=== PATIENT | female | born 1985 | race African-American/Black ===

== ENCOUNTER 2018-12-08 22:16 | Emergency (ER) | payer OTHER ==
[~2018-12-08] VITALS: Ht 165.1 cm; Wt 136.1 kg
[~2018-12-08 22:16] MED LIST: MONTELUKAST SOD10 MG PO; RANITIDINE HCL150 MG PO; SYMBICORT 16010.2 GM INH; XOPENEX HFA15 GM INH; ZOFRAN ODT4 MG SL
--- OUTSIDE RECORDS SUMMARY | 2018-12-08 22:18 | XMS REPORT | Clinical Summary ---
Author Author [facility] Organization [facility] Address Unknown Phone Unavailable Care Team Providers Care Master In Chancery Name Role Phone PCP Unavailable Allergies Not on File Medications Not on file Active Problems Not on file Encounters Care Team Description Date Type Specialty 05/27/2018 Clinical Corporate Wellness Support after 12/07/2017 Immunizations Name Dates Previously Given Next Due FLUCELVAX QUAD PF (0.5mL 05/27/2018 syringe) Social History Date Tobacco Use Types Packs/Day Years Used Never Assessed Sex Assigned at Date Recorded Not on file Industry Job Start Date Occupation Not on file Not on file Not on file Travel End Travel History Travel Start No recent travel history available. Last Filed Vital Signs Not on file Plan of Treatment Health Maintenance Due Date Last Done Comments CERVICAL CANCER SCREENING 2006 INFLUENZA VACCINE 04/06/2019 05/27/2018 Results Not on fileafter 12/07/2017 Insurance Payer Benefit Subscriber ID Type Phone Address Plan / Group CIGNA CIGNA OPEN xxxxxxxxxxx HMO ACCESS/NET WORK Advance Directives Patient has advance care planning documents on file. For more information, [place] nielson contact: Mauro Hollis [address] [place] [address]
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
--- OUTSIDE RECORDS SUMMARY | 2018-12-08 22:24 | XMS REPORT | Continuity of Care Document ---
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 40 mg, 2 tab, Route: PO, Drug form: TAB, ONCE, Dosing Weight 127.273, kg, Start date: 06/12/13 19:08:00, Stop date: 06/12/13 19:08:00Take with food. Inactive Juanjo 06/13/2013 [facility] meclizine 12.5 mg oral tablet 12.5 mg, 1 tab, PO, TID, PRN, 60 tab, for dizziness, Substitution Allowed, TAB Active Juanjo 06/12/2013 [facility] METRONIDazole 500 mg oral tablet 500 mg, 1 tab, PO, Q8H, 21 tab, Substitution Allowed Active Juanjo 06/12/2013 [facility] Cipro 500 mg oral tablet 500 mg, 1 tab, PO, Q12H, 14 tab, Substitution Allowed, TAB Active Juanjo 06/12/2013 [facility] meclizine 12.5 mg, 1 tab, Route: PO, Drug form: TAB, TID, Dosing Weight 127.273, kg, PRN Dizziness, Start date: 06/12/13 12:15:00, Duration: 30 day, Stop date: 07/12/13 12:14:00(Same as: Antivert) No Longer Active Juanjo 06/12/2013 [facility] meclizine 12.5 mg, Route: PO, Drug form: TAB, TID, Dosing Weight 127.273, kg, PRN Nausea & Vomiting, Start date: 06/12/13 12:14:00, Duration: 30 day, Stop date: 07/12/13 12:13:00 Inactive [facility] 06/12/2013 [facility] HYDROcodone-ibuprofen 7.5 mg-200 mg oral tablet 1 tab, Route: PO, Drug Form: TAB, Dosing Weight 127.273, kg, Q6H, PRN Pain, Start date: 06/11/13 15:38:00, Duration: 30 day, Stop date: 07/11/13 15:37:00(Same as: Vicoprofen) No Longer Active Munoz 06/11/2013 [facility] Nexium 40 mg, Route: PO, Daily, Dosing Weight 127.273, kg, Start date: 06/11/13 9:00:00, Duration: 30 day, Stop date: 07/10/13 9:00:00 No Longer Active Tegan 06/11/2013 [facility] Pepcid 40 mg oral tablet 40 mg, 2 tab, Route: PO, Drug form: TAB, Q12H, Dosing Weight 127.273, kg, Start date: 06/10/13 21:00:00, Duration: 30 day, Stop date: 07/10/13 9:00:00(Same as: Pepcid) No Longer Active Tegan 06/11/2013 [facility] Questran 4 gm, 1 pkt, Route: PO, Drug form: PDR/REC, TID- Before Meals, Dosing Weight 127.273, kg, Start date: 06/10/13 11:30:00, Duration: 30 day, Stop date: 07/10/13 7:30:00(Same As: Questran) No Longer Active Tegan 06/10/2013 [facility] Benadryl 50 mg, 1 mL, Route: IV, Drug form: INJ, Q6H, Dosing Weight 127.273, kg, PRN as needed for itching, Start date: 06/09/13 20:18:00, Duration: 30 day, Stop date: 07/09/13 20:17:00(Same as: Benadryl) No Longer Active Juanjo 06/10/2013 [facility] Benadryl 25 mg, 0.5 mL, Route: IVP, Drug form: INJ, ONCE, Dosing Weight 127.273, kg, PRN Itching, Priority: NOW, Start date: 06/09/13 20:17:00(Same as: Benadryl) Inactive Juanjo 06/10/2013 [facility] Microzide 12.5 mg, 1 cap, Route: PO, Drug form: CAP, Daily, Start date: 06/09/13 12:00:00, Duration: 30 day, Stop date: 07/09/13 9:00:00(Same as: Microzide) With food. No Longer Active Juanjo 06/09/2013 [facility] Flagyl 500 mg, 100 mL, Route: IVPB, Drug form: INJ, [id number], Dosing Weight 127.273, kg, Start date: 06/09/13 12:00:00, Duration: 30 day, Stop date: 07/09/13 0:00:00(Same as: Flagyl) Avoid alcohol. No Longer Active Juanjo 06/09/2013 [facility] Cipro 400 mg, 200 mL, Route: IVPB, Drug form: INJ, [id number], Dosing Weight 127.273, kg, Start date: 06/09/13 10:00:00, Duration: 30 day, Stop date: 07/08/13 22:00:00Do not refrigerate No Longer Active Juanjo 06/09/2013 [facility] albuterol 1.25 mg, 3 mL, Route: NEB, Drug form: SOLN, RTID, PRN Shortness of breath, Start date: 06/09/13 9:46:00, Duration: 30 day, Stop date: 07/09/13 9:45:00SEE RT DOCUMENTATION (Same as: Proventil) No Longer Active Juanjo 06/09/2013 [facility] Protonix 40 mg, Route: IVP, Daily, Dosing Weight 127.273, kg, Start date: 06/09/13 9:00:00, Duration: 30 day, Stop date: 07/08/13 9:00:00 No Longer Active Juanjo 06/09/2013 [facility] Nexium 40 mg, Route: IVP, Daily, Dosing Weight 127.273, kg, Start date: 06/09/13 9:00:00, Duration: 30 day, Stop date: 07/08/13 9:00:00, For IV push reconstitute with 10 ml 0.9% sodium chloride and push over at least 3 minutes.For IV push reconstitute with 10 ml 0.9% sodium chloride and push over at least 3 minutes. No Longer Active Juanjo 06/09/2013 [facility] hydrochlorothiazide 25 mg oral tablet 12.5 mg, 1 cap, Route: PO, Drug form: CAP, Daily, Dosing Weight 127.273, kg, Start date: 06/09/13 9:00:00, Duration: 30 day, Stop date: 07/08/13 9:00:00(Same as: Microzide) With food. Inactive Juanjo 06/09/2013 [facility] Symbicort 160/4.5 inhalation aerosol with adapter 2 inhalation, Route: INHALATION, Drug Form: AERO/A, Dosing Weight 127.273, kg, BID, Start date: 06/09/13 9:00:00, Duration: 30 day, Stop date: 07/08/13 17:00:00(Same as: Symbicort) No Longer Active Juanjo 06/09/2013 [facility] Xopenex HFA 2 puff, Route: INHALATION, Drug Form: AERO/A, Dosing Weight 127.273, kg, TID, PRN Allergies, Start date: 06/09/13 8:40:00, Duration: 30 day, Stop date: 07/09/13 8:39:00 Inactive [facility] 06/09/2013 [facility] Benadryl 25 mg, 0.5 mL, Route: IV, Drug form: INJ, Q6H, Dosing Weight 127.273, kg, PRN as needed for itching, Priority: NOW, Start date: 06/08/13 21:22:00, Duration: 30 day, Stop date: 07/08/13 21:21:00(Same as: Benadryl) No Longer Active Juanjo 06/09/2013 [facility] Benadryl 25 mg, 1 tab, Route: PO, Drug form: TAB, Q6H, Dosing Weight 127.273, kg, PRN as needed for itching, Priority: NOW, Start date: 06/08/13 20:05:00, Duration: 30 day, Stop date: 07/08/13 20:04:00 Inactive Juanjo 06/09/2013 [facility] Saline Flush 0.9% 5 ml, Route: IVP, Drug Form: INJ, Dosing Weight 127.273, kg, PRN, PRN Line Flush, Start date: 06/08/13 18:51:00, Duration: 30 day, Stop date: 07/08/13 18:50:00(Same as: BD Posiflush) No Longer Active Juanjo 06/08/2013 [facility] Dextrose 5% with 0.45% NaCl IV 1,000 mL 1,000 mL, Rate: 125 ml/hr, Infuse over: 8 hr, Route: IV, Dosing Weight 127.273 kg, Total Volume: 1,000, Start date: 06/08/13 18:51:00, Duration: 30 day, Stop date: 07/08/13 18:50:00 Inactive Juanjo 06/08/2013 [facility] morphine Sulfate 4 mg, 2 mL, Route: IVP, Drug form: INJ, Q4H, Dosing Weight 127.273, kg, PRN Pain Score 7-10, Start date: 06/08/13 18:51:00, Duration: 30 day, Stop date: 07/08/13 18:50:00(Same as:MORPhine Sulfate) No Longer Active Cynthia 06/08/2013 [facility] ondansetron 4 mg, 2 mL, Route: IVP, Drug form: INJ, Q8H, Dosing Weight 127.273, kg, PRN Nausea & Vomiting, Start date: 06/08/13 18:51:00, Duration: 30 day, Stop date: 07/08/13 18:50:00(Same as: Zofran) No Longer Active Juanjo 06/08/2013 [facility] Benadryl 12.5 mg, Route: IV, ONCE, Dosing Weight 127.273, kg, Start date: 06/08/13 18:06:00, Stop date: 06/08/13 18:06:00 [facility] morphine Sulfate 4 mg, Route: IVP, ONCE, Dosing Weight 127.273, kg, Start date: 06/08/13 18:05:00, Stop date: 06/08/13 18:05:00 Inactive Raúljennifer 06/08/2013 [facility] Protonix 40 mg, Route: IVP, Drug form: INJ, Before Dinner, Start date: 06/08/13 18:00:00, Duration: 30 day, Stop date: 07/08/13 16:30:00For IV push reconstitute with 10 ml 0.9% sodium chloride and push over 2 minutes. (Same as: Protonix) No Longer Active Tegan 06/08/2013 [facility] Imodium A-D 2 mg, 1 tab, Route: PO, Drug form: TAB, Q4H, Dosing Weight 127.273, kg, PRN as needed for loose stool, Start date: 06/08/13 16:00:00, Duration: 30 day, Stop date: 07/08/13 15:59:00(Same as: Imodium A-D) MAX Adult dose is 8 tabs/day No Longer Active Juanjo 06/08/2013 [facility] D5NS + KCL 20mEq/L 1000ml (Premix) 1,000 mL 1,000 mL, Rate: 100 ml/hr, Infuse over: 10 hr, Route: IV, Dosing Weight 127.273 kg, Total Volume: 1,000, Start date: 06/08/13 16:00:00, Duration: 30 day, Stop date: 07/08/13 15:59:00PREMIX IV - Do Not Alter No Longer Active Juanjo 06/08/2013 [facility] Zofran 4 mg, 2 mL, Route: IV, Drug form: INJ, Q8H, Dosing Weight 127.273, kg, PRN Nausea, Start date: 06/08/13 16:00:00, Duration: 30 day, Stop date: 07/08/13 15:59:00(Same as: Zofran) No Longer Active Juanjo 06/08/2013 [facility] Pepcid 20 mg, 2 mL, Route: IVP, Drug form: INJ, ONCE, Dosing Weight 127.273, kg, Start date: 06/08/13 15:29:00, Stop date: 06/08/13 15:29:00(Same as: Pepcid) Can be dilute in 5-10cc NS IVP: Slow IV push over at least 2 minutes. Inactive Cynthia 06/08/2013 [facility] SoluMedrol 125 mg, 2 mL, Route: IVP, Drug form: INJ, ONCE, Dosing Weight 127.273, kg, Priority: STAT, Start date: 06/08/13 15:28:00, Stop date: 06/08/13 15:28:00(Same as:Solu-Medrol, A-Methapred) Inactive [facility] 06/08/2013 [facility] Benadryl 12.5 mg, Route: IVP, ONCE, Dosing Weight 127.273, kg, Priority: STAT, Start date: 06/08/13 14:56:00, Stop date: 06/08/13 14:56:00 Inactive Mormon 06/08/2013 [facility] Zofran 4 mg, Route: IVP, ONCE, Dosing Weight 127.273, kg, Priority: STAT, Start date: 06/08/13 13:32:00, Stop date: 06/08/13 13:32:00 Inactive [facility] 06/08/2013 [facility] Dilaudid 1 mg, Route: IV, ONCE, Dosing Weight 127.273, kg, Priority: STAT, Start date: 06/08/13 13:32:00, Stop date: 06/08/13 13:32:00 Inactive [facility] 06/08/2013 [facility] morphine Sulfate 4 mg, Route: IVP, ONCE, Dosing Weight 127.273, kg, Priority: STAT, Start date: 06/08/13 11:47:00, Stop date: 06/08/13 11:47:00 Inactive [facility] 06/08/2013 [facility] morphine Sulfate 4 mg, Route: IVP, ONCE, Dosing Weight 127.273, kg, Priority: STAT, Start date: 06/08/13 9:42:00, Stop date: 06/08/13 9:42:00 Inactive [facility] 06/08/2013 [facility] Zofran 4 mg, Route: IVP, ONCE, Dosing Weight 127.273, kg, Priority: STAT, Start date: 06/08/13 9:17:00, Stop date: 06/08/13 9:17:00 Inactive [facility] 06/08/2013 [facility] Sodium Chloride 0.9% (Bolus) IV 1000 mL 1,000 mL, Rate: 100 ml/hr, Infuse over: 10 hr, Route: IV, Dosing Weight 127.273 kg, Total Volume: 1,000, Priority: STAT, Start date: 06/08/13 9:17:00, Stop date: 06/08/13 9:17:00, Bolus DoseBolus Dose Inactive [facility] 06/08/2013 [facility] Valium 5 mg, Route: IVP, Drug form: INJ, ONCE, Dosing Weight 122.727, kg, Priority: STAT, Start date: 04/21/13 14:56:00, Stop date: 04/21/13 14:56:00 IVP No Longer Active [facility] 04/21/2013 [facility] Gaylord 7.5/325 oral tablet 1-2 tab, PO, Q4-6H, PRN, 12 tab, Pain, Substitution Allowed, Maintenance PO Active [facility] 04/21/2013 [facility] Toradol 15 mg/mL injectable solution 30 mg, 1 mL, Route: IV, Drug form: INJ, ONCE, Dosing Weight 122.727, kg, Start date: 04/21/13 13:58:00, Stop date: 04/21/13 13:58:00 IV No Longer Active [facility] 04/21/2013 [facility] aspirin 324 mg, 4 tab, Route: CHEW, Drug form: CHEWTAB, ONCE, Dosing Weight 122.727, kg, Priority: STAT, Start date: 04/21/13 13:58:00, Stop date: 04/21/13 13:58:00 CHEW No Longer Active [facility] 04/21/2013 [facility] Zofran 4 mg, Route: IVP, Drug form: INJ, ONCE, Dosing Weight 122.727, kg, Priority: STAT, Start date: 04/21/13 13:47:00, Stop date: 04/21/13 13:47:00 IVP No Longer Active [facility] 04/21/2013 [facility] morphine Sulfate 4 mg, Route: IVP, Drug form: INJ, ONCE, Dosing Weight 122.727, kg, Priority: STAT, Start date: 04/21/13 13:47:00, Stop date: 04/21/13 13:47:00 IVP No Longer Active [facility] 04/21/2013 [facility] Zofran 4 mg, Route: IVP, Drug form: INJ, ONCE, Dosing Weight 122.727, kg, Priority: STAT, Start date: 04/21/13 12:03:00, Stop date: 04/21/13 12:03:00 IVP No Longer Active [facility] 04/21/2013 [facility] morphine Sulfate 4 mg, Route: IVP, Drug form: INJ, ONCE, Dosing Weight 122.727, kg, Priority: STAT, Start date: 04/21/13 12:03:00, Stop date: 04/21/13 12:03:00 IVP No Longer Active [facility] 04/21/2013 [facility] DuoNeb inhalation solution 3 ml, Route: INHALATION, Drug Form: SOLN, Dosing Weight 122.727, kg, PRN, PRN Respiratory Protocol, Start date: 04/21/13 12:02:00, Duration: 30 day, Stop date: 05/21/13 12:01:00 INHALATION No Longer Active [facility] 04/21/2013 [facility] NS (Bolus) IV 500 mL 500 mL, Rate: 500 ml/hr, Infuse over: 1 hr, Route: IV, Dosing Weight 122.727 kg, Total Volume: 500, Priority: STAT, Start date: 04/21/13 11:43:00, Duration: 1 doses or times, Stop date: 04/21/13 12:42:00, Bolus DoseBolus Dose IV No Longer Active [facility] 04/21/2013 [facility] Saline Flush 0.9% 5 mL, Route: IVP, Drug Form: INJ, Dosing Weight 122.727, kg, Q8H, PRN Line Flush, Start date: 04/21/13 11:38:00, Duration: 30 day, Stop date: 05/21/13 11:37:00, Administer at least once every 8 hoursAdminister at least once every 8 hours IVP No Longer Active [facility] 04/21/2013 [facility] Zofran ODT 4 mg oral tablet, disintegrating 4 mg, 1 tab, PO, BID, PRN, Dissolve tab under tongue, 10 tab, Nausea and Vomiting, Substitution AllowedDissolve tab under tongue PO Active Short 03/22/2013 [facility] Bentyl 10 mg oral capsule 10 mg, 1 cap, PO, QID, 28 cap, Substitution Allowed, CAP PO Active Short 03/22/2013 [facility] Phenergan 12.5 mg, Route: IVPB, ONCE, Dosing Weight 126.364, kg, Priority: STAT, Start date: 03/22/13 11:26:00, Stop date: 03/22/13 11:26:00 IVPB No Longer Active Short 03/22/2013 [facility] morphine Sulfate 4 mg, Route: IVP, Drug form: INJ, ONCE, Dosing Weight 126.364, kg, Priority: STAT, Start date: 03/22/13 11:22:00, Stop date: 03/22/13 11:22:00 IVP No Longer Active Short 03/22/2013 [facility] Zofran 4 mg, Route: IVP, Drug form: INJ, ONCE, Dosing Weight 126.364, kg, Priority: STAT, Start date: 03/22/13 9:46:00, Stop date: 03/22/13 9:46:00 IVP No Longer Active Short 03/22/2013 [facility] morphine Sulfate 4 mg, Route: IVP, ONCE, Dosing Weight 126.364, kg, Start date: 03/22/13 9:40:00, Stop date: 03/22/13 9:40:00 IVP No Longer Active Short 03/22/2013 [facility] Phenergan 12.5 mg, Route: IVPB, ONCE, Dosing Weight 126.364, kg, Priority: STAT, Start date: 03/22/13 9:40:00, Stop date: 03/22/13 9:40:00 IVPB No Longer Active Short 03/22/2013 [facility] NS (Bolus) IV 1000 mL 1,000 mL, Rate: 1,000 ml/hr, Infuse over: 1 hr, Route: IV, Dosing Weight 126.364 kg, Total Volume: 1,000, Priority: STAT, Start date: 03/22/13 9:39:00, Duration: 1 doses or times, Stop date: 03/22/13 10:38:00, Bolus DoseBolus Dose IV No Longer Active Short 03/22/2013 [facility] Zofran 4 mg, Route: IVP, Drug form: INJ, ONCE, Dosing Weight 126.364, kg, Priority: STAT, Start date: 03/22/13 8:20:00, Stop date: 03/22/13 8:20:00 IVP No Longer Active Short 03/22/2013 [facility] DuoNeb inhalation solution 3 ml, Route: INHALATION, Drug Form: SOLN, Dosing Weight 126.364, kg, PRN, PRN Respiratory Protocol, Start date: 03/22/13 7:40:00, Duration: 30 day, Stop date: 04/21/13 7:39:00 INHALATION No Longer Active Short 03/22/2013 [facility] Naprosyn 500 mg oral tablet 500 mg, 1 tab, PO, BID, 14 tab, Substitution Allowed, TAB PO Active [facility] 07/18/2012 [facility] Flexeril 10 mg oral tablet 10 mg, 1 tab, PO, TID, PRN, 15 tab, for spasm, Substitution Allowed, TAB PO Active [facility] 07/18/2012 [facility] acetaminophen-hydrocodone 500 mg-5 mg oral tablet 1-2 tab, PO, Q4-6H, PRN, 15 tab, Pain, Substitution Allowed, Maintenance PO Active [facility] 07/18/2012 [facility] Flexeril 10 mg, Route: PO, Drug form: TAB, ONCE, Dosing Weight 127.273, kg, PRN Spasm, Start date: 07/18/12 10:39:00 PO No Longer Active [facility] 07/18/2012 [facility] DuoNeb inhalation solution 3 ml, Route: INHALATION, Drug Form: SOLN, Dosing Weight 127.273, kg, ONCE, Start date: 07/18/12 8:34:00, Stop date: 07/18/12 8:34:00 INHALATION No Longer Active [facility] 07/18/2012 [facility] Toradol 30 mg/mL injectable solution 60 mg, Route: IM, ONCE, Dosing Weight 127.273, kg, Start date: 07/18/12 8:33:00, Stop date: 07/18/12 8:33:00 IM No Longer Active [facility] 07/18/2012 [facility] acetaminophen-hydrocodone 325 mg-5 mg oral tablet 1 tab, Route: PO, Drug Form: TAB, Dosing Weight 127.273, kg, ONCE, STAT, Start date: 07/18/12 8:32:00, Stop date: 07/18/12 8:32:00 PO No Longer Active Avivak 07/18/2012 [facility] Tylenol 650 mg, Route: PO, ONCE, Dosing Weight 127.273, kg, Priority: STAT, Start date: 07/18/12 8:07:00, Stop date: 07/18/12 8:07:00 PO No Longer Active Castano 07/18/2012 [facility] Flexeril 10 mg oral tablet 10 mg, 1 tab, PO, TID, PRN, 30 tab, Spasm, Substitution Allowed, TAB PO Active Mougjoseph 03/15/2012 [facility] Flexeril 10 mg, 1 tab, Route: PO, Drug form: TAB, TID, PRN Spasm, Start date: 03/15/12 14:47:00, Duration: 30 day, Stop date: 04/14/12 14:46:00 PO No Longer Active Momalik 03/15/2012 [facility] Symbicort 160/4.5 inhalation aerosol with adapter 2 inhalation, Route: INHALATION, Drug Form: AERO/A, Daily, Start date: 03/15/12 9:00:00, Duration: 30 day, Stop date: 04/13/12 9:00:00 INHALATION No Longer Active Celena 03/15/2012 [facility] SoluMedrol 20 mg, 0.5 mL, Route: IV, Drug form: INJ, Q8H, Start date: 03/15/12 0:00:00, Duration: 30 day, Stop date: 04/13/12 16:00:00 IV No Longer Active Celena 03/15/2012 [facility] Tylenol 650 mg, 2 tab, Route: PO, Drug form: TAB, Q4H, PRN See Nurse's Notes, Start date: 03/14/12 23:40:00, Duration: 30 day, Stop date: 04/13/12 23:39:00 PO No Longer Active Mignon 03/15/2012 [facility] ketorolac 15 mg, 1 mL, Route: IV, Drug form: INJ, Q6H, PRN Pain, Start date: 03/14/12 23:39:00, Duration: 4 doses or times, Stop date: Limited # of times IV No Longer Active Mignon 03/15/2012 [facility] Xopenex 0.63 mg, 3 mL, Route: NEB, Drug form: SOLN, RTID, Start date: 03/14/12 20:00:00, Duration: 30 day, Stop date: 04/13/12 14:00:00 NEB No Longer Active Mougouris 03/15/2012 [facility] Ativan 1 mg, 0.5 mL, Route: IV, Drug form: INJ, Q8H, PRN as needed for anxiety, Start date: 03/14/12 17:19:00, Duration: 30 day, Stop date: 04/13/12 17:18:00 IV No Longer Active Mougouris 03/14/2012 [facility] SoluMedrol 20 mg, 0.5 mL, Route: IV, Drug form: INJ, ONCE, Priority: STAT, Start date: 03/14/12 17:17:00, Stop date: 03/14/12 17:17:00 IV No Longer Active Mougouris 03/14/2012 [facility] Xopenex HFA 2 puff, Route: INHALATION, Drug Form: AERO/A, TID, Start date: 03/14/12 17:00:00, Duration: 30 day, Stop date: 04/13/12 13:00:00 INHALATION No Longer Active Mougouris 03/14/2012 [facility] enoxaparin 40 mg, 0.4 mL, Route: SUB-Q, Drug form: INJ, [id number], Start date: 03/14/12 15:00:00, Duration: 30 day, Stop date: 04/13/12 3:00:00 SUB-Q No Longer Active Mougouris 03/14/2012 [facility] Levaquin 500 mg, 100 mL, Route: IVPB, Drug form: INJ, [id number], Start date: 03/14/12 15:00:00, Duration: 30 day, Stop date: 04/12/12 15:00:00 IVPB No Longer Active Mougouris 03/14/2012 [facility] hydrochlorothiazide 25 mg oral tablet 25 mg, 1 tab, Route: PO, Drug form: TAB, Daily, Start date: 03/14/12 14:30:00, Duration: 30 day, Stop date: 04/13/12 9:00:00 PO No Longer Active Mougouris 03/14/2012 [facility] Benadryl 25 mg, 0.5 mL, Route: IV, Drug form: INJ, Q8H, PRN as needed for itching, Start date: 03/14/12 14:24:00, Duration: 30 day, Stop date: 04/13/12 14:23:00 IV No Longer Active Mougouris 03/14/2012 [facility] Phenergan + Sodium Chloride 0.9% IV 20 mL 12.5 mg, 0.5 mL, Route: IVP Central, Q6H, PRN Nausea & Vomiting, Start date: 03/14/12 14:22:00, Duration: 30 day, Stop date: 04/13/12 14:21:00 IVP Central No Longer Active Mougouris 03/14/2012 [facility] Dilaudid 2 mg, 1 mL, Route: IV, Drug form: INJ, Q3H, PRN Pain, Start date: 03/14/12 14:22:00, Duration: 30 day, Stop date: 04/13/12 14:21:00 IV No Longer Active Mougouris 03/14/2012 [facility] albuterol 0.083% inhalation solution 2.5 mg, 3.01 mL, Route: NEB, Drug form: SOLN, RQ6H, PRN Wheezing, Start date: 03/14/12 14:19:00, Duration: 30 day, Stop date: 04/13/12 14:18:00 NEB No Longer Active Mougouris 03/14/2012 [facility] Benadryl 25 mg, 0.5 mL, Route: IVP, Drug form: INJ, ONCE, PRN Itching, Start date: 03/14/12 11:42:00 IVP No Longer Active Mougouris 03/14/2012 [facility] Saline Flush 0.9% 5 ml, Route: IVP, Drug Form: INJ, PRN, PRN Line Flush, Start date: 03/13/12 23:27:00, Duration: 30 day, Stop date: 04/12/12 23:26:00 IVP No Longer Active Odilia 03/14/2012 [facility] Sodium Chloride 0.9% IV 1,000 mL 1,000 mL, Rate: 125 ml/hr, Infuse over: 8 hr, Route: IV, Dosing Weight 128.636 kg, Total Volume: 1,000, Start date: 03/13/12 23:27:00, Duration: 30 day, Stop date: 04/12/12 23:26:00 IV No Longer Active Odilia 03/14/2012 [facility] morphine Sulfate 4 mg, 2 mL, Route: IVP, Drug form: INJ, Q4H, PRN Pain Score 7-10, Start date: 03/13/12 23:27:00, Duration: 30 day, Stop date: 04/12/12 23:26:00 IVP No Longer Active Mougouris 03/14/2012 [facility] ondansetron 4 mg, 2 mL, Route: IVP, Drug form: INJ, Q6H, PRN Nausea & Vomiting, Start date: 03/13/12 23:27:00, Duration: 30 day, Stop date: 04/12/12 23:26:00 IVP No Longer Active Mougouris 03/14/2012 [facility] Vicodin 5/500 oral tablet 1 tab, PO, Q6H, PRN, for dental pain, Substitution Allowed, Soft Stop, TAB PO Active 03/14/2012 [facility] hydrochlorothiazide 25 mg oral tablet 25 mg, 1 tab, PO, Daily, 30 tab, Substitution Allowed PO Active Mougouris 03/14/2012 [facility] METRONIDazole 500 mg oral tablet 500 mg, 1 tab, PO, Q12H, 21 tab, Substitution Allowed PO Active 03/14/2012 [facility] Zofran ODT 4 mg, 1 tab, Route: PO, Drug form: TABDIS, ONCE, Start date: 03/13/12 22:06:00, Stop date: 03/13/12 22:06:00 PO No Longer Active Odilia 03/14/2012 [facility] Dilaudid 1 mg, 1 mL, Route: IV, Drug form: SOLN, ONCE, Start date: 03/13/12 22:06:00, Stop date: 03/13/12 22:06:00 IV No Longer Active Odilia 03/14/2012 [facility] Phenergan + Sodium Chloride 0.9% IV 50 mL 12.5 mg, 0.5 mL, Route: IVPB, ONCE, PRN as needed for nausea/vomiting, Priority: STAT, Start date: 03/13/12 18:02:00 IVPB No Longer Active Odilia 03/13/2012 [facility] Dilaudid 1 mg, Route: IV, ONCE, Start date: 03/13/12 18:01:00, Stop date: 03/13/12 18:01:00 IV No Longer Active Odilia 03/13/2012 [facility] Zofran ODT 4 mg oral tablet, disintegrating 4 mg, 1 tab, PO, TID, PRN, 10 tab, Nausea and Vomiting, Substitution Allowed PO Active Mormon 01/09/2012 [facility] Gaylord 5/325 oral tablet 1-2 tab, PO, Q4-6H, PRN, 15 tab, Pain, Substitution Allowed, Maintenance PO Active Mormon 01/09/2012 [facility] Nexium 40 mg oral delayed release capsule 40 mg, 1 cap, PO, Daily, 90 cap, Substitution Allowed PO Active Mormon 01/09/2012 [facility] morphine Sulfate 4 mg, 2 mL, Route: IVP, Drug form: INJ, ONCE, Priority: STAT, Start date: 01/09/12 4:12:00, Stop date: 01/09/12 4:12:00 IVP No Longer Active Mormon 01/09/2012 [facility] pantoprazole 40 mg, Route: IVP, ONCE, For IV push reconstitute with 10 ml 0.9% sodium chloride and push over at least 3 minutes, Priority: STAT, Start date: 01/09/12 1:59:00, Stop date: 01/09/12 1:59:00 IVP No Longer Active Mormon 01/09/2012 [facility] morphine Sulfate 2 mg, Route: IVP, ONCE, Priority: STAT, Start date: 01/09/12 1:59:00, Stop date: 01/09/12 1:59:00 IVP No Longer Active [facility] 01/09/2012 [facility] ondansetron 4 mg, Route: IVP, ONCE, Priority: STAT, Start date: 01/09/12 1:59:00, Stop date: 01/09/12 1:59:00 IVP No Longer Active [facility] 01/09/2012 [facility] Sodium Chloride 0.9% (Bolus) IV 1,000 mL 1,000 mL, Rate: 1,000 ml/hr, Infuse over: 1 hr, Route: IV, kg, Total Volume: 1,000, Bolus dose, Priority: STAT, Start date: 01/09/12 1:59:00, Duration: 1 doses or times, Stop date: 01/09/12 2:58:00 IV No Longer Active Mormon 01/09/2012 [facility] Saline Flush 0.9% 5 ml, Route: IVP, Drug Form: INJ, PRN, PRN Line Flush, Start date: 01/09/12 1:59:00, Duration: 24 hr, Stop date: 01/10/12 1:58:00 IVP No Longer Active Mormon 01/09/2012 [facility] Tylenol with Codeine #3 oral tablet 1 - 2 tab, PO, Q4H, PRN, 2 day, 20 tab, Pain, Substitution Allowed, 12/12/11 18:47:01, Acute PO Active Pena 12/10/2011 [facility] Cipro 500 mg oral tablet 500 mg, 1 tab, PO, Q12H, 14 tab, Substitution Allowed, TAB PO Active Pena 12/10/2011 [facility] Phenergan 25 mg oral tablet 25 mg, 1 tab, PO, Q4H, PRN, 15 tab, Nausea, Substitution Allowed PO Active Pena 12/10/2011 [facility] Rocephin 1 g/ NS (NaCl 0.9%) 50 mL IV solution 1 gm, Route: IVPB, Drug form: PDR/INJ, ONCE, Priority: STAT, Start date: 12/10/11 18:45:00, Stop date: 12/10/11 18:45:00 IVPB No Longer Active Pena 12/10/2011 [facility] Sodium Chloride 0.9% (Bolus) IV 1,000 mL 1,000 mL, Rate: 1,000 ml/hr, Infuse over: 1 hr, Route: IV, Dosing Weight 130.9 kg, Total Volume: 1,000, Priority: STAT, Start date: 12/10/11 16:28:00, Duration: 1 doses or times, Stop date: 12/10/11 17:27:00, Bolus DoseBolus Dose IV No Longer Active Pena 12/10/2011 [facility] Dilaudid 0.5 mg, Route: IV, ONCE, Priority: STAT, Start date: 12/10/11 13:54:00, Stop date: 12/10/11 13:54:00 IV No Longer Active Pena 12/10/2011 [facility] Phenergan 25 mg, Route: IVPB, ONCE, PRN Nausea, Priority: STAT, Start date: 12/10/11 13:53:00 IVPB No Longer Active Pena 12/10/2011 [facility] NS (Bolus) IV 1,000 mL 1,000 mL, Rate: 100 ml/hr, Infuse over: 10 hr, Route: IV, Dosing Weight 130.9 kg, Total Volume: 1,000, Start date: 12/10/11 11:13:00, Duration: 30 day, Stop date: 01/09/12 11:12:00 IV No Longer Active Selvin 12/10/2011 [facility] acetaminophen 650 mg, Route: PO, Drug form: TAB, ONCE, Priority: STAT, Start date: 12/10/11 11:13:00, Stop date: 12/10/11 11:13:00 PO No Longer Active Selvin 12/10/2011 [facility] morphine Sulfate 4 mg, Route: IVP, ONCE, Start date: 12/10/11 7:57:00, Stop date: 12/10/11 7:57:00 IVP No Longer Active Pena 12/10/2011 [facility] Sodium Chloride 0.9% (Bolus) IV 1000 mL 1,000 mL, Rate: 1,000 ml/hr, Infuse over: 1 hr, Route: IV, kg, Total Volume: 1,000, Priority: STAT, Start date: 12/10/11 7:57:00, Duration: 1 doses or times, Stop date: 12/10/11 8:56:00, Bolus DoseBolus Dose IV No Longer Active Pena 12/10/2011 [facility] Zofran ODT 4 mg, Route: PO, Drug form: TABDIS, ONCE, Start date: 12/10/11 7:57:00, Stop date: 12/10/11 7:57:00 PO No Longer Active Pena 12/10/2011 [facility] Saline Flush 0.9% 5 ml, Route: IVP, Drug Form: INJ, PRN, PRN Line Flush, Start date: 12/10/11 7:57:00, Duration: 24 hr, Stop date: 12/11/11 7:56:00 IVP No Longer Active Pena 12/10/2011 [facility] acetaminophen-hydrocodone 325 mg-5 mg oral tablet 1 tab, PO, Q4H, PRN, 9 tab, for pain, Substitution Allowed, Maintenance, TAB PO Active Puhi 11/19/2011 [facility] Gaylord 7.5/325 oral tablet 1 tab, Route: PO, Drug Form: TAB, Q4H, PRN Pain, STAT, Start date: 11/19/11 2:05:00, Duration: 30 day, Stop date: 12/19/11 2:04:00 PO No Longer Active Puhi 11/19/2011 [facility] morphine Sulfate 4 mg, Route: IVP, ONCE, Priority: STAT, Start date: 11/18/11 23:19:00, Stop date: 11/18/11 23:19:00 IVP No Longer Active Rachel 11/19/2011 [facility] Sodium Chloride 0.9% (Bolus) IV 1000 mL 1,000 mL, Rate: 1,000 ml/hr, Infuse over: 1 hr, Route: IV, kg, Total Volume: 1,000, Bolus Dose, Priority: STAT, Start date: 11/18/11 21:38:00, Duration: 1 doses or times, Stop date: 11/18/11 22:37:00 IV No Longer Active Puhi 11/19/2011 [facility] ondansetron 4 mg, Route: IVP, ONCE, Priority: STAT, Start date: 11/18/11 21:38:00, Stop date: 11/18/11 21:38:00 IVP No Longer Active Puhi 11/19/2011 [facility] Saline Flush 0.9% 5 ml, Route: IVP, Drug Form: INJ, PRN, PRN Line Flush, Start date: 11/18/11 21:38:00, Duration: 24 hr, Stop date: 11/19/11 21:37:00 IVP No Longer Active Puhi 11/19/2011 [facility] acetaminophen-codeine #3 1 tab, Route: PO, ONCE, STAT, Start date: 11/03/11 11:33:00, Stop date: 11/03/11 11:33:00 PO No Longer Active [facility] 11/03/2011 [facility] ondansetron 4 mg, Route: PO, Drug form: TABDIS, ONCE, Priority: STAT, Start date: 11/03/11 11:32:00, Stop date: 11/03/11 11:32:00 PO No Longer Active [facility] 11/03/2011 [facility] Azithromycin 5 Day Dose Pack 250 mg oral tablet 250 mg, 1 tab, PO, Daily, 1 pkg, Substitution Allowed, TAKE 2 TABLETS ON DAY 1; TAKE 1 TABLET ON DAYS 2 - 5TAKE 2 TABLETS ON DAY 1; TAKE 1 TABLET ON DAYS 2 - 5 PO Active [facility] 11/03/2011 [facility] azithromycin 500 mg oral tablet 1 tab, Route: PO, ONCE, Start date: 11/03/11 10:01:00, Stop date: 11/03/11 10:01:00 PO No Longer Active [facility] 11/03/2011 [facility] ceftriaxone 1 gm, Route: IM, ONCE, Priority: STAT, Start date: 11/03/11 10:00:00, Stop date: 11/03/11 10:00:00 IM No Longer Active [facility] 11/03/2011 [facility] ProAir HFA 90 mcg/inh inhalation aerosol with adapter 2 puff, INHALATION, Q4H, PRN, 9 gm, for wheezing, Substitution Allowed, Maintenance, AERO INHALATION Active [facility] 08/13/2011 [facility] doxycycline hyclate 100 mg oral tablet 100 mg, 1 tab, PO, BID, 28 tab, Substitution Allowed, TAB PO Active [facility] 08/13/2011 [facility] Naprosyn 500 mg oral tablet 500 mg, 1 tab, PO, BID, 14 tab, Substitution Allowed, TAB PO Active [facility] 08/13/2011 [facility] acetaminophen-hydrocodone 500 mg-5 mg oral tablet 1-2 tab, PO, Q4-6H, PRN, 15 tab, Pain, Substitution Allowed, Maintenance PO Active [facility] 08/13/2011 [facility] promethazine 25 mg oral tablet 25 mg, 1 tab, PO, Q4H, PRN, 15 tab, Nausea, Substitution Allowed PO Active [facility] 08/13/2011 [facility] morphine Sulfate 4 mg, Route: IVP, ONCE, Priority: STAT, Start date: 08/13/11 14:37:00, Stop date: 08/13/11 14:37:00 IVP No Longer Active [facility] 08/13/2011 [facility] Rocephin 250 mg, Route: IM, Drug form: PDR/INJ, ONCE, Start date: 08/13/11 12:46:00, Stop date: 08/13/11 12:46:00 IM No Longer Active [facility] 08/13/2011 [facility] Zithromax 500 mg oral tablet 1,000 mg, 4 tab, Route: PO, Drug form: TAB, ONCE, Start date: 08/13/11 12:45:00, Stop date: 08/13/11 12:45:00 PO No Longer Active [facility] 08/13/2011 [facility] Sodium Chloride 0.9% (Bolus) IV 1000 mL 1,000 mL, Rate: 1,000 ml/hr, Infuse over: 1 hr, Route: IV, Total Volume: 1,000, Bolus Dose, Priority: STAT, Start date: 08/13/11 11:27:00, Duration: 1 doses or times, Stop date: 08/13/11 12:26:00 IV No Longer Active [facility] 08/13/2011 [facility] Zofran 4 mg, Route: IVP, ONCE, Priority: STAT, Start date: 08/13/11 11:27:00, Stop date: 08/13/11 11:27:00 IVP No Longer Active [facility] 08/13/2011 [facility] morphine Sulfate 4 mg, Route: IVP, ONCE, Priority: STAT, Start date: 08/13/11 11:27:00, Stop date: 08/13/11 11:27:00 IVP No Longer Active [facility] 08/13/2011 [facility] Mucinex DM oral tablet, extended release 1 tab, PO, Q12H, 20 tab, Substitution Allowed, Maintenance, ERTAB PO Active [facility] 06/17/2011 [facility] Amoxil 500 mg oral tablet 1 TABLET, PO, ABXQ8H, 21 caplet, Substitution Allowed, TAB PO Active [facility] 06/17/2011 [facility] nicotine 14 mg, 1 patch, Route: TOP, Drug form: ERFILM, Daily, Start date: 06/17/11 9:00:00, Duration: 30 day, Stop date: 07/16/11 9:00:00 TOP No Longer Active [facility] 06/17/2011 [facility] Motrin 800 mg, 2 tab, Route: PO, Drug form: TAB, TID, PRN Pain, Start date: 06/16/11 23:24:00, Duration: 30 day, Stop date: 07/16/11 23:23:00 PO No Longer Active Rodriguez 06/17/2011 [facility] Saline Flush 0.9% 5 ml, Route: IVP, Drug Form: INJ, Q12H, Start date: 06/16/11 21:00:00, Duration: 30 day, Stop date: 07/16/11 9:00:00 IVP No Longer Active [facility] 06/17/2011 [facility] Mucinex DM 1 tab, Route: PO, Drug Form: ERTAB, Q12H, Start date: 06/16/11 21:00:00, Duration: 30 day, Stop date: 07/16/11 9:00:00 PO No Longer Active Rodriguez 06/17/2011 [facility] Amoxil 500 mg, 1 cap, Route: PO, Drug form: CAP, ABXQ8H, Start date: 06/16/11 21:00:00, Duration: 30 day, Stop date: 07/16/11 13:00:00 PO No Longer Active [facility] 06/17/2011 [facility] albuterol 0.083% inhalation solution 2.49 mg, 3 mL, Route: NEB, Drug form: SOLN, RQ6H, Start date: 06/16/11 20:00:00, Duration: 30 day, Stop date: 07/16/11 14:00:00 NEB No Longer Active [facility] 06/17/2011 [facility] aspirin 81 mg tablet, chewable 81 mg, 1 tab, Route: PO, Drug form: CHEWTAB, Q24H, Start date: 06/16/11 17:00:00, Duration: 30 day, Stop date: 07/15/11 17:00:00 PO No Longer Active Rodriguez 06/16/2011 [facility] Saline Flush 0.9% 5 ml, Route: IVP, Drug Form: INJ, PRN, PRN Line Flush, Start date: 06/16/11 16:18:00, Duration: 30 day, Stop date: 07/16/11 15:17:00 IVP No Longer Active [facility] 06/16/2011 [facility] acetaminophen 650 mg, 2 tab, Route: PO, Drug form: TAB, Q4H, PRN Headache, Start date: 06/16/11 16:18:00, Duration: 30 day, Stop date: 07/16/11 16:17:00 PO No Longer Active [facility] 06/16/2011 [facility] Sodium Chloride 0.9% IV 1,000 mL 1,000 mL, Rate: 50 ml/hr, Infuse over: 20 hr, Route: IV, Total Volume: 1,000, Start date: 06/16/11 16:18:00, Duration: 30 day, Stop date: 07/16/11 16:17:00 IV No Longer Active [facility] 06/16/2011 [facility] nitroglycerin SL Tab 0.4 mg, 1 tab, Route: SL, Drug form: TAB, Q5Min, PRN Chest Pain, Start date: 06/16/11 16:18:00, Duration: 3 doses or times, Stop date: Limited # of times SL No Longer Active [facility] 06/16/2011 [facility] morphine Sulfate 2 mg, 1 mL, Route: IVP, Drug form: INJ, Q15Min, PRN Chest Pain, Start date: 06/16/11 16:18:00, Duration: 2 doses or times, Stop date: Limited # of times IVP No Longer Active [facility] 06/16/2011 [facility] nitroglycerin 0.4 mg sublingual tablet 0.4 mg, 1 tab, Route: SL, Drug form: TAB, Q5Min, PRN Chest Pain, Start date: 06/16/11 15:58:00, Duration: 30 day, Stop date: 07/16/11 14:57:00 SL No Longer Active [facility] 06/16/2011 [facility] atropine 0.5 mg, 5 mL, Route: IVP, Drug form: INJ, PRN, PRN Bradycardia, Start date: 06/16/11 15:58:00, Duration: 30 day, Stop date: 07/16/11 14:57:00 IVP No Longer Active [facility] 06/16/2011 [facility] Lovenox 120 mg, 0.8 mL, Route: SUB-Q, Drug form: INJ, ONCE, Start date: 06/16/11 13:57:00, Stop date: 06/16/11 13:57:00 SUB-Q No Longer Active [facility] 06/16/2011 [facility] aspirin 324 mg, 4 tab, Route: CHEW, Drug form: CHEWTAB, ONCE, Priority: STAT, Start date: 06/16/11 13:57:00, Stop date: 06/16/11 13:57:00 CHEW No Longer Active [facility] 06/16/2011 [facility] ipratropium 0.5 mg, 2.5 mL, Route: NEB, Drug form: SOLN, Q15Min, Priority: STAT, Start date: 06/16/11 10:52:00, Duration: 2 doses or times, Stop date: 06/16/11 11:07:00 NEB No Longer Active [facility] 06/16/2011 [facility] albuterol 0.083% inhalation solution 2.49 mg, 3 mL, Route: NEB, Drug form: SOLN, Q15Min, Priority: STAT, Start date: 06/16/11 10:52:00, Duration: 3 doses or times, Stop date: 06/16/11 11:22:00 NEB No Longer Active [facility] 06/16/2011 [facility] Saline Flush 0.9% 5 ml, Route: IVP, Drug Form: INJ, PRN, PRN Line Flush, Start date: 06/16/11 10:50:00, Duration: 24 hr, Stop date: 06/17/11 10:49:00 IVP No Longer Active [facility] 06/16/2011 [facility] Allergies, Adverse Reactions, Alerts Substance Category Reaction Severity Reaction type Status Date Reported Comments Source penicillins Assertion Drug allergy Active [facility] morphine Assertion Drug allergy Active [facility] Dilaudid propensity to adverse reactions to substance Adverse Reaction [facility] Protonix IV drug allergy Allergy [facility] Immunizations Immunization Date Given Site Status Last Updated Comments Source Results Order Name Results Value Reference Range Date Interpretation Comments Source Abdomen RUQ US Abdomen RUQ US Clinical Indication: Right upper quadrant abdominal pain for 3 weeks. Comparison: None TECHNIQUE: Grayscale and limited color sonographic evaluation of the right upper quadrant of the abdomen was performed with standard technique. FINDINGS: Evaluation is limited due to the patient's body habitus and resultant diffuse overlying bowel gas. LIVER: The visualized liver shows normal contour, size, and morphology with normal parenchymal echo texture. Liver measures at the upper limits of normal, at 16.8 cm in the craniocaudal dimension. Limited visualized portal vein is grossly patent and of normal caliber, measuring 8.8 mm in diameter. Appropriate hepatopedal flow is appreciated. BILE DUCTS: The intrahepatic and extrahepatic bile ducts are not dilated with the common bile duct measuring 3.9 mm. The distal common bile duct is not well seen. GALLBLADDER: Gallbladder appears contracted/decompressed. No definitive sonographic evidence of gallstones, gallbladder wall thickening (gallbladder wall measuring 2.8 mm) or pericholecystic cystic fluid is noted. PANCREAS: The visualized pancreas appears unremarkable.. KIDNEY: The right kidney measures 11.6 x 5.2 x 5.2 cm. There is normal renal contour and morphology, with normal parenchymal echotexture. There is no hydronephrosis. AORTA AND INFERIOR VENA CAVA: Visualized portions appear unremarkable. ASCITES: There is no right upper quadrant abdominal ascites. IMPRESSION: 1. Evaluation limited due to patient's body habitus and resultant diffuse overlying bowel gas. 2. No visualized sonographic evidence of acute pathology in the right upper quadrant of the abdomen. 3. Gallbladder appears contracted/decompressed. This is most commonly due to recent alimentation. SL: [id number] 07/06/2018 - - Read by: Jp Ramos DO Dictated Date/time: 07/06/18 12:25 Electronically Signed by: Jp Ramos DO 07/06/18 12:32 FINAL REPORT [facility] CARDIAC ENZYMES CK MB Index null 0.0 - 2.5 02/01/2018 [facility] CARDIAC ENZYMES Troponin-I null 0.00 - 0.40 02/01/2018 [facility] CARDIAC ENZYMES Total CK 82 unit/L 12 - 191 02/01/2018 [facility] CARDIAC ENZYMES CK MB null 0.5 - 3.6 02/01/2018 [facility] ELECTROLYTES Potassium Lvl 4.1 meq/L 3.5 - 5.1 02/01/2018 [facility] ELECTROLYTES Chloride Lvl 106 meq/L 95 - 109 02/01/2018 [facility] ELECTROLYTES Calcium Lvl 8.7 mg/dL 8.5 - 10.5 02/01/2018 [facility] ELECTROLYTES Sodium Lvl 137 meq/L 135 - 145 02/01/2018 [facility] ELECTROLYTES eGFR 116 mL/min/1.73m2 02/01/2018 Result Comment: The eGFR is calculated using the CKD-EPI formula. In most young, healthy individuals the eGFR will be >90 mL/min/1.73m2. The eGFR declines with age. An eGFR of 60-89 may be normal in some populations, particularly the elderly, for whom the CKD-EPI formula has not been extensively validated. Use of the eGFR is not recommended in the following populations: Individuals with unstable creatinine concentrations, including patients and those with serious co-morbid conditions. Patients with extremes in muscle mass or diet. The data above are obtained from the National Kidney Disease Education Program (NKDEP) which additionally recommends that when the eGFR is used in patients with extremes of body mass index for purposes of drug dosing, the eGFR should be multiplied by the estimated BMI. [facility] ELECTROLYTES Bili Total 0.1 mg/dL 0.2 - 1.3 02/01/2018 [facility] ELECTROLYTES Alk Phos 74 unit/L 39 - 136 02/01/2018 [facility] ELECTROLYTES ALT 32 unit/L 0 - 65 02/01/2018 [facility] ELECTROLYTES AST 16 unit/L 0 - 37 02/01/2018 [facility] ELECTROLYTES A/G Ratio 0.8 0.7 - 1.6 02/01/2018 [facility] ELECTROLYTES Globulin 4.4 g/dL 2.7 - 4.2 02/01/2018 [facility] ELECTROLYTES Albumin Lvl 3.4 g/dL 3.5 - 5.0 02/01/2018 [facility] ELECTROLYTES Glucose Lvl 93 mg/dL 70 - 99 02/01/2018 [facility] ELECTROLYTES BUN 11 mg/dL 7 - 22 02/01/2018 [facility] ELECTROLYTES Creatinine Lvl 0.78 mg/dL 0.50 - 1.40 02/01/2018 [facility] ELECTROLYTES AGAP 12.1 meq/L 10.0 - 20.0 02/01/2018 [facility] ELECTROLYTES Total Protein 7.8 g/dL 6.4 - 8.4 02/01/2018 [facility] ELECTROLYTES B/C Ratio 14 6 - 25 02/01/2018 [facility] ELECTROLYTES CO2 23 meq/L 24 - 32 02/01/2018 [facility] HEMATOLOGY Eosinophils # 0.1 K/CMM 0.0 - 0.5 02/01/2018 [facility] HEMATOLOGY Monocytes # 0.5 K/CMM 0.0 - 0.8 02/01/2018 [facility] HEMATOLOGY Lymphocytes # 2.3 K/CMM 1.0 - 5.5 02/01/2018 [facility] HEMATOLOGY Segs-Bands # 5.3 K/CMM 1.5 - 8.1 02/01/2018 [facility] HEMATOLOGY Basophils 0.6 % 0.0 - 1.0 02/01/2018 [facility] HEMATOLOGY Eosinophils 1.4 % 0.0 - 4.0 02/01/2018 [facility] HEMATOLOGY Segs 64.2 % 45.0 - 75.0 02/01/2018 [facility] Lymphocytes 28.0 % 20.0 - 40.0 02/01/2018 [facility] Monocytes 5.8 % 2.0 - 12.0 02/01/2018 [facility] MCV 81.4 fL 80.0 - 98.0 02/01/2018 [facility] Hct 39.3 % 36.0 - 48.0 02/01/2018 [facility] MCHC 33.3 g/dL 32.0 - 36.0 02/01/2018 [facility] MCH 27.1 pg 27.0 - 31.0 02/01/2018 [facility] MPV 8.8 fL 7.4 - 10.4 02/01/2018 [facility] Platelet 286 K/CMM 133 - 450 02/01/2018 [facility] RDW 13.5 % 11.5 - 14.5 02/01/2018 [facility] RBC 4.82 M/CMM 4.20 - 5.40 02/01/2018 [facility] Hgb 13.1 g/dL 12.0 - 16.0 02/01/2018 [facility] WBC 8.3 K/CMM 3.7 - 10.4 02/01/2018 [facility] Chest 2 views DX Chest 2 views DX Exam: Chest X-ray 2 views : CLINICAL HISTORY: - chest pain. Comparison: August 04, 2017. Findings: PA and lateral views of the chest are obtained. The heart size is normal. The hilar and mediastinal structures are normal. The lungs are clear without consolidation or effusion. No acute bony abnormality. Pulmonary vascularity is normal. Impression: No active disease . 02/01/2018 - - Read by: Candace Downing MD Dictated Date/time: 02/01/18 13:36 Electronically Signed by: Candace Downing MD 02/01/18 13:36 FINAL REPORT [facility] CHEM PANEL Lipase Lvl 154 unit/L 73 - 393 10/06/2017 [facility] CHEM PANEL Globulin 4.3 g/dL 2.7 - 4.2 10/06/2017 [facility] CHEM PANEL A/G Ratio 0.8 0.7 - 1.6 10/06/2017 [facility] CHEM PANEL B/C Ratio 21 6 - 25 10/06/2017 [facility] CHEM PANEL AGAP 10.8 meq/L 10.0 - 20.0 10/06/2017 [facility] CHEM PANEL Potassium Lvl 3.8 meq/L 3.5 - 5.1 10/06/2017 [facility] CHEM PANEL Sodium Lvl 141 meq/L 135 - 145 10/06/2017 [facility] CHEM PANEL Chloride Lvl 108 meq/L 95 - 109 10/06/2017 [facility] CHEM PANEL Calcium Lvl 9.0 mg/dL 8.5 - 10.5 10/06/2017 [facility] CHEM PANEL Bili Total 0.2 mg/dL 0.2 - 1.3 10/06/2017 [facility] CHEM PANEL Total Protein 7.7 g/dL 6.4 - 8.4 10/06/2017 [facility] CHEM PANEL ALT 26 unit/L 0 - 65 10/06/2017 [facility] CHEM PANEL Alk Phos 76 unit/L 39 - 136 10/06/2017 [facility] CHEM PANEL eGFR 133 mL/min/1.73m2 10/06/2017 Result Comment: The eGFR is calculated using the CKD-EPI formula. In most young, healthy individuals the eGFR will be >90 mL/min/1.73m2. The eGFR declines with age. An eGFR of 60-89 may be normal in some populations, particularly the elderly, for whom the CKD-EPI formula has not been extensively validated. Use of the eGFR is not recommended in the following populations: Individuals with unstable creatinine concentrations, including patients and those with serious co-morbid conditions. Patients with extremes in muscle mass or diet. The data above are obtained from the National Kidney Disease Education Program (NKDEP) which additionally recommends that when the eGFR is used in patients with extremes of body mass index for purposes of drug dosing, the eGFR should be multiplied by the estimated BMI. [facility] CHEM PANEL AST 11 unit/L 0 - 37 10/06/2017 [facility] CHEM PANEL CO2 26 meq/L 24 - 32 10/06/2017 [facility] CHEM PANEL Albumin Lvl 3.4 g/dL 3.5 - 5.0 10/06/2017 [facility] CHEM PANEL BUN 15 mg/dL 7 - 22 10/06/2017 [facility] CHEM PANEL Creatinine Lvl 0.70 mg/dL 0.50 - 1.40 10/06/2017 [facility] CHEM PANEL Glucose Lvl 88 mg/dL 70 - 99 10/06/2017 [facility] ENDOCRINOLOGY S Preg Negative *NA* (10/06/17 3:00 PM) Negative 10/06/2017 [facility] HEMATOLOGY RDW 13.8 % 11.5 - 14.5 10/06/2017 [facility] HEMATOLOGY MCHC 33.4 g/dL 32.0 - 36.0 10/06/2017 [facility] HEMATOLOGY MCV 80.0 fL 80.0 - 98.0 10/06/2017 [facility] HEMATOLOGY MCH 26.7 pg 27.0 - 31.0 10/06/2017 [facility] HEMATOLOGY Platelet 307 K/CMM 133 - 450 10/06/2017 [facility] HEMATOLOGY MPV 8.3 fL 7.4 - 10.4 10/06/2017 [facility] HEMATOLOGY RBC 4.60 M/CMM 4.20 - 5.40 10/06/2017 [facility] HEMATOLOGY Hct 36.8 % 36.0 - 48.0 10/06/2017 [facility] HEMATOLOGY Hgb 12.3 g/dL 12.0 - 16.0 10/06/2017 [facility] HEMATOLOGY WBC 9.6 K/CMM 3.7 - 10.4 10/06/2017 [facility] HEMATOLOGY Lymphocytes 25.6 % 20.0 - 40.0 10/06/2017 [facility] HEMATOLOGY Eosinophils 1.5 % 0.0 - 4.0 10/06/2017 [facility] HEMATOLOGY Basophils 0.9 % 0.0 - 1.0 10/06/2017 [facility] HEMATOLOGY Monocytes 5.7 % 2.0 - 12.0 10/06/2017 [facility] HEMATOLOGY Segs-Bands # 6.3 K/CMM 1.5 - 8.1 10/06/2017 [facility] HEMATOLOGY Monocytes # 0.5 K/CMM 0.0 - 0.8 10/06/2017 [facility] HEMATOLOGY Lymphocytes # 2.5 K/CMM 1.0 - 5.5 10/06/2017 [facility] HEMATOLOGY Basophils # 0.1 K/CMM 0.0 - 0.2 10/06/2017 [facility] HEMATOLOGY Eosinophils # 0.1 K/CMM 0.0 - 0.5 10/06/2017 [facility] HEMATOLOGY Segs 66.3 % 45.0 - 75.0 10/06/2017 [facility] URINE AND STOOL UA Color Straw 10/06/2017 [facility] URINE AND STOOL UA Urobilinogen <=1.0 mg/dL 0.1 - 1.0 10/06/2017 [facility] URINE AND STOOL UA Ketones Negative 10/06/2017 [facility] URINE AND STOOL UA Blood Negative (10/06/17 2:30 PM) Negative 10/06/2017 [facility] URINE AND STOOL UA Bili Negative *NA* (10/06/17 2:30 PM) Negative 10/06/2017 [facility] URINE AND STOOL UA Glucose Negative mg/dL Negative mg/dL 10/06/2017 [facility] URINE AND STOOL UA Nitrite Negative (10/06/17 2:30 PM) Negative 10/06/2017 [facility] URINE AND STOOL UA Turbidity Clear (10/06/17 2:30 PM) Clear 10/06/2017 [facility] URINE AND STOOL UA Leuk Est Negative (10/06/17 2:30 PM) Negative 10/06/2017 [facility] URINE AND STOOL UA Sq Epi Occasional /LPF Few /LPF 10/06/2017 [facility] URINE AND STOOL UA WBC 1 /HPF 0 - 5 10/06/2017 [facility] URINE AND STOOL UA Mucus Few /LPF None Seen /LPF 10/06/2017 [facility] URINE AND STOOL UA pH 5.0 5.0 - 8.0 10/06/2017 [facility] URINE AND STOOL UA Spec Grav 1.012 <=1.030 10/06/2017 [facility] URINE AND STOOL UA Protein Negative mg/dL Negative mg/dL 10/06/2017 [facility] ED Abdomen/Pelvis IV contrast only CT ED Abdomen/Pelvis IV contrast only CT Exam: CT Scan of the abdomen and pelvis with contrast Reason for Exam: - abdominal pain Comparison Exam: CT scan 11/28/2015 Technique: Multiple axial images were obtained of the abdomen and pelvis. 5 mm slices were acquired after injection of 100 cc Omnipaque 300 IV. Reformatted sagittal and coronal images were obtained for additional diagnostic information. Total exam GDF=1851 mGy-cm. This exam was performed according to our departmental dose-optimization program, which includes automated exposure control, adjustment of the MA and/or KV according to patient size and/or use of iterative reconstruction technique. Discussion: Visualized portions of the lung bases are unremarkable. Gallbladder is contracted. It is otherwise unremarkable. Liver is unremarkable. Portal venous system is patent. Stomach is unremarkable. Pancreas, adrenal glands, and spleen are within normal limits. Kidneys are unremarkable. No hydronephrosis or hydroureter. No dilated loops of bowel. The appendix is normal. Uterus and bladder are unremarkable. No appreciable lymphadenopathy. No ventral or internal hernia identified. No acute bony abnormalities appreciated. No suspicious osteoblastic or osteolytic lesions. No evidence seen for abdominal aortic aneurysm or dissection. Impression: 1. No acute abnormalities seen within the abdomen or pelvis. 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 FINDINGS: The study is technically limited secondary to body habitus Liver: Craniocaudal length: 16.8 cm. (Borderline enlarged) Echogenicity: Increased and coarsened Surface nodularity: None. Mass (size and location): None. Portal vein: Normal. Bile ducts: Common bile duct diameter: 4 mm. Intrahepatic ducts: Normal. Gallbladder: Poor visualization, contracted Gallstones: None. Gallbladder sludge: None. Gallbladder wall: 3 mm. Normal. Pericholecystic fluid: None. Sonographic Bell sign: Absent. Pancreas: Head and uncinate process: Normal. Body and tail: Not seen. Right kidney: Hydronephrosis: None. Size: 11.6 x 5.2 x 5.2 cm. Normal. Echogenicity: Normal. Mass/Stone/Cyst (size and location): None. Abdominal aorta and IVC: Visualized portions are normal. Ascites: None. IMPRESSION: 1. Technically limited study without suggestion of acute cholecystitis 2. Stable, slightly coarsened hepatic echotexture suggesting chronic appendiceal disease 10/06/2017 - - Read by: Amish Albarran MD Dictated Date/time: 10/06/17 15:10 Electronically Signed by: Amish Albarran MD 10/06/17 15:13 FINAL REPORT [facility] URINE AND STOOL UA Sq Epi Occasional /LPF Few /LPF 08/05/2017 [facility] URINE AND STOOL UA Mucus Few /LPF None Seen /LPF 08/05/2017 [facility] URINE AND STOOL UA Urobilinogen <=1.0 mg/dL 0.1 - 1.0 08/05/2017 [facility] URINE AND STOOL UA Color Ltyellow 08/05/2017 [facility] URINE AND STOOL UA Nitrite Negative (08/04/17 7:32 PM) Negative 08/05/2017 [facility] URINE AND STOOL UA Leuk Est Negative (08/04/17 7:32 PM) Negative 08/05/2017 [facility] URINE AND STOOL UA Blood Negative (08/04/17 7:32 PM) Negative 08/05/2017 [facility] URINE AND STOOL UA Bili Negative *NA* (08/04/17 7:32 PM) Negative 08/05/2017 [facility] URINE AND STOOL UA Ketones Negative mg/dL Negative mg/dL 08/05/2017 [facility] URINE AND STOOL UA Protein Negative mg/dL Negative mg/dL 08/05/2017 [facility] URINE AND STOOL UA pH 5.0 5.0 - 8.0 08/05/2017 [facility] URINE AND STOOL UA Glucose Negative mg/dL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 Individuals with unstable creatinine concentrations, including patients and those with serious co-morbid conditions. Patients with extremes in muscle mass or diet. The data above are obtained from the National Kidney Disease Education Program (NKDEP) which additionally recommends that when the eGFR is used in patients with extremes of body mass index for purposes of drug dosing, the eGFR should be multiplied by the estimated BMI. [facility] CHEM PANEL AGAP 12.9 meq/L 10.0 - 20.0 09/01/2015 [facility] CHEM PANEL A/G Ratio 0.8 0.7 - 1.6 09/01/2015 [facility] CHEM PANEL Globulin 4.6 g/dL 2.0 - 4.0 09/01/2015 [facility] CHEM PANEL B/C Ratio 12 6 - 25 09/01/2015 [facility] HEMATOLOGY Basophils 0.5 % 0.0 - 1.0 09/01/2015 [facility] Segs 82.4 % 45.0 - 75.0 09/01/2015 [facility] Lymphocytes 12.9 % 20.0 - 40.0 09/01/2015 [facility] Monocytes # 0.4 K/CMM 0.0 - 0.8 09/01/2015 [facility] Segs-Bands # 8.2 K/CMM 1.5 - 8.1 09/01/2015 [facility] Lymphocytes # 1.3 K/CMM 1.0 - 5.5 09/01/2015 [facility] Monocytes 3.8 % 2.0 - 12.0 09/01/2015 [facility] Eosinophils 0.4 % 0.0 - 4.0 09/01/2015 [facility] MCH 26.1 pg 27.0 - 31.0 09/01/2015 [facility] MCHC 31.6 g/dL 32.0 - 36.0 09/01/2015 [facility] RDW 13.3 % 11.5 - 14.5 09/01/2015 [facility] Platelet 321 K/CMM 133 - 450 09/01/2015 [facility] MCV 82.7 fL 80.0 - 98.0 09/01/2015 [facility] MPV 8.8 fL 7.4 - 10.4 09/01/2015 [facility] WBC 10.0 K/CMM 3.7 - 10.4 09/01/2015 [facility] RBC 5.05 M/CMM 4.20 - 5.40 09/01/2015 [facility] Hgb 13.2 g/dL 12.0 - 16.0 09/01/2015 [facility] Hct 41.7 % 36.0 - 48.0 09/01/2015 [facility] Chest w contrast CT Chest w contrast CT CT Angiogram of Chest: TECHNIQUE: Contiguous transaxial images of the pulmonary arteries were performed at 2.5 mm intervals. 3-D volume rendering of the pulmonary vessels was performed on a dedicated workstation. COMPARISON: 04/03/2015 CLINICAL HX: Chest pain PULMONARY VESSELS: The main pulmonary trunk, right and left main pulmonary arteries, and the lobar branches are well opacified with IV contrast. No intraluminal filling defects are evident to suggest pulmonary emboli on the axial and 3D volume reformation images. CT CHEST: Lower Neck and Thyroid: Symmetric appearance of thyroid gland without focal abnormality. Lungs and Airways: The lungs and pleural spaces are clear. The trachea and the proximal bronchi are patent. Cardiovascular and Mediastinum: Mild cardiomegaly. The aorta demonstrates normal morphology, no evidence for aneurysm or dissection. No significant lymphadenopathy is noted in the mediastinum or hilar regions. Bone and Soft tissue: No significant bony abnormality is noted. Esophagus and Upper Abdomen: The esophagus demonstrates normal morphology. Fatty infiltration of liver. There is increase attenuation noted in the entire caudate lobe. This may represent focal fatty sparing versus an underlying mass such as a hemangioma. The appearance has not changed significantly from previous study of 04/03/2015. IMPRESSION: No evidence for pulmonary emboli. Mild cardiomegaly. Focal fatty infiltration of liver. Increased attenuation in the caudate lobe may be secondary to focal fatty sparing versus a hemangioma. Nonemergent contrast MRI of liver is recommended for further evaluation. SL:13 09/01/2015 - - Read by: Kiet Rubin MD Dictated Date/time: 09/01/15 11:37 Electronically Signed by: Kiet Rubin MD 09/01/15 11:45 FINAL REPORT [facility] Abdomen RUQ US Abdomen RUQ US RUQ abdomen ultrasound: TECHNIQUE: Multiple static transabdominal images of the right upper quadrant are submitted for review. COMPARISON: 02/15/2015 CLINICAL HX: Right upper quadrant pain FINDINGS: Liver : Heterogeneous and coarsened echotexture of the liver suggests diffuse but nonspecific hepatocellular disease. Gall bladder and bile ducts: Gall bladder is sonolucent without evidence for gall stones. CBD measures 3 mm. Pancreas : Pancreas is largely obscured by bowel gas. Right kidney: Right kidney demonstrates normal morphology and measures approximately 11.6 cm in the greatest sagittal diameter. No hydronephrosis. IMPRESSION: Heterogeneous and coarsened echotexture of the liver suggests diffuse but nonspecific hepatocellular disease. No other significant sonographic abnormality is noted. There is no evidence for gallstones. SL:13 09/01/2015 - - Read by: Kiet Rubin MD Dictated Date/time: 09/01/15 09:22 Electronically Signed by: Kiet Rubin MD 09/01/15 09:25 FINAL REPORT [facility] CHEM PANEL Glucose Lvl 86 mg/dL 70 - 99 05/23/2015 [facility] CHEM PANEL Bili Total 0.3 mg/dL 0.2 - 1.3 05/23/2015 [facility] CHEM PANEL Albumin Lvl 3.5 g/dL 3.5 - 5.0 05/23/2015 [facility] CHEM PANEL Alk Phos 70 unit/L 39 - 136 05/23/2015 [facility] CHEM PANEL BUN 12 mg/dL 7 - 22 05/23/2015 [facility] CHEM PANEL CO2 30 meq/L 24 - 32 05/23/2015 [facility] CHEM PANEL Total Protein 7.5 g/dL 6.4 - 8.4 05/23/2015 [facility] CHEM PANEL AST 12 unit/L 0 - 37 05/23/2015 [facility] CHEM PANEL ALT 25 unit/L 0 - 65 05/23/2015 [facility] CHEM PANEL eGFR 115 mL/min/1.73m2 05/23/2015 Result Comment: The eGFR is calculated using the CKD-EPI formula. In most young, healthy individuals the eGFR will be >90 mL/min/1.73m2. The eGFR declines with age. An eGFR of 60-89 may be normal in some populations, particularly the elderly, for whom the CKD-EPI formula has not been extensively validated. Use of the eGFR is not recommended in the following populations: Individuals with unstable creatinine concentrations, including patients and those with serious co-morbid conditions. Patients with extremes in muscle mass or diet. The data above are obtained from the National Kidney Disease Education Program (NKDEP) which additionally recommends that when the eGFR is used in patients with extremes of body mass index for purposes of drug dosing, the eGFR should be multiplied by the estimated BMI. [facility] CHEM PANEL Creatinine Lvl 0.8 mg/dL 0.5 - 1.4 05/23/2015 [facility] CHEM PANEL Potassium Lvl 3.9 meq/L 3.5 - 5.1 05/23/2015 [facility] CHEM PANEL Sodium Lvl 137 meq/L 135 - 145 05/23/2015 [facility] CHEM PANEL Chloride Lvl 105 meq/L 95 - 109 05/23/2015 [facility] CHEM PANEL Calcium Lvl 8.6 mg/dL 8.5 - 10.5 05/23/2015 [facility] CHEM PANEL A/G Ratio 0.9 0.7 - 1.6 05/23/2015 [facility] CHEM PANEL AGAP 5.9 meq/L 10.0 - 20.0 05/23/2015 [facility] CHEM PANEL B/C Ratio 15 6 - 25 05/23/2015 [facility] CHEM PANEL Globulin 4.0 g/dL 2.0 - 4.0 05/23/2015 [facility] HEMATOLOGY Platelet 283 K/CMM 133 - 450 05/23/2015 [facility] HEMATOLOGY MPV 8.7 fL 7.4 - 10.4 05/23/2015 [facility] HEMATOLOGY Hgb 12.3 g/dL 12.0 - 16.0 05/23/2015 [facility] HEMATOLOGY Hct 38.6 % 36.0 - 48.0 05/23/2015 [facility] HEMATOLOGY WBC 8.6 K/CMM 3.7 - 10.4 05/23/2015 [facility] HEMATOLOGY RBC 4.68 M/CMM 4.20 - 5.40 05/23/2015 [facility] HEMATOLOGY RDW 13.3 % 11.5 - 14.5 05/23/2015 [facility] MCH 26.4 pg 27.0 - 31.0 05/23/2015 [facility] MCHC 32.0 g/dL 32.0 - 36.0 05/23/2015 [facility] MCV 82.6 fL 80.0 - 98.0 05/23/2015 [facility] HEMATOLOGY Monocytes 4.6 % 2.0 - 12.0 05/23/2015 [facility] HEMATOLOGY Eosinophils 2.2 % 0.0 - 4.0 05/23/2015 [facility] HEMATOLOGY Segs-Bands # 5.3 K/CMM 1.5 - 8.1 05/23/2015 [facility] HEMATOLOGY Basophils 1.3 % 0.0 - 1.0 05/23/2015 [facility] HEMATOLOGY Segs 61.4 % 45.0 - 75.0 05/23/2015 [facility] HEMATOLOGY Lymphocytes 30.5 % 20.0 - 40.0 05/23/2015 [facility] HEMATOLOGY Basophils # 0.1 K/CMM 0.0 - 0.2 05/23/2015 [facility] HEMATOLOGY Monocytes # 0.4 K/CMM 0.0 - 0.8 05/23/2015 [facility] HEMATOLOGY Lymphocytes # 2.6 K/CMM 1.0 - 5.5 05/23/2015 [facility] HEMATOLOGY Eosinophils # 0.2 K/CMM 0.0 - 0.5 05/23/2015 [facility] URINE AND STOOL UA Urobilinogen <=1.0 mg/dL 0.1 - 1.0 05/23/2015 [facility] URINE AND STOOL UA Sq Epi None Seen 05/23/2015 [facility] URINE AND STOOL UA Color Ltyellow 05/23/2015 [facility] URINE AND STOOL UA RBC 4 /HPF 0 - 2 05/23/2015 [facility] URINE AND STOOL UA Bacteria Occasional /HPF None Seen /HPF 05/23/2015 [facility] URINE AND STOOL UA WBC 1 /HPF 0 - 5 05/23/2015 [facility] URINE AND STOOL UA Nitrite Negative (05/23/15 3:20 PM) Negative 05/23/2015 [facility] URINE AND STOOL UA Leuk Est Negative (05/23/15 3:20 PM) Negative 05/23/2015 [facility] URINE AND STOOL UA pH 5.0 5.0 - 8.0 05/23/2015 [facility] URINE AND STOOL UA Spec Grav 1.012 <=1.030 05/23/2015 [facility] URINE AND STOOL UA Blood Negative (05/23/15 3:20 PM) Negative 05/23/2015 [facility] URINE AND STOOL UA Bili Negative *NA* (05/23/15 3:20 PM) Negative 05/23/2015 [facility] URINE AND STOOL UA Ketones Negative mg/dL Negative mg/dL 05/23/2015 [facility] URINE AND STOOL UA Glucose Negative mg/dL Negative mg/dL 05/23/2015 [facility] URINE AND STOOL UA Protein Negative mg/dL Negative mg/dL 05/23/2015 [facility] URINE AND STOOL UA Turbidity Clear (05/23/15 3:20 PM) Clear 05/23/2015 [facility] URINE CHEM U Preg Negative (05/23/15 3:20 PM) Negative 05/23/2015 [facility] CARDIAC ENZYMES BNP 40 pg/mL <=100 pg/mL 04/03/2015 [facility] IMMUNOLOGY [place]-Hep C Ab Negative *NA* (04/02/15 9:19 PM) Negative 04/03/2015 [facility] CARDIAC ENZYMES CK MB Index null 0.0 - 2.5 04/03/2015 [facility] CARDIAC ENZYMES Troponin-I null 0.00 - 0.40 04/03/2015 [facility] CARDIAC ENZYMES CK MB null 0.5 - 3.6 04/03/2015 [facility] CARDIAC ENZYMES Total CK 102 unit/L 12 - 191 04/03/2015 [facility] CHEM PANEL eGFR 115 mL/min/1.73m2 04/03/2015 Result Comment: The eGFR is calculated using the CKD-EPI formula. In most young, healthy individuals the eGFR will be >90 mL/min/1.73m2. The eGFR declines with age. An eGFR of 60-89 may be normal in some populations, particularly the elderly, for whom the CKD-EPI formula has not been extensively validated. Use of the eGFR is not recommended in the following populations: Individuals with unstable creatinine concentrations, including patients and those with serious co-morbid conditions. Patients with extremes in muscle mass or diet. The data above are obtained from the National Kidney Disease Education Program (NKDEP) which additionally recommends that when the eGFR is used in patients with extremes of body mass index for purposes of drug dosing, the eGFR should be multiplied by the estimated BMI. [facility] CHEM PANEL Globulin 3.8 g/dL 2.0 - 4.0 04/03/2015 [facility] CHEM PANEL B/C Ratio 16 6 - 25 04/03/2015 [facility] CHEM PANEL A/G Ratio 0.9 0.7 - 1.6 04/03/2015 [facility] CHEM PANEL Total Protein 7.2 g/dL 6.4 - 8.4 04/03/2015 [facility] CHEM PANEL ALT 24 unit/L 0 - 65 04/03/2015 [facility] CHEM PANEL Albumin Lvl 3.4 g/dL 3.5 - 5.0 04/03/2015 [facility] CHEM PANEL Alk Phos 73 unit/L 39 - 136 04/03/2015 [facility] CHEM PANEL AST 12 unit/L 0 - 37 04/03/2015 [facility] CHEM PANEL AGAP 10.1 meq/L 10.0 - 20.0 04/03/2015 [facility] CHEM PANEL Bili Total 0.2 mg/dL 0.2 - 1.3 04/03/2015 [facility] CHEM PANEL Potassium Lvl 4.1 meq/L 3.5 - 5.1 04/03/2015 [facility] CHEM PANEL Calcium Lvl 8.6 mg/dL 8.5 - 10.5 04/03/2015 [facility] CHEM PANEL Chloride Lvl 108 meq/L 95 - 109 04/03/2015 [facility] CHEM PANEL Sodium Lvl 139 meq/L 135 - 145 04/03/2015 [facility] CHEM PANEL Creatinine Lvl 0.8 mg/dL 0.5 - 1.4 04/03/2015 [facility] CHEM PANEL Glucose Lvl 92 mg/dL 70 - 99 04/03/2015 [facility] CHEM PANEL CO2 25 meq/L 24 - 32 04/03/2015 [facility] CHEM PANEL BUN 13 mg/dL 7 - 22 04/03/2015 [facility] HEMATOLOGY Monocytes # 0.4 K/CMM 0.0 - 0.8 04/03/2015 [facility] HEMATOLOGY Eosinophils # 0.2 K/CMM 0.0 - 0.5 04/03/2015 [facility] HEMATOLOGY Lymphocytes # 2.8 K/CMM 1.0 - 5.5 04/03/2015 [facility] HEMATOLOGY Segs 56.9 % 45.0 - 75.0 04/03/2015 [facility] HEMATOLOGY Segs-Bands # 4.6 K/CMM 1.5 - 8.1 04/03/2015 [facility] HEMATOLOGY Basophils # 0.1 K/CMM 0.0 - 0.2 04/03/2015 [facility] HEMATOLOGY Eosinophils 2.5 % 0.0 - 4.0 04/03/2015 [facility] HEMATOLOGY Basophils 0.9 % 0.0 - 1.0 04/03/2015 [facility] HEMATOLOGY Lymphocytes 35.2 % 20.0 - 40.0 04/03/2015 [facility] HEMATOLOGY Monocytes 4.5 % 2.0 - 12.0 04/03/2015 [facility] HEMATOLOGY PTT See Note 3 (04/02/15 9:18 PM) 22.9 - 35.8 04/03/2015 Result Comment: Clotted sample. Notified Apolonia Flowers at 04/02/2015 21:53. [facility] HEMATOLOGY INR See Note (04/02/15 9:18 PM) 0.85 - 1.17 04/03/2015 [facility] HEMATOLOGY PT See Note 2 (04/02/15 9:18 PM) 12.0 - 14.7 04/03/2015 Result Comment: Sample was clotted. Disregard result, notified Apolonia Flowers at 04/02/2015 21:53. [facility] HEMATOLOGY RBC 4.67 M/CMM 4.20 - 5.40 04/03/2015 [facility] HEMATOLOGY WBC 8.1 K/CMM 3.7 - 10.4 04/03/2015 [facility] MCH 27.0 pg 27.0 - 31.0 04/03/2015 [facility] Hct 38.6 % 36.0 - 48.0 04/03/2015 [facility] HEMATOLOGY MCV 82.8 fL 80.0 - 98.0 04/03/2015 [facility] HEMATOLOGY Hgb 12.6 g/dL 12.0 - 16.0 04/03/2015 [facility] HEMATOLOGY Platelet 298 K/CMM 133 - 450 04/03/2015 [facility] HEMATOLOGY MCHC 32.6 g/dL 32.0 - 36.0 04/03/2015 [facility] HEMATOLOGY RDW 13.0 % 11.5 - 14.5 04/03/2015 [facility] HEMATOLOGY MPV 8.4 fL 7.4 - 10.4 04/03/2015 [facility] URINE AND STOOL UA Urobilinogen <=1.0 mg/dL 0.1 - 1.0 04/03/2015 [facility] URINE AND STOOL UA Color Ltyellow 04/03/2015 [facility] URINE AND STOOL UA Glucose Negative mg/dL Negative mg/dL 04/03/2015 [facility] URINE AND STOOL UA Bili Negative *NA* (04/02/15 9:18 PM) Negative 04/03/2015 [facility] URINE AND STOOL UA Blood Small *ABN* (04/02/15 9:18 PM) Negative 04/03/2015 [facility] URINE AND STOOL UA Ketones Negative mg/dL Negative mg/dL 04/03/2015 [facility] URINE AND STOOL UA Nitrite Negative (04/02/15 9:18 PM) Negative 04/03/2015 [facility] URINE AND STOOL UA Spec Grav 1.011 <=1.030 04/03/2015 [facility] URINE AND STOOL UA Protein Negative mg/dL Negative mg/dL 04/03/2015 [facility] URINE AND STOOL UA pH 5.0 5.0 - 8.0 04/03/2015 [facility] URINE AND STOOL UA Turbidity Clear (04/02/15 9:18 PM) Clear 04/03/2015 [facility] URINE AND STOOL UA Bacteria Occasional /HPF None Seen /HPF 04/03/2015 [facility] URINE AND STOOL UA RBC 3 /HPF 0 - 2 04/03/2015 [facility] URINE AND STOOL UA Sq Epi Occasional /LPF Few /LPF 04/03/2015 [facility] URINE AND STOOL UA Leuk Est Negative (04/02/15 9:18 PM) Negative 04/03/2015 [facility] URINE AND STOOL UA WBC null 0 - 5 04/03/2015 [facility] URINE CHEM U Preg Negative (04/02/15 9:18 PM) Negative 04/03/2015 [facility] Chest Pulmonary Embolism CTA Chest Pulmonary Embolism CTA EXAM: CTA Pulmonary arteries and routine CT Chest. HISTORY: Dyspnea on exertion. Evaluate for pulmonary embolism. COMPARISON: CT chest of 04/21/2013. TECHNIQUE: Thin collimation axial images of the pulmonary arteries and routine CT chest with IV contrast. 2-D and 3-D reformatted images were performed for further evaluation. Limited study due to patient's large body habitus. CT pulmonary arteriogram: No definite pulmonary embolism seen. CT chest: Normal heart without pericardial effusion. No mediastinal or hilar mass or adenopathy. No focal consolidation, pleural effusion, or pneumothorax. Grossly normal gallbladder. Diffuse fatty liver infiltration. Stable 3.7 cm benign-appearing enhancing caudate lobe mass is present likely representing hemangioma, focal nodular hyperplasia or hepatic adenoma. IMPRESSION: 1. No definite CT evidence of acute pulmonary embolus. 2. No focal consolidation, pleural effusion, or pneumothorax. 3. Diffuse fatty liver infiltration. Stable 3.7 cm benign-appearing enhancing caudate lobe mass is present likely representing hemangioma, focal nodular hyperplasia or hepatic adenoma. SL: 12 04/03/2015 - - Read by: Pietro Araya MD Dictated Date/time: 04/03/15 00:48 Electronically Signed by: Pietro Araya MD 04/03/15 00:51 FINAL REPORT [facility] Chest 1view DX Chest 1view DX PORTABLE CHEST 04/02/2015 AT 2013 HOURS. INDICATION: Chest pain. Comparison chest 04/21/2013. Image quality is severely compromised by the large patient size and portable technique. The cardiac silhouette is top normal in size. The lungs are incompletely inflated. No gross pneumonia, vascular congestion or pleural effusion is seen. Repeat nonportable image in the department is recommended for further evaluation. SL: 04/02/2015 - - Read by: Morgan Howell MD Dictated Date/time: 04/02/15 20:21 Electronically Signed by: Morgan Howell MD 04/02/15 20:22 FINAL REPORT [facility] URINE AND STOOL UA Color Ltyellow 02/15/2015 [facility] URINE AND STOOL UA RBC 2 /HPF 0 - 2 02/15/2015 [facility] URINE AND STOOL UA Sq Epi Occasional /LPF Few /LPF 02/15/2015 [facility] URINE AND STOOL UA WBC 1 /HPF 0 - 5 02/15/2015 [facility] URINE AND STOOL UA Nitrite Negative (02/15/15 4:25 PM) Negative 02/15/2015 [facility] URINE AND STOOL UA Leuk Est Negative (02/15/15 4:25 PM) Negative 02/15/2015 [facility] URINE AND STOOL UA Blood Small *ABN* (02/15/15 4:25 PM) Negative 02/15/2015 [facility] URINE AND STOOL UA Urobilinogen 2.0 mg/dL 0.1 - 1.0 02/15/2015 [facility] URINE AND STOOL UA Glucose Negative mg/dL Negative mg/dL 02/15/2015 [facility] URINE AND STOOL UA Protein Negative mg/dL Negative mg/dL 02/15/2015 [facility] URINE AND STOOL UA Ketones Negative mg/dL Negative mg/dL 02/15/2015 [facility] URINE AND STOOL UA Bili Negative *NA* (02/15/15 4:25 PM) Negative 02/15/2015 [facility] URINE AND STOOL UA Spec Grav 1.013 <=1.030 02/15/2015 [facility] URINE AND STOOL UA pH 5.0 5.0 - 8.0 02/15/2015 [facility] URINE AND STOOL UA Turbidity Clear (02/15/15 4:25 PM) Clear 02/15/2015 [facility] URINE CHEM U Preg Negative (02/15/15 4:25 PM) Negative 02/15/2015 [facility] CHEM PANEL Lipase Lvl 139 unit/L 73 - 393 02/15/2015 [facility] CHEM PANEL Amylase Lvl 35 unit/L 25 - 115 02/15/2015 [facility] CHEM PANEL eGFR 135 mL/min/1.73m2 02/15/2015 1Result Comment: The eGFR is calculated using the CKD-EPI formula. In most young, healthy individuals the eGFR will be >90 mL/min/1.73m2. The eGFR declines with age. An eGFR of 60-89 may be normal in some populations, particularly the elderly, for whom the CKD-EPI formula has not been extensively validated. Use of the eGFR is not recommended in the following populations: Individuals with unstable creatinine concentrations, including patients and those with serious co-morbid conditions. Patients with extremes in muscle mass or diet. The data above are obtained from the National Kidney Disease Education Program (NKDEP) which additionally recommends that when the eGFR is used in patients with extremes of body mass index for purposes of drug dosing, the eGFR should be multiplied by the estimated BMI. [facility] CHEM PANEL Creatinine Lvl 0.7 mg/dL 0.5 - 1.4 02/15/2015 [facility] CHEM PANEL Potassium Lvl 3.6 meq/L 3.5 - 5.1 02/15/2015 [facility] CHEM PANEL Sodium Lvl 140 meq/L 135 - 145 02/15/2015 [facility] CHEM PANEL Chloride Lvl 106 meq/L 95 - 109 02/15/2015 [facility] CHEM PANEL Calcium Lvl 8.7 mg/dL 8.5 - 10.5 02/15/2015 [facility] CHEM PANEL Albumin Lvl 3.4 g/dL 3.5 - 5.0 02/15/2015 [facility] CHEM PANEL Total Protein 7.5 g/dL 6.4 - 8.4 02/15/2015 [facility] CHEM PANEL Bili Total 0.2 mg/dL 0.2 - 1.3 02/15/2015 [facility] CHEM PANEL Alk Phos 77 unit/L 39 - 136 02/15/2015 [facility] CHEM PANEL AST 17 unit/L 0 - 37 02/15/2015 [facility] CHEM PANEL ALT 29 unit/L 0 - 65 02/15/2015 [facility] CHEM PANEL Glucose Lvl 93 mg/dL 70 - 99 02/15/2015 2Interpretive Data: Adult reference range values reflect the clinical guidelines of the [place] [employer]. [facility] CHEM PANEL BUN 14 mg/dL 7 - 22 02/15/2015 [facility] CHEM PANEL CO2 30 meq/L 24 - 32 02/15/2015 [facility] CHEM PANEL AGAP 7.6 meq/L 10.0 - 20.0 02/15/2015 [facility] CHEM PANEL A/G Ratio 0.8 0.7 - 1.6 02/15/2015 [facility] CHEM PANEL Globulin 4.1 g/dL 2.0 - 4.0 02/15/2015 [facility] CHEM PANEL B/C Ratio 20 6 - 25 02/15/2015 [facility] HEMATOLOGY PTT 28.6 s 22.9 - 35.8 02/15/2015 4Interpretive Data: Heparin Therapeutic Range: 57 - 92 Seconds [facility] HEMATOLOGY PT 12.6 s 12.0 - 14.7 02/15/2015 [facility] HEMATOLOGY INR 0.94 0.85 - 1.17 02/15/2015 3Interpretive Data: RECOMMENDED RANGES FOR PROTIME INR: 2.0-3.0 for most medical and surgical thromboembolic states. 2.5-3.5 for artificial heart valves and recurrent embolism. INR SHOULD BE USED ONLY FOR PATIENTS ON STABLE ANTICOAGULANT THERAPY. [facility] RDW 13.0 % 11.5 - 14.5 02/15/2015 [facility] Platelet 274 K/CMM 133 - 450 02/15/2015 [facility] MPV 9.0 fL 7.4 - 10.4 02/15/2015 [facility] WBC 7.9 K/CMM 3.7 - 10.4 02/15/2015 [facility] RBC 4.63 M/CMM 4.20 - 5.40 02/15/2015 [facility] Hgb 12.7 g/dL 12.0 - 16.0 02/15/2015 [facility] MCHC 33.4 g/dL 32.0 - 36.0 02/15/2015 [facility] Hct 38.1 % 36.0 - 48.0 02/15/2015 [facility] MCV 82.4 fL 80.0 - 98.0 02/15/2015 [facility] MCH 27.5 pg 27.0 - 31.0 02/15/2015 [facility] Basophils 0.9 % 0.0 - 1.0 02/15/2015 [facility] HEMATOLOGY Segs-Bands # 5.1 K/CMM 1.5 - 8.1 02/15/2015 [facility] HEMATOLOGY Eosinophils # 0.2 K/CMM 0.0 - 0.5 02/15/2015 [facility] Lymphocytes # 2.1 K/CMM 1.0 - 5.5 02/15/2015 [facility] Monocytes # 0.4 K/CMM 0.0 - 0.8 02/15/2015 [facility] Monocytes 5.7 % 2.0 - 12.0 02/15/2015 [facility] Eosinophils 2.2 % 0.0 - 4.0 02/15/2015 [facility] HEMATOLOGY Segs 64.0 % 45.0 - 75.0 02/15/2015 [facility] Lymphocytes 27.2 % 20.0 - 40.0 02/15/2015 [facility] Basophils # 0.1 K/CMM 0.0 - 0.2 02/15/2015 [facility] Abdomen RUQ US Abdomen RUQ US NAME: BRIONNA JIANG : 1985 SEX: F Ordering Physician: Mahesh Walter Abdomen RUQ US : Feb 15, 2015 05:24:00 PM. CLINICAL INDICATION: Abdominal pain, acute. Comparison Examination: CT abdomen and pelvis dated 06/08/2013. FINDINGS: TECHNIQUE: Grayscale and limited color sonographic evaluation of the right upper quadrant of the abdomen and gallbladder region was performed with standard technique. FINDINGS: LIVER: Increased echogenicity is identified to the liver consistent with fatty change. This limits the sensitivity to detection of liver masses by sonography. No gross focal liver abnormality identified. BILE DUCTS: The intrahepatic and extrahepatic bile ducts are not dilated with the common bile duct measuring 4.5 mm. The distal common bile duct is not well seen. GALLBLADDER: There are no gallstones, gallbladder sludge, pericholecystic fluid or wall thickening. PANCREAS: The pancreas is not well-seen due to overlying bowel gas. RIGHT KIDNEY: The right kidney measures 11.0 x 5.3 x 5.0 cm. No right pelvocaliectasis, right nephrolithiasis or right renal mass lesion. ASCITES: There is no right upper quadrant abdominal ascites. IMPRESSION: 1. Fatty change to the liver. 2. Pancreas not well-seen due to overlying bowel gas. 3. Otherwise unremarkable right upper quadrant abdominal ultrasound. SL: 14 02/15/2015 - - Read by: David Powers MD Dictated Date/time: 02/15/15 17:34 Electronically Signed by: David Powers MD 02/15/15 17:37 FINAL REPORT [facility] CHEM PANEL Amylase Lvl 28 unit/L 25 - 115 06/06/2014 [facility] CHEM PANEL Lipase Lvl 26 unit/L 73 - 393 06/06/2014 [facility] HEMATOLOGY Segs-Bands # 5.9 K/CMM 1.5 - 8.1 06/06/2014 [facility] HEMATOLOGY Basophils 0.9 % 0.0 - 1.0 06/06/2014 [facility] HEMATOLOGY Eosinophils # 0.4 K/CMM 0.0 - 0.5 06/06/2014 [facility] HEMATOLOGY Monocytes # 0.5 K/CMM 0.0 - 0.8 06/06/2014 [facility] HEMATOLOGY Lymphocytes # 3.5 K/CMM 1.0 - 5.5 06/06/2014 [facility] HEMATOLOGY Basophils # 0.1 K/CMM 0.0 - 0.2 06/06/2014 [facility] HEMATOLOGY Segs 56.8 % 45.0 - 75.0 06/06/2014 [facility] HEMATOLOGY Lymphocytes 33.3 % 20.0 - 40.0 06/06/2014 [facility] HEMATOLOGY Eosinophils 3.8 % 0.0 - 4.0 06/06/2014 [facility] HEMATOLOGY Monocytes 5.2 % 2.0 - 12.0 06/06/2014 [facility] HEMATOLOGY RDW 13.3 % 11.5 - 14.5 06/06/2014 [facility] HEMATOLOGY MCH 27.4 pg 27.0 - 31.0 06/06/2014 [facility] MCHC 33.0 g/dL 32.0 - 36.0 06/06/2014 [facility] HEMATOLOGY MPV 9.2 fL 7.4 - 10.4 06/06/2014 [facility] HEMATOLOGY Platelet 294 K/CMM 133 - 450 06/06/2014 [facility] HEMATOLOGY RBC 4.88 M/CMM 4.20 - 5.40 06/06/2014 [facility] HEMATOLOGY WBC 10.4 K/CMM 3.7 - 10.4 06/06/2014 [facility] MCV 83.2 fL 80.0 - 98.0 06/06/2014 [facility] HEMATOLOGY Hct 40.6 % 36.0 - 48.0 06/06/2014 [facility] HEMATOLOGY Hgb 13.4 g/dL 12.0 - 16.0 06/06/2014 [facility] URINE AND STOOL UA Urobilinogen <=1.0 mg/dL 0.1 - 1.0 06/06/2014 [facility] URINE AND STOOL UA Color Ltyellow 06/06/2014 [facility] URINE AND STOOL UA Glucose Negative mg/dL Negative mg/dL 06/06/2014 [facility] URINE AND STOOL UA Protein Negative mg/dL Negative mg/dL 06/06/2014 [facility] URINE AND STOOL UA Spec Grav 1.012 <=1.030 06/06/2014 [facility] URINE AND STOOL UA pH 5.0 5.0 - 8.0 06/06/2014 [facility] URINE AND STOOL UA Ketones Negative mg/dL Negative mg/dL 06/06/2014 [facility] URINE AND STOOL UA Turbidity Clear (06/05/14 11:34 PM) Clear 06/06/2014 [facility] URINE AND STOOL UA RBC null 0 - 2 06/06/2014 [facility] URINE AND STOOL UA WBC null 0 - 5 06/06/2014 [facility] URINE AND STOOL UA Sq Epi Occasional /LPF Few /LPF 06/06/2014 [facility] URINE AND STOOL UA Nitrite Negative (06/05/14 11:34 PM) Negative 06/06/2014 [facility] URINE AND STOOL UA Blood Small *ABN* (06/05/14 11:34 PM) Negative 06/06/2014 [facility] URINE AND STOOL UA Bili Negative *NA* (06/05/14 11:34 PM) Negative 06/06/2014 [facility] URINE AND STOOL UA Leuk Est Negative (06/05/14 11:34 PM) Negative 06/06/2014 [facility] URINE CHEM U Preg Negative (06/05/14 11:34 PM) Negative 06/06/2014 [facility] STOOL TESTS Fecal Leukocyte Rare 2 (06/11/2013 11:16:00) 06/11/2013 Normal 2Interpretive Data: A Value of None Seen, Rare, or Few is Normal. [facility] CHEMISTRY Potassium Lvl 3.8 meq/L 3.5 - 5.1 06/10/2013 Normal [facility] CHEMISTRY Sodium Lvl 146 meq/L 135 - 145 06/10/2013 HI [facility] CHEMISTRY Chloride Lvl 109 meq/L 95 - 109 06/10/2013 Normal [facility] CHEMISTRY eGFR 101 mL/min/1.73m2 06/10/2013 5Result Comment: The eGFR is calculated using the CKD-EPI formula. In most young, healthy individuals the eGFR will be >90 mL/min/1.73m2. The eGFR declines with age. An eGFR of 60-89 may be normal in some populations, particularly the elderly, for whom the CKD-EPI formula has not been extensively validated. Use of the eGFR is not recommended in the following populations: Individuals with unstable creatinine concentrations, including patients and those with serious co-morbid conditions. Patients with extremes in muscle mass or diet. The data above are obtained from the National Kidney Disease Education Program (NKDEP) which additionally recommends that when the eGFR is used in patients with extremes of body mass index for purposes of drug dosing, the eGFR should be multiplied by the estimated BMI. [facility] CHEMISTRY Bili Total 0.2 mg/dL 0.2 - 1.3 06/10/2013 Normal [facility] CHEMISTRY Glucose Lvl 104 mg/dL 70 - 99 06/10/2013 [place] 8Interpretive Data: Adult reference range values reflect the clinical guidelines of the [place] [employer]. [facility] CHEMISTRY BUN 11 mg/dL 7 - 22 06/10/2013 Normal [facility] CHEMISTRY CO2 27 meq/L 24 - 32 06/10/2013 Normal [facility] CHEMISTRY Creatinine Lvl 0.9 mg/dL 0.5 - 1.4 06/10/2013 Normal [facility] CHEMISTRY AGAP 13.8 meq/L 10.0 - 20.0 06/10/2013 Normal [facility] CHEMISTRY Calcium Lvl 8.0 mg/dL 8.5 - 10.5 06/10/2013 LOW [facility] CHEMISTRY B/C Ratio 12 6 - 25 06/10/2013 Normal [facility] CHEMISTRY Total Protein 6.1 g/dL 6.4 - 8.4 06/10/2013 LOW [facility] CHEMISTRY A/G Ratio 1.0 0.7 - 1.6 06/10/2013 Normal [facility] CHEMISTRY Albumin Lvl 3.1 g/dL 3.5 - 5.0 06/10/2013 LOW [facility] CHEMISTRY ALANINE AMINOTRANSFERASE 20 unit/L 0 - 65 06/10/2013 Normal [facility] CHEMISTRY Globulin 3.0 g/dL 2.0 - 4.0 06/10/2013 Normal [facility] CHEMISTRY Alk Phos 56 unit/L 39 - 136 06/10/2013 Normal [facility] CHEMISTRY ASPARTATE TRANSAMINASE 9 unit/L 0 - 37 06/10/2013 Normal [facility] HEMATOLOGY MCH 26.7 pg 27.0 - 31.0 06/10/2013 LOW [facility] HEMATOLOGY RDW 12.9 % 11.5 - 14.5 06/10/2013 Normal [facility] HEMATOLOGY MCHC 32.0 g/dL 32.0 - 36.0 06/10/2013 Normal [facility] HEMATOLOGY Platelet 262 K/CMM 133 - 450 06/10/2013 Normal [facility] HEMATOLOGY MPV 8.9 fL 7.4 - 10.4 06/10/2013 Normal [facility] HEMATOLOGY RBC X 10x6 4.22 M/CMM 4.20 - 5.40 06/10/2013 Normal [facility] HEMATOLOGY WBC X 10x3 6.8 K/CMM 3.7 - 10.4 06/10/2013 Normal [facility] HEMATOLOGY Hct 35.2 % 36.0 - 48.0 06/10/2013 LOW [facility] HEMATOLOGY MCV 83.4 fL 81.0 - 99.0 06/10/2013 Normal [facility] HEMATOLOGY Hgb 11.3 g/dL 12.0 - 16.0 06/10/2013 LOW [facility] HEMATOLOGY Monocytes 6.0 % 2.0 - 12.0 06/10/2013 Normal [facility] HEMATOLOGY Monocytes # 0.4 K/CMM 0.0 - 0.8 06/10/2013 Normal [facility] HEMATOLOGY Eosinophils # 0.0 K/CMM 0.0 - 0.5 06/10/2013 Normal [facility] HEMATOLOGY Basophils # 0.0 K/CMM 0.0 - 0.2 06/10/2013 Normal [facility] HEMATOLOGY Lymphocytes # 2.4 K/CMM 1.0 - 5.5 06/10/2013 Normal [facility] HEMATOLOGY Basophils 0.6 % 0.0 - 1.0 06/10/2013 Normal [facility] HEMATOLOGY Segs-Bands # 3.8 K/CMM 1.5 - 8.1 06/10/2013 Normal [facility] HEMATOLOGY Eosinophils 0.6 % 0.0 - 4.0 06/10/2013 Normal [facility] HEMATOLOGY Lymphocytes 36.1 % 20.0 - 40.0 06/10/2013 Normal [facility] HEMATOLOGY Segs 56.7 % 45.0 - 75.0 06/10/2013 Normal [facility] CHEMISTRY Sodium Lvl 144 meq/L 135 - 145 06/09/2013 Normal [facility] CHEMISTRY Potassium Lvl 4.7 meq/L 3.5 - 5.1 06/09/2013 Normal [facility] CHEMISTRY Chloride Lvl 107 meq/L 95 - 109 06/09/2013 Normal [facility] CHEMISTRY A/G Ratio 0.9 0.7 - 1.6 06/09/2013 Normal [facility] CHEMISTRY ALANINE AMINOTRANSFERASE 23 unit/L 0 - 65 06/09/2013 Normal [facility] CHEMISTRY Alk Phos 62 unit/L 39 - 136 06/09/2013 Normal [facility] CHEMISTRY eGFR 137 mL/min/1.73m2 06/09/2013 6Result Comment: The eGFR is calculated using the CKD-EPI formula. In most young, healthy individuals the eGFR will be >90 mL/min/1.73m2. The eGFR declines with age. An eGFR of 60-89 may be normal in some populations, particularly the elderly, for whom the CKD-EPI formula has not been extensively validated. Use of the eGFR is not recommended in the following populations: Individuals with unstable creatinine concentrations, including patients and those with serious co-morbid conditions. Patients with extremes in muscle mass or diet. The data above are obtained from the National Kidney Disease Education Program (NKDEP) which additionally recommends that when the eGFR is used in patients with extremes of body mass index for purposes of drug dosing, the eGFR should be multiplied by the estimated BMI. [facility] CHEMISTRY Bili Total 0.4 mg/dL 0.2 - 1.3 06/09/2013 Normal [facility] CHEMISTRY ASPARTATE TRANSAMINASE 13 unit/L 0 - 37 06/09/2013 Normal [facility] CHEMISTRY Creatinine Lvl 0.7 mg/dL 0.5 - 1.4 06/09/2013 Normal [facility] CHEMISTRY BUN 8 mg/dL 7 - 22 06/09/2013 Normal [facility] CHEMISTRY Glucose Lvl 130 mg/dL 70 - 99 06/09/2013 [place] 9Interpretive Data: Adult reference range values reflect the clinical guidelines of the [place] [employer]. [facility] CHEMISTRY Albumin Lvl 3.4 g/dL 3.5 - 5.0 06/09/2013 LOW [facility] CHEMISTRY Globulin 3.6 g/dL 2.0 - 4.0 06/09/2013 Normal [facility] CHEMISTRY Total Protein 7.0 g/dL 6.4 - 8.4 06/09/2013 Normal [facility] CHEMISTRY B/C Ratio 11 6 - 25 06/09/2013 Normal [facility] CHEMISTRY Calcium Lvl 8.7 mg/dL 8.5 - 10.5 06/09/2013 Normal [facility] CHEMISTRY CO2 26 meq/L 24 - 32 06/09/2013 Normal [facility] CHEMISTRY AGAP 15.7 meq/L 10.0 - 20.0 06/09/2013 Normal [facility] HEMATOLOGY MCHC 32.4 g/dL 32.0 - 36.0 06/09/2013 Normal [facility] HEMATOLOGY MCV 81.7 fL 81.0 - 99.0 06/09/2013 Normal [facility] HEMATOLOGY MCH 26.4 pg 27.0 - 31.0 06/09/2013 LOW [facility] HEMATOLOGY RDW 13.1 % 11.5 - 14.5 06/09/2013 Normal [facility] HEMATOLOGY Platelet 276 K/CMM 133 - 450 06/09/2013 Normal [facility] HEMATOLOGY MPV 8.9 fL 7.4 - 10.4 06/09/2013 Normal [facility] HEMATOLOGY RBC X 10x6 4.72 M/CMM 4.20 - 5.40 06/09/2013 Normal [facility] HEMATOLOGY Hgb 12.5 g/dL 12.0 - 16.0 06/09/2013 Normal [facility] HEMATOLOGY Hct 38.6 % 36.0 - 48.0 06/09/2013 Normal [facility] HEMATOLOGY WBC X 10x3 3.4 K/CMM 3.7 - 10.4 06/09/2013 LOW [facility] HEMATOLOGY Lymphocytes # 0.9 K/CMM 1.0 - 5.5 06/09/2013 LOW [facility] HEMATOLOGY Monocytes # 0.1 K/CMM 0.0 - 0.8 06/09/2013 Normal [facility] HEMATOLOGY Eosinophils # 0.0 K/CMM 0.0 - 0.5 06/09/2013 Normal [facility] HEMATOLOGY Basophils # 0.0 K/CMM 0.0 - 0.2 06/09/2013 Normal [facility] HEMATOLOGY Segs-Bands # 2.5 K/CMM 1.5 - 8.1 06/09/2013 Normal [facility] HEMATOLOGY Basophils 0.1 % 0.0 - 1.0 06/09/2013 Normal [facility] HEMATOLOGY Eosinophils 0.0 % 0.0 - 4.0 06/09/2013 Normal [facility] HEMATOLOGY Monocytes 2.8 % 2.0 - 12.0 06/09/2013 Normal [facility] HEMATOLOGY Lymphocytes 25.0 % 20.0 - 40.0 06/09/2013 Normal [facility] HEMATOLOGY Segs 72.1 % 45.0 - 75.0 06/09/2013 Normal [facility] STOOL TESTS Occult Bld Stl Negative 1 (06/09/2013 05:14:00) Negative 06/09/2013 Normal 1Result Comment: Collection date/time has been modified to: 05:14:00. Previous collection date/time: 05:14:00. [facility] STOOL TESTS Fecal Leukocyte Few 3, 4 (06/09/2013 05:14:00) 06/09/2013 Normal 4Interpretive Data: A Value of None Seen, Rare, or Few is Normal. [facility] Microbiology Culture: Stool 06/09/2013 [facility] Gallbladder scan [facility] HEPATOBILIARY SCAN: PROCEDURE: 6.0 mCi of technetium 99m Choletec were given intravenously followed by anterior imaging over the upper abdomen. FINDINGS: There is prompt uptake and excretion of activity by the liver with prompt visualization of the biliary tree, gallbladder and small bowel. IMPRESSION: Normal hepatobiliary scan. SL:13 06/09/2013 - - Read by: Stuart Gan Dictated Date/time: 06/09/13 09:30 Electronically Signed by: Stuart Gan MD 06/09/13 09:31 FINAL REPORT [facility] Abdomen RUQ US Abdomen RUQ US EXAM: Right upper quadrant ultrasound HISTORY: Abdominal pain. TECHNIQUE: Wright scale static images of the right upper quadrant performed FINDINGS: 1. The gallbladder is partially contracted. No gallstone seen. 2. Fatty liver. 3. The visualized common duct is normal caliber measuring 0.2 cm. 4. The visualized pancreas is unremarkable. 5. Right kidney measures 12 cm length without hydronephrosis. SL:13 06/08/2013 - - Read by: Memo Tran Dictated Date/time: 06/08/13 21:24 Electronically Signed by: Memo Tran MD 06/08/13 21:26 FINAL REPORT [facility] URINALYSIS UA Color Ltyellow 06/08/2013 [facility] URINALYSIS UA Urobilinogen <=1.0 mg/dL 0.1 - 1.0 06/08/2013 [facility] URINALYSIS UA RBC null 0 - 2 06/08/2013 Normal [facility] URINALYSIS UA Mucus Few /LPF None Seen 06/08/2013 [facility] URINALYSIS UA Bacteria Occasional /HPF None Seen 06/08/2013 [facility] URINALYSIS UA Uric Ac Christal Occasional /HPF None Seen 06/08/2013 [facility] URINALYSIS UA Nitrite Negative (06/08/2013 11:50:00) Negative 06/08/2013 Normal [facility] URINALYSIS UA Sq Epi Occasional /LPF Few 06/08/2013 [facility] URINALYSIS UA WBC 1 /HPF 0 - 5 06/08/2013 Normal [facility] URINALYSIS UA Leuk Est Negative (06/08/2013 11:50:00) Negative 06/08/2013 Normal [facility] URINALYSIS UA Blood Small *ABN* (06/08/2013 11:50:00) Negative 06/08/2013 ABN [facility] URINALYSIS UA Bili Negative *NA* (06/08/2013 11:50:00) Negative 06/08/2013 [facility] URINALYSIS UA Ketones 20 mg/dL Negative 06/08/2013 ABN [facility] URINALYSIS UA Glucose Negative mg/dL Negative 06/08/2013 [facility] URINALYSIS UA pH 5.0 5.0 - 8.0 06/08/2013 Normal [facility] URINALYSIS UA Protein Negative mg/dL Negative 06/08/2013 Normal [facility] URINALYSIS UA Turbidity Slight *ABN* (06/08/2013 11:50:00) Clear 06/08/2013 ABN [facility] URINALYSIS UA Spec Grav 1.014 <=1.030 06/08/2013 Normal [facility] CHEMISTRY S Preg Negative *NA* (06/08/2013 10:24:00) Negative 06/08/2013 [facility] CHEMISTRY eGFR 117 mL/min/1.73m2 06/08/2013 7Result Comment: The eGFR is calculated using the CKD-EPI formula. In most young, healthy individuals the eGFR will be >90 mL/min/1.73m2. The eGFR declines with age. An eGFR of 60-89 may be normal in some populations, particularly the elderly, for whom the CKD-EPI formula has not been extensively validated. Use of the eGFR is not recommended in the following populations: Individuals with unstable creatinine concentrations, including patients and those with serious co-morbid conditions. Patients with extremes in muscle mass or diet. The data above are obtained from the National Kidney Disease Education Program (NKDEP) which additionally recommends that when the eGFR is used in patients with extremes of body mass index for purposes of drug dosing, the eGFR should be multiplied by the estimated BMI. [facility] CHEMISTRY Creatinine Lvl 0.8 mg/dL 0.5 - 1.4 06/08/2013 Normal [facility] CHEMISTRY Glucose Lvl 80 mg/dL 70 - 99 06/08/2013 Normal 10Interpretive Data: Adult reference range values reflect the clinical guidelines of the [place] [employer]. [facility] CHEMISTRY Bili Total 0.2 mg/dL 0.2 - 1.3 06/08/2013 Normal [facility] CHEMISTRY ALANINE AMINOTRANSFERASE 28 unit/L 0 - 65 06/08/2013 Normal [facility] CHEMISTRY ASPARTATE TRANSAMINASE 22 unit/L 0 - 37 06/08/2013 Normal [facility] CHEMISTRY Alk Phos 81 unit/L 39 - 136 06/08/2013 Normal [facility] CHEMISTRY Albumin Lvl 3.9 g/dL 3.5 - 5.0 06/08/2013 Normal [facility] CHEMISTRY Total Protein 8.4 g/dL 6.4 - 8.4 06/08/2013 Normal [facility] CHEMISTRY Calcium Lvl 9.3 mg/dL 8.5 - 10.5 06/08/2013 Normal [facility] CHEMISTRY CO2 24 meq/L 24 - 32 06/08/2013 Normal [facility] CHEMISTRY BUN 15 mg/dL 7 - 22 06/08/2013 Normal [facility] CHEMISTRY Chloride Lvl 107 meq/L 95 - 109 06/08/2013 Normal [facility] CHEMISTRY Sodium Lvl 139 meq/L 135 - 145 06/08/2013 Normal [facility] CHEMISTRY Potassium Lvl 4.0 meq/L 3.5 - 5.1 06/08/2013 Normal [facility] CHEMISTRY A/G Ratio 0.9 0.7 - 1.6 06/08/2013 Normal [facility] CHEMISTRY Globulin 4.5 g/dL 2.0 - 4.0 06/08/2013 HI [facility] CHEMISTRY B/C Ratio 19 6 - 25 06/08/2013 Normal [facility] CHEMISTRY AGAP 12.0 meq/L 10.0 - 20.0 06/08/2013 Normal [facility] CHEMISTRY Lipase Lvl 110 unit/L 73 - 393 06/08/2013 Normal [facility] CHEMISTRY Amylase Lvl 36 unit/L 25 - 115 06/08/2013 Normal [facility] HEMATOLOGY MPV 8.8 fL 7.4 - 10.4 06/08/2013 Normal [facility] HEMATOLOGY Platelet 275 K/CMM 133 - 450 06/08/2013 Normal [facility] HEMATOLOGY RDW 13.1 % 11.5 - 14.5 06/08/2013 Normal [facility] HEMATOLOGY MCV 81.9 fL 81.0 - 99.0 06/08/2013 Normal [facility] HEMATOLOGY MCHC 32.8 g/dL 32.0 - 36.0 06/08/2013 Normal [facility] HEMATOLOGY MCH 26.9 pg 27.0 - 31.0 06/08/2013 LOW [facility] HEMATOLOGY Hgb 14.1 g/dL 12.0 - 16.0 06/08/2013 Normal [facility] HEMATOLOGY RBC X 10x6 5.23 M/CMM 4.20 - 5.40 06/08/2013 Normal [facility] HEMATOLOGY Hct 42.8 % 36.0 - 48.0 06/08/2013 Normal [facility] HEMATOLOGY WBC X 10x3 6.0 K/CMM 3.7 - 10.4 06/08/2013 Normal [facility] HEMATOLOGY Segs 71.3 % 45.0 - 75.0 06/08/2013 Normal [facility] HEMATOLOGY Lymphocytes 22.6 % 20.0 - 40.0 06/08/2013 Normal [facility] HEMATOLOGY Monocytes 4.2 % 2.0 - 12.0 06/08/2013 Normal [facility] HEMATOLOGY Monocytes # 0.3 K/CMM 0.0 - 0.8 06/08/2013 Normal [facility] HEMATOLOGY Segs-Bands # 4.2 K/CMM 1.5 - 8.1 06/08/2013 Normal [facility] HEMATOLOGY Lymphocytes # 1.3 K/CMM 1.0 - 5.5 06/08/2013 Normal [facility] HEMATOLOGY Eosinophils 1.6 % 0.0 - 4.0 06/08/2013 Normal [facility] HEMATOLOGY Basophils 0.3 % 0.0 - 1.0 06/08/2013 Normal [facility] HEMATOLOGY Basophils # 0.0 K/CMM 0.0 - 0.2 06/08/2013 Normal [facility] HEMATOLOGY Eosinophils # 0.1 K/CMM 0.0 - 0.5 06/08/2013 Normal [facility] Abdomen/Pelvis w contrast CT Abdomen/Pelvis w contrast CT EXAM: CT abdomen and pelvis HISTORY: Abdominal pain. COMPARISON: CT 03/22/2013. TECHNIQUE: Axial images obtained through the abdomen and pelvis with IV and oral contrast. Sagittal and coronal reformations obtained. FINDINGS: Abdomen and pelvis: 1. No acute findings in the abdomen and pelvis. Normal appendix. 2. Mild fatty change of the liver. 3. The spleen, kidneys, adrenals, gallbladder and pancreas are unremarkable. Bowel pattern is unremarkable. No mass, bulky adenopathy or free fluid. Bladder is unremarkable. Uterus and ovaries are visualized. SL: 16 06/08/2013 - - Read by: Memo Tran Dictated Date/time: 06/08/13 14:39 Electronically Signed by: Memo Tran MD 06/08/13 14:57 FINAL REPORT [facility] CHEMISTRY CK MB Index null 0.0 - 2.5 04/21/2013 Normal [facility] CHEMISTRY Total CK 74 unit/L 12 - 191 04/21/2013 Normal [facility] CHEMISTRY CK MB null 0.5 - 3.6 04/21/2013 Normal [facility] CHEMISTRY Troponin-I null 0.00 - 0.40 04/21/2013 Normal [facility] HEMATOLOGY D-Dimer 0.51 ug/mL FEU 04/21/2013 NA 4Interpretive Data: In DIC, quantitative D- Dimer is generally greater than 0.66 ug/mL FEU. Values of quantitative D-Dimer less than 0.40 ug/mL FEU have been reported to be associated with a low probability of deep vein thrombosis/pulmonary embolism. This test alone should not be used to rule out DVT/PE. [facility] CHEMISTRY S Preg Negative *NA* (04/21/2013 11:29:00) Negative 04/21/2013 NA [facility] CHEMISTRY BNP 13 pg/mL <=100 04/21/2013 Normal 3Interpretive Data: Elevated results are in line with increasing severity of congestive heart failure. Minor elevations between 100 and 300 may be seen with Myocardial Ischemia, Sodium retaining drugs, and compensated/treated heart failure. [facility] CHEMISTRY Total CK 86 unit/L 12 - 191 04/21/2013 Normal [facility] CHEMISTRY CK MB null 0.5 - 3.6 04/21/2013 Normal [facility] CHEMISTRY Troponin-I null 0.00 - 0.40 04/21/2013 Normal [facility] CHEMISTRY Sodium Lvl 143 meq/L 135 - 145 04/21/2013 Normal [facility] CHEMISTRY Potassium Lvl 4.2 meq/L 3.5 - 5.1 04/21/2013 Normal [facility] CHEMISTRY Chloride Lvl 106 meq/L 95 - 109 04/21/2013 Normal [facility] CHEMISTRY eGFR 137 mL/min/1.73m2 04/21/2013 NA 1Result Comment: The eGFR is calculated using the CKD-EPI formula. In most young, healthy individuals the eGFR will be >90 mL/min/1.73m2. The eGFR declines with age. An eGFR of 60-89 may be normal in some populations, particularly the elderly, for whom the CKD-EPI formula has not been extensively validated. Use of the eGFR is not recommended in the following populations: Individuals with unstable creatinine concentrations, including patients and those with serious co-morbid conditions. Patients with extremes in muscle mass or diet. The data above are obtained from the National Kidney Disease Education Program (NKDEP) which additionally recommends that when the eGFR is used in patients with extremes of body mass index for purposes of drug dosing, the eGFR should be multiplied by the estimated BMI. [facility] CHEMISTRY A/G Ratio 0.9 0.7 - 1.6 04/21/2013 Normal [facility] CHEMISTRY Globulin 3.8 g/dL 2.0 - 4.0 04/21/2013 Normal [facility] CHEMISTRY B/C Ratio 16 6 - 25 04/21/2013 Normal [facility] CHEMISTRY AGAP 11.2 meq/L 10.0 - 20.0 04/21/2013 Normal [facility] CHEMISTRY Bili Total 0.2 mg/dL 0.2 - 1.3 04/21/2013 Normal [facility] CHEMISTRY AST 11 unit/L 0 - 37 04/21/2013 Normal [facility] CHEMISTRY Albumin Lvl 3.5 g/dL 3.5 - 5.0 04/21/2013 Normal [facility] CHEMISTRY Alk Phos 75 unit/L 39 - 136 04/21/2013 Normal [facility] CHEMISTRY ALT 22 unit/L 0 - 65 04/21/2013 Normal [facility] CHEMISTRY Total Protein 7.3 g/dL 6.4 - 8.4 04/21/2013 Normal [facility] CHEMISTRY Calcium Lvl 8.7 mg/dL 8.5 - 10.5 04/21/2013 Normal [facility] CHEMISTRY CO2 30 meq/L 24 - 32 04/21/2013 Normal [facility] CHEMISTRY Creatinine Lvl 0.7 mg/dL 0.5 - 1.4 04/21/2013 Normal [facility] CHEMISTRY Glucose Lvl 86 mg/dL 70 - 99 04/21/2013 Normal 2Interpretive Data: Adult reference range values reflect the clinical guidelines of the [place] [employer]. [facility] CHEMISTRY BUN 11 mg/dL 7 - 22 04/21/2013 Normal [facility] CHEMISTRY CK MB Index null 0.0 - 2.5 04/21/2013 Normal [facility] HEMATOLOGY Platelet 279 K/CMM 133 - 450 04/21/2013 Normal [facility] HEMATOLOGY MCHC 32.3 g/dL 32.0 - 36.0 04/21/2013 Normal [facility] HEMATOLOGY RDW 13.1 % 11.5 - 14.5 04/21/2013 Normal [facility] HEMATOLOGY MPV 8.8 fL 7.4 - 10.4 04/21/2013 Normal [facility] HEMATOLOGY MCV 83.8 fL 81.0 - 99.0 04/21/2013 Normal [facility] HEMATOLOGY MCH 27.0 pg 27.0 - 31.0 04/21/2013 Normal [facility] HEMATOLOGY Hct 38.8 % 36.0 - 48.0 04/21/2013 Normal [facility] HEMATOLOGY Hgb 12.5 g/dL 12.0 - 16.0 04/21/2013 Normal [facility] HEMATOLOGY RBC 4.63 M/CMM 4.20 - 5.40 04/21/2013 Normal [facility] HEMATOLOGY WBC 7.6 K/CMM 3.7 - 10.4 04/21/2013 Normal [facility] HEMATOLOGY Segs-Bands # 4.9 K/CMM 1.5 - 8.1 04/21/2013 Normal [facility] Basophils 0.4 % 0.0 - 1.0 04/21/2013 Normal [facility] HEMATOLOGY Lymphocytes # 2.1 K/CMM 1.0 - 5.5 04/21/2013 Normal [facility] HEMATOLOGY Monocytes # 0.4 K/CMM 0.0 - 0.8 04/21/2013 Normal [facility] HEMATOLOGY Eosinophils # 0.2 K/CMM 0.0 - 0.5 04/21/2013 Normal [facility] Basophils # 0.0 K/CMM 0.0 - 0.2 04/21/2013 Normal [facility] Monocytes 4.7 % 2.0 - 12.0 04/21/2013 Normal [facility] HEMATOLOGY Lymphocytes 28.4 % 20.0 - 40.0 04/21/2013 Normal [facility] Eosinophils 2.2 % 0.0 - 4.0 04/21/2013 Normal [facility] HEMATOLOGY Segs 64.3 % 45.0 - 75.0 04/21/2013 Normal [facility] Chest w contrast CT Chest w contrast CT CT CHEST WITH CONTRAST INDICATION: Chest pain, left arm numbness COMPARISON: CT chest 06/16/2011, chest radiograph 04/21/2013, CT abdomen 03/22/2013 FINDINGS: Image detail is degraded by respiratory motion artifacts and patient body habitus. No pulmonary embolus is visualized. The heart and aorta are unremarkable. There is no consolidation, pleural effusion, or pneumothorax. The trachea and major bronchi are clear. No mediastinal, hilar, or axillary lymphadenopathy are identified. There is focal increased enhancement of the caudate relative to the rest of the liver parenchyma, measuring approximately 4.8 cm. This appearance is not seen in the recent CT of the abdomen or CT of the chest from 2010. No acute bony abnormalities are seen. IMPRESSION: 1. No acute intrathoracic abnormalities are visualized. 2. Apparent hypervascularity of the caudate lobe of the liver may be secondary to transient hepatic attenuation difference, related to anomalous venous drainage, or may reflect focal fatty sparing. MRI of the abdomen, with and without contrast, may be beneficial to exclude a potential hepatic mass. SL: 13 04/21/2013 - - Read by: Jose A Jean-Baptiste Date/time: 04/21/13 13:30 Electronically Signed by: Jose A Jean-Baptiste MD 04/21/13 13:48 FINAL REPORT [facility] Chest 2 views Chest 2 views PROCEDURE: Chest 2 views REASON FOR EXAM: See Clinic Indication CLINICAL INDICATION: Chest pain COMPARISON: 03/22/2013. FINDINGS: No acute process. No focal consolidation, pleural effusion, or pneumothorax. Stable cardiac silhouette and mediastinum. SL: 12 04/21/2013 - - Read by: Pietro Araya Dictated Date/time: 04/21/13 12:16 Electronically Signed by: Pietro Aarya MD 04/21/13 12:16 FINAL REPORT [facility] Pelvis with Pelvis Transvaginal US Pelvis with Pelvis Transvaginal US TRANSABDOMINAL AND TRANSVAGINAL PELVIC ULTRASOUND CLINICAL INDICATION: Ovarian cyst COMPARISON: CT pelvis 03/22/2013 DISCUSSION: TRANSABDOMINAL: The uterus measures 9.7 x 3.3 x 3.9 cm. The endometrial stripe is homogeneous, measuring 5 mm in thickness. Transvaginal ultrasound was performed for further detail. TRANSVAGINAL: The ovaries are normal in size and echogenicity. No ovarian cysts are identified. The right ovary measures 2.4 x 2.2 x 2.2 cm. The left ovary measures 2.0 x 1.4 x 1.6 cm. No free fluid or pelvic masses are seen. IMPRESSION: No sonographic abnormalities of the pelvis are visualized. SL: 04/21/2013 - - Read by: Jose A Jean-Baptiste Dictated Date/time: 04/21/13 11:43 Electronically Signed by: Jose A Jean-Baptiste MD 04/21/13 11:45 FINAL REPORT [facility] IMMUNOLOGY Gonorrhea PCR Negative (03/22/2013 10:00:00) Negative 03/22/2013 Normal [facility] IMMUNOLOGY Source Jesse Endocervix 03/22/2013 NA [facility] IMMUNOLOGY Source Chlam endocervix 03/22/2013 NA [facility] IMMUNOLOGY Chlam PCR Negative (03/22/2013 10:00:00) Negative 03/22/2013 Normal [facility] Microbiology Wet Prep 03/22/2013 [facility] RAPID Grp A Strep Scr Negative (03/22/2013 09:40:38) Negative 03/22/2013 Normal [facility] CHEMISTRY Lipase Lvl 109 unit/L 73 - 393 03/22/2013 Normal [facility] CHEMISTRY CK MB Index null 0.0 - 2.5 03/22/2013 Normal [facility] CHEMISTRY Amylase Lvl 37 unit/L 25 - 115 03/22/2013 Normal [facility] CHEMISTRY AGAP 12.2 meq/L 10.0 - 20.0 03/22/2013 Normal [facility] CHEMISTRY Globulin 3.3 g/dL 2.0 - 4.0 03/22/2013 Normal [facility] CHEMISTRY B/C Ratio 20 6 - 25 03/22/2013 Normal [facility] CHEMISTRY A/G Ratio 1.0 0.7 - 1.6 03/22/2013 Normal [facility] CHEMISTRY Sodium Lvl 143 meq/L 135 - 145 03/22/2013 Normal [facility] CHEMISTRY Potassium Lvl 4.2 meq/L 3.5 - 5.1 03/22/2013 Normal [facility] CHEMISTRY Chloride Lvl 110 meq/L 95 - 109 03/22/2013 HI [facility] CHEMISTRY eGFR 137 mL/min/1.73m2 03/22/2013 NA 1Result Comment: The eGFR is calculated using the CKD-EPI formula. In most young, healthy individuals the eGFR will be >90 mL/min/1.73m2. The eGFR declines with age. An eGFR of 60-89 may be normal in some populations, particularly the elderly, for whom the CKD-EPI formula has not been extensively validated. Use of the eGFR is not recommended in the following populations: Individuals with unstable creatinine concentrations, including patients and those with serious co-morbid conditions. Patients with extremes in muscle mass or diet. The data above are obtained from the National Kidney Disease Education Program (NKDEP) which additionally recommends that when the eGFR is used in patients with extremes of body mass index for purposes of drug dosing, the eGFR should be multiplied by the estimated BMI. [facility] CHEMISTRY BUN 14 mg/dL 7 - 22 03/22/2013 Normal [facility] CHEMISTRY Creatinine Lvl 0.7 mg/dL 0.5 - 1.4 03/22/2013 Normal [facility] CHEMISTRY CO2 25 meq/L 24 - 32 03/22/2013 Normal [facility] CHEMISTRY Calcium Lvl 8.6 mg/dL 8.5 - 10.5 03/22/2013 Normal [facility] CHEMISTRY Bili Total 0.2 mg/dL 0.2 - 1.3 03/22/2013 Normal [facility] CHEMISTRY ALT 28 unit/L 0 - 65 03/22/2013 Normal [facility] CHEMISTRY Alk Phos 77 unit/L 39 - 136 03/22/2013 Normal [facility] CHEMISTRY Albumin Lvl 3.4 g/dL 3.5 - 5.0 03/22/2013 LOW [facility] CHEMISTRY Total Protein 6.7 g/dL 6.4 - 8.4 03/22/2013 Normal [facility] CHEMISTRY Glucose Lvl 88 mg/dL 70 - 99 03/22/2013 Normal 2Interpretive Data: Adult reference range values reflect the clinical guidelines of the [place] [employer]. [facility] CHEMISTRY AST 16 unit/L 0 - 37 03/22/2013 Normal [facility] CHEMISTRY Troponin-I null 0.00 - 0.40 03/22/2013 Normal [facility] CHEMISTRY CK MB null 0.5 - 3.6 03/22/2013 Normal [facility] CHEMISTRY Total CK 116 unit/L 12 - 191 03/22/2013 Normal [facility] HEMATOLOGY Basophils 0.3 % 0.0 - 1.0 03/22/2013 Normal [facility] HEMATOLOGY Segs-Bands # 5.3 K/CMM 1.5 - 8.1 03/22/2013 Normal [facility] HEMATOLOGY Lymphocytes # 1.7 K/CMM 1.0 - 5.5 03/22/2013 Normal [facility] HEMATOLOGY Monocytes # 0.3 K/CMM 0.0 - 0.8 03/22/2013 Normal [facility] HEMATOLOGY Basophils # 0.0 K/CMM 0.0 - 0.2 03/22/2013 Normal [facility] HEMATOLOGY Eosinophils # 0.4 K/CMM 0.0 - 0.5 03/22/2013 Normal [facility] HEMATOLOGY Segs 67.7 % 45.0 - 75.0 03/22/2013 Normal [facility] HEMATOLOGY Lymphocytes 22.3 % 20.0 - 40.0 03/22/2013 Normal [facility] HEMATOLOGY Eosinophils 5.4 % 0.0 - 4.0 03/22/2013 HI [facility] HEMATOLOGY Monocytes 4.3 % 2.0 - 12.0 03/22/2013 Normal [facility] HEMATOLOGY WBC 7.8 K/CMM 3.7 - 10.4 03/22/2013 Normal [facility] HEMATOLOGY RBC 4.68 M/CMM 4.20 - 5.40 03/22/2013 Normal [facility] HEMATOLOGY MCH 27.3 pg 27.0 - 31.0 03/22/2013 Normal [facility] HEMATOLOGY MCV 82.8 fL 81.0 - 99.0 03/22/2013 Normal [facility] HEMATOLOGY Hct 38.8 % 36.0 - 48.0 03/22/2013 Normal [facility] HEMATOLOGY Hgb 12.8 g/dL 12.0 - 16.0 03/22/2013 Normal [facility] HEMATOLOGY MCHC 33.0 g/dL 32.0 - 36.0 03/22/2013 Normal [facility] HEMATOLOGY MPV 8.9 fL 7.4 - 10.4 03/22/2013 Normal [facility] HEMATOLOGY Platelet 290 K/CMM 133 - 450 03/22/2013 Normal [facility] HEMATOLOGY RDW 12.8 % 11.5 - 14.5 03/22/2013 Normal [facility] CHEMISTRY U Preg Negative (03/22/2013 07:40:00) Negative 03/22/2013 Normal [facility] URINALYSIS UA Sq Epi Few /LPF (03/22/2013 07:40:00) Few 03/22/2013 Normal [facility] URINALYSIS UA Turbidity Clear (03/22/2013 07:40:00) Clear 03/22/2013 Normal [facility] URINALYSIS UA Spec Grav 1.010 <=1.030 03/22/2013 Normal [facility] URINALYSIS UA Color Yellow *NA* (03/22/2013 07:40:00) Yellow 03/22/2013 NA [facility] URINALYSIS UA pH 6.0 5.0 - 8.0 03/22/2013 Normal [facility] URINALYSIS UA Protein 30 mg/dL *ABN* (03/22/2013 07:40:00) Negative 03/22/2013 ABN [facility] URINALYSIS UA Glucose Negative (03/22/2013 07:40:00) Negative 03/22/2013 Normal [facility] URINALYSIS UA Blood Large *ABN* (03/22/2013 07:40:00) Negative 03/22/2013 ABN [facility] URINALYSIS UA Ketones Negative *NA* (03/22/2013 07:40:00) Negative 03/22/2013 [facility] URINALYSIS UA Bili Negative *NA* (03/22/2013 07:40:00) Negative 03/22/2013 [facility] URINALYSIS UA Leuk Est Negative (03/22/2013 07:40:00) Negative 03/22/2013 Normal [facility] URINALYSIS UA Nitrite Negative (03/22/2013 07:40:00) Negative 03/22/2013 Normal [facility] URINALYSIS UA Urobilinogen 0.2 EU/dL 0.1 - 1.0 03/22/2013 Normal [facility] URINALYSIS UA Bacteria Few /HPF (03/22/2013 07:40:00) None Seen 03/22/2013 Normal [facility] URINALYSIS UA RBC 3-5 0 - 2 03/22/2013 NA [facility] Microbiology Culture: Urine 03/22/2013 [facility] Abdomen/Pelvis w contrast CT Abdomen/Pelvis w contrast CT PROCEDURE: Abdomen/Pelvis w contrast CT CLINICAL INFORMATION Abdominal pain, acute COMPARISON: 03/13/2012. 12/10/2011. ABDOMEN with IV contrast: The aorta, liver, gallbladder, portal vein, spleen, adrenal glands, pancreas and kidneys are unremarkable. PELVIS with IV contrast: The small bowel caliber is normal. The appendix is normal. The bladder contour is normal. The uterus is visualized. There is no free fluid or inflammatory change of the lower pelvis. IMPRESSION: 1. Normal appendix. No acute abnormality of the abdomen or pelvis. SL: 13 03/22/2013 - - Read by: Dannie Flores Dictated Date/time: 03/22/13 12:56 Electronically Signed by: Dannie Flores MD 03/22/13 13:02 FINAL REPORT [facility] Chest 2 views Chest 2 views Chest 2 views. COMPARISON: 07/18/2012. FINDINGS: The lungs are clear but mildly underinflated. There are no effusions or other pleural abnormalities. The pulmonary vasculature is within normal limits. Cardiac size is upper range normal. No significant bony abnormality is noted. IMPRESSION: Mild pulmonary underinflation. No acute abnormality is noted in the chest. SL:13 03/22/2013 - - Read by: Kiet Rubin Dictated Date/time: 03/22/13 08:12 Electronically Signed by: Kiet Rubin MD 03/22/13 08:13 FINAL REPORT [facility] CHEMISTRY U Preg Negative (12/15/2012 13:30:00) Negative 12/15/2012 Normal [facility] URINALYSIS UA Color Ltyellow 12/15/2012 NA [facility] URINALYSIS UA Urobilinogen <=1.0 mg/dL
*NA*
(12/15/2012 13:30:00) <sup> </sup> 0.1 - 1.0 12/15/2012 NA [facility] URINALYSIS UA Ketones Negative mg/dL *NA* (12/15/2012 13:30:00) Negative 12/15/2012 NA [facility] URINALYSIS UA Glucose Negative mg/dL *NA* (12/15/2012 13:30:00) Negative 12/15/2012 [facility] [facility] UA Bili Negative *NA* (12/15/2012 13:30:00) Negative 12/15/2012 [facility] URINALYSIS UA Sq Epi Occasional /LPF *NA* (12/15/2012 13:30:00) Few 12/15/2012 NA [facility] URINALYSIS UA Leuk Est Negative (12/15/2012 13:30:00) Negative 12/15/2012 [facility] URINALYSIS UA WBC 9 /HPF 0 - 5 12/15/2012 [facility] URINALYSIS UA Nitrite Negative (12/15/2012 13:30:00) Negative 12/15/2012 Normal [facility] URINALYSIS UA Blood Large *ABN* (12/15/2012 13:30:00) Negative 12/15/2012 [facility] URINALYSIS UA Bacteria Few /HPF *NA* (12/15/2012 13:30:00) None Seen 12/15/2012 [facility] URIN[facility]IS UA RBC 25 /HPF 0 - 2 12/15/2012 [facility] URINALYSIS UA Protein Negative mg/dL (12/15/2012 13:30:00) Negative 12/15/2012 Normal [facility] URINALYSIS UA pH 6.0 5.0 - 8.0 12/15/2012 Normal [facility] URINALYSIS UA Spec Grav 1.011 <=1.030 12/15/2012 [facility] URINALYSIS UA Turbidity Clear (12/15/2012 13:30:00) Clear 12/15/2012 Normal [facility] CHEMISTRY Lipase Lvl 74 U/L 73 - 393 03/15/2012 Normal [facility] CHEMISTRY AGAP 12.0 meq/L 10.0 - 20.0 03/15/2012 Normal [facility] CHEMISTRY Calcium Lvl 8.8 mg/dL 8.5 - 10.5 03/15/2012 Normal [facility] CHEMISTRY Sodium Lvl 138 meq/L 135 - 145 03/15/2012 Normal [facility] CHEMISTRY Glucose Lvl 112 mg/dL 70 - 99 03/15/2012 [place] 1Interpretive Data: Adult reference range values reflect the clinical guidelines of the [place] [employer]. [facility] CHEMISTRY CO2 24 meq/L 24 - 32 03/15/2012 Normal [facility] CHEMISTRY Chloride Lvl 106 meq/L 95 - 109 03/15/2012 Normal [facility] CHEMISTRY Potassium Lvl 4.0 meq/L 3.5 - 5.1 03/15/2012 Normal [facility] CHEMISTRY BUN 10 mg/dL 7 - 22 03/15/2012 Normal [facility] CHEMISTRY Creatinine Lvl 0.7 mg/dL 0.5 - 1.4 03/15/2012 Normal [facility] HEMATOLOGY RDW 13.0 % 11.5 - 14.5 03/15/2012 Normal [facility] HEMATOLOGY Platelet 277 K/CMM 133 - 450 03/15/2012 Normal [facility] HEMATOLOGY MPV 9.2 fL 7.4 - 10.4 03/15/2012 Normal [facility] HEMATOLOGY WBC 7.4 K/CMM 3.7 - 10.4 03/15/2012 Normal [facility] MCH 28.0 pg 27.0 - 31.0 03/15/2012 Normal [facility] HEMATOLOGY MCHC 33.7 g/dL 32.0 - 36.0 03/15/2012 Normal [facility] HEMATOLOGY MCV 83.3 fL 81.0 - 99.0 03/15/2012 Normal [facility] HEMATOLOGY Hct 39.0 % 36.0 - 48.0 03/15/2012 Normal [facility] HEMATOLOGY Hgb 13.1 g/dL 12.0 - 16.0 03/15/2012 Normal [facility] HEMATOLOGY RBC 4.69 M/CMM 4.20 - 5.40 03/15/2012 Normal [facility] HEMATOLOGY Plt Morph Normal (03/15/2012 06:34:00) 03/15/2012 Normal [facility] HEMATOLOGY Lymphocytes 8.8 % 20.0 - 40.0 03/15/2012 LOW [facility] HEMATOLOGY Segs 87.7 % 45.0 - 75.0 03/15/2012 HI [facility] HEMATOLOGY RBC Morph Normal (03/15/2012 06:34:00) 03/15/2012 Normal [facility] HEMATOLOGY Lymphocytes # 0.7 K/CMM 1.0 - 5.5 03/15/2012 LOW [facility] HEMATOLOGY Eosinophils # 0.2 K/CMM 0.0 - 0.5 03/15/2012 Normal [facility] HEMATOLOGY Basophils # 0.0 K/CMM 0.0 - 0.2 03/15/2012 Normal [facility] HEMATOLOGY Monocytes # 0.0 K/CMM 0.0 - 0.8 03/15/2012 Normal [facility] HEMATOLOGY Monocytes 0.4 % 2.0 - 12.0 03/15/2012 LOW [facility] HEMATOLOGY Eosinophils 3.1 % 0.0 - 4.0 03/15/2012 Normal [facility] HEMATOLOGY Segs-Bands # 6.5 K/CMM 1.5 - 8.1 03/15/2012 Normal [facility] HEMATOLOGY Basophils 0.0 % 0.0 - 1.0 03/15/2012 Normal [facility] CHEMISTRY Globulin 3.7 g/dL 2.0 - 4.0 03/13/2012 Normal [facility] CHEMISTRY A/G Ratio 1.0 0.7 - 1.6 03/13/2012 Normal [facility] CHEMISTRY B/C Ratio 20 6 - 25 03/13/2012 Normal [facility] CHEMISTRY AGAP 8.9 meq/L 10.0 - 20.0 03/13/2012 LOW [facility] CHEMISTRY ALT 42 U/L 0 - 65 03/13/2012 Normal [facility] CHEMISTRY Alk Phos 72 U/L 39 - 136 03/13/2012 Normal [facility] CHEMISTRY Bili Total 0.3 mg/dL 0.2 - 1.3 03/13/2012 Normal [facility] CHEMISTRY AST 22 U/L 0 - 37 03/13/2012 Normal [facility] CHEMISTRY Glucose Lvl 87 mg/dL 70 - 99 03/13/2012 Normal 2Interpretive Data: Adult reference range values reflect the clinical guidelines of the [place] [employer]. [facility] CHEMISTRY BUN 16 mg/dL 7 - 22 03/13/2012 Normal [facility] CHEMISTRY Creatinine Lvl 0.8 mg/dL 0.5 - 1.4 03/13/2012 Normal [facility] CHEMISTRY Calcium Lvl 8.9 mg/dL 8.5 - 10.5 03/13/2012 Normal [facility] CHEMISTRY CO2 28 meq/L 24 - 32 03/13/2012 Normal [facility] CHEMISTRY Albumin Lvl 3.8 g/dL 3.5 - 5.0 03/13/2012 Normal [facility] CHEMISTRY Total Protein 7.5 g/dL 6.4 - 8.4 03/13/2012 Normal [facility] CHEMISTRY Sodium Lvl 140 meq/L 135 - 145 03/13/2012 Normal [facility] CHEMISTRY Potassium Lvl 3.9 meq/L 3.5 - 5.1 03/13/2012 Normal [facility] CHEMISTRY Chloride Lvl 107 meq/L 95 - 109 03/13/2012 Normal [facility] CHEMISTRY Lipase Lvl 98 U/L 73 - 393 03/13/2012 Normal [facility] HEMATOLOGY MPV 9.4 fL 7.4 - 10.4 03/13/2012 Normal [facility] HEMATOLOGY Platelet 273 K/CMM 133 - 450 03/13/2012 Normal [facility] HEMATOLOGY RDW 13.5 % 11.5 - 14.5 03/13/2012 Normal [facility] HEMATOLOGY RBC 5.00 M/CMM 4.20 - 5.40 03/13/2012 Normal [facility] HEMATOLOGY WBC 7.7 K/CMM 3.7 - 10.4 03/13/2012 Normal [facility] HEMATOLOGY MCHC 33.3 g/dL 32.0 - 36.0 03/13/2012 Normal [facility] HEMATOLOGY MCH 27.5 pg 27.0 - 31.0 03/13/2012 Normal [facility] HEMATOLOGY MCV 82.6 fL 81.0 - 99.0 03/13/2012 Normal [facility] HEMATOLOGY Hct 41.3 % 36.0 - 48.0 03/13/2012 Normal [facility] HEMATOLOGY Hgb 13.8 g/dL 12.0 - 16.0 03/13/2012 Normal [facility] HEMATOLOGY Eosinophils # 0.1 K/CMM 0.0 - 0.5 03/13/2012 Normal [facility] HEMATOLOGY Monocytes # 0.2 K/CMM 0.0 - 0.8 03/13/2012 Normal [facility] HEMATOLOGY Lymphocytes # 0.7 K/CMM 1.0 - 5.5 03/13/2012 LOW [facility] HEMATOLOGY Segs-Bands # 6.7 K/CMM 1.5 - 8.1 03/13/2012 Normal [facility] HEMATOLOGY Basophils 0.1 % 0.0 - 1.0 03/13/2012 Normal [facility] HEMATOLOGY Basophils # 0.0 K/CMM 0.0 - 0.2 03/13/2012 Normal [facility] HEMATOLOGY Eosinophils 0.9 % 0.0 - 4.0 03/13/2012 Normal [facility] HEMATOLOGY Monocytes 2.7 % 2.0 - 12.0 03/13/2012 Normal [facility] HEMATOLOGY Lymphocytes 8.7 % 20.0 - 40.0 03/13/2012 LOW [facility] HEMATOLOGY Segs 87.6 % 45.0 - 75.0 03/13/2012 HI [facility] HEMATOLOGY Plt Morph Normal (03/13/2012 17:47:00) 03/13/2012 Normal [facility] HEMATOLOGY RBC Morph Normal (03/13/2012 17:47:00) 03/13/2012 Normal [facility] Microbiology Culture: Urine 03/13/2012 [facility] CHEMISTRY U Preg Negative (03/13/2012 16:50:00) Negative 03/13/2012 Normal [facility] URINALYSIS UA Bacteria Occasional /HPF *NA* (03/13/2012 16:50:00) None Seen 03/13/2012 NA [facility] URINALYSIS UA Urobilinogen <=1.0 mg/dL
*NA*
(03/13/2012 16:50:00) <sup> </sup> 0.1 - 1.0 03/13/2012 [facility] URINALYSIS UA Color Ltyellow 03/13/2012 [facility] URINALYSIS UA RBC null 0 - 2 03/13/2012 Normal [facility] URINALYSIS UA WBC 1 /HPF 0 - 5 03/13/2012 Normal [facility] URINALYSIS UA Sq Epi Occasional /LPF *NA* (03/13/2012 16:50:00) Few 03/13/2012 [facility] URINALYSIS UA Leuk Est Trace *ABN* (03/13/2012 16:50:00) Negative 03/13/2012 ABN [facility] URINALYSIS UA Nitrite Negative (03/13/2012 16:50:00) Negative 03/13/2012 Normal [facility] URINALYSIS UA Blood Negative (03/13/2012 16:50:00) Negative 03/13/2012 Normal [facility] URINALYSIS UA Bili Negative *NA* (03/13/2012 16:50:00) Negative 03/13/2012 [facility] URINALYSIS UA Glucose Negative mg/dL *NA* (03/13/2012 16:50:00) Negative 03/13/2012 [facility] URINALYSIS UA Protein Negative mg/dL (03/13/2012 16:50:00) Negative 03/13/2012 Normal [facility] URINALYSIS UA pH 6.0 5.0 - 8.0 03/13/2012 Normal [facility] URINALYSIS UA Spec Grav 1.009 <=1.030 03/13/2012 Normal [facility] URINALYSIS UA Turbidity Clear (03/13/2012 16:50:00) Clear 03/13/2012 [facility] URINALYSIS UA Ketones Negative mg/dL *NA* (03/13/2012 16:50:00) Negative 03/13/2012 NA [facility] CHEMISTRY U Preg Negative (01/09/2012 01:34:00) Negative 01/09/2012 [facility] URINALYSIS UA RBC None Seen (01/09/2012 01:34:00) 0 - 2 01/09/2012 [facility] URINALYSIS UA Sq Epi Few /LPF (01/09/2012 01:34:00) Few 01/09/2012 Normal [facility] URINALYSIS UA WBC 0-2 /HPF (01/09/2012 01:34:00) None Seen 01/09/2012 Normal [facility] URINALYSIS UA Bacteria Occasional /HPF (01/09/2012 01:34:00) None Seen 01/09/2012 Normal [facility] URINALYSIS Micro? Performed (01/09/2012 01:34:00) 01/09/2012 [facility] URINALYSIS UA Turbidity Clear (01/09/2012 01:34:00) Clear 01/09/2012 [facility] URINALYSIS UA Color Yellow *NA* (01/09/2012 01:34:00) Yellow 01/09/2012 NA [facility] URINALYSIS UA Protein Negative (01/09/2012 01:34:00) Negative 01/09/2012 [facility] URINALYSIS UA pH 6.0 5.0 - 8.0 01/09/2012 [facility] URINALYSIS UA Spec Grav 1.020 <=1.030 01/09/2012 [facility] URINALYSIS UA Leuk Est Negative (01/09/2012 01:34:00) Negative 01/09/2012 [facility] URINALYSIS UA Nitrite Negative (01/09/2012 01:34:00) Negative 01/09/2012 [facility] URINALYSIS UA Bili Negative *NA* (01/09/2012 01:34:00) Negative 01/09/2012 NA [facility] URINALYSIS UA Ketones Negative *NA* (01/09/2012 01:34:00) Negative 01/09/2012 [facility] URINALYSIS UA Glucose Negative (01/09/2012 01:34:00) Negative 01/09/2012 Normal [facility] URINALYSIS UA Urobilinogen 0.2 EU/dL 0.1 - 1.0 01/09/2012 Normal [facility] URINALYSIS UA Blood Trace *ABN* (01/09/2012 01:34:00) Negative 01/09/2012 ABN [facility] CHEMISTRY Lipase Lvl 125 U/L 73 - 393 01/09/2012 Normal [facility] CHEMISTRY AGAP 11.6 meq/L 10.0 - 20.0 01/09/2012 Normal [facility] CHEMISTRY B/C Ratio 18 6 - 25 01/09/2012 Normal [facility] CHEMISTRY A/G Ratio 0.9 0.7 - 1.6 01/09/2012 Normal [facility] CHEMISTRY Globulin 4.0 g/dL 2.0 - 4.0 01/09/2012 Normal [facility] CHEMISTRY Glucose Lvl 87 mg/dL 70 - 99 01/09/2012 Normal 1Interpretive Data: Adult reference range values reflect the clinical guidelinesof the [place] [employer]. [facility] CHEMISTRY Calcium Lvl 8.8 mg/dL 8.5 - 10.5 01/09/2012 Normal [facility] CHEMISTRY Creatinine Lvl 0.8 mg/dL 0.5 - 1.4 01/09/2012 Normal [facility] CHEMISTRY BUN 14 mg/dL 7 - 22 01/09/2012 Normal [facility] CHEMISTRY Sodium Lvl 141 meq/L 135 - 145 01/09/2012 Normal [facility] CHEMISTRY Potassium Lvl 3.6 meq/L 3.5 - 5.1 01/09/2012 Normal [facility] CHEMISTRY Chloride Lvl 107 meq/L 95 - 109 01/09/2012 Normal [facility] CHEMISTRY CO2 26 meq/L 24 - 32 01/09/2012 Normal [facility] CHEMISTRY Albumin Lvl 3.6 g/dL 3.5 - 5.0 01/09/2012 Normal [facility] CHEMISTRY Bili Total 0.2 mg/dL 0.2 - 1.3 01/09/2012 Normal [facility] CHEMISTRY AST 11 U/L 0 - 37 01/09/2012 Normal [facility] CHEMISTRY ALT 29 U/L 0 - 65 01/09/2012 Normal [facility] CHEMISTRY Total Protein 7.6 g/dL 6.4 - 8.4 01/09/2012 Normal [facility] CHEMISTRY Alk Phos 67 U/L 39 - 136 01/09/2012 Normal [facility] HEMATOLOGY Eosinophils 3.1 % 0.0 - 4.0 01/09/2012 Normal [facility] HEMATOLOGY Lymphocytes # 2.3 K/CMM 1.0 - 5.5 01/09/2012 Normal [facility] HEMATOLOGY Monocytes # 0.4 K/CMM 0.0 - 0.8 01/09/2012 Normal [facility] HEMATOLOGY Eosinophils # 0.2 K/CMM 0.0 - 0.5 01/09/2012 Normal [facility] HEMATOLOGY Basophils # 0.0 K/CMM 0.0 - 0.2 01/09/2012 Normal [facility] HEMATOLOGY Segs-Bands # 4.9 K/CMM 1.5 - 8.1 01/09/2012 Normal [facility] HEMATOLOGY Basophils 0.5 % 0.0 - 1.0 01/09/2012 Normal [facility] HEMATOLOGY Lymphocytes 29.7 % 20.0 - 40.0 01/09/2012 Normal [facility] HEMATOLOGY Segs 61.6 % 45.0 - 75.0 01/09/2012 Normal [facility] HEMATOLOGY Monocytes 5.1 % 2.0 - 12.0 01/09/2012 Normal [facility] HEMATOLOGY Hgb 12.3 g/dL 12.0 - 16.0 01/09/2012 Normal [facility] HEMATOLOGY MCV 82.6 fL 81.0 - 99.0 01/09/2012 Normal [facility] HEMATOLOGY Hct 37.7 % 36.0 - 48.0 01/09/2012 Normal [facility] HEMATOLOGY Platelet 285 K/CMM 133 - 450 01/09/2012 Normal [facility] HEMATOLOGY MPV 9.3 fL 7.4 - 10.4 01/09/2012 Normal [facility] MCHC 32.5 g/dL 32.0 - 36.0 01/09/2012 Normal [facility] HEMATOLOGY RDW 13.4 % 11.5 - 14.5 01/09/2012 Normal [facility] HEMATOLOGY MCH 26.9 pg 27.0 - 31.0 01/09/2012 LOW [facility] HEMATOLOGY RBC 4.56 M/CMM 4.20 - 5.40 01/09/2012 Normal [facility] HEMATOLOGY WBC 7.9 K/CMM 3.7 - 10.4 01/09/2012 Normal [facility] RAPID Grp A Strep Scr Negative (12/10/2011 11:20:00) Negative 12/10/2011 Normal [facility] CHEMISTRY U Preg Negative (12/10/2011 08:05:00) Negative 12/10/2011 Normal [facility] URINALYSIS UA Nitrite Negative (12/10/2011 08:05:00) Negative 12/10/2011 [facility] URINALYSIS UA Leuk Est Negative (12/10/2011 08:05:00) Negative 12/10/2011 [facility] URINALYSIS UA Bili Negative *NA* (12/10/2011 08:05:00) Negative 12/10/2011 NA [facility] URINALYSIS UA Blood Negative (12/10/2011 08:05:00) Negative 12/10/2011 [facility] URINALYSIS UA Urobilinogen 0.2 EU/dL 0.1 - 1.0 12/10/2011 [facility] URINALYSIS UA Protein Negative mg/dL (12/10/2011 08:05:00) Negative 12/10/2011 [facility] URINALYSIS UA Glucose Negative mg/dL (12/10/2011 08:05:00) Negative 12/10/2011 [facility] URINALYSIS UA Ketones Negative mg/dL *NA* (12/10/2011 08:05:00) Negative 12/10/2011 NA [facility] URINALYSIS UA pH 6.0 5.0 - 8.0 12/10/2011 [facility] URINALYSIS UA Spec Grav 1.015 <=1.030 12/10/2011 [facility] URINALYSIS UA Color Yellow *NA* (12/10/2011 08:05:00) Yellow 12/10/2011 NA [facility] URINALYSIS UA Turbidity Clear (12/10/2011 08:05:00) Clear 12/10/2011 [facility] URINALYSIS UA WBC None Seen (12/10/2011 08:05:00) None Seen 12/10/2011 [facility] URINALYSIS UA Sq Epi Few /LPF (12/10/2011 08:05:00) Few 12/10/2011 [facility] URINALYSIS UA RBC None Seen (12/10/2011 08:05:00) 0 - 2 12/10/2011 [facility] URINALYSIS UA Bacteria None Seen (12/10/2011 08:05:00) None Seen 12/10/2011 Normal [facility] CHEMISTRY A/G Ratio 0.8 0.7 - 1.6 12/10/2011 Normal [facility] CHEMISTRY Globulin 4.6 g/dL 2.0 - 4.0 12/10/2011 HI [facility] CHEMISTRY B/C Ratio 11 6 - 25 12/10/2011 Normal [facility] CHEMISTRY AGAP 12.1 meq/L 10.0 - 20.0 12/10/2011 Normal [facility] CHEMISTRY AST 23 U/L 0 - 37 12/10/2011 Normal [facility] CHEMISTRY Total Protein 8.5 g/dL 6.4 - 8.4 12/10/2011 HI [facility] CHEMISTRY Alk Phos 68 U/L 39 - 136 12/10/2011 Normal [facility] CHEMISTRY CO2 25 meq/L 24 - 32 12/10/2011 Normal [facility] CHEMISTRY Albumin Lvl 3.9 g/dL 3.5 - 5.0 12/10/2011 Normal [facility] CHEMISTRY Bili Total 0.2 mg/dL 0.2 - 1.3 12/10/2011 Normal [facility] CHEMISTRY ALT 41 U/L 0 - 65 12/10/2011 Normal [facility] CHEMISTRY BUN 10 mg/dL 7 - 22 12/10/2011 Normal [facility] CHEMISTRY Glucose Lvl 81 mg/dL 70 - 99 12/10/2011 Normal 1Interpretive Data: Adult reference range values reflect the clinical guidelinesof the [place] [employer]. [facility] CHEMISTRY Potassium Lvl 4.1 meq/L 3.5 - 5.1 12/10/2011 Normal [facility] CHEMISTRY Chloride Lvl 104 meq/L 95 - 109 12/10/2011 Normal [facility] CHEMISTRY Sodium Lvl 137 meq/L 135 - 145 12/10/2011 Normal [facility] CHEMISTRY Creatinine Lvl 0.9 mg/dL 0.5 - 1.4 12/10/2011 Normal [facility] CHEMISTRY Calcium Lvl 9.2 mg/dL 8.5 - 10.5 12/10/2011 Normal [facility] CHEMISTRY Lipase Lvl 87 U/L 73 - 393 12/10/2011 Normal [facility] CHEMISTRY Amylase Lvl 35 U/L 25 - 115 12/10/2011 Normal [facility] HEMATOLOGY Hgb 13.7 g/dL 12.0 - 16.0 12/10/2011 Normal [facility] HEMATOLOGY WBC 6.6 K/CMM 3.7 - 10.4 12/10/2011 Normal [facility] HEMATOLOGY MCV 82.2 fL 81.0 - 99.0 12/10/2011 Normal [facility] HEMATOLOGY Hct 41.2 % 36.0 - 48.0 12/10/2011 Normal [facility] HEMATOLOGY RBC 5.02 M/CMM 4.20 - 5.40 12/10/2011 Normal [facility] HEMATOLOGY MPV 9.1 fL 7.4 - 10.4 12/10/2011 Normal [facility] HEMATOLOGY Platelet 254 K/CMM 133 - 450 12/10/2011 Normal [facility] HEMATOLOGY RDW 13.3 % 11.5 - 14.5 12/10/2011 Normal [facility] HEMATOLOGY MCHC 33.2 g/dL 32.0 - 36.0 12/10/2011 Normal [facility] HEMATOLOGY MCH 27.2 pg 27.0 - 31.0 12/10/2011 [facility] HEMATOLOGY Eosinophils 2.3 % 0.0 - 4.0 12/10/2011 [facility] HEMATOLOGY Basophils 0.0 % 0.0 - 1.0 12/10/2011 [facility] HEMATOLOGY Segs-Bands # 5.9 K/CMM 1.5 - 8.1 12/10/2011 [facility] HEMATOLOGY Lymphocytes # 0.3 K/CMM 1.0 - 5.5 12/10/2011 LOW [facility] HEMATOLOGY Monocytes 3.8 % 2.0 - 12.0 12/10/2011 Normal [facility] HEMATOLOGY Eosinophils # 0.2 K/CMM 0.0 - 0.5 12/10/2011 [facility] HEMATOLOGY Basophils # 0.0 K/CMM 0.0 - 0.2 12/10/2011 [facility] HEMATOLOGY Monocytes # 0.2 K/CMM 0.0 - 0.8 12/10/2011 [facility] HEMATOLOGY Segs 89.1 % 45.0 - 75.0 12/10/2011 [facility] HEMATOLOGY Lymphocytes 4.8 % 20.0 - 40.0 12/10/2011 LOW [facility] CHEMISTRY S Preg Negative *NA* (11/18/2011 22:15:00) Negative 11/19/2011 NA [facility] CHEMISTRY Lipase Lvl 126 U/L 73 - 393 11/19/2011 [facility] CHEMISTRY Total Protein 7.3 g/dL 6.4 - 8.4 11/19/2011 [facility] CHEMISTRY Albumin Lvl 3.6 g/dL 3.5 - 5.0 11/19/2011 [facility] CHEMISTRY ALT 47 U/L 0 - 65 11/19/2011 [facility] CHEMISTRY AST 22 U/L 0 - 37 11/19/2011 Normal [facility] CHEMISTRY Alk Phos 71 U/L 39 - 136 11/19/2011 Normal [facility] CHEMISTRY Bili Total 0.2 mg/dL 0.2 - 1.3 11/19/2011 Normal [facility] CHEMISTRY Creatinine Lvl 0.9 mg/dL 0.5 - 1.4 11/19/2011 Normal [facility] CHEMISTRY Glucose Lvl 84 mg/dL 11/19/2011 NA 1Interpretive Data: Reference Ranges : 0 - 7 days : 41 - 90 mg/dL7 days - 150 yrs : 70 - 99 mg/dL (fasting), based on the clinical recommendations of the [place] [employer]. [facility] CHEMISTRY BUN 13 mg/dL 7 - 22 11/19/2011 Normal [facility] CHEMISTRY Sodium Lvl 140 meq/L 135 - 145 11/19/2011 Normal [facility] CHEMISTRY Potassium Lvl 3.4 meq/L 3.5 - 5.1 11/19/2011 LOW [facility] CHEMISTRY Calcium Lvl 8.6 mg/dL 8.5 - 10.5 11/19/2011 Normal [facility] CHEMISTRY Chloride Lvl 104 meq/L 95 - 109 11/19/2011 Normal [facility] CHEMISTRY CO2 26 meq/L 24 - 32 11/19/2011 Normal [facility] CHEMISTRY AGAP 13.4 meq/L 10.0 - 20.0 11/19/2011 Normal [facility] CHEMISTRY A/G Ratio 1.0 0.7 - 1.6 11/19/2011 Normal [facility] CHEMISTRY B/C Ratio 14 6 - 25 11/19/2011 Normal [facility] CHEMISTRY Globulin 3.7 g/dL 2.0 - 4.0 11/19/2011 Normal [facility] HEMATOLOGY Eosinophils # 0.3 K/CMM 0.0 - 0.5 11/19/2011 Normal [facility] HEMATOLOGY Basophils # 0.0 K/CMM 0.0 - 0.2 11/19/2011 Normal [facility] HEMATOLOGY Monocytes # 0.4 K/CMM 0.0 - 0.8 11/19/2011 Normal [facility] HEMATOLOGY Segs-Bands # 4.4 K/CMM 1.5 - 8.1 11/19/2011 Normal [facility] HEMATOLOGY Lymphocytes # 2.2 K/CMM 1.0 - 5.5 11/19/2011 Normal [facility] HEMATOLOGY Segs 59.8 % 45.0 - 75.0 11/19/2011 Normal [facility] HEMATOLOGY Lymphocytes 30.5 % 20.0 - 40.0 11/19/2011 Normal [facility] HEMATOLOGY Basophils 0.4 % 0.0 - 1.0 11/19/2011 Normal [facility] HEMATOLOGY Monocytes 5.8 % 2.0 - 12.0 11/19/2011 Normal [facility] HEMATOLOGY Eosinophils 3.5 % 0.0 - 4.0 11/19/2011 Normal [facility] HEMATOLOGY MPV 9.1 fL 7.4 - 10.4 11/19/2011 Normal [facility] HEMATOLOGY Platelet 260 K/CMM 133 - 450 11/19/2011 Normal [facility] HEMATOLOGY MCH 27.2 pg 27.0 - 31.0 11/19/2011 Normal [facility] HEMATOLOGY RDW 13.0 % 11.5 - 14.5 11/19/2011 Normal [facility] HEMATOLOGY MCHC 32.6 g/dL 32.0 - 36.0 11/19/2011 Normal [facility] HEMATOLOGY RBC 4.47 M/CMM 4.20 - 5.40 11/19/2011 Normal [facility] HEMATOLOGY Hgb 12.2 g/dL 12.0 - 16.0 11/19/2011 Normal [facility] HEMATOLOGY Hct 37.3 % 36.0 - 48.0 11/19/2011 Normal [facility] HEMATOLOGY MCV 83.5 fL 81.0 - 99.0 11/19/2011 Normal [facility] HEMATOLOGY WBC 7.3 K/CMM 3.7 - 10.4 11/19/2011 Normal [facility] CHEMISTRY U Preg Negative (11/18/2011 21:10:00) Negative 11/19/2011 Normal [facility] URINALYSIS UA WBC 0-2 /HPF (11/18/2011 21:10:00) None Seen 11/19/2011 Normal [facility] URINALYSIS UA Sq Epi Occasional /LPF (11/18/2011 21:10:00) Few 11/19/2011 Normal [facility] URINALYSIS UA RBC 0-2 /HPF (11/18/2011 21:10:00) 0 - 2 11/19/2011 Normal [facility] URINALYSIS UA Bacteria None Seen (11/18/2011 21:10:00) None Seen 11/19/2011 Normal [facility] URINALYSIS UA Color Yellow *NA* (11/18/2011 21:10:00) Yellow 11/19/2011 NA [facility] URINALYSIS UA Turbidity Clear (11/18/2011 21:10:00) Clear 11/19/2011 Normal [facility] URINALYSIS UA Nitrite Negative (11/18/2011 21:10:00) Negative 11/19/2011 Normal [facility] URINALYSIS UA Urobilinogen 1.0 EU/dL 0.1 - 1.0 11/19/2011 Normal [facility] URINALYSIS UA Blood Negative (11/18/2011 21:10:00) Negative 11/19/2011 Normal [facility] URINALYSIS UA Leuk Est Negative (11/18/2011 21:10:00) Negative 11/19/2011 Normal [facility] URINALYSIS UA pH 6.0 5.0 - 8.0 11/19/2011 Normal [facility] URINALYSIS UA Spec Grav 1.015 <=1.030 11/19/2011 Normal [facility] URINALYSIS UA Bili Negative *NA* (11/18/2011 21:10:00) Negative 11/19/2011 NA [facility] URINALYSIS UA Ketones Negative mg/dL *NA* (11/18/2011 21:10:00) Negative 11/19/2011 NA [facility] URINALYSIS UA Glucose Negative mg/dL (11/18/2011 21:10:00) Negative 11/19/2011 Normal [facility] URINALYSIS UA Protein Negative mg/dL (11/18/2011 21:10:00) Negative 11/19/2011 Normal [facility] CHEMISTRY U Preg Negative (11/04/2011 00:30:00) Negative 11/04/2011 Normal [facility] CHEMISTRY Lipase Lvl 88.0 U/L 73 - 393 08/13/2011 Normal [facility] CHEMISTRY Amylase Lvl 39.0 U/L 25 - 115 08/13/2011 Normal [facility] CHEMISTRY Globulin 3.6 g/dL 2.0 - 4.0 08/13/2011 Normal [facility] CHEMISTRY A/G Ratio 1.0 0.7 - 1.6 08/13/2011 Normal [facility] CHEMISTRY B/C Ratio 15.0 6 - 25 08/13/2011 Normal [facility] CHEMISTRY AGAP 12.9 meq/L 10.0 - 20.0 08/13/2011 Normal [facility] CHEMISTRY ALT 38.0 U/L 0 - 65 08/13/2011 Normal [facility] CHEMISTRY Albumin Lvl 3.6 g/dL 3.5 - 5.0 08/13/2011 Normal [facility] CHEMISTRY AST 18.0 U/L 0 - 37 08/13/2011 Normal [facility] CHEMISTRY Bili Total 0.4 mg/dL 0.2 - 1.3 08/13/2011 Normal [facility] CHEMISTRY Alk Phos 62.0 U/L 39 - 136 08/13/2011 Normal [facility] CHEMISTRY Creatinine Lvl 0.8 mg/dL 0.5 - 1.4 08/13/2011 Normal [facility] CHEMISTRY Sodium Lvl 144.0 meq/L 135 - 145 08/13/2011 Normal [facility] CHEMISTRY Potassium Lvl 3.9 meq/L 3.5 - 5.1 08/13/2011 Normal [facility] CHEMISTRY Total Protein 7.2 g/dL 6.4 - 8.4 08/13/2011 Normal [facility] CHEMISTRY Glucose Lvl 81.0 mg/dL 08/13/2011 NA 1Interpretive Data: Reference Ranges : 0 - 7 days : 41 - 90 mg/dL7 days - 150 yrs : 70 - 99 mg/dL (fasting), based on the clinical recommendations of the [place] [employer]. [facility] CHEMISTRY BUN 12.0 mg/dL 7 - 22 08/13/2011 Normal [facility] CHEMISTRY Chloride Lvl 109.0 meq/L 95 - 109 08/13/2011 Normal [facility] CHEMISTRY Calcium Lvl 8.8 mg/dL 8.5 - 10.5 08/13/2011 Normal [facility] CHEMISTRY CO2 26.0 meq/L 24 - 32 08/13/2011 Normal [facility] HEMATOLOGY Basophils # 0.0 K/CMM 0.0 - 0.2 08/13/2011 Normal [facility] HEMATOLOGY Eosinophils # 0.3 K/CMM 0.0 - 0.5 08/13/2011 Normal [facility] HEMATOLOGY Monocytes # 0.3 K/CMM 0.0 - 0.8 08/13/2011 Normal [facility] HEMATOLOGY Lymphocytes # 2.1 K/CMM 1.0 - 5.5 08/13/2011 Normal [facility] HEMATOLOGY Eosinophils 4.0 % 0.0 - 4.0 08/13/2011 Normal [facility] HEMATOLOGY Basophils 0.4 % 0.0 - 1.0 08/13/2011 Normal [facility] HEMATOLOGY Segs-Bands # 4.5 K/CMM 1.5 - 8.1 08/13/2011 Normal [facility] HEMATOLOGY Monocytes 4.3 % 2.0 - 12.0 08/13/2011 Normal [facility] HEMATOLOGY Segs 62.2 % 45.0 - 75.0 08/13/2011 Normal [facility] HEMATOLOGY Lymphocytes 29.1 % 20.0 - 40.0 08/13/2011 Normal [facility] HEMATOLOGY Platelet 288.0 K/CMM 133 - 450 08/13/2011 Normal [facility] HEMATOLOGY MPV 8.7 fL 7.4 - 10.4 08/13/2011 Normal [facility] HEMATOLOGY RDW 13.1 % 11.5 - 14.5 08/13/2011 Normal [facility] HEMATOLOGY Hct 35.1 % 36.0 - 48.0 08/13/2011 LOW [facility] HEMATOLOGY MCV 82.2 fL 81.0 - 99.0 08/13/2011 Normal [facility] HEMATOLOGY RBC 4.27 M/CMM 4.20 - 5.40 08/13/2011 Normal [facility] HEMATOLOGY WBC 7.2 K/CMM 3.7 - 10.4 08/13/2011 Normal [facility] HEMATOLOGY Hgb 11.9 g/dL 12.0 - 16.0 08/13/2011 LOW [facility] HEMATOLOGY MCHC 34.0 g/dL 32.0 - 36.0 08/13/2011 Normal [facility] HEMATOLOGY MCH 27.9 pg 27.0 - 31.0 08/13/2011 Normal [facility] IMMUNOLOGY CDC-HIV 1/2 Ab Negative *NA* (08/13/2011 12:00:00) ?? >Negative 08/13/2011 [facility] CHEMISTRY U Preg Negative (08/13/2011 10:47:00) ?? >Negative 08/13/2011 Normal [facility] URINALYSIS UA Sq Epi Few /LPF (08/13/2011 10:47:00) ?? >Few 08/13/2011 Normal [facility] URINALYSIS UA Bacteria Few /HPF (08/13/2011 10:47:00) ?? >None Seen 08/13/2011 Normal [facility] URINALYSIS UA WBC None Seen (08/13/2011 10:47:00) ?? >None Seen 08/13/2011 Normal [facility] URINALYSIS UA RBC 0-2 /HPF (08/13/2011 10:47:00) ?? >0 - 2 08/13/2011 Normal [facility] URINALYSIS UA Leuk Est Negative (08/13/2011 10:47:00) ?? >Negative 08/13/2011 Normal [facility] URINALYSIS UA Color Yellow *NA* (08/13/2011 10:47:00) ?? >Yellow 08/13/2011 NA [facility] URINALYSIS UA pH 6.5 5.0 - 8.0 08/13/2011 Normal [facility] URINALYSIS UA Spec Grav 1.015 <<=1.030 08/13/2011 Normal [facility] URINALYSIS UA Turbidity Slight Cloudy (08/13/2011 10:47:00) ?? >Clear 08/13/2011 Normal [facility] URINALYSIS UA Bili Negative *NA* (08/13/2011 10:47:00) ?? >Negative 08/13/2011 NA [facility] URINALYSIS UA Nitrite Negative (08/13/2011 10:47:00) ?? >Negative 08/13/2011 Normal [facility] URINALYSIS UA Urobilinogen 0.2 EU/dL 0.1 - 1.0 08/13/2011 Normal [facility] URINALYSIS UA Blood Trace *ABN* (08/13/2011 10:47:00) ?? >Negative 08/13/2011 ABN [facility] URINALYSIS UA Glucose Negative (08/13/2011 10:47:00) ?? >Negative 08/13/2011 Normal [facility] URINALYSIS UA Ketones Negative *NA* (08/13/2011 10:47:00) ?? >Negative 08/13/2011 NA [facility] URINALYSIS UA Protein Negative (08/13/2011 10:47:00) ?? >Negative 08/13/2011 Normal [facility] CHEMISTRY CO2 26.0 meq/L 24 - 32 06/17/2011 Normal [facility] CHEMISTRY AGAP 13.9 meq/L 10.0 - 20.0 06/17/2011 Normal [facility] CHEMISTRY Calcium Lvl 8.7 mg/dL 8.5 - 10.5 06/17/2011 Normal [facility] CHEMISTRY Chloride Lvl 106.0 meq/L 95 - 109 06/17/2011 Normal [facility] CHEMISTRY Potassium Lvl 3.9 meq/L 3.5 - 5.1 06/17/2011 Normal [facility] CHEMISTRY Creatinine Lvl 0.7 mg/dL 0.5 - 1.4 06/17/2011 Normal [facility] CHEMISTRY BUN 14.0 mg/dL 7 - 22 06/17/2011 Normal [facility] CHEMISTRY Sodium Lvl 142.0 meq/L 135 - 145 06/17/2011 Normal [facility] CHEMISTRY Glucose Lvl 93.0 mg/dL 06/17/2011 NA 1Interpretive Data: Reference Ranges : 0 - 7 days : 41 - 90 mg/dL7 days - 150 yrs : 70 - 99 mg/dL (fasting), based on the clinical recommendations of the [place] [employer]. [facility] CHEMISTRY LDL 124.0 mg/dL 0 - 129 06/17/2011 Normal [facility] CHEMISTRY HDL 35.0 mg/dL >>=35 06/17/2011 Normal [facility] CHEMISTRY Chol 185.0 mg/dL 120 - 200 06/17/2011 Normal [facility] CHEMISTRY CHD Risk 5.29 3.90 - 5.80 06/17/2011 Normal [facility] CHEMISTRY Trig 131.0 mg/dL 0 - 200 06/17/2011 Normal [facility] CHEMISTRY TSH 1.78 uIU/mL 0.360 - 3.740 06/17/2011 Normal [facility] HEMATOLOGY MPV 8.7 fL 7.4 - 10.4 06/17/2011 Normal [facility] HEMATOLOGY RDW 13.5 % 11.5 - 14.5 06/17/2011 Normal [facility] HEMATOLOGY Platelet 236.0 K/CMM 133 - 450 06/17/2011 Normal [facility] HEMATOLOGY MCHC 33.6 g/dL 32.0 - 36.0 06/17/2011 Normal [facility] HEMATOLOGY MCH 27.5 pg 27.0 - 31.0 06/17/2011 Normal [facility] HEMATOLOGY RBC 4.17 M/CMM 4.20 - 5.40 06/17/2011 LOW [facility] HEMATOLOGY WBC 5.7 K/CMM 3.7 - 10.4 06/17/2011 Normal [facility] HEMATOLOGY MCV 81.8 fL 81.0 - 99.0 06/17/2011 Normal [facility] HEMATOLOGY Hgb 11.5 g/dL 12.0 - 16.0 06/17/2011 LOW [facility] HEMATOLOGY Hct 34.1 % 36.0 - 48.0 06/17/2011 LOW [facility] HEMATOLOGY Sed Rate 40.0 mm/h 0 - 20 06/17/2011 HI [facility] HEMATOLOGY Monocytes 7.3 % 2.0 - 12.0 06/17/2011 Normal [facility] HEMATOLOGY Lymphocytes 30.2 % 20.0 - 40.0 06/17/2011 Normal [facility] HEMATOLOGY Eosinophils 5.5 % 0.0 - 4.0 06/17/2011 [facility] HEMATOLOGY Segs-Bands # 3.2 K/CMM 1.5 - 8.1 06/17/2011 Normal [facility] HEMATOLOGY Basophils 0.6 % 0.0 - 1.0 06/17/2011 Normal [facility] HEMATOLOGY Segs 56.4 % 45.0 - 75.0 06/17/2011 Normal [facility] HEMATOLOGY Eosinophils # 0.3 K/CMM 0.0 - 0.5 06/17/2011 Normal [facility] HEMATOLOGY Lymphocytes # 1.7 K/CMM 1.0 - 5.5 06/17/2011 Normal [facility] HEMATOLOGY Monocytes # 0.4 K/CMM 0.0 - 0.8 06/17/2011 Normal [facility] HEMATOLOGY Basophils # 0.0 K/CMM 0.0 - 0.2 06/17/2011 Normal [facility] IMMUNOLOGY RF Qnt null 0 - 20 06/17/2011 Normal [facility] IMMUNOLOGY FLORENT[place] Negative (06/17/2011 03:41:00) ?? >Negative 06/17/2011 Normal [facility] CHEMISTRY CK MB Index null 0.0 - 2.5 06/17/2011 Normal [facility] CHEMISTRY Total CK 88.0 U/L 12 - 191 06/17/2011 Normal [facility] CHEMISTRY Troponin-I null 0.00 - 0.40 06/17/2011 Normal [facility] CHEMISTRY CK MB null 0.5 - 3.6 06/17/2011 Normal [facility] CHEMISTRY Total CK 82.0 U/L 12 - 191 06/16/2011 Normal [facility] CHEMISTRY CK MB null 0.5 - 3.6 06/16/2011 Normal [facility] CHEMISTRY Troponin-I null 0.00 - 0.40 06/16/2011 Normal [facility] CHEMISTRY CK MB Index null 0.0 - 2.5 06/16/2011 Normal [facility] Microbiology Culture: Blood 06/16/2011 [facility] CHEMISTRY Lactic Acid Lvl 0.6 mMol/L 0.5 - 2.2 06/16/2011 Normal [facility] CHEMISTRY Magnesium Lvl 1.9 mg/dL 1.8 - 2.4 06/16/2011 Normal [facility] CHEMISTRY Phosphorus 3.3 mg/dL 2.5 - 4.5 06/16/2011 Normal [facility] CHEMISTRY Bili Indirect 0.2 mg/dL 0.0 - 1.0 06/16/2011 Normal [facility] CHEMISTRY Bili Total 0.3 mg/dL 0.2 - 1.3 06/16/2011 Normal [facility] CHEMISTRY Bili Direct 0.1 mg/dL 0.0 - 0.3 06/16/2011 Normal [facility] CHEMISTRY Total Protein 7.7 g/dL 6.4 - 8.4 06/16/2011 Normal [facility] CHEMISTRY Albumin Lvl 3.5 g/dL 3.5 - 5.0 06/16/2011 Normal [facility] CHEMISTRY Globulin 4.2 g/dL 2.0 - 4.0 06/16/2011 HI [facility] CHEMISTRY A/G Ratio 0.8 0.7 - 1.6 06/16/2011 Normal [facility] CHEMISTRY ALT 37.0 U/L 0 - 65 06/16/2011 Normal [facility] CHEMISTRY Alk Phos 81.0 U/L 39 - 136 06/16/2011 Normal [facility] CHEMISTRY AST 18.0 U/L 0 - 37 06/16/2011 Normal [facility] CHEMISTRY CK MB null 0.5 - 3.6 06/16/2011 Normal [facility] CHEMISTRY Troponin-I null 0.00 - 0.40 06/16/2011 Normal [facility] Microbiology Culture: Blood 06/16/2011 [facility] CHEMISTRY UDS Note See Note 4 *NA* (06/16/2011 11:02:00) ?? 06/16/2011 NA 4Interpretive Data: Drugs reported as positive have not been confirmed by a second method and should be used for medical purposes only. To orderconfirmation, contact laboratory. note: Below are cut-off concentrations for all urine drugs of abuse performed in the laboratory. Some drugs listed in the table may not be included in this panel.Description Cut-off concentration Amphetamine 1000 ng/mLBarbiturates 200 ng/mLBenzodiazepines 300 ng/mLCocaine metabolites 300 ng/mLOpiates 300 ng/mLPhencyclidine 25 ng/mLPropoxyphene 300 ng/mLMarijuana metabolites 50 ng/mLMethadone 300 ng/mLUrine alcohol 20 mg/dL [facility] CHEMISTRY U Cannab Scr Negative *NA* (06/16/2011 11:02:00) ?? >Negative 06/16/2011 NA [facility] CHEMISTRY U Opiate Scr Negative *NA* (06/16/2011 11:02:00) ?? >Negative 06/16/2011 NA [facility] CHEMISTRY U Amph Scr Negative *NA* (06/16/2011 11:02:00) ?? >Negative 06/16/2011 NA [facility] CHEMISTRY U [place] Scr Negative *NA* (06/16/2011 11:02:00) ?? >Negative 06/16/2011 NA [facility] CHEMISTRY U Cocaine Scr Negative *NA* (06/16/2011 11:02:00) ?? >Negative 06/16/2011 NA [facility] CHEMISTRY U Benzodia Scr Negative *NA* (06/16/2011 11:02:00) ?? >Negative 06/16/2011 NA [facility] CHEMISTRY U Phencyc Scr Negative *NA* (06/16/2011 11:02:00) ?? >Negative 06/16/2011 NA [facility] CHEMISTRY Total CK 108.0 U/L 12 - 191 06/16/2011 Normal [facility] CHEMISTRY Albumin Lvl 3.4 g/dL 3.5 - 5.0 06/16/2011 LOW [facility] CHEMISTRY Calcium Lvl 9.0 mg/dL 8.5 - 10.5 06/16/2011 Normal [facility] CHEMISTRY Total Protein 7.2 g/dL 6.4 - 8.4 06/16/2011 Normal [facility] CHEMISTRY ALT 34.0 U/L 0 - 65 06/16/2011 Normal [facility] CHEMISTRY Alk Phos 69.0 U/L 39 - 136 06/16/2011 Normal [facility] CHEMISTRY Bili Total 0.3 mg/dL 0.2 - 1.3 06/16/2011 Normal [facility] CHEMISTRY Creatinine Lvl 0.8 mg/dL 0.5 - 1.4 06/16/2011 Normal [facility] CHEMISTRY BUN 12.0 mg/dL 7 - 22 06/16/2011 Normal [facility] CHEMISTRY Chloride Lvl 108.0 meq/L 95 - 109 06/16/2011 Normal [facility] CHEMISTRY CO2 26.0 meq/L 24 - 32 06/16/2011 Normal [facility] CHEMISTRY Potassium Lvl 3.9 meq/L 3.5 - 5.1 06/16/2011 Normal [facility] CHEMISTRY Sodium Lvl 141.0 meq/L 135 - 145 06/16/2011 Normal [facility] CHEMISTRY AST 14.0 U/L 0 - 37 06/16/2011 Normal [facility] CHEMISTRY Globulin 3.8 g/dL 2.0 - 4.0 06/16/2011 Normal [facility] CHEMISTRY B/C Ratio 15.0 6 - 25 06/16/2011 Normal [facility] CHEMISTRY AGAP 10.9 meq/L 10.0 - 20.0 06/16/2011 Normal [facility] CHEMISTRY A/G Ratio 0.9 0.7 - 1.6 06/16/2011 Normal [facility] CHEMISTRY Glucose Lvl 95.0 mg/dL 06/16/2011 NA 2Interpretive Data: Reference Ranges : 0 - 7 days : 41 - 90 mg/dL7 days - 150 yrs : 70 - 99 mg/dL (fasting), based on the clinical recommendations of the [place] [employer]. [facility] CHEMISTRY BNP 13.0 pg/mL <<=100 06/16/2011 Normal 3Interpretive Data: Elevated results are in line with increasing severity of congestive heart failure. Minor elevations between 100 and 300 may be seen with Myocardial Ischemia, Sodium retaining drug s, and compensated/treated heart failure. [facility] CHEMISTRY CK MB Index null 0.0 - 2.5 06/16/2011 Normal [facility] HEMATOLOGY D-Dimer 1.03 ug/mL FEU 06/16/2011 NA 6Interpretive Data: In DIC, quantitative D- Dimer is generally greater than 0.66 ug/mL FEU. Values of quantitative D-Dimer less than 0.40 ug/mL FEU have been reported to be associated with a low probabil ity of deep vein thrombosis/pulmonary embolism. This test alone should not be used to rule out DVT/PE. [facility] HEMATOLOGY PTT 29.3 s 22.9 - 35.8 06/16/2011 Normal 7Interpretive Data: Heparin Therapeutic Range: 57 - 92 Seconds [facility] HEMATOLOGY PT 12.3 s 12.0 - 14.7 06/16/2011 Normal [facility] HEMATOLOGY INR 0.91 0.85 - 1.17 06/16/2011 Normal 5Interpretive Data: RECOMMENDED RANGES FOR PROTIME INR: 2.0-3.0 for most medical and surgical thromboembolic states. 2.5-3.5 for artificial heart valves and recurrent embolism.INR SHOULD BE USED ONLY FOR PATIENTS ON STABLE ANTICOAGULANT THERAPY. [facility] HEMATOLOGY MPV 8.9 fL 7.4 - 10.4 06/16/2011 Normal [facility] Platelet 264.0 K/CMM 133 - 450 06/16/2011 Normal [facility] HEMATOLOGY MCH 27.7 pg 27.0 - 31.0 06/16/2011 Normal [facility] HEMATOLOGY MCV 81.8 fL 81.0 - 99.0 06/16/2011 Normal [facility] HEMATOLOGY Hct 37.7 % 36.0 - 48.0 06/16/2011 Normal [facility] HEMATOLOGY RDW 12.8 % 11.5 - 14.5 06/16/2011 Normal [facility] HEMATOLOGY MCHC 33.8 g/dL 32.0 - 36.0 06/16/2011 Normal [facility] HEMATOLOGY RBC 4.61 M/CMM 4.20 - 5.40 06/16/2011 Normal [facility] HEMATOLOGY Hgb 12.7 g/dL 12.0 - 16.0 06/16/2011 Normal [facility] HEMATOLOGY WBC 5.9 K/CMM 3.7 - 10.4 06/16/2011 Normal [facility] HEMATOLOGY Basophils 0.6 % 0.0 - 1.0 06/16/2011 Normal [facility] HEMATOLOGY Segs-Bands # 4.2 K/CMM 1.5 - 8.1 06/16/2011 Normal [facility] HEMATOLOGY Eosinophils 5.4 % 0.0 - 4.0 06/16/2011 HI [facility] HEMATOLOGY Monocytes # 0.3 K/CMM 0.0 - 0.8 06/16/2011 Normal [facility] HEMATOLOGY Eosinophils # 0.3 K/CMM 0.0 - 0.5 06/16/2011 Normal [facility] HEMATOLOGY Basophils # 0.0 K/CMM 0.0 - 0.2 06/16/2011 Normal [facility] HEMATOLOGY Lymphocytes # 1.1 K/CMM 1.0 - 5.5 06/16/2011 Normal [facility] HEMATOLOGY Segs 70.1 % 45.0 - 75.0 06/16/2011 Normal [facility] HEMATOLOGY Monocytes 4.8 % 2.0 - 12.0 06/16/2011 Normal [facility] HEMATOLOGY Lymphocytes 19.1 % 20.0 - 40.0 06/16/2011 LOW [facility] IMMUNOLOGY CDC-HIV 1/2 Ab Negative *NA* (06/16/2011 10:50:00) ?? >Negative 06/16/2011 NA [facility] Vital Signs Vital Sign Value Date Comments Source Temperature Oral (F) 98.7 F 02/01/2018 [facility] Systolic (mm Hg) 120 02/01/2018 [facility] Diastolic (mm Hg) 65 02/01/2018 [facility] Respitory Rate 16 02/01/2018 [facility] Respitory Rate 15 02/01/2018 [facility] Systolic (mm Hg) 127 02/01/2018 [facility] Diastolic (mm Hg) 49 02/01/2018 [facility] Systolic (mm Hg) 113 02/01/2018 [facility] Diastolic (mm Hg) 61 02/01/2018 [facility] Respitory Rate 16 02/01/2018 [facility] Heart Rate 102 02/01/2018 [facility] Weight 136.364 02/01/2018 [facility] Temperature Oral (F) 99 F 02/01/2018 [facility] Systolic (mm Hg) 120 10/07/2017 [facility] Diastolic (mm Hg) 75 10/07/2017 [facility] Heart Rate 98 10/07/2017 [facility] Respitory Rate 18 10/07/2017 [facility] Systolic (mm Hg) 128 10/06/2017 [facility] Diastolic (mm Hg) 80 10/06/2017 [facility] Respitory Rate 18 10/06/2017 [facility] Heart Rate 105 10/06/2017 [facility] Heart Rate 101 10/06/2017 [facility] Systolic (mm Hg) 110 10/06/2017 [facility] Diastolic (mm Hg) 63 10/06/2017 [facility] Respitory Rate 18 10/06/2017 [facility] Weight 136.364 10/06/2017 [facility] Temperature Oral (F) 98.8 F 10/06/2017 [facility] BMI Calculated 50.03 10/06/2017 [facility] Height 165.1 cm 10/06/2017 [facility] Heart Rate 89 08/05/2017 [facility] Temperature Oral (F) 98.6 F 08/05/2017 [facility] Respitory Rate 18 08/05/2017 [facility] Systolic (mm Hg) 108 08/05/2017 [facility] Diastolic (mm Hg) 77 08/05/2017 [facility] Heart Rate 88 08/05/2017 [facility] Temperature Oral (F) 98.5 F 08/05/2017 [facility] Systolic (mm Hg) 103 08/05/2017 [facility] Diastolic (mm Hg) 68 08/05/2017 [facility] Respitory Rate 18 08/05/2017 [facility] Systolic (mm Hg) 138 08/04/2017 [facility] Diastolic (mm Hg) 89 08/04/2017 [facility] Height 165.1 cm 08/04/2017 [facility] Temperature Oral (F) 98.5 F 08/04/2017 [facility] Respitory Rate 18 08/04/2017 [facility] Heart Rate 96 08/04/2017 [facility] Weight 136.364 08/04/2017 [facility] BMI Calculated 50.03 08/04/2017 [facility] Height 165.1 cm 03/17/2017 [facility] BMI Calculated 50.03 03/17/2017 [facility] Weight 136.364 03/17/2017 [facility] Temperature Oral (F) 98.9 F 03/17/2017 [facility] Respitory Rate 18 03/17/2017 [facility] Heart Rate 102 03/17/2017 [facility] Systolic (mm Hg) 141 03/17/2017 [facility] Diastolic (mm Hg) 79 03/17/2017 [facility] Systolic (mm Hg) 114 03/20/2016 [facility] Diastolic (mm Hg) 55 03/20/2016 [facility] Respitory Rate 20 03/20/2016 [facility] Systolic (mm Hg) 126 03/20/2016 [facility] Diastolic (mm Hg) 78 03/20/2016 [facility] Respitory Rate 18 03/20/2016 [facility] Respitory Rate 28 03/20/2016 [facility] Temperature Oral (F) 98.3 F 03/20/2016 [facility] Weight 136.364 03/20/2016 [facility] Heart Rate 86 03/20/2016 [facility] Systolic (mm Hg) 128 03/20/2016 [facility] Diastolic (mm Hg) 83 03/20/2016 [facility] Heart Rate 81 11/29/2015 [facility] Respitory Rate 18 11/29/2015 [facility] Systolic (mm Hg) 108 11/29/2015 [facility] Diastolic (mm Hg) 63 11/29/2015 [facility] Temperature Oral (F) 98.3 F 11/29/2015 [facility] Temperature Oral (F) 98.6 F 11/29/2015 [facility] Heart Rate 79 11/29/2015 [facility] Respitory Rate 20 11/29/2015 [facility] Systolic (mm Hg) 102 11/29/2015 [facility] Diastolic (mm Hg) 71 11/29/2015 [facility] Height 165.1 cm 11/29/2015 [facility] BMI Calculated 48.19 11/29/2015 [facility] Weight 131.364 11/29/2015 [facility] Respitory Rate 18 11/29/2015 [facility] Systolic (mm Hg) 134 11/29/2015 [facility] Diastolic (mm Hg) 86 11/29/2015 [facility] Heart Rate 90 11/29/2015 [facility] Temperature Oral (F) 98.7 F 11/29/2015 [facility] Height 162.56 cm 11/28/2015 [facility] Weight 131.364 11/28/2015 [facility] BMI Calculated 49.71 11/28/2015 [facility] Heart Rate 99 11/28/2015 [facility] Respitory Rate 18 11/28/2015 [facility] Systolic (mm Hg) 136 11/28/2015 [facility] Diastolic (mm Hg) 89 11/28/2015 [facility] Temperature Oral (F) 98.9 F 11/28/2015 [facility] Systolic (mm Hg) 130 11/08/2015 [facility] Diastolic (mm Hg) 54 11/08/2015 [facility] Respitory Rate 18 11/08/2015 [facility] Temperature Oral (F) 97.7 F 11/08/2015 [facility] Heart Rate 98 11/08/2015 [facility] BMI Calculated 48.19 11/08/2015 [facility] Height 165.1 cm 11/08/2015 [facility] Weight 131.364 11/08/2015 [facility] Respitory Rate 20 11/08/2015 [facility] Heart Rate 100 11/08/2015 [facility] Temperature Oral (F) 99.0 F 11/08/2015 [facility] Systolic (mm Hg) 145 11/08/2015 [facility] Diastolic (mm Hg) 92 11/08/2015 [facility] Respitory Rate 19 11/04/2015 [facility] Systolic (mm Hg) 130 11/04/2015 [facility] Diastolic (mm Hg) 80 11/04/2015 [facility] Temperature Oral (F) 98 F 11/04/2015 [facility] Heart Rate 84 11/04/2015 [facility] Weight 129.545 11/03/2015 [facility] BMI Calculated 47.53 11/03/2015 [facility] Height 165.1 cm 11/03/2015 [facility] BMI Calculated 47.53 11/03/2015 [facility] Height 165.1 cm 11/03/2015 [facility] Temperature Oral (F) 98.9 F 11/03/2015 [facility] Heart Rate 101 11/03/2015 [facility] Respitory Rate 17 11/03/2015 [facility] Systolic (mm Hg) 120 11/03/2015 [facility] Diastolic (mm Hg) 80 11/03/2015 [facility] Weight 129.545 11/03/2015 [facility] Temperature Oral (F) 98 F 09/01/2015 [facility] Respitory Rate 18 09/01/2015 [facility] Heart Rate 65 09/01/2015 [facility] Systolic (mm Hg) 130 09/01/2015 [facility] Diastolic (mm Hg) 80 09/01/2015 [facility] Weight 129.545 09/01/2015 [facility] BMI Calculated 47.53 09/01/2015 [facility] Height 165.1 cm 09/01/2015 [facility] Respitory Rate 20 09/01/2015 [facility] Heart Rate 92 09/01/2015 [facility] Systolic (mm Hg) 135 09/01/2015 [facility] Diastolic (mm Hg) 84 09/01/2015 [facility] Temperature Oral (F) 98.2 F 09/01/2015 [facility] Weight 129.545 06/09/2015 [facility] Height 165.1 cm 06/09/2015 [facility] BMI Calculated 47.53 06/09/2015 [facility] Respitory Rate 20 06/09/2015 [facility] Temperature Oral (F) 98.5 F 06/09/2015 [facility] Heart Rate 107 06/09/2015 [facility] Systolic (mm Hg) 136 06/09/2015 [facility] Diastolic (mm Hg) 78 06/09/2015 [facility] Systolic (mm Hg) 108 05/23/2015 [facility] Diastolic (mm Hg) 76 05/23/2015 [facility] Respitory Rate 18 05/23/2015 [facility] Heart Rate 87 05/23/2015 [facility] Temperature Oral (F) 98.4 F 05/23/2015 [facility] Height 165.1 cm 05/23/2015 [facility] BMI Calculated 45.86 05/23/2015 [facility] Weight 125 05/23/2015 [facility] Systolic (mm Hg) 107 05/23/2015 [facility] Diastolic (mm Hg) 83 05/23/2015 [facility] Temperature Oral (F) 98.2 F 05/23/2015 [facility] Heart Rate 95 05/23/2015 [facility] Respitory Rate 18 05/23/2015 [facility] Systolic (mm Hg) 114 04/03/2015 [facility] Diastolic (mm Hg) 89 04/03/2015 [facility] Temperature Oral (F) 98.1 F 04/03/2015 [facility] Respitory Rate 18 04/03/2015 [facility] Heart Rate 91 04/03/2015 [facility] Temperature Oral (F) 98.4 F 04/03/2015 [facility] Respitory Rate 18 04/03/2015 [facility] Heart Rate 86 04/03/2015 [facility] Systolic (mm Hg) 100 04/03/2015 [facility] Diastolic (mm Hg) 53 04/03/2015 [facility] BMI Calculated 47.53 04/02/2015 [facility] Systolic (mm Hg) 152 04/02/2015 [facility] Diastolic (mm Hg) 95 04/02/2015 [facility] Heart Rate 96 04/02/2015 [facility] Temperature Oral (F) 98.9 F 04/02/2015 [facility] Respitory Rate 18 04/02/2015 [facility] Height 165.1 cm 04/02/2015 [facility] Weight 129.545 04/02/2015 [facility] Systolic (mm Hg) 112 02/16/2015 [facility] Diastolic (mm Hg) 67 02/16/2015 [facility] Temperature Oral (F) 98.2 F 02/16/2015 [facility] Respitory Rate 20 02/16/2015 [facility] Heart Rate 78 02/16/2015 [facility] Weight 133.636 02/15/2015 [facility] BMI Calculated 49.03 02/15/2015 [facility] Height 165.1 cm 02/15/2015 [facility] Temperature Oral (F) 98.0 F 02/15/2015 [facility] Respitory Rate 18 02/15/2015 [facility] Heart Rate 91 02/15/2015 [facility] Systolic (mm Hg) 103 02/15/2015 [facility] Diastolic (mm Hg) 57 02/15/2015 [facility] Heart Rate 95 01/28/2015 [facility] Temperature Oral (F) 98.6 F 01/28/2015 [facility] Respitory Rate 18 01/28/2015 [facility] Systolic (mm Hg) 133 01/28/2015 [facility] Diastolic (mm Hg) 80 01/28/2015 [facility] Height 165.1 cm 01/27/2015 [facility] BMI Calculated 49.03 01/27/2015 [facility] Weight 133.636 01/27/2015 [facility] Temperature Oral (F) 98.7 F 01/27/2015 [facility] Heart Rate 104 01/27/2015 [facility] Respitory Rate 18 01/27/2015 [facility] Systolic (mm Hg) 135 01/27/2015 [facility] Diastolic (mm Hg) 93 01/27/2015 [facility] Systolic (mm Hg) 123 06/06/2014 [facility] Respitory Rate 18 06/06/2014 [facility] Heart Rate 94 06/06/2014 [facility] Temperature Oral (F) 98.2 F 06/06/2014 [facility] Diastolic (mm Hg) 84 06/06/2014 [facility] Weight 126.364 06/06/2014 [facility] Temperature Oral (F) 98.3 F 06/06/2014 [facility] Heart Rate 103 06/06/2014 [facility] Diastolic (mm Hg) 80 06/06/2014 [facility] Respitory Rate 20 06/06/2014 [facility] Systolic (mm Hg) 111 06/06/2014 [facility] Temperature Oral (F) 97.6 F 06/13/2013 [facility] Heart Rate 76 06/13/2013 [facility] Respitory Rate 18 06/13/2013 [facility] Systolic (mm Hg) 118 06/13/2013 [facility] Diastolic (mm Hg) 78 06/13/2013 [facility] Respitory Rate 16 06/13/2013 [facility] Temperature Oral (F) 97.8 F 06/13/2013 [facility] Heart Rate 80 06/13/2013 [facility] Respitory Rate 15 06/13/2013 [facility] Heart Rate 80 06/13/2013 [facility] Temperature Oral (F) 97.8 F 06/13/2013 [facility] Systolic (mm Hg) 101 06/13/2013 [facility] Diastolic (mm Hg) 65 06/13/2013 [facility] Systolic (mm Hg) 128 06/13/2013 [facility] Diastolic (mm Hg) 68 06/13/2013 [facility] Height 165.1 cm 06/08/2013 [facility] Weight 127.273 06/08/2013 [facility] Weight 127.273 06/08/2013 [facility] Height 165.1 cm 06/08/2013 [facility] Systolic (mm Hg) 119 04/21/2013 [facility] Heart Rate 84 04/21/2013 [facility] Diastolic (mm Hg) 79 04/21/2013 [facility] Temperature Oral (F) 98.4 F 04/21/2013 [facility] Respitory Rate 18 04/21/2013 [facility] Systolic (mm Hg) 124 04/21/2013 [facility] Diastolic (mm Hg) 80 04/21/2013 [facility] Respitory Rate 18 04/21/2013 [facility] Heart Rate 88 04/21/2013 [facility] Temperature Oral (F) 97.9 F 04/21/2013 [facility] Height 165.1 cm 04/21/2013 [facility] Weight 122.727 04/21/2013 [facility] Height 165.1 cm 03/22/2013 [facility] Weight 126.364 03/22/2013 [facility] Height 165.1 cm 12/15/2012 [facility] Weight 126.818 12/15/2012 [facility] Weight 130.000 09/13/2012 [facility] Height 165.10 cm 09/13/2012 [facility] Weight 127.273 07/18/2012 [facility] Height 165.10 cm 07/18/2012 [facility] Diastolic (mm Hg) 70 03/15/2012 [facility] Systolic (mm Hg) 105 03/15/2012 [facility] Respitory Rate 16 03/15/2012 [facility] Temperature Oral (F) 98.1 F 03/15/2012 [facility] Heart Rate 97 03/15/2012 [facility] Temperature Oral (F) 98.1 F 03/15/2012 [facility] Heart Rate 92 03/15/2012 [facility] Systolic (mm Hg) 130 03/15/2012 [facility] Respitory Rate 16 03/15/2012 [facility] Diastolic (mm Hg) 77 03/15/2012 [facility] Diastolic (mm Hg) 76 03/15/2012 [facility] Systolic (mm Hg) 110 03/15/2012 [facility] Temperature Oral (F) 97.5 F 03/15/2012 [facility] Respitory Rate 16 03/15/2012 [facility] Heart Rate 82 03/15/2012 [facility] Weight 128.636 03/13/2012 [facility] Height 165.10 cm 03/13/2012 [facility] Weight 136.364 01/09/2012 [facility] Height 165.10 cm 01/09/2012 [facility] Height 165.10 cm 12/10/2011 [facility] Weight 130.909 12/10/2011 [facility] Height 165.10 cm 11/19/2011 [facility] Weight 104.545 11/19/2011 [facility] Height 165.10 cm 11/03/2011 [facility] Weight 127.273 11/03/2011 [facility] Temperature Oral (F) 98.0 F 08/13/2011 [facility] Heart Rate 69.0 08/13/2011 [facility] Respitory Rate 18.0 08/13/2011 [facility] Systolic (mm Hg) 103.0 08/13/2011 [facility] Diastolic (mm Hg) 54.0 08/13/2011 [facility] Temperature Oral (F) 98.2 F 08/13/2011 [facility] Heart Rate 65.0 08/13/2011 [facility] Respitory Rate 18.0 08/13/2011 [facility] Diastolic (mm Hg) 41.0 08/13/2011 [facility] Systolic (mm Hg) 99.0 08/13/2011 [facility] Respitory Rate 18.0 08/13/2011 [facility] Systolic (mm Hg) 107.0 08/13/2011 [facility] Heart Rate 68.0 08/13/2011 [facility] Diastolic (mm Hg) 45.0 08/13/2011 [facility] Weight 122.727 08/13/2011 [facility] Height 165.1 cm 08/13/2011 [facility] Temperature Oral (F) 98.2 F 08/13/2011 [facility] Respitory Rate 18.0 06/17/2011 [facility] Temperature Oral (F) 98.5 F 06/17/2011 [facility] Heart Rate 95.0 06/17/2011 [facility] Systolic (mm Hg) 100.0 06/17/2011 [facility] Diastolic (mm Hg) 59.0 06/17/2011 [facility] Temperature Oral (F) 97.7 F 06/17/2011 [facility] Heart Rate 90.0 06/17/2011 [facility] Respitory Rate 18.0 06/17/2011 [facility] Systolic (mm Hg) 112.0 06/17/2011 [facility] Diastolic (mm Hg) 55.0 06/17/2011 [facility] Diastolic (mm Hg) 44.0 06/17/2011 [facility] Systolic (mm Hg) 96.0 06/17/2011 [facility] Respitory Rate 18.0 06/17/2011 [facility] Temperature Oral (F) 97.8 F 06/17/2011 [facility] Heart Rate 90.0 06/17/2011 [facility] Height 165.1 cm 06/16/2011 [facility] Weight 120.0 06/16/2011 [facility] En[facility] Location Location Details Encounter Type Encounter Number Reason For Visit Attending Provider ADM Date DC Date Status Source [facility] OU [id number] LAURA RODRIGUEZ 06/16/2011 06/17/2011 Active [facility] [id number] SHAWANDA COYEL 08/13/2011 08/13/2011 Active [facility] [id number] FARA NRIAGU 11/03/2011 11/03/2011 Active [facility] [id number] SANDRITA TIERA 11/18/2011 11/19/2011 Active [facility] [id number] GALLITO MULLER 12/10/2011 12/10/2011 Active [facility] [id number] NADIM GNOSTICIST 01/09/2012 01/09/2012 Active [facility] [id number] INTRACTABLE VOMITING TASO MOUGOURIS 03/14/2012 03/15/2012 Active [facility] [id number] AUSTEN CASTANO 07/18/2012 07/18/2012 [facility] [id number] KHANH SHELLEY 09/13/2012 09/13/2012 [facility] [id number] INDU HELMS 12/15/2012 12/15/2012 [facility] [id number] SOB NADIM GNOSTICIST 03/22/2013 03/22/2013 [facility] [id number] MARIETTA JUANJO 04/21/2013 04/21/2013 [facility] [id number] AUSTEN CASTANO 04/21/2013 04/21/2013 [facility] [id number] MARIETTA JUANJO 06/09/2013 06/13/2013 Active [facility] [id number] Gallito Muller 06/06/2014 06/06/2014 [facility] [id number] Pricila Cobb 01/27/2015 01/28/2015 [facility] [id number] Alban Gross 02/15/2015 02/16/2015 [facility] [id number] Rey Dowd 04/02/2015 04/03/2015 [facility] [id number] Elisha Araya 05/23/2015 05/23/2015 [facility] [id number] Alban Gross 06/09/2015 06/09/2015 [facility] [id number] Khanh Pan 09/01/2015 09/01/2015 [facility] [id number] Calvin Antonio 11/03/2015 11/04/2015 [facility] [id number] Janetyuni Naranjo 11/08/2015 11/08/2015 [facility] [id number] Elvis Jarrett 11/28/2015 11/29/2015 [facility] [id number] Natalia Marley 11/29/2015 11/29/2015 [facility] [id number] Khanh Pan 03/20/2016 03/20/2016 [facility] Emergency [id number] Bebeto Miranda 03/16/2017 03/17/2017 [facility] Emergency [id number] Elvis Jarrett 08/04/2017 08/05/2017 [facility] Emergency [id number] Craig Shah 10/06/2017 10/07/2017 [facility] Emergency [id number] Craig Shah 02/01/2018 02/01/2018 [facility] Outpatient [id number] BARRETT LE 08/02/2018 [facility] Outpatient [id number] BARRETT LE 08/15/2018 [facility] Outpatient [id number] BARRETT LE 08/23/2018 [facility] Outpatient [id number] Blaise Chavez Jr 12/22/2018 [facility] Outpatient [id number] BREAST PAIN MARIETTA JUANJO [facility] DS [id number] UNK JOSE ANTONIO HATTIE [facility] Procedures Procedure Code Date Perfomer Comments Source section [facility] section [id number] [facility] Epidural block 47536510 [facility] Removal of ovarian cyst [id number] [facility] Removal of ovarian cyst [id number] [facility] section [id number] [facility] Epidural block [id number] [facility] Removal of ovarian cyst [id number] [facility]
--- OUTSIDE RECORDS SUMMARY | 2018-12-08 22:24 | XMS REPORT | Summary of Care ---
Author Author [facility] Organization [facility] Address Unknown Phone Unavailable Encounter KIMBERLY Salazar(DMITRI) [id number] Date(s): 02/01/18 - 02/01/18 [facility] [address] [place] [address]- Encounter Diagnosis Chest wall pain (Discharge Diagnosis) - 02/01/18 Discharge Disposition: Home or Self Care Attending Physician: Craig Shah MD Vital Signs 1 2 3 Most recent to oldest [Reference Range]: 98.7 DegF (02/01/18 4:00 PM) 99 DegF (02/01/18 12:00 PM) Temperature Oral [96.4-99.1 DegF] 120/65 mmHg (02/01/18 4:00 PM) 127/49 mmHg (02/01/18 3:00 PM) 113/61 mmHg (02/01/18 2:00 PM) Blood Pressure [90-140/60-90 mmHg] 16 BRMIN (02/01/18 4:00 PM) 15 BRMIN (02/01/18 3:00 PM) 16 BRMIN (02/01/18 2:00 PM) Respiratory Rate [14-20 BRMIN] 102 bpm *HI* (02/01/18 12:00 PM) Peripheral Pulse Rate [60-100 bpm] 136.364 kg (02/01/18 12:00 PM) Weight Problem List Condition Effective Dates Status Health Status Informant Abdominal Active pain(Confirmed) Abdominal Active pain(Confirmed) Anemia(Confirmed) Active Anxiety about Active treatment(Confirmed) Bronchitis(Confirmed Resolved ) Chest Active pain(Confirmed) Cough(Confirmed) Active Gallstones(Confirmed Active ) Headache(Confirmed)1 Active HTN - Active Hypertension(Confirm ed) Hypertension(Confirm Resolved ed) HYPERTENSION(Confirm Resolved ed) Ovarian Resolved cyst(Confirmed) Vaginal Active bleeding(Confirmed) 1frequent Allergies, Adverse Reactions, Alerts Substance Reaction Severity Status morphine Active Medications ketOROLAC 30 mg/mL injectable solution 30 mg, Route: IVP, Drug form: INJ, ONCE, Dosing Weight 136.364, kg, Priority: ST AT, Start date: 02/01/18 13:28:00 CDT, Stop date: 02/01/18 13:28:00 CDT Start Date: 02/01/18 Stop Date: 02/01/18 Status: Discontinued Saline Flush 0.9% 10 mL, Route: IVP, Drug Form: INJ, Dosing Weight 136.364, kg, PRN, PRN Line Flus h, Start date: 02/01/18 11:59:00 CDT, Duration: 30 day, Stop date: 03/03/18 11:5 8:00 CDT Notes: (Same as: BD Posiflush) Start Date: 02/01/18 Stop Date: 02/01/18 Status: Discontinued Sodium Chloride 0.9% (Bolus) IV 1,000 mL, Infuse Over: 1 hr, Route: IV, ONCE, Priority: STAT, Dosing Weight 136. 364 kg, Start date: 02/01/18 13:28:00 CDT, Stop date: 02/01/18 13:28:00 CDT Start Date: 02/01/18 Stop Date: 02/01/18 Status: Discontinued Tylenol 650 mg, Route: PO, Drug form: TAB, ONCE, Dosing Weight 136.364, kg, Priority: ST AT, Start date: 02/01/18 13:59:00 CDT, Stop date: 02/01/18 13:59:00 CDT Start Date: 02/01/18 Stop Date: 02/01/18 Status: Completed Zofran ODT 4 mg, Route: PO, Drug form: TABDIS, ONCE, Dosing Weight 136.364, kg, Priority: S TAT, Start date: 02/01/18 13:28:00 CDT, Stop date: 02/01/18 13:28:00 CDT Start Date: 02/01/18 Stop Date: 02/01/18 Status: Discontinued Results ELECTROLYTES Most recent to 1 oldest [Reference Range]: Sodium Lvl [135-145 137 mEq/L mEq/L] (02/01/18 12:54 PM) Potassium Lvl 4.1 mEq/L [3.5-5.1 mEq/L] (02/01/18 12:54 PM) Chloride Lvl [95-109 106 mEq/L mEq/L] (02/01/18 12:54 PM) CO2 [24-32 mEq/L] 23 mEq/L *LOW* (02/01/18 12:54 PM) AGAP [10.0-20.0 12.1 mEq/L mEq/L] (02/01/18 12:54 PM) CHEM PANEL Most recent to 1 oldest [Reference Range]: Creatinine Lvl 0.78 mg/dL [0.50-1.40 mg/dL] (02/01/18 12:54 PM) eGFR 116 mL/min/1.73m2 1 *NA* (02/01/18:54 PM) BUN [7-22 mg/dL] 11 mg/dL (02/01/18 12:54 PM) B/C Ratio [6-25] 14 (02/01/18 12:54 PM) Glucose Lvl [70-99 93 mg/dL mg/dL] (02/01/18 12:54 PM) Total Protein 7.8 g/dL [6.4-8.4 g/dL] (02/01/18 12:54 PM) Albumin Lvl [3.5-5.0 3.4 g/dL g/dL] *LOW* (02/01/18 12:54 PM) Globulin [2.7-4.2 4.4 g/dL g/dL] *HI* (02/01/18 12:54 PM) A/G Ratio [0.7-1.6] 0.8 (02/01/18 12:54 PM) Calcium Lvl 8.7 mg/dL [8.5-10.5 mg/dL] (02/01/18 12:54 PM) ALT [0-65 unit/L] 32 unit/L (02/01/18 12:54 PM) AST [0-37 unit/L] 16 unit/L (02/01/18 12:54 PM) Alk Phos [39-136 74 unit/L unit/L] (02/01/18 12:54 PM) Bili Total [0.2-1.3 0.1 mg/dL mg/dL] *LOW* (02/01/18 12:54 PM) 1Result Comment: The eGFR is calculated using [...] from the National Kidney Disease Education Program ( NKDEP) which additionally recommends that when the eGFR is used in patients with extremes of body mass index for purposes of drug dosing, the eGFR should be mul tiplied by the estimated BMI. CARDIAC ENZYMES Most recent to 1 oldest [Reference Range]: Total CK [12-191 82 unit/L unit/L] (02/01/18 12:54 PM) CK MB [0.5-3.6 <0.5 ng/mL ng/mL] (02/01/18 12:54 PM) CK MB Index <0.6 [0.0-2.5] (02/01/18 12:54 PM) Troponin-I <0.02 ng/mL [0.00-0.40 ng/mL] (02/01/18 12:54 PM) HEMATOLOGY Most recent to 1 oldest [Reference Range]: WBC [3.7-10.4 K/CMM] 8.3 K/CMM (02/01/18 12:54 PM) RBC [4.20-5.40 4.82 M/CMM M/CMM] (02/01/18 12:54 PM) Hgb [12.0-16.0 g/dL] 13.1 g/dL (02/01/18 12:54 PM) Hct [36.0-48.0 %] 39.3 % (02/01/18 12:54 PM) MCV [80.0-98.0 fL] 81.4 fL (02/01/18 12:54 PM) MCH [27.0-31.0 pg] 27.1 pg (02/01/18 12:54 PM) MCHC [32.0-36.0 33.3 g/dL g/dL] (02/01/18 12:54 PM) RDW [11.5-14.5 %] 13.5 % (02/01/18 12:54 PM) MPV [7.4-10.4 fL] 8.8 fL (02/01/18 12:54 PM) Platelet [133-450 286 K/CMM K/CMM] (02/01/18 12:54 PM) Segs [45.0-75.0 %] 64.2 % (02/01/18 12:54 PM) Lymphocytes 28.0 % [20.0-40.0 %] (02/01/18 12:54 PM) Monocytes [2.0-12.0 5.8 % %] (02/01/18 12:54 PM) Eosinophils [0.0-4.0 1.4 % %] (02/01/18 12:54 PM) Basophils [0.0-1.0 0.6 % %] (02/01/18 12:54 PM) Segs-Bands # 5.3 K/CMM [1.5-8.1 K/CMM] (02/01/18 12:54 PM) Lymphocytes # 2.3 K/CMM [1.0-5.5 K/CMM] (02/01/18 12:54 PM) Monocytes # [0.0-0.8 0.5 K/CMM K/CMM] (02/01/18 12:54 PM) Eosinophils # 0.1 K/CMM [0.0-0.5 K/CMM] (02/01/18 12:54 PM) Immunizations No data available for this section Procedures Procedure Date Related Diagnosis Body Site Status section Completed Epidural block Completed Removal of ovarian cyst Completed Social History Social History Type Response Smoking Status Current every day smoker; Type: Cigarettes; Exposure to Tobacco Smoke None; Cigarette Smoking Last 365 Days Yes; Reg Smoking Cessation Counseling No entered on: 02/01/18 Assessment and Plan No data available for this section
--- OUTSIDE RECORDS SUMMARY | 2018-12-08 22:24 | XMS REPORT | Summary of Care ---
Author Author [facility] Organization [facility] Address Unknown Phone Unavailable Encounter KIMBERLY Salazar(DMITRI) [id number] Date(s): 03/16/17 - 03/16/17 [facility] [address] [place] [address]- Discharge Disposition: Elopement Attending Physician: Bebeto Miranda MD Vital Signs Most recent to 1 oldest [Reference Range]: Height 165.1 cm (03/16/17 7:03 PM) Temperature Oral 98.9 DegF [96.4-99.1 DegF] (03/16/17 7:03 PM) Blood Pressure 141/79 mmHg [90-140/60-90 mmHg] *HI* (03/16/17 7:03 PM) Respiratory Rate 18 BRMIN [14-20 BRMIN] (03/16/17 7:03 PM) Peripheral Pulse 102 bpm Rate [60-100 bpm] *HI* (03/16/17 7:03 PM) Weight 136.364 kg (03/16/17 7:03 PM) Body Mass Index 50.03 m2 (03/16/17 7:03 PM) Problem List Condition Effective Dates Status Health [...] Alerts Substance Reaction Severity Status penicillins Active Medications morphine Sulfate 4 mg, 1 mL, Route: IVP, Drug form: SOLN, ONCE, Dosing Weight 136.364, kg, Priori ty: STAT, Start date: 03/16/17 19:06:00 CDT, Stop date: 03/16/17 19:06:00 CDT Notes: (Same as:MORPhine Sulfate) Start Date: 03/16/17 Stop Date: 03/16/17 Status: Ordered ondansetron 4 mg, 2 mL, Route: IVP, Drug form: INJ, ONCE, Dosing Weight 136.364, kg, Priorit y: STAT, Start date: 03/16/17 19:06:00 CDT, Stop date: 03/16/17 19:06:00 CDT Notes: (Same as: Zofran) MEDICATION WASTE Product Size: 4 mgProduct Was ale: ___ mg Start Date: 03/16/17 Stop Date: 03/16/17 Status: Ordered Saline Flush 0.9% 10 mL, Route: IVP, Drug Form: INJ, Dosing Weight 136.364, kg, PRN, PRN Line Flus h, Start date: 03/16/17 19:06:00 CDT, Duration: 30 day, Stop date: 04/15/17 19:0 5:00 CDT Notes: (Same as: BD Posiflush) Start Date: 03/16/17 Stop Date: 03/16/17 Status: Discontinued Sodium Chloride 0.9% (Bolus) IV 1,000 mL, 2,000 ml/hr, Infuse Over: 30 minutes, Route: IV, 1,000, Drug form: INJ , ONCE, Priority: STAT, Dosing Weight 136.364 kg, Start date: 03/16/17 19:06:00 CDT, Duration: 1 doses or times, Stop date: 03/16/17 19:06:00 CDT Start Date: 03/16/17 Stop Date: 03/16/17 Status: Ordered Results No data available for this section Immunizations No data available for this section [...]
--- OUTSIDE RECORDS SUMMARY | 2018-12-08 22:25 | XMS REPORT | CCD ---
Author Author Auto Generated Organization [facility] Address Unknown Phone Unavailable Care Team Providers Care Jewel Bearing Driller Name Role Phone Servando Giraldo CP Allergies, Adverse Reactions, Alerts Substance Reaction Status NKDA Active Problem List Condition Effective Dates Status Abdominal pain Active Anemia Active Chest pain Active Cough Active HTN - Hypertension Active Vaginal bleeding Active Medications Medication Instructions Start Date End Date Status azithromycin 500 mg 1 tab, Route: PO, ONCE, Start date: 11/03/2011 11/03/2011 Completed oral tablet 11/03/11 10:01:00, Stop date: 11/03/11 10:01:00 Azithromycin 5 Day 250 mg, 1 tab, PO, Daily, 1 pkg, 11/03/2011 Ordered Dose Pack 250 mg Substitution Allowed, TAKE 2 oral tablet TABLETS ON DAY 1; TAKE 1 TABLET ON DAYS 2 - 5 TAKE 2 TABLETS ON DAY 1; TAKE 1 TABLET ON DAYS 2 - 5 acetaminophen-codein 1 tab, Route: PO, ONCE, STAT, Start 11/03/2011 11/03/2011 Completed e #3 date: 11/03/11 11:33:00, Stop date: 11/03/11 11:33:00 ondansetron 4 mg, Route: PO, Drug form: TABDIS, 11/03/2011 11/03/2011 Completed ONCE, Priority: STAT, Start date: 11/03/11 11:32:00, Stop date: 11/03/11 11:32:00 ceftriaxone 1 gm, Route: IM, ONCE, Priority: 11/03/2011 11/03/2011 Completed STAT, Start date: 11/03/11 10:00:00, Stop date: 11/03/11 10:00:00 Vital Signs Most recent to oldest [Reference Range]: 1 Height 165.10 cm (11/03/2011 09:04:00) Weight 127.273 kg (11/03/2011 09:04:00) Results CHEMISTRY Most recent to oldest [Reference Range]: 1 U Preg [Negative] Negative (11/04/2011 00:30:00)
--- OUTSIDE RECORDS SUMMARY | 2018-12-08 22:25 | XMS REPORT | CCD ---
Author Author Auto Generated Organization Address Unknown Phone Unavailable Care Team Providers Care Owner Professional Engineer Name Role Phone Gallito Muller CP Allergies, Adverse Reactions, Alerts Substance Reaction Status NKDA Active Problem List Condition Effective Dates Status Abdominal pain Active Anemia Active Chest pain Active Cough Active HTN - Hypertension Active Vaginal bleeding Active Medications Medication Instructions Start Date End Date Status morphine Sulfate 4 mg, Route: IVP, ONCE, Start date: 12/10/2011 12/10/2011 Completed 12/10/11 7:57:00, Stop date: 12/10/11 7:57:00 Sodium Chloride 0.9% 1,000 mL, Rate: 1,000 ml/hr, Infuse 12/10/2011 12/10/2011 Completed (Bolus) IV 1000 mL over: 1 hr, Route: IV, kg, Total Volume: 1,000, Priority: STAT, Start date: 12/10/11 7:57:00, Duration: 1 doses or times, Stop date: 12/10/11 8:56:00, Bolus Dose Bolus Dose Zofran ODT 4 mg, Route: PO, Drug form: TABDIS, 12/10/2011 12/10/2011 Completed ONCE, Start date: 12/10/11 7:57:00, Stop date: 12/10/11 7:57:00 Saline Flush 0.9% 5 ml, Route: IVP, Drug Form: INJ, 12/10/2011 12/11/2011 Discontinued PRN, PRN Line Flush, Start date: 12/10/11 7:57:00, Duration: 24 hr, Stop date: 12/11/11 7:56:00 Sodium Chloride 0.9% 1,000 mL, Rate: 1,000 ml/hr, Infuse 12/10/2011 12/10/2011 Completed (Bolus) IV 1,000 mL over: 1 hr, Route: IV, Dosing Weight 130.9 kg, Total Volume: 1,000, Priority: STAT, Start date: 12/10/11 16:28:00, Duration: 1 doses or times, Stop date: 12/10/11 17:27:00, Bolus Dose Bolus Dose Tylenol with Codeine 1 - 2 tab, PO, Q4H, PRN, 2 day, 20 12/10/2011 12/12/2011 Ordered #3 oral tablet tab, Pain, Substitution Allowed, 12/12/11 18:47:01, Acute Cipro 500 mg oral 500 mg, 1 tab, PO, Q12H, 14 tab, 12/10/2011 12/17/2011 Ordered tablet Substitution Allowed, TAB Phenergan 25 mg oral 25 mg, 1 tab, PO, Q4H, PRN, 15 tab, 12/10/2011 Ordered tablet Nausea, Substitution Allowed Rocephin 1 g/ NS 1 gm, Route: IVPB, Drug form: 12/10/2011 12/10/2011 Completed (NaCl 0.9%) 50 mL IV PDR/INJ, ONCE, Priority: STAT, solution Start date: 12/10/11 18:45:00, Stop date: 12/10/11 18:45:00 Phenergan 25 mg, Route: IVPB, ONCE, PRN 12/10/2011 12/10/2011 Completed Nausea, Priority: STAT, Start date: 12/10/11 13:53:00 Dilaudid 0.5 mg, Route: IV, ONCE, Priority: 12/10/2011 12/10/2011 Completed STAT, Start date: 12/10/11 13:54:00, Stop date: 12/10/11 13:54:00 NS (Bolus) IV 1,000 1,000 mL, Rate: 100 ml/hr, Infuse 12/10/2011 12/11/2011 Discontinued mL over: 10 hr, Route: IV, Dosing Weight 130.9 kg, Total Volume: 1,000, Start date: 12/10/11 11:13:00, Duration: 30 day, Stop date: 01/09/12 11:12:00 acetaminophen 650 mg, Route: PO, Drug form: TAB, 12/10/2011 12/10/2011 Completed ONCE, Priority: STAT, Start date: 12/10/11 11:13:00, Stop date: 12/10/11 11:13:00 Vital Signs Most recent to oldest [Reference Range]: 1 Height 165.10 cm (12/10/2011 07:24:00) Weight 130.909 kg (12/10/2011 07:24:00) Results RAPID Most recent to oldest [Reference Range]: 1 Grp A Strep Scr [Negative] Negative (12/10/2011 11:20:00) URINALYSIS Most recent to oldest [Reference Range]: 1 UA Turbidity [Clear] Clear (12/10/2011 08:05:00) UA Color [Yellow] Yellow *NA* (12/10/2011 08:05:00) UA pH [5.0-8.0] 6.0 (12/10/2011 08:05:00) UA Spec Grav [<=1.030] 1.015 (12/10/2011 08:05:00) UA Glucose [Negative mg/dL] Negative mg/dL (12/10/2011 08:05:00) UA Blood [Negative] Negative (12/10/2011 08:05:00) UA Ketones [Negative mg/dL] Negative mg/dL *NA* (12/10/2011 08:05:00) UA Protein [Negative mg/dL] Negative mg/dL (12/10/2011 08:05:00) UA Urobilinogen [0.1-1.0 EU/dL] 0.2 EU/dL (12/10/2011 08:05:00) UA Bili [Negative] Negative *NA* (12/10/2011 08:05:00) UA Leuk Est [Negative] Negative (12/10/2011 08:05:00) UA Nitrite [Negative] Negative (12/10/2011 08:05:00) UA WBC [None Seen] None Seen (12/10/2011 08:05:00) UA RBC [0-2] None Seen (12/10/2011 08:05:00) UA Bacteria [None Seen] None Seen (12/10/2011 08:05:00) UA Sq Epi [Few /LPF] Few /LPF (12/10/2011 08:05:00) CHEMISTRY Most recent to oldest [Reference Range]: 1 Sodium Lvl [135-145 mEq/L] 137 mEq/L (12/10/2011 07:57:00) Potassium Lvl [3.5-5.1 mEq/L] 4.1 mEq/L (12/10/2011 07:57:00) Chloride Lvl [95-109 mEq/L] 104 mEq/L (12/10/2011 07:57:00) CO2 [24-32 mEq/L] 25 mEq/L (12/10/2011 07:57:00) AGAP [10.0-20.0 mEq/L] 12.1 mEq/L (12/10/2011 07:57:00) Creatinine Lvl [0.5-1.4 mg/dL] 0.9 mg/dL (12/10/2011 07:57:00) BUN [7-22 mg/dL] 10 mg/dL (12/10/2011 07:57:00) B/C Ratio [6-25] 11 (12/10/2011 07:57:00) Glucose Lvl [70-99 mg/dL] 81 mg/dL 1 (12/10/2011 07:57:00) Total Protein [6.4-8.4 g/dL] 8.5 g/dL *HI* (12/10/2011 07:57:00) Albumin Lvl [3.5-5.0 g/dL] 3.9 g/dL (12/10/2011 07:57:00) Globulin [2.0-4.0 g/dL] 4.6 g/dL *HI* (12/10/2011 07:57:00) A/G Ratio [0.7-1.6] 0.8 (12/10/2011 07:57:00) Calcium Lvl [8.5-10.5 mg/dL] 9.2 mg/dL (12/10/2011 07:57:00) ALT [0-65 U/L] 41 U/L (12/10/2011 07:57:00) AST [0-37 U/L] 23 U/L (12/10/2011 07:57:00) Alk Phos [39-136 U/L] 68 U/L (12/10/2011 07:57:00) Bili Total [0.2-1.3 mg/dL] 0.2 mg/dL (12/10/2011 07:57:00) Amylase Lvl [25-115 U/L] 35 U/L (12/10/2011 07:57:00) Lipase Lvl [73-393 U/L] 87 U/L (12/10/2011 07:57:00) U Preg [Negative] Negative (12/10/2011 08:05:00) 1Interpretive Data: Adult reference range values reflect the clinical guidelinesof the [place] [employer]. HEMATOLOGY Most recent to oldest [Reference Range]: 1 WBC [3.7-10.4 K/CMM] 6.6 K/CMM (12/10/2011 07:57:00) RBC [4.20-5.40 M/CMM] 5.02 M/CMM (12/10/2011 07:57:00) Hgb [12.0-16.0 g/dL] 13.7 g/dL (12/10/2011 07:57:00) Hct [36.0-48.0 %] 41.2 % (12/10/2011 07:57:00) MCV [81.0-99.0 fL] 82.2 fL (12/10/2011 07:57:00) MCH [27.0-31.0 pg] 27.2 pg (12/10/2011 07:57:00) MCHC [32.0-36.0 g/dL] 33.2 g/dL (12/10/2011 07:57:00) RDW [11.5-14.5 %] 13.3 % (12/10/2011 07:57:00) Platelet [133-450 K/CMM] 254 K/CMM (12/10/2011 07:57:00) MPV [7.4-10.4 fL] 9.1 fL (12/10/2011 07:57:00) Segs [45.0-75.0 %] 89.1 % *HI* (12/10/2011 07:57:00) Lymphocytes [20.0-40.0 %] 4.8 % *LOW* (12/10/2011 07:57:00) Monocytes [2.0-12.0 %] 3.8 % (12/10/2011 07:57:00) Eosinophils [0.0-4.0 %] 2.3 % (12/10/2011 07:57:00) Basophils [0.0-1.0 %] 0.0 % (12/10/2011 07:57:00) Segs-Bands # [1.5-8.1 K/CMM] 5.9 K/CMM (12/10/2011 07:57:00) Lymphocytes # [1.0-5.5 K/CMM] 0.3 K/CMM *LOW* (12/10/2011 07:57:00) Monocytes # [0.0-0.8 K/CMM] 0.2 K/CMM (12/10/2011 07:57:00) Eosinophils # [0.0-0.5 K/CMM] 0.2 K/CMM (12/10/2011 07:57:00) Basophils # [0.0-0.2 K/CMM] 0.0 K/CMM (12/10/2011 07:57:00)
--- OUTSIDE RECORDS SUMMARY | 2018-12-08 22:25 | XMS REPORT | CCD ---
Author Author Auto Generated Organization [facility] Address Unknown Phone Unavailable Care Team Providers Care Automation Control Integrator Name Role Phone Natalia Marley CP Allergies, Adverse Reactions, Alerts Substance Reaction Status penicillins Active Problem List Condition Effective Dates Status Abdominal pain Active Anemia Active Asthma Resolved Chest pain Active Cough Active HTN - Hypertension Active Hypertension Resolved Ovarian cyst Resolved Vaginal bleeding Active Medications Medication Instructions Start Date End Date Status morphine Sulfate 4 mg, Route: IVP, ONCE, Dosing 03/22/2013 03/22/2013 Completed Weight 126.364, kg, Start date: 03/22/13 9:40:00, Stop date: 03/22/13 9:40:00 morphine Sulfate 4 mg, Route: IVP, Drug form: INJ, 03/22/2013 03/22/2013 Completed ONCE, Dosing Weight 126.364, kg, Priority: STAT, Start date: 03/22/13 11:22:00, Stop date: 03/22/13 11:22:00 Phenergan 12.5 mg, Route: IVPB, ONCE, Dosing 03/22/2013 03/22/2013 Discontinued Weight 126.364, kg, Priority: STAT, Start date: 03/22/13 9:40:00, Stop date: 03/22/13 9:40:00 NS (Bolus) IV 1000 1,000 mL, Rate: 1,000 ml/hr, Infuse 03/22/2013 03/22/2013 Completed mL over: 1 hr, Route: IV, Dosing Weight 126.364 kg, Total Volume: 1,000, Priority: STAT, Start date: 03/22/13 9:39:00, Duration: 1 doses or times, Stop date: 03/22/13 10:38:00, Bolus Dose Bolus Dose Zofran 4 mg, Route: IVP, Drug form: INJ, 03/22/2013 03/22/2013 Completed ONCE, Dosing Weight 126.364, kg, Priority: STAT, Start date: 03/22/13 9:46:00, Stop date: 03/22/13 9:46:00 DuoNeb inhalation 3 ml, Route: INHALATION, Drug Form: 03/22/2013 03/22/2013 Discontinued solution SOLN, Dosing Weight 126.364, kg, PRN, PRN Respiratory Protocol, Start date: 03/22/13 7:40:00, Duration: 30 day, Stop date: 04/21/13 7:39:00 Zofran 4 mg, Route: IVP, Drug form: INJ, 03/22/2013 03/22/2013 Completed ONCE, Dosing Weight 126.364, kg, Priority: STAT, Start date: 03/22/13 8:20:00, Stop date: 03/22/13 8:20:00 Zofran ODT 4 mg oral 4 mg, 1 tab, PO, BID, PRN, Dissolve 03/22/2013 Ordered tablet, tab under tongue, 10 tab, Nausea disintegrating and Vomiting, Substitution Allowed Dissolve tab under tongue Bentyl 10 mg oral 10 mg, 1 cap, PO, QID, 28 cap, 03/22/2013 03/29/2013 Ordered capsule Substitution Allowed, CAP Phenergan 12.5 mg, Route: IVPB, ONCE, Dosing 03/22/2013 03/22/2013 Completed Weight 126.364, kg, Priority: STAT, Start date: 03/22/13 11:26:00, Stop date: 03/22/13 11:26:00 Vital Signs Most recent to oldest [Reference Range]: 1 Height 165.1 cm (03/22/2013 07:21:00) Weight 126.364 kg (03/22/2013 07:21:00) Results RAPID Most recent to oldest [Reference Range]: 1 Grp A Strep Scr [Negative] Negative (03/22/2013 09:40:38) URINALYSIS Most recent to oldest [Reference Range]: 1 UA Turbidity [Clear] Clear (03/22/2013 07:40:00) UA Color [Yellow] Yellow *NA* (03/22/2013 07:40:00) UA pH [5.0-8.0] 6.0 (03/22/2013 07:40:00) UA Spec Grav [<=1.030] 1.010 (03/22/2013 07:40:00) UA Glucose [Negative] Negative (03/22/2013 07:40:00) UA Blood [Negative] Large *ABN* (03/22/2013 07:40:00) UA Ketones [Negative] Negative *NA* (03/22/2013 07:40:00) UA Protein [Negative mg/dL] 30 mg/dL *ABN* (03/22/2013 07:40:00) UA Urobilinogen [0.1-1.0 EU/dL] 0.2 EU/dL (03/22/2013 07:40:00) UA Bili [Negative] Negative *NA* (03/22/2013 07:40:00) UA Leuk Est [Negative] Negative (03/22/2013 07:40:00) UA Nitrite [Negative] Negative (03/22/2013 07:40:00) UA RBC [0-2] 3-5 *NA* (03/22/2013 07:40:00) UA Bacteria [None Seen /HPF] Few /HPF (03/22/2013 07:40:00) UA Sq Epi [Few /LPF] Few /LPF (03/22/2013 07:40:00) CHEMISTRY Most recent to oldest [Reference Range]: 1 Sodium Lvl [135-145 mEq/L] 143 mEq/L (03/22/2013 08:05:00) Potassium Lvl [3.5-5.1 mEq/L] 4.2 mEq/L (03/22/2013 08:05:00) Chloride Lvl [95-109 mEq/L] 110 mEq/L *HI* (03/22/2013 08:05:00) CO2 [24-32 mEq/L] 25 mEq/L (03/22/2013 08:05:00) AGAP [10.0-20.0 mEq/L] 12.2 mEq/L (03/22/2013 08:05:00) Creatinine Lvl [0.5-1.4 mg/dL] 0.7 mg/dL (03/22/2013 08:05:00) eGFR 137 mL/min/1.73m2 1 *NA* (03/22/2013 08:05:00) BUN [7-22 mg/dL] 14 mg/dL (03/22/2013 08:05:00) B/C Ratio [6-25] 20 (03/22/2013 08:05:00) Glucose Lvl [70-99 mg/dL] 88 mg/dL 2 (03/22/2013 08:05:00) Total Protein [6.4-8.4 g/dL] 6.7 g/dL (03/22/2013 08:05:00) Albumin Lvl [3.5-5.0 g/dL] 3.4 g/dL *LOW* (03/22/2013 08:05:00) Globulin [2.0-4.0 g/dL] 3.3 g/dL (03/22/2013 08:05:00) A/G Ratio [0.7-1.6] 1.0 (03/22/2013 08:05:00) Calcium Lvl [8.5-10.5 mg/dL] 8.6 mg/dL (03/22/2013 08:05:00) ALT [0-65 unit/L] 28 unit/L (03/22/2013 08:05:00) AST [0-37 unit/L] 16 unit/L (03/22/2013 08:05:00) Alk Phos [39-136 unit/L] 77 unit/L (03/22/2013 08:05:00) Bili Total [0.2-1.3 mg/dL] 0.2 mg/dL (03/22/2013 08:05:00) Amylase Lvl [25-115 unit/L] 37 unit/L (03/22/2013 08:05:00) Lipase Lvl [73-393 unit/L] 109 unit/L (03/22/2013 08:05:55) Total CK [12-191 unit/L] 116 unit/L (03/22/2013 08:05:00) CK MB [0.5-3.6 ng/mL] <0.5 ng/mL (03/22/2013 08:05:00) CK MB Index [0.0-2.5] <0.4 (03/22/2013 08:05:00) Troponin-I [0.00-0.40 ng/mL] <0.02 ng/mL (03/22/2013 08:05:00) U Preg [Negative] Negative (03/22/2013 07:40:00) 1Result Comment: The eGFR is calculated using [...] be mul tiplied by the estimated BMI. 2Interpretive Data: Adult reference range values reflect the clinical guidelines of the [place] [employer]. HEMATOLOGY Most recent to oldest [Reference Range]: 1 WBC [3.7-10.4 K/CMM] 7.8 K/CMM (03/22/2013 08:05:00) RBC [4.20-5.40 M/CMM] 4.68 M/CMM (03/22/2013 08:05:00) Hgb [12.0-16.0 g/dL] 12.8 g/dL (03/22/2013 08:05:00) Hct [36.0-48.0 %] 38.8 % (03/22/2013 08:05:00) MCV [81.0-99.0 fL] 82.8 fL (03/22/2013 08:05:00) MCH [27.0-31.0 pg] 27.3 pg (03/22/2013 08:05:00) MCHC [32.0-36.0 g/dL] 33.0 g/dL (03/22/2013 08:05:00) RDW [11.5-14.5 %] 12.8 % (03/22/2013 08:05:00) Platelet [133-450 K/CMM] 290 K/CMM (03/22/2013 08:05:00) MPV [7.4-10.4 fL] 8.9 fL (03/22/2013 08:05:00) Segs [45.0-75.0 %] 67.7 % (03/22/2013 08:05:00) Lymphocytes [20.0-40.0 %] 22.3 % (03/22/2013 08:05:00) Monocytes [2.0-12.0 %] 4.3 % (03/22/2013 08:05:00) Eosinophils [0.0-4.0 %] 5.4 % *HI* (03/22/2013 08:05:00) Basophils [0.0-1.0 %] 0.3 % (03/22/2013 08:05:00) Segs-Bands # [1.5-8.1 K/CMM] 5.3 K/CMM (03/22/2013 08:05:00) Lymphocytes # [1.0-5.5 K/CMM] 1.7 K/CMM (03/22/2013 08:05:00) Monocytes # [0.0-0.8 K/CMM] 0.3 K/CMM (03/22/2013 08:05:00) Eosinophils # [0.0-0.5 K/CMM] 0.4 K/CMM (03/22/2013 08:05:00) Basophils # [0.0-0.2 K/CMM] 0.0 K/CMM (03/22/2013 08:05:00) IMMUNOLOGY Most recent to oldest [Reference Range]: 1 Source Chlam endocervix *NA* (03/22/2013 10:00:00) Chlam PCR [Negative] Negative (03/22/2013 10:00:00) Source Jesse Endocervix *NA* (03/22/2013 10:00:00) Gonorrhea PCR [Negative] Negative (03/22/2013 10:00:00) Microbiology Reports PROCEDURE:Wet Prep STATUS: Auth (Verified) BODY SITE: Genital COLLECTED DATE/TIME: 03/22/2013 10:00:00 SOURCE: Genital FREE TEXT SOURCE: FINAL REPORTS Final Report mod WBC's Seen few RBC's Seen mod Epithelial Cells Seen No Fungal Elements (Hyphae) Seen No Trichomonas Seen No Clue Cells Seen PROCEDURE:Culture: Urine STATUS: Auth (Verified) BODY SITE: COLLECTED DATE/TIME: 03/22/2013 07:40:00 SOURCE: Urine, Clean Catch FREE TEXT SOURCE: FINAL REPORTS Final Report <10,000 CFU/mL Skin Dipika PRELIMINARY REPORTS Preliminary Report No Growth; Holding
--- OUTSIDE RECORDS SUMMARY | 2018-12-08 22:25 | XMS REPORT | Summary of Care ---
Author Author [facility] Organization [facility] Address Unknown Phone Unavailable Encounter KIMBERLY Salazar(DMITRI) [id number] Date(s): 10/06/17 - 10/06/17 [id number] [place] [address]- Encounter Diagnosis Abdominal pain (Discharge Diagnosis) - 10/06/17 Right upper quadrant pain (Final) - 10/11/17 Essential (primary) hypertension (Final) - Nicotine dependence, cigarettes, uncomplicated (Final) - Tobacco abuse counseling (Final) - Discharge Disposition: Home or Self Care Attending Physician: Craig Shah MD Vital Signs 1 2 3 Most recent to oldest [Reference Range]: 165.1 cm (10/06/17 1:57 PM) Height 98.8 DegF (10/06/17 1:57 PM) Temperature Oral [96.4-99.1 DegF] 120/75 mmHg (10/06/17 6:29 PM) 128/80 mmHg (10/06/17 4:19 PM) 110/63 mmHg (10/06/17 3:43 PM) Blood Pressure [90-140/60-90 mmHg] 18 BRMIN (10/06/17 6:29 PM) 18 BRMIN (10/06/17 4:19 PM) 18 BRMIN (10/06/17 3:43 PM) Respiratory Rate [14-20 BRMIN] 98 bpm (10/06/17 6:29 PM) 105 bpm *HI* (10/06/17 4:19 PM) 101 bpm *HI* (10/06/17 3:43 PM) Peripheral Pulse Rate [60-100 bpm] 136.364 kg (10/06/17 1:57 PM) Weight 50.03 m2 (10/06/17 1:57 PM) Body Mass Index Problem List Condition [...] Substance Reaction Severity Status morphine Active Medications Benadryl 25 mg, Route: IVP, ONCE, Dosing Weight 136.364, kg, Priority: STAT, Start date: 10/06/17 16:03:00 CUSTOMER SERVICE TECHNICIAN, Stop date: 10/06/17 16:03:00 CUSTOMER SERVICE TECHNICIAN Start Date: 10/06/17 Stop Date: 10/06/17 Status: Completed Benadryl 25 mg, Route: IVP, ONCE, Dosing Weight 136.364, kg, Priority: STAT, Start date: 10/06/17 17:46:00 CUSTOMER SERVICE TECHNICIAN, Stop date: 10/06/17 17:46:00 CUSTOMER SERVICE TECHNICIAN Start Date: 10/06/17 Stop Date: 10/06/17 Status: Completed Dilaudid 0.5 mg, 0.25 mL, Route: IVP, Drug form: INJ, ONCE, Dosing Weight 136.364, kg, Pr iority: STAT, Start date: 10/06/17 14:21:00 CUSTOMER SERVICE TECHNICIAN, Stop date: 10/06/17 14:21:00 CS T Notes: Same as Dilaudid Start Date: 10/06/17 Stop Date: 10/06/17 Status: Completed Saline Flush 0.9% 10 mL, Route: IVP, Drug Form: INJ, Dosing Weight 136.364, kg, PRN, PRN Line Flus h, Start date: 10/06/17 14:11:00 CUSTOMER SERVICE TECHNICIAN, Duration: 30 day, Stop date: 11/05/17 14:1 0:00 CUSTOMER SERVICE TECHNICIAN Notes: (Same as: BD Posiflush) Start Date: 10/06/17 Stop Date: 10/06/17 Status: Discontinued Sodium Chloride 0.9% (Bolus) IV 1,000 mL, 1000 ml/hr, Infuse Over: 1 hr, Route: IV, 1,000, Drug form: INJ, ONCE, Priority: STAT, Dosing Weight 136.364 kg, Start date: 10/06/17 14:21:00 CUSTOMER SERVICE TECHNICIAN, St op date: 10/06/17 14:21:00 CUSTOMER SERVICE TECHNICIAN Start Date: 10/06/17 Stop Date: 10/06/17 Status: Completed tramadol 50 mg oral tablet 50 mg=1 tab, PO, Q6H, PRN Pain, X 3 day, # 9 tab, 0 Refill(s) Start Date: 10/06/17 Stop Date: 10/09/17 Status: Completed Zofran 4 mg, 2 mL, Route: IVP, Drug form: INJ, ONCE, Dosing Weight 136.364, kg, Priorit y: STAT, Start date: 10/06/17 14:21:00 CUSTOMER SERVICE TECHNICIAN, Stop date: 10/06/17 14:21:00 CUSTOMER SERVICE TECHNICIAN Notes: (Same as: Zofran) MEDICATION WASTE Product Size: 4 mgProduct Was ale: ___ mg Start Date: 10/06/17 Stop Date: 10/06/17 Status: Completed Zofran ODT 4 mg oral tablet, disintegrating 4 mg=1 tab, PO, BID, PRN Nausea and Vomiting, Dissolve tab under tongue, # 10 ta b, 0 Refill(s) Start Date: 10/06/17 Stop Date: 10/11/17 Status: Ordered Results ELECTROLYTES Most recent to 1 oldest [Reference Range]: Sodium Lvl [135-145 141 mEq/L mEq/L] (10/06/17 3:00 PM) Potassium Lvl 3.8 mEq/L [3.5-5.1 mEq/L] (10/06/17 3:00 PM) Chloride Lvl [95-109 108 mEq/L mEq/L] (10/06/17 3:00 PM) CO2 [24-32 mEq/L] 26 mEq/L (10/06/17 3:00 PM) AGAP [10.0-20.0 10.8 mEq/L mEq/L] (10/06/17 3:00 PM) CHEM PANEL Most recent to 1 oldest [Reference Range]: Creatinine Lvl 0.70 mg/dL [0.50-1.40 mg/dL] (10/06/17 3:00 PM) eGFR 133 mL/min/1.73m2 1 *NA* (10/06/17 3:00 PM) BUN [7-22 mg/dL] 15 mg/dL (10/06/17 3:00 PM) B/C Ratio [6-25] 21 (10/06/17 3:00 PM) Glucose Lvl [70-99 88 mg/dL mg/dL] (10/06/17 3:00 PM) Total Protein 7.7 g/dL [6.4-8.4 g/dL] (10/06/17 3:00 PM) Albumin Lvl [3.5-5.0 3.4 g/dL g/dL] *LOW* (10/06/17 3:00 PM) Globulin [2.7-4.2 4.3 g/dL g/dL] *HI* (10/06/17 3:00 PM) A/G Ratio [0.7-1.6] 0.8 (10/06/17 3:00 PM) Calcium Lvl 9.0 mg/dL [8.5-10.5 mg/dL] (10/06/17 3:00 PM) ALT [0-65 unit/L] 26 unit/L (10/06/17 3:00 PM) AST [0-37 unit/L] 11 unit/L (10/06/17 3:00 PM) Alk Phos [39-136 76 unit/L unit/L] (10/06/17 3:00 PM) Bili Total [0.2-1.3 0.2 mg/dL mg/dL] (10/06/17 3:00 PM) Lipase Lvl [73-393 154 unit/L unit/L] (10/06/17 3:00 PM) 1Result Comment: The eGFR is calculated [...] be mul tiplied by the estimated BMI. ENDOCRINOLOGY Most recent to 1 oldest [Reference Range]: S Preg [Negative] Negative *NA* (10/06/17 3:00 PM) URINE AND STOOL Most recent to 1 oldest [Reference Range]: UA Turbidity [Clear] Clear (10/06/17 2:30 PM) UA Color Straw *NA* (10/06/17 2:30 PM) UA pH [5.0-8.0] 5.0 (10/06/17 2:30 PM) UA Spec Grav 1.012 [<=1.030] (10/06/17 2:30 PM) UA Glucose [Negative Negative mg/dL mg/dL] *NA* (10/06/17 2:30 PM) UA Blood [Negative] Negative (10/06/17 2:30 PM) UA Ketones Negative *NA* (10/06/17 2:30 PM) UA Protein [Negative Negative mg/dL mg/dL] (10/06/17 2:30 PM) UA Urobilinogen <=1.0 mg/dL [0.1-1.0 mg/dL] *NA* (10/06/17 2:30 PM) UA Bili [Negative] Negative *NA* (10/06/17 2:30 PM) UA Leuk Est Negative [Negative] (10/06/17 2:30 PM) UA Nitrite Negative [Negative] (10/06/17 2:30 PM) UA WBC [0-5 /HPF] 1 /HPF (10/06/17 2:30 PM) UA Sq Epi [Few /LPF] Occasional /LPF *NA* (10/06/17 2:30 PM) UA Mucus [None Seen Few /LPF /LPF] *NA* (10/06/17 2:30 PM) HEMATOLOGY Most recent to 1 oldest [Reference Range]: WBC [3.7-10.4 K/CMM] 9.6 K/CMM (10/06/17 3:00 PM) RBC [4.20-5.40 4.60 M/CMM M/CMM] (10/06/17 3:00 PM) Hgb [12.0-16.0 g/dL] 12.3 g/dL (10/06/17 3:00 PM) Hct [36.0-48.0 %] 36.8 % (10/06/17 3:00 PM) MCV [80.0-98.0 fL] 80.0 fL (10/06/17 3:00 PM) MCH [27.0-31.0 pg] 26.7 pg *LOW* (10/06/17 3:00 PM) MCHC [32.0-36.0 33.4 g/dL g/dL] (10/06/17 3:00 PM) RDW [11.5-14.5 %] 13.8 % (10/06/17 3:00 PM) MPV [7.4-10.4 fL] 8.3 fL (10/06/17 3:00 PM) Platelet [133-450 307 K/CMM K/CMM] (10/06/17 3:00 PM) Segs [45.0-75.0 %] 66.3 % (10/06/17 3:00 PM) Lymphocytes 25.6 % [20.0-40.0 %] (10/06/17 3:00 PM) Monocytes [2.0-12.0 5.7 % %] (10/06/17 3:00 PM) Eosinophils [0.0-4.0 1.5 % %] (10/06/17 3:00 PM) Basophils [0.0-1.0 0.9 % %] (10/06/17 3:00 PM) Segs-Bands # 6.3 K/CMM [1.5-8.1 K/CMM] (10/06/17 3:00 PM) Lymphocytes # 2.5 K/CMM [1.0-5.5 K/CMM] (10/06/17 3:00 PM) Monocytes # [0.0-0.8 0.5 K/CMM K/CMM] (10/06/17 3:00 PM) Eosinophils # 0.1 K/CMM [0.0-0.5 K/CMM] (10/06/17 3:00 PM) Basophils # [0.0-0.2 0.1 K/CMM K/CMM] (10/06/17 3:00 PM) Immunizations No data available for this section Procedures Procedure Date Related Diagnosis Body Site Status section Completed Epidural block Completed Removal of ovarian cyst Completed Social History Social History Type Response Smoking Status Current every day smoker; Type: Cigarettes; Exposure to Tobacco Smoke None; Cigarette Smoking Last 365 Days Yes; Reg Smoking Cessation Counseling No entered on: 10/06/17 Assessment and Plan No data available for this section
--- OUTSIDE RECORDS SUMMARY | 2018-12-08 22:25 | XMS REPORT | CCD ---
Author Author Auto Generated Organization [facility] Address Unknown Phone Unavailable Care Team Providers Care Transit Planning Director Name Role Phone Natalia Marley CP Allergies, Adverse Reactions, Alerts Substance Reaction Status NKDA Active Problem List Condition Effective Dates Status Abdominal pain Active Anemia Active Chest pain Active Cough Active HTN - Hypertension Active Vaginal bleeding Active Medications Medication Instructions Start Date End Date Status Zofran ODT 4 mg oral 4 mg, 1 tab, PO, TID, PRN, 10 tab, 01/09/2012 Ordered tablet, Nausea and Vomiting, Substitution disintegrating Allowed [place] 5/325 oral 1-2 tab, PO, Q4-6H, PRN, 15 tab, 01/09/2012 01/14/2012 Ordered tablet Pain, Substitution Allowed, Maintenance Nexium 40 mg oral 40 mg, 1 cap, PO, Daily, 90 cap, 01/09/2012 Ordered delayed release Substitution Allowed capsule morphine Sulfate 4 mg, 2 mL, Route: IVP, Drug form: 01/09/2012 01/09/2012 Completed INJ, ONCE, Priority: STAT, Start date: 01/09/12 4:12:00, Stop date: 01/09/12 4:12:00 pantoprazole 40 mg, Route: IVP, ONCE, For IV 01/09/2012 01/09/2012 Completed push reconstitute with 10 ml 0.9% sodium chloride and push over at least 3 minutes, Priority: STAT, Start date: 01/09/12 1:59:00, Stop date: 01/09/12 1:59:00 morphine Sulfate 2 mg, Route: IVP, ONCE, Priority: 01/09/2012 01/09/2012 Completed STAT, Start date: 01/09/12 1:59:00, Stop date: 01/09/12 1:59:00 ondansetron 4 mg, Route: IVP, ONCE, Priority: 01/09/2012 01/09/2012 Completed STAT, Start date: 01/09/12 1:59:00, Stop date: 01/09/12 1:59:00 Sodium Chloride 0.9% 1,000 mL, Rate: 1,000 ml/hr, Infuse 01/09/2012 01/09/2012 Completed (Bolus) IV 1,000 mL over: 1 hr, Route: IV, kg, Total Volume: 1,000, Bolus dose, Priority: STAT, Start date: 01/09/12 1:59:00, Duration: 1 doses or times, Stop date: 01/09/12 2:58:00 Saline Flush 0.9% 5 ml, Route: IVP, Drug Form: INJ, 01/09/2012 01/09/2012 Discontinued PRN, PRN Line Flush, Start date: 01/09/12 1:59:00, Duration: 24 hr, Stop date: 01/10/12 1:58:00 Vital Signs Most recent to oldest [Reference Range]: 1 Height 165.10 cm (01/09/2012 00:24:00) Weight 136.364 kg (01/09/2012 00:24:00) Results URINALYSIS Most recent to oldest [Reference Range]: 1 UA Turbidity [Clear] Clear (01/09/2012 01:34:00) UA Color [Yellow] Yellow *NA* (01/09/2012 01:34:00) UA pH [5.0-8.0] 6.0 (01/09/2012 01:34:00) UA Spec Grav [<=1.030] 1.020 (01/09/2012 01:34:00) UA Glucose [Negative] Negative (01/09/2012 01:34:00) UA Blood [Negative] Trace *ABN* (01/09/2012 01:34:00) UA Ketones [Negative] Negative *NA* (01/09/2012 01:34:00) UA Protein [Negative] Negative (01/09/2012 01:34:00) UA Urobilinogen [0.1-1.0 EU/dL] 0.2 EU/dL (01/09/2012 01:34:00) UA Bili [Negative] Negative *NA* (01/09/2012 01:34:00) UA Leuk Est [Negative] Negative (01/09/2012:34:00) UA Nitrite [Negative] Negative (01/09/2012:34:00) UA WBC [None Seen /HPF] 0-2 /HPF (01/09/2012:34:00) UA RBC [0-2] None Seen (01/09/2012:34:00) UA Bacteria [None Seen /HPF] Occasional /HPF (01/09/2012:34:00) UA Sq Epi [Few /LPF] Few /LPF (01/09/2012:34:00) Micro? Performed (01/09/2012:34:00) CHEMISTRY Most recent to oldest [Reference Range]: 1 Sodium Lvl [135-145 mEq/L] 141 mEq/L (01/09/2012:30:00) Potassium Lvl [3.5-5.1 mEq/L] 3.6 mEq/L (01/09/2012:30:00) Chloride Lvl [95-109 mEq/L] 107 mEq/L (01/09/2012:30:00) CO2 [24-32 mEq/L] 26 mEq/L (01/09/2012:30:00) AGAP [10.0-20.0 mEq/L] 11.6 mEq/L (01/09/2012:30:00) Creatinine Lvl [0.5-1.4 mg/dL] 0.8 mg/dL (01/09/2012:30:00) BUN [7-22 mg/dL] 14 mg/dL (01/09/2012:30:00) B/C Ratio [6-25] 18 (01/09/2012:30:00) Glucose Lvl [70-99 mg/dL] 87 mg/dL 1 (01/09/2012:30:00) Total Protein [6.4-8.4 g/dL] 7.6 g/dL (01/09/2012:30:00) Albumin Lvl [3.5-5.0 g/dL] 3.6 g/dL (01/09/2012:30:00) Globulin [2.0-4.0 g/dL] 4.0 g/dL (01/09/2012:30:00) A/G Ratio [0.7-1.6] 0.9 (01/09/2012:30:00) Calcium Lvl [8.5-10.5 mg/dL] 8.8 mg/dL (01/09/2012:30:00) ALT [0-65 U/L] 29 U/L (01/09/2012:30:00) AST [0-37 U/L] 11 U/L (01/09/2012:30:00) Alk Phos [39-136 U/L] 67 U/L (01/09/2012:30:00) Bili Total [0.2-1.3 mg/dL] 0.2 mg/dL (01/09/2012:30:00) Lipase Lvl [73-393 U/L] 125 U/L (01/09/2012:30:00) U Preg [Negative] Negative (01/09/2012 01:34:00) 1Interpretive Data: Adult reference range values reflect the clinical guidelinesof the [place] [employer]. HEMATOLOGY Most recent to oldest [Reference Range]: 1 WBC [3.7-10.4 K/CMM] 7.9 K/CMM (01/09/2012:30:00) RBC [4.20-5.40 M/CMM] 4.56 M/CMM (01/09/2012:30:00) Hgb [12.0-16.0 g/dL] 12.3 g/dL (01/09/2012:30:00) Hct [36.0-48.0 %] 37.7 % (01/09/2012:30:00) MCV [81.0-99.0 fL] 82.6 fL (01/09/2012:30:00) MCH [27.0-31.0 pg] 26.9 pg *LOW* (01/09/2012:30:00) MCHC [32.0-36.0 g/dL] 32.5 g/dL (01/09/2012:30:00) RDW [11.5-14.5 %] 13.4 % (01/09/2012:30:00) Platelet [133-450 K/CMM] 285 K/CMM (01/09/2012 01:30:00) MPV [7.4-10.4 fL] 9.3 fL (01/09/2012 01:30:00) Segs [45.0-75.0 %] 61.6 % (01/09/2012 01:30:00) Lymphocytes [20.0-40.0 %] 29.7 % (01/09/2012 01:30:00) Monocytes [2.0-12.0 %] 5.1 % (01/09/2012:30:00) Eosinophils [0.0-4.0 %] 3.1 % (01/09/2012:30:00) Basophils [0.0-1.0 %] 0.5 % (01/09/2012:30:00) Segs-Bands # [1.5-8.1 K/CMM] 4.9 K/CMM (01/09/2012 01:30:00) Lymphocytes # [1.0-5.5 K/CMM] 2.3 K/CMM (01/09/2012 01:30:00) Monocytes # [0.0-0.8 K/CMM] 0.4 K/CMM (01/09/2012:30:00) Eosinophils # [0.0-0.5 K/CMM] 0.2 K/CMM (01/09/2012 01:30:00) Basophils # [0.0-0.2 K/CMM] 0.0 K/CMM (01/09/2012 01:30:00)
--- OUTSIDE RECORDS SUMMARY | 2018-12-08 22:25 | XMS REPORT | CCD ---
Author Author Auto Generated Organization [facility] Address Unknown Phone Unavailable Care Team Providers Care Cotton Presser Name Role Phone Harman Dallas CP Allergies, Adverse Reactions, Alerts Substance Reaction Status penicillins Active Problem List Condition Effective Dates Status Abdominal pain Active Anemia Active Chest pain Active Cough Active HTN - Hypertension Active Vaginal bleeding Active Medications Medication Instructions Start Date End Date Status Flexeril 10 mg oral 10 mg, 1 tab, PO, TID, PRN, 30 tab, 03/15/2012 Ordered tablet Spasm, Substitution Allowed, TAB Xopenex 0.63 mg, 3 mL, Route: NEB, Drug 03/14/2012 03/15/2012 Discontinued form: CYDNEY MORALES, Start date: 03/14/12 20:00:00, Duration: 30 day, Stop date: 04/13/12 14:00:00 Ativan 1 mg, 0.5 mL, Route: IV, Drug form: 03/14/2012 03/15/2012 Discontinued INJ, Q8H, PRN as needed for anxiety, Start date: 03/14/12 17:19:00, Duration: 30 day, Stop date: 04/13/12 17:18:00 Benadryl 25 mg, 0.5 mL, Route: IVP, Drug 03/14/2012 03/14/2012 Completed form: INJ, ONCE, PRN Itching, Start date: 03/14/12 11:42:00 Xopenex HFA 2 puff, Route: INHALATION, Drug 03/14/2012 03/14/2012 Deleted Form: AERO/A, TID, Start date: 03/14/12 17:00:00, Duration: 30 day, Stop date: 04/13/12 13:00:00 hydrochlorothiazide 25 mg, 1 tab, Route: PO, Drug form: 03/14/2012 03/15/2012 Discontinued 25 mg oral tablet TAB, Daily, Start date: 03/14/12 14:30:00, Duration: 30 day, Stop date: 04/13/12 9:00:00 Symbicort 160/4.5 2 inhalation, Route: INHALATION, 03/15/2012 03/15/2012 Discontinued inhalation aerosol Drug Form: AERO/A, Daily, Start with adapter date: 03/15/12 9:00:00, Duration: 30 day, Stop date: 04/13/12 9:00:00 Vicodin 5/500 oral 1 tab, PO, Q6H, PRN, for dental 03/13/2012 Ordered tablet pain, Substitution Allowed, Soft Stop, TAB albuterol 0.083% 2.5 mg, 3.01 mL, Route: NEB, Drug 03/14/2012 03/15/2012 Discontinued inhalation solution form: SOLN, [id number], PRN Wheezing, Start date: 03/14/12 14:19:00, Duration: 30 day, Stop date: 04/13/12 14:18:00 enoxaparin 40 mg, 0.4 mL, Route: SUB-Q, Drug 03/14/2012 03/15/2012 Discontinued form: INJ, [id number], Start date: 03/14/12 15:00:00, Duration: 30 day, Stop date: 04/13/12 3:00:00 Flexeril 10 mg, 1 tab, Route: PO, Drug form: 03/15/2012 03/15/2012 Discontinued TAB, TID, PRN Spasm, Start date: 03/15/12 14:47:00, Duration: 30 day, Stop date: 04/14/12 14:46:00 Levaquin 500 mg, 100 mL, Route: IVPB, Drug 03/14/2012 03/15/2012 Discontinued form: INJ, [id number], Start date: 03/14/12 15:00:00, Duration: 30 day, Stop date: 04/12/12 15:00:00 Saline Flush 0.9% 5 ml, Route: IVP, Drug Form: INJ, 03/13/2012 03/15/2012 Discontinued PRN, PRN Line Flush, Start date: 03/13/12 23:27:00, Duration: 30 day, Stop date: 04/12/12 23:26:00 Sodium Chloride 0.9% 1,000 mL, Rate: 125 ml/hr, Infuse 03/13/2012 03/15/2012 Discontinued IV 1,000 mL over: 8 hr, Route: IV, Dosing Weight 128.636 kg, Total Volume: 1,000, Start date: 03/13/12 23:27:00, Duration: 30 day, Stop date: 04/12/12 23:26:00 morphine Sulfate 4 mg, 2 mL, Route: IVP, Drug form: 03/13/2012 03/14/2012 Discontinued INJ, Q4H, PRN Pain Score 7-10, Start date: 03/13/12 23:27:00, Duration: 30 day, Stop date: 04/12/12 23:26:00 ondansetron 4 mg, 2 mL, Route: IVP, Drug form: 03/13/2012 03/14/2012 Discontinued INJ, Q6H, PRN Nausea & Vomiting, Start date: 03/13/12 23:27:00, Duration: 30 day, Stop date: 04/12/12 23:26:00 hydrochlorothiazide 25 mg, 1 tab, PO, Daily, 30 tab, 03/13/2012 Ordered 25 mg oral tablet Substitution Allowed SoluMedrol 20 mg, 0.5 mL, Route: IV, Drug 03/14/2012 03/14/2012 Completed form: INJ, ONCE, Priority: STAT, Start date: 03/14/12 17:17:00, Stop date: 03/14/12 17:17:00 METRONIDazole 500 mg 500 mg, 1 tab, PO, Q12H, 21 tab, 03/13/2012 Ordered oral tablet Substitution Allowed SoluMedrol 20 mg, 0.5 mL, Route: IV, Drug 03/15/2012 03/15/2012 Discontinued form: INJ, Q8H, Start date: 03/15/12 0:00:00, Duration: 30 day, Stop date: 04/13/12 16:00:00 Tylenol 650 mg, 2 tab, Route: PO, Drug 03/14/2012 03/15/2012 Discontinued form: TAB, Q4H, PRN See Nurse's Notes, Start date: 03/14/12 23:40:00, Duration: 30 day, Stop date: 04/13/12 23:39:00 ketorolac 15 mg, 1 mL, Route: IV, Drug form: 03/14/2012 03/15/2012 Discontinued INJ, Q6H, PRN Pain, Start date: 03/14/12 23:39:00, Duration: 4 doses or times, Stop date: Limited # of times Phenergan + Sodium 12.5 mg, 0.5 mL, Route: IVPB, ONCE, 03/13/2012 03/13/2012 Completed Chloride 0.9% IV 50 PRN as needed for nausea/vomiting, mL Priority: STAT, Start date: 03/13/12 18:02:00 Dilaudid 1 mg, Route: IV, ONCE, Start date: 03/13/2012 03/13/2012 Completed 03/13/12 18:01:00, Stop date: 03/13/12 18:01:00 Benadryl 25 mg, 0.5 mL, Route: IV, Drug 03/14/2012 03/15/2012 Discontinued form: INJ, Q8H, PRN as needed for itching, Start date: 03/14/12 14:24:00, Duration: 30 day, Stop date: 04/13/12 14:23:00 Zofran ODT 4 mg, 1 tab, Route: PO, Drug form: 03/13/2012 03/13/2012 Completed TABDIS, ONCE, Start date: 03/13/12 22:06:00, Stop date: 03/13/12 22:06:00 Dilaudid 1 mg, 1 mL, Route: IV, Drug form: 03/13/2012 03/13/2012 Completed SOLN, ONCE, Start date: 03/13/12 22:06:00, Stop date: 03/13/12 22:06:00 Phenergan + Sodium 12.5 mg, 0.5 mL, Route: IVP 03/14/2012 03/15/2012 Discontinued Chloride 0.9% IV 20 Central, Q6H, PRN Nausea & mL Vomiting, Start date: 03/14/12 14:22:00, Duration: 30 day, Stop date: 04/13/12 14:21:00 Dilaudid 2 mg, 1 mL, Route: IV, Drug form: 03/14/2012 03/14/2012 Discontinued INJ, Q3H, PRN Pain, Start date: 03/14/12 14:22:00, Duration: 30 day, Stop date: 04/13/12 14:21:00 Vital Signs Most recent to oldest [Reference Range]: 1 2 3 Height 165.10 cm (03/13/2012 16:46:00) Temperature Oral [96.4-99.1 DegF] 98.1 DegF (03/15/2012 12:21:00) 98.1 DegF (03/15/2012 07:49:00) 97.5 DegF (03/15/2012 04:00:00) Systolic Blood Pressure [90-140 mmHg] 105 mmHg (03/15/2012 12:21:00) 130 mmHg (03/15/2012 07:49:00) 110 mmHg (03/15/2012 04:00:00) Diastolic Blood Pressure [60-90 mmHg] 70 mmHg (03/15/2012 12:21:00) 77 mmHg (03/15/2012 07:49:00) 76 mmHg (03/15/2012 04:00:00) Respiratory Rate [14-20 BRMIN] 16 BRMIN (03/15/2012 12:21:00) 16 BRMIN (03/15/2012 07:49:00) 16 BRMIN (03/15/2012 04:00:00) Peripheral Pulse Rate [60-100 bpm] 97 bpm (03/15/2012 12:21:00) 92 bpm (03/15/2012 07:49:00) 82 bpm (03/15/2012 04:00:00) Weight 128.636 kg (03/13/2012 16:46:00) Results URINALYSIS Most recent to oldest [Reference Range]: 1 2 UA Turbidity [Clear] Clear (03/13/2012 16:50:00) UA Color Ltyellow *NA* (03/13/2012 16:50:00) UA pH [5.0-8.0] 6.0 (03/13/2012 16:50:00) UA Spec Grav [<=1.030] 1.009 (03/13/2012 16:50:00) UA Glucose [Negative mg/dL] Negative mg/dL *NA* (03/13/2012 16:50:00) UA Blood [Negative] Negative (03/13/2012 16:50:00) UA Ketones [Negative mg/dL] Negative mg/dL *NA* (03/13/2012 16:50:00) UA Protein [Negative mg/dL] Negative mg/dL (03/13/2012 16:50:00) UA Urobilinogen [0.1-1.0 mg/dL] <=1.0 mg/dL *NA* (03/13/2012 16:50:00) UA Bili [Negative] Negative *NA* (03/13/2012 16:50:00) UA Leuk Est [Negative] Trace *ABN* (03/13/2012 16:50:00) UA Nitrite [Negative] Negative (03/13/2012 16:50:00) UA WBC [0-5 /HPF] 1 /HPF (03/13/2012 16:50:00) UA RBC [0-2 /HPF] <1 /HPF (03/13/2012 16:50:00) UA Bacteria [None Seen /HPF] Occasional /HPF *NA* (03/13/2012 16:50:00) UA Sq Epi [Few /LPF] Occasional /LPF *NA* (03/13/2012 16:50:00) CHEMISTRY Most recent to oldest [Reference Range]: 1 2 Sodium Lvl [135-145 mEq/L] 138 mEq/L (03/15/2012 06:34:00) 140 mEq/L (03/13/2012 17:47:00) Potassium Lvl [3.5-5.1 mEq/L] 4.0 mEq/L (03/15/2012 06:34:00) 3.9 mEq/L (03/13/2012 17:47:00) Chloride Lvl [95-109 mEq/L] 106 mEq/L (03/15/2012 06:34:00) 107 mEq/L (03/13/2012 17:47:00) CO2 [24-32 mEq/L] 24 mEq/L (03/15/2012 06:34:00) 28 mEq/L (03/13/2012 17:47:00) AGAP [10.0-20.0 mEq/L] 12.0 mEq/L (03/15/2012 06:34:00) 8.9 mEq/L *LOW* (03/13/2012 17:47:00) Creatinine Lvl [0.5-1.4 mg/dL] 0.7 mg/dL (03/15/2012 06:34:00) 0.8 mg/dL (03/13/2012 17:47:00) BUN [7-22 mg/dL] 10 mg/dL (03/15/2012 06:34:00) 16 mg/dL (03/13/2012 17:47:00) B/C Ratio [6-25] 20 (03/13/2012 17:47:00) Glucose Lvl [70-99 mg/dL] 112 mg/dL 1 *HI* (03/15/2012 06:34:00) 87 mg/dL 2 (03/13/2012 17:47:00) Total Protein [6.4-8.4 g/dL] 7.5 g/dL (03/13/2012 17:47:00) Albumin Lvl [3.5-5.0 g/dL] 3.8 g/dL (03/13/2012 17:47:00) Globulin [2.0-4.0 g/dL] 3.7 g/dL (03/13/2012 17:47:00) A/G Ratio [0.7-1.6] 1.0 (03/13/2012 17:47:00) Calcium Lvl [8.5-10.5 mg/dL] 8.8 mg/dL (03/15/2012 06:34:00) 8.9 mg/dL (03/13/2012 17:47:00) ALT [0-65 U/L] 42 U/L (03/13/2012 17:47:00) AST [0-37 U/L] 22 U/L (03/13/2012 17:47:00) Alk Phos [39-136 U/L] 72 U/L (03/13/2012 17:47:00) Bili Total [0.2-1.3 mg/dL] 0.3 mg/dL (03/13/2012 17:47:00) Lipase Lvl [73-393 U/L] 74 U/L (03/15/2012 06:34:00) 98 U/L (03/13/2012 17:47:00) U Preg [Negative] Negative (03/13/2012 16:50:00) 1Interpretive Data: Adult reference range values reflect the clinical guidelines of the [place] [employer]. 2Interpretive Data: Adult reference range values reflect the clinical guidelines of the [place] [employer]. HEMATOLOGY Most recent to oldest [Reference Range]: 1 2 WBC [3.7-10.4 K/CMM] 7.4 K/CMM (03/15/2012 06:34:00) 7.7 K/CMM (03/13/2012 17:47:00) RBC [4.20-5.40 M/CMM] 4.69 M/CMM (03/15/2012 06:34:00) 5.00 M/CMM (03/13/2012 17:47:00) Hgb [12.0-16.0 g/dL] 13.1 g/dL (03/15/2012 06:34:00) 13.8 g/dL (03/13/2012 17:47:00) Hct [36.0-48.0 %] 39.0 % (03/15/2012 06:34:00) 41.3 % (03/13/2012 17:47:00) MCV [81.0-99.0 fL] 83.3 fL (03/15/2012 06:34:00) 82.6 fL (03/13/2012 17:47:00) MCH [27.0-31.0 pg] 28.0 pg (03/15/2012 06:34:00) 27.5 pg (03/13/2012 17:47:00) MCHC [32.0-36.0 g/dL] 33.7 g/dL (03/15/2012 06:34:00) 33.3 g/dL (03/13/2012 17:47:00) RDW [11.5-14.5 %] 13.0 % (03/15/2012 06:34:00) 13.5 % (03/13/2012 17:47:00) Platelet [133-450 K/CMM] 277 K/CMM (03/15/2012 06:34:00) 273 K/CMM (03/13/2012 17:47:00) MPV [7.4-10.4 fL] 9.2 fL (03/15/2012 06:34:00) 9.4 fL (03/13/2012 17:47:00) Segs [45.0-75.0 %] 87.7 % *HI* (03/15/2012 06:34:00) 87.6 % *HI* (03/13/2012 17:47:00) Lymphocytes [20.0-40.0 %] 8.8 % *LOW* (03/15/2012 06:34:00) 8.7 % *LOW* (03/13/2012 17:47:00) Monocytes [2.0-12.0 %] 0.4 % *LOW* (03/15/2012 06:34:00) 2.7 % (03/13/2012 17:47:00) Eosinophils [0.0-4.0 %] 3.1 % (03/15/2012 06:34:00) 0.9 % (03/13/2012 17:47:00) Basophils [0.0-1.0 %] 0.0 % (03/15/2012 06:34:00) 0.1 % (03/13/2012 17:47:00) Segs-Bands # [1.5-8.1 K/CMM] 6.5 K/CMM (03/15/2012 06:34:00) 6.7 K/CMM (03/13/2012 17:47:00) Lymphocytes # [1.0-5.5 K/CMM] 0.7 K/CMM *LOW* (03/15/2012 06:34:00) 0.7 K/CMM *LOW* (03/13/2012 17:47:00) Monocytes # [0.0-0.8 K/CMM] 0.0 K/CMM (03/15/2012 06:34:00) 0.2 K/CMM (03/13/2012 17:47:00) Eosinophils # [0.0-0.5 K/CMM] 0.2 K/CMM (03/15/2012 06:34:00) 0.1 K/CMM (03/13/2012 17:47:00) Basophils # [0.0-0.2 K/CMM] 0.0 K/CMM (03/15/2012 06:34:00) 0.0 K/CMM (03/13/2012 17:47:00) RBC Morph Normal (03/15/2012 06:34:00) Normal (03/13/2012 17:47:00) Plt Morph Normal (03/15/2012 06:34:00) Normal (03/13/2012 17:47:00) Microbiology Reports PROCEDURE:Culture: Urine STATUS: Auth (Verified) BODY SITE: COLLECTED DATE/TIME: 03/13/2012 17:34:00 SOURCE: Urine, Clean Catch FREE TEXT SOURCE: FINAL REPORTS Final Report 10,000 - 50,000 CFU/mL Skin Dipika PRELIMINARY REPORTS Preliminary Report No Growth; Holding
--- OUTSIDE RECORDS SUMMARY | 2018-12-08 22:25 | XMS REPORT | CCD ---
Author Author Auto Generated Organization [facility] Address Unknown Phone Unavailable Care Team Providers Care Director Social Name Role Phone Khanh Pan CP Allergies, Adverse Reactions, Alerts Substance Reaction Status penicillins Active Problem List Condition Effective Dates Status Abdominal pain Active Anemia Active Chest pain Active Cough Active HTN - Hypertension Active Vaginal bleeding Active Vital Signs Most recent to oldest [Reference Range]: 1 Height 165.10 cm (09/13/2012 15:17:00) Weight 130.000 kg (09/13/2012 15:17:00)
--- OUTSIDE RECORDS SUMMARY | 2018-12-08 22:25 | XMS REPORT | CCD ---
Author Author Auto Generated Organization [facility] Address Unknown Phone Unavailable Care Team Providers Care Cable Layer Name Role Phone MANDA, PRIYA CP Unavailable Yvonne Griffith CP Unavailable Holly Sung CP Mirna Costa CP [phone] Aixa Humphrey CP [phone] PCP, Mojgan CP Unavailable Rosalinda Grover CP Unavailable Tremayne Rodriguez CP Mynor Khalil CP Unavailable Jhoana Jade CP Unavailable Bebeto Mayen CP Alban Araya CP [phone] Gallito Myers CP Kary Kwok CP Shimon Damian CP Unavailable Caitlyn Neely CP Unavailable Ottoniel Higgins CP Unavailable Elizabeth Short CP Myranda Rushing CP Unavailable Claudine Morgan CP Unavailable Tabitha Olivares CP Unavailable Ruth Brooks CP Unavailable Margareth Bruno CP Unavailable Gabbi Brewer CP [phone] Consuelo Pena CP Unavailable Mark Anthony Romo CP [phone] Gabbi Carty CP Jorge Pedraza CP Unavailable Angie Banks CP Unavailable Dimas Ramirez CP [phone] Kelly Alarcon CP Unavailable Oli Castro CP Unavailable Hanny Giordano CP Unavailable Lia Del Rosario CP Christina Marroquin CP Unavailable Michelle Beltrán CP Unavailable Cadparrish, Ginna CP Unavailable SYSTEM, SYSTEM CP Unavailable Diana White CP Unavailable Roxy Hagan CP Unavailable Tae, Kenya Perez CP Unavailable Margaret Norris CP Unavailable Kenny, Florentino CP Unavailable Rebekah Romoa CP JeffJun CP Unavailable Kaur Morales CP [id number] [place] Diana Rumalla CP Carey Moreira Q CP [phone] Raúl Mendoza CP [phone] Kojo Ale CP Unavailable Dulce Eagle CP Gregoria Antonio CP Unavailable Ottoniel Campbell CP Unavailable Davdi Lopez CP Unavailable Pauline Viviane CP Unavailable MunozRichie saini Chandulal CP Guerra, Nam CP Unavailable Allergies, Adverse Reactions, Alerts Substance Reaction Status NKDA ?? Active Problem List Condition Effective Dates Status Abdominal pain ?? Active Anemia ?? Active Chest pain ?? Active Cough ?? Active HTN - Hypertension ?? Active Vaginal bleeding ?? Active Medications Medication Instructions Start Date End Date Status Lovenox 120 mg, 0.8 mL, Route: SUB-Q, Drug 06/16/2011 06/16/2011 Completed form: INJ, ONCE, Start date: 06/16/11 13:57:00, Stop date: 06/16/11 13:57:00 aspirin 324 mg, 4 tab, Route: CHEW, Drug 06/16/2011 06/16/2011 Completed form: CHEWTAB, ONCE, Priority: STAT, Start date: 06/16/11 13:57:00, Stop date: 06/16/11 13:57:00 Motrin 800 mg, 2 tab, Route: PO, Drug 06/16/2011 06/17/2011 Discontinued form: TAB, TID, PRN Pain, Start date: 06/16/11 23:24:00, Duration: 30 day, Stop date: 07/16/11 23:23:00 Motrin 400 mg, 1 tab, Route: PO, Drug 06/16/2011 06/17/2011 Discontinued form: TAB, TID, PRN Pain, Start date: 06/16/11 23:24:00, Duration: 30 day, Stop date: 07/16/11 23:23:00 Mucinex DM oral 1 tab, PO, Q12H, 20 tab, 06/17/2011 ?? Ordered tablet, extended Substitution Allowed, Maintenance, release ERTAB Amoxil 500 mg oral 1 TABLET, PO, ABXQ8H, 21 caplet, 06/17/2011 ?? Ordered tablet Substitution Allowed, TAB Saline Flush 0.9% 5 ml, Route: IVP, Drug Form: INJ, 06/16/2011 06/17/2011 Discontinued PRN, PRN Line Flush, Start date: 06/16/11 16:18:00, Duration: 30 day, Stop date: 07/16/11 15:17:00 Saline Flush 0.9% 5 ml, Route: IVP, Drug Form: INJ, 06/16/2011 06/17/2011 Discontinued Q12H, Start date: 06/16/11 21:00:00, Duration: 30 day, Stop date: 07/16/11 9:00:00 albuterol 0.083% 2.49 mg, 3 mL, Route: NEB, Drug 06/16/2011 06/17/2011 Discontinued inhalation solution form: SOLN, RQ6H, Start date: 06/16/11 20:00:00, Duration: 30 day, Stop date: 07/16/11 14:00:00 nicotine 14 mg, 1 patch, Route: TOP, Drug 06/17/2011 06/17/2011 Discontinued form: ERFILM, Daily, Start date: 06/17/11 9:00:00, Duration: 30 day, Stop date: 07/16/11 9:00:00 acetaminophen 650 mg, 2 tab, Route: PO, Drug 06/16/2011 06/17/2011 Discontinued form: TAB, Q4H, PRN Headache, Start date: 06/16/11 16:18:00, Duration: 30 day, Stop date: 07/16/11 16:17:00 Sodium Chloride 0.9% 1,000 mL, Rate: 50 ml/hr, Infuse 06/16/2011 06/17/2011 Discontinued IV 1,000 mL over: 20 hr, Route: IV, Total Volume: 1,000, Start date: 06/16/11 16:18:00, Duration: 30 day, Stop date: 07/16/11 16:17:00 nitroglycerin SL Tab 0.4 mg, 1 tab, Route: SL, Drug 06/16/2011 06/17/2011 Discontinued form: TAB, Q5Min, PRN Chest Pain, Start date: 06/16/11 16:18:00, Duration: 3 doses or times, Stop date: Limited # of times morphine Sulfate 2 mg, 1 mL, Route: IVP, Drug form: 06/16/2011 06/16/2011 Completed INJ, Q15Min, PRN Chest Pain, Start date: 06/16/11 16:18:00, Duration: 2 doses or times, Stop date: Limited # of times aspirin 81 mg 81 mg, 1 tab, Route: PO, Drug form: 06/16/2011 06/17/2011 Discontinued tablet, chewable CHEWTAB, Q24H, Start date: 06/16/11 17:00:00, Duration: 30 day, Stop date: 07/15/11 17:00:00 Saline Flush 0.9% 5 ml, Route: IVP, Drug Form: INJ, 06/16/2011 06/16/2011 Discontinued PRN, PRN Line Flush, Start date: 06/16/11 10:50:00, Duration: 24 hr, Stop date: 06/17/11 10:49:00 nitroglycerin 0.4 mg 0.4 mg, 1 tab, Route: SL, Drug 06/16/2011 06/17/2011 Discontinued sublingual tablet form: TAB, Q5Min, PRN Chest Pain, Start date: 06/16/11 15:58:00, Duration: 30 day, Stop date: 07/16/11 14:57:00 atropine 0.5 mg, 5 mL, Route: IVP, Drug 06/16/2011 06/17/2011 Discontinued form: INJ, PRN, PRN Bradycardia, Start date: 06/16/11 15:58:00, Duration: 30 day, Stop date: 07/16/11 14:57:00 Mucinex DM 1 tab, Route: PO, Drug Form: ERTAB, 06/16/2011 06/17/2011 Discontinued Q12H, Start date: 06/16/11 21:00:00, Duration: 30 day, Stop date: 07/16/11 9:00:00 Amoxil 500 mg, 1 cap, Route: PO, Drug 06/16/2011 06/17/2011 Discontinued form: CAP, ABXQ8H, Start date: 06/16/11 21:00:00, Duration: 30 day, Stop date: 07/16/11 13:00:00 ipratropium 0.5 mg, 2.5 mL, Route: NEB, Drug 06/16/2011 06/16/2011 Completed form: SOLN, Q15Min, Priority: STAT, Start date: 06/16/11 10:52:00, Duration: 2 doses or times, Stop date: 06/16/11 11:07:00 albuterol 0.083% 2.49 mg, 3 mL, Route: NEB, Drug 06/16/2011 06/16/2011 Completed inhalation solution form: SOLN, Q15Min, Priority: STAT, Start date: 06/16/11 10:52:00, Duration: 3 doses or times, Stop date: 06/16/11 11:22:00 Vital Signs Most recent to oldest [Reference Range]: 1 2 3 Height 165.10 cm (06/16/2011 10:12:00) ? Temperature Oral [96.4-99.1 DegF] 98.5 DegF (06/17/2011 08:00:00) ?? 97.7 DegF (06/17/2011 04:00:00) ?? 97.8 DegF (06/17/2011 00:00:00) ?? Systolic Blood Pressure [90-140 mmHg] 100 mmHg (06/17/2011 08:00:00) ?? 112 mmHg (06/17/2011 04:00:00) ?? 96 mmHg (06/17/2011 00:00:00) ?? Diastolic Blood Pressure [60-90 mmHg] 59 mmHg *LOW* (06/17/2011 08:00:00) ?? 55 mmHg *LOW* (06/17/2011 04:00:00) ?? 44 mmHg *LOW* (06/17/2011 00:00:00) ?? Respiratory Rate [14-20 BRMIN] 18 BRMIN (06/17/2011 08:00:00) ?? 18 BRMIN (06/17/2011 04:00:00) ?? 18 BRMIN (06/17/2011 00:00:00) ?? Peripheral Pulse Rate [60-100 bpm] 95 bpm (06/17/2011 08:00:00) ?? 90 bpm (06/17/2011 04:00:00) ?? 90 bpm (06/17/2011 00:00:00) ?? Weight 120.000 kg (06/16/2011 10:12:00) ? Results CHEMISTRY Most recent to oldest [Reference Range]: 1 2 3 Sodium Lvl [135-145 mEq/L] 142 mEq/L (06/17/2011 03:41:00) ?? 141 mEq/L (06/16/2011 10:50:00) ? Potassium Lvl [3.5-5.1 mEq/L] 3.9 mEq/L (06/17/2011 03:41:00) ?? 3.9 mEq/L (06/16/2011 10:50:00) ? Chloride Lvl [95-109 mEq/L] 106 mEq/L (06/17/2011 03:41:00) ?? 108 mEq/L (06/16/2011 10:50:00) ? CO2 [24-32 mEq/L] 26 mEq/L (06/17/2011 03:41:00) ?? 26 mEq/L (06/16/2011 10:50:00) ? AGAP [10.0-20.0 mEq/L] 13.9 mEq/L (06/17/2011 03:41:00) ?? 10.9 mEq/L (06/16/2011 10:50:00) ? Creatinine Lvl [0.5-1.4 mg/dL] 0.7 mg/dL (06/17/2011 03:41:00) ?? 0.8 mg/dL (06/16/2011 10:50:00) ? BUN [7-22 mg/dL] 14 mg/dL (06/17/2011 03:41:00) ?? 12 mg/dL (06/16/2011 10:50:00) ? B/C Ratio [6-25] 15 (06/16/2011 10:50:00) ? Glucose Lvl 93 mg/dL 1 *NA* (06/17/2011 03:41:00) ?? 95 mg/dL 2 *NA* (06/16/2011 10:50:00) ? Total Protein [6.4-8.4 g/dL] 7.7 g/dL (06/16/2011 12:32:00) ?? 7.2 g/dL (06/16/2011 10:50:00) ? Albumin Lvl [3.5-5.0 g/dL] 3.5 g/dL (06/16/2011 12:32:00) ?? 3.4 g/dL *LOW* (06/16/2011 10:50:00) ? Globulin [2.0-4.0 g/dL] 4.2 g/dL *HI* (06/16/2011 12:32:00) ?? 3.8 g/dL (06/16/2011 10:50:00) ? A/G Ratio [0.7-1.6] 0.8 (06/16/2011 12:32:00) ?? 0.9 (06/16/2011 10:50:00) ? Calcium Lvl [8.5-10.5 mg/dL] 8.7 mg/dL (06/17/2011 03:41:00) ?? 9.0 mg/dL (06/16/2011 10:50:00) ? Phosphorus [2.5-4.5 mg/dL] 3.3 mg/dL (06/16/2011 12:32:00) ? Magnesium Lvl [1.8-2.4 mg/dL] 1.9 mg/dL (06/16/2011 12:32:00) ? ALT [0-65 U/L] 37 U/L (06/16/2011 12:32:00) ?? 34 U/L (06/16/2011 10:50:00) ? AST [0-37 U/L] 18 U/L (06/16/2011 12:32:00) ?? 14 U/L (06/16/2011 10:50:00) ? Alk Phos [39-136 U/L] 81 U/L (06/16/2011 12:32:00) ?? 69 U/L (06/16/2011 10:50:00) ? Bili Total [0.2-1.3 mg/dL] 0.3 mg/dL (06/16/2011 12:32:00) ?? 0.3 mg/dL (06/16/2011 10:50:00) ? Bili Direct [0.0-0.3 mg/dL] 0.1 mg/dL (06/16/2011 12:32:00) ? Bili Indirect [0.0-1.0 mg/dL] 0.2 mg/dL (06/16/2011 12:32:00) ? Lactic Acid Lvl [0.5-2.2 mMol/L] 0.6 mMol/L (06/16/2011 12:32:00) ? Total CK [12-191 U/L] 88 U/L (06/17/2011 00:19:00) ?? 82 U/L (06/16/2011 18:46:00) ?? 108 U/L (06/16/2011 10:50:00) ?? CK MB [0.5-3.6 ng/mL] <0.5 ng/mL (06/17/2011 00:19:00) ?? <0.5 ng/mL (06/16/2011 18:46:00) ?? <0.5 ng/mL (06/16/2011 12:32:00) ?? CK MB Index [0.0-2.5] <0.6 (06/17/2011 00:19:00) ?? <0.6 (06/16/2011 18:46:00) ?? <0.5 (06/16/2011 10:50:00) ?? Troponin-I [0.00-0.40 ng/mL] <0.02 ng/mL (06/17/2011 00:19:00) ?? <0.02 ng/mL (06/16/2011 18:46:00) ?? <0.02 ng/mL (06/16/2011 12:32:00) ?? BNP [<<=100 pg/mL] 13 pg/mL 3 (06/16/2011 10:50:00) ? CHD Risk [3.90-5.80] 5.29 (06/17/2011 03:41:00) ? Chol [120-200 mg/dL] 185 mg/dL (06/17/2011 03:41:00) ? Trig [0-200 mg/dL] 131 mg/dL (06/17/2011 03:41:00) ? HDL [>>=35 mg/dL] 35 mg/dL (06/17/2011 03:41:00) ? LDL [0-129 mg/dL] 124 mg/dL (06/17/2011 03:41:00) ? TSH [0.360-3.740 uIU/mL] 1.780 uIU/mL (06/17/2011 03:41:00) ? U Amph Scr [>Negative] Negative *NA* (06/16/2011 11:02:00) ? U Oriana Scr [>Negative] Negative *NA* (06/16/2011 11:02:00) ? U Benzodia Scr [>Negative] Negative *NA* (06/16/2011 11:02:00) ? U Cocaine Scr [>Negative] Negative *NA* (06/16/2011 11:02:00) ? U Opiate Scr [>Negative] Negative *NA* (06/16/2011 11:02:00) ? U Phencyc Scr [>Negative] Negative *NA* (06/16/2011 11:02:00) ? U Cannab Scr [>Negative] Negative *NA* (06/16/2011 11:02:00) ? UDS Note See Note 4 *NA* (06/16/2011 11:02:00) ? 1Interpretive Data: Reference Ranges : 0 - 7 days : 41 - 90 mg/dL7 days - 150 yrs : 70 - 99 mg/dL (fasting), based on the clinical recommendations of the [place] [employer]. 2Interpretive Data: Reference Ranges : 0 - 7 days : 41 - 90 mg/dL7 days - 150 yrs : 70 - 99 mg/dL (fasting), based on the clinical recommendations of the [place] [employer]. 3Interpretive Data: Elevated results are in line with increasing severity of congestive heart failure. Minor elevations between 100 and 300 may be seen with Myocardial Ischemia, Sodium retaining drugs, and compensated/treated heart failure. 4Interpretive Data: Drugs reported as positive have [...] 50 ng/mLMethadone 300 ng/mLUrine alcohol 20 mg/dL HEMATOLOGY Most recent to oldest [Reference Range]: 1 2 3 WBC [3.7-10.4 K/CMM] 5.7 K/CMM (06/17/2011 03:41:00) ?? 5.9 K/CMM (06/16/2011 10:50:00) ? RBC [4.20-5.40 M/CMM] 4.17 M/CMM *LOW* (06/17/2011 03:41:00) ?? 4.61 M/CMM (06/16/2011 10:50:00) ? Hgb [12.0-16.0 g/dL] 11.5 g/dL *LOW* (06/17/2011 03:41:00) ?? 12.7 g/dL (06/16/2011 10:50:00) ? Hct [36.0-48.0 %] 34.1 % *LOW* (06/17/2011 03:41:00) ?? 37.7 % (06/16/2011 10:50:00) ? MCV [81.0-99.0 fL] 81.8 fL (06/17/2011 03:41:00) ?? 81.8 fL (06/16/2011 10:50:00) ? MCH [27.0-31.0 pg] 27.5 pg (06/17/2011 03:41:00) ?? 27.7 pg (06/16/2011 10:50:00) ? MCHC [32.0-36.0 g/dL] 33.6 g/dL (06/17/2011 03:41:00) ?? 33.8 g/dL (06/16/2011 10:50:00) ? RDW [11.5-14.5 %] 13.5 % (06/17/2011 03:41:00) ?? 12.8 % (06/16/2011 10:50:00) ? Platelet [133-450 K/CMM] 236 K/CMM (06/17/2011 03:41:00) ?? 264 K/CMM (06/16/2011 10:50:00) ? MPV [7.4-10.4 fL] 8.7 fL (06/17/2011 03:41:00) ?? 8.9 fL (06/16/2011 10:50:00) ? Segs [45.0-75.0 %] 56.4 % (06/17/2011 03:41:00) ?? 70.1 % (06/16/2011 10:50:00) ? Lymphocytes [20.0-40.0 %] 30.2 % (06/17/2011 03:41:00) ?? 19.1 % *LOW* (06/16/2011 10:50:00) ? Monocytes [2.0-12.0 %] 7.3 % (06/17/2011 03:41:00) ?? 4.8 % (06/16/2011 10:50:00) ? Eosinophils [0.0-4.0 %] 5.5 % *HI* (06/17/2011 03:41:00) ?? 5.4 % *HI* (06/16/2011 10:50:00) ? Basophils [0.0-1.0 %] 0.6 % (06/17/2011 03:41:00) ?? 0.6 % (06/16/2011 10:50:00) ? Segs-Bands # [1.5-8.1 K/CMM] 3.2 K/CMM (06/17/2011 03:41:00) ?? 4.2 K/CMM (06/16/2011 10:50:00) ? Lymphocytes # [1.0-5.5 K/CMM] 1.7 K/CMM (06/17/2011 03:41:00) ?? 1.1 K/CMM (06/16/2011 10:50:00) ? Monocytes # [0.0-0.8 K/CMM] 0.4 K/CMM (06/17/2011 03:41:00) ?? 0.3 K/CMM (06/16/2011 10:50:00) ? Eosinophils # [0.0-0.5 K/CMM] 0.3 K/CMM (06/17/2011 03:41:00) ?? 0.3 K/CMM (06/16/2011 10:50:00) ? Basophils # [0.0-0.2 K/CMM] 0.0 K/CMM (06/17/2011 03:41:00) ?? 0.0 K/CMM (06/16/2011 10:50:00) ? Sed Rate [0-20 mm/hr] 40 mm/hr *HI* (06/17/2011 03:41:00) ? PT [12.0-14.7 seconds] 12.3 seconds (06/16/2011 10:50:00) ? INR [0.85-1.17] 0.91 5 (06/16/2011 10:50:00) ? D-Dimer 1.03 ug/mL FEU 6 *NA* (06/16/2011 10:50:00) ? PTT [22.9-35.8 seconds] 29.3 seconds 7 (06/16/2011 10:50:00) ? 5Interpretive Data: RECOMMENDED RANGES FOR PROTIME INR: 2.0-3.0 for most medical and surgical thromboembolic states. 2.5-3.5 for artificial heart valves and recurrent embolism.INR SHOULD BE USED ONLY FOR PATIENTS ON STABLE ANTICOAGULANT THERAPY. 6Interpretive Data: In DIC, quantitative D-Dimer is generally greater than 0.66 ug/mL FEU. Values of quantitative D-Dimer less than 0.40 ug/mL FEU have been reported to be associated with a low probability of deep vein thrombosis/pulmonary embolism. This test alone should not be used to rule out DVT/PE. 7Interpretive Data: Heparin Therapeutic Range: 57 - 92 Seconds IMMUNOLOGY Most recent to oldest [Reference Range]: 1 2 3 FLORENTINO [>Negative] Negative (06/17/2011 03:41:00) ? RF Qnt [0-20 IU/mL] <20 IU/mL (06/17/2011 03:41:00) ? CDC-HIV 1/2 Ab [>Negative] Negative *NA* (06/16/2011 10:50:00) ? Microbiology Reports PROCEDURE:Culture: Blood STATUS: In Progress BODY SITE: Left Arm COLLECTED DATE/TIME: 06/16/2011 12:37:00 SOURCE: Blood FREE TEXT SOURCE: ?? PRELIMINARY REPORTS Preliminary Report No Growth At 2 Days Preliminary Report No Growth At 1 Day Preliminary Report No Growth; Holding PROCEDURE:Culture: Blood STATUS: In Progress BODY SITE: Right Arm COLLECTED DATE/TIME: 06/16/2011 12:32:00 SOURCE: Blood FREE TEXT SOURCE: ?? PRELIMINARY REPORTS Preliminary Report No Growth At 2 Days Preliminary Report No Growth; Holding Preliminary Report No Growth At 1 Day
--- OUTSIDE RECORDS SUMMARY | 2018-12-08 22:25 | XMS REPORT | CCD ---
Author Author Auto Generated Organization [facility] Address Unknown Phone Unavailable Care Team Providers Care Cutting Machine Tender Decorative Name Role Phone Ottoniel Higgins CP Unavailable Allergies, Adverse Reactions, Alerts Substance Reaction Status penicillins Active Problem List Condition Effective Dates Status Abdominal pain Active Anemia Active Chest pain Active Cough Active HTN - Hypertension Active Vaginal bleeding Active Medications Medication Instructions Start Date End Date Status DuoNeb inhalation 3 ml, Route: INHALATION, Drug Form: 07/18/2012 07/18/2012 Completed solution SOLN, Dosing Weight 127.273, kg, ONCE, Start date: 07/18/12 8:34:00, Stop date: 07/18/12 8:34:00 Flexeril 10 mg, Route: PO, Drug form: TAB, 07/18/2012 07/18/2012 Completed ONCE, Dosing Weight 127.273, kg, PRN Spasm, Start date: 07/18/12 10:39:00 Naprosyn 500 mg oral 500 mg, 1 tab, PO, BID, 14 tab, 07/18/2012 Ordered tablet Substitution Allowed, TAB Flexeril 10 mg oral 10 mg, 1 tab, PO, TID, PRN, 15 tab, 07/18/2012 Ordered tablet for spasm, Substitution Allowed, TAB acetaminophen-hydroc 1-2 tab, PO, Q4-6H, PRN, 15 tab, 07/18/2012 Ordered odone 500 mg-5 mg Pain, Substitution Allowed, oral tablet Maintenance Toradol 30 mg/mL 60 mg, Route: IM, ONCE, Dosing 07/18/2012 07/18/2012 Completed injectable solution Weight 127.273, kg, Start date: 07/18/12 8:33:00, Stop date: 07/18/12 8:33:00 acetaminophen-hydroc 1 tab, Route: PO, Drug Form: TAB, 07/18/2012 07/18/2012 Completed odone 325 mg-5 mg Dosing Weight 127.273, kg, ONCE, oral tablet STAT, Start date: 07/18/12 8:32:00, Stop date: 07/18/12 8:32:00 Tylenol 650 mg, Route: PO, ONCE, Dosing 07/18/2012 07/18/2012 Completed Weight 127.273, kg, Priority: STAT, Start date: 07/18/12 8:07:00, Stop date: 07/18/12 8:07:00 Vital Signs Most recent to oldest [Reference Range]: 1 Height 165.10 cm (07/18/2012 07:43:00) Weight 127.273 kg (07/18/2012 07:43:00)
--- OUTSIDE RECORDS SUMMARY | 2018-12-08 22:25 | XMS REPORT | CCD ---
Author Author Auto Generated Organization [facility] Address Unknown Phone Unavailable Care Team Providers Care Anodic Operator Name Role Phone Niharika Conway CP Unavailable Bessie Sungma CP Abrahan Montalvo CP PCP, None CP Unavailable Mynor Khalil CP Unavailable Kary Kwok CP Lindy Velez CP Unavailable ChartServer, Login CP Unavailable Charla Marie CP [phone] Mery Nicole CP Unavailable Romina Wilson CP Unavailable Gabbi Carty CP Rosario Collazo CP Unavailable Christina Marroquin CP Unavailable SYSTEM, SYSTEM CP Unavailable Kenya Strong CP Unavailable Mahesh Taylor CP Unavailable Margaret Norris CP Unavailable Kaur Morales CP [phone] Roxy Leija CP Unavailable Naif Munoz CP Allergies, Adverse Reactions, Alerts Substance Reaction Status NKDA ?? Active Problem List Condition Effective Dates Status Abdominal pain ?? Active Anemia ?? Active Chest pain ?? Active Cough ?? Active HTN - Hypertension ?? Active Vaginal bleeding ?? Active Medications Medication Instructions Start Date End Date Status acetaminophen-hydroc 1-2 tab, PO, Q4-6H, PRN, 15 tab, 08/13/2011 ?? Ordered odone 500 mg-5 mg Pain, Substitution Allowed, oral tablet Maintenance promethazine 25 mg 25 mg, 1 tab, PO, Q4H, PRN, 15 tab, 08/13/2011 ?? Ordered oral tablet Nausea, Substitution Allowed Rocephin 250 mg, Route: IM, Drug form: 08/13/2011 08/13/2011 Completed PDR/INJ, ONCE, Start date: 08/13/11 12:46:00, Stop date: 08/13/11 12:46:00 Zithromax 500 mg 1,000 mg, 4 tab, Route: PO, Drug 08/13/2011 08/13/2011 Completed oral tablet form: TAB, ONCE, Start date: 08/13/11 12:45:00, Stop date: 08/13/11 12:45:00 Sodium Chloride 0.9% 1,000 mL, Rate: 1,000 ml/hr, Infuse 08/13/2011 08/13/2011 Completed (Bolus) IV 1000 mL over: 1 hr, Route: IV, Total Volume: 1,000, Bolus Dose, Priority: STAT, Start date: 08/13/11 11:27:00, Duration: 1 doses or times, Stop date: 08/13/11 12:26:00 Zofran 4 mg, Route: IVP, ONCE, Priority: 08/13/2011 08/13/2011 Completed STAT, Start date: 08/13/11 11:27:00, Stop date: 08/13/11 11:27:00 morphine Sulfate 4 mg, Route: IVP, ONCE, Priority: 08/13/2011 08/13/2011 Completed STAT, Start date: 08/13/11 11:27:00, Stop date: 08/13/11 11:27:00 morphine Sulfate 4 mg, Route: IVP, ONCE, Priority: 08/13/2011 08/13/2011 Completed STAT, Start date: 08/13/11 14:37:00, Stop date: 08/13/11 14:37:00 ProAir HFA 90 2 puff, INHALATION, Q4H, PRN, 9 gm, 08/13/2011 ?? Ordered mcg/inh inhalation for wheezing, Substitution Allowed, aerosol with adapter Maintenance, AERO doxycycline hyclate 100 mg, 1 tab, PO, BID, 28 tab, 08/13/2011 08/27/2011 Ordered 100 mg oral tablet Substitution Allowed, TAB Naprosyn 500 mg oral 500 mg, 1 tab, PO, BID, 14 tab, 08/13/2011 ?? Ordered tablet Substitution Allowed, TAB Vital Signs Most recent to oldest [Reference Range]: 1 2 3 Height 165.10 cm (08/13/2011 10:35:00) ? Temperature Oral [96.4-99.1 DegF] 98.0 DegF (08/13/2011 17:22:00) ?? 98.2 DegF (08/13/2011 14:42:00) ?? 98.2 DegF (08/13/2011 10:35:00) ?? Systolic Blood Pressure [90-140 mmHg] 103 mmHg (08/13/2011 17:22:00) ?? 99 mmHg (08/13/2011 14:42:00) ?? 107 mmHg (08/13/2011 14:02:00) ?? Diastolic Blood Pressure [60-90 mmHg] 54 mmHg *LOW* (08/13/2011 17:22:00) ?? 41 mmHg 1 *LOW* (08/13/2011 14:42:00) ?? 45 mmHg *LOW* (08/13/2011 14:02:00) ?? Respiratory Rate [14-20 BRMIN] 18 BRMIN (08/13/2011 17:22:00) ?? 18 BRMIN (08/13/2011 14:42:00) ?? 18 BRMIN (08/13/2011 14:02:00) ?? Peripheral Pulse Rate [60-100 bpm] 69 bpm (08/13/2011 17:22:00) ?? 65 bpm (08/13/2011 14:42:00) ?? 68 bpm (08/13/2011 14:02:00) ?? Weight 122.727 kg (08/13/2011 10:35:00) ? 1Result Comment: reported to RN Results URINALYSIS Most recent to oldest [Reference Range]: 1 UA Turbidity [>Clear] Slight Cloudy (08/13/2011 10:47:00) ?? UA Color [>Yellow] Yellow *NA* (08/13/2011 10:47:00) ?? UA pH [5.0-8.0] 6.5 (08/13/2011 10:47:00) ?? UA Spec Grav [<<=1.030] 1.015 (08/13/2011 10:47:00) ?? UA Glucose [>Negative] Negative (08/13/2011 10:47:00) ?? UA Blood [>Negative] Trace *ABN* (08/13/2011 10:47:00) ?? UA Ketones [>Negative] Negative *NA* (08/13/2011 10:47:00) ?? UA Protein [>Negative] Negative (08/13/2011 10:47:00) ?? UA Urobilinogen [0.1-1.0 EU/dL] 0.2 EU/dL (08/13/2011 10:47:00) ?? UA Bili [>Negative] Negative *NA* (08/13/2011 10:47:00) ?? UA Leuk Est [>Negative] Negative (08/13/2011 10:47:00) ?? UA Nitrite [>Negative] Negative (08/13/2011 10:47:00) ?? UA WBC [>None Seen] None Seen (08/13/2011 10:47:00) ?? UA RBC [>0-2 /HPF] 0-2 /HPF (08/13/2011 10:47:00) ?? UA Bacteria [>None Seen /HPF] Few /HPF (08/13/2011 10:47:00) ?? UA Sq Epi [>Few /LPF] Few /LPF (08/13/2011 10:47:00) ?? CHEMISTRY Most recent to oldest [Reference Range]: 1 Sodium Lvl [135-145 mEq/L] 144 mEq/L (08/13/2011 12:00:00) ?? Potassium Lvl [3.5-5.1 mEq/L] 3.9 mEq/L (08/13/2011 12:00:00) ?? Chloride Lvl [95-109 mEq/L] 109 mEq/L (08/13/2011 12:00:00) ?? CO2 [24-32 mEq/L] 26 mEq/L (08/13/2011 12:00:00) ?? AGAP [10.0-20.0 mEq/L] 12.9 mEq/L (08/13/2011 12:00:00) ?? Creatinine Lvl [0.5-1.4 mg/dL] 0.8 mg/dL (08/13/2011 12:00:00) ?? BUN [7-22 mg/dL] 12 mg/dL (08/13/2011 12:00:00) ?? B/C Ratio [6-25] 15 (08/13/2011 12:00:00) ?? Glucose Lvl 81 mg/dL 1 *NA* (08/13/2011 12:00:00) ?? Total Protein [6.4-8.4 g/dL] 7.2 g/dL (08/13/2011 12:00:00) ?? Albumin Lvl [3.5-5.0 g/dL] 3.6 g/dL (08/13/2011 12:00:00) ?? Globulin [2.0-4.0 g/dL] 3.6 g/dL (08/13/2011 12:00:00) ?? A/G Ratio [0.7-1.6] 1.0 (08/13/2011 12:00:00) ?? Calcium Lvl [8.5-10.5 mg/dL] 8.8 mg/dL (08/13/2011 12:00:00) ?? ALT [0-65 U/L] 38 U/L (08/13/2011 12:00:00) ?? AST [0-37 U/L] 18 U/L (08/13/2011 12:00:00) ?? Alk Phos [39-136 U/L] 62 U/L (08/13/2011 12:00:00) ?? Bili Total [0.2-1.3 mg/dL] 0.4 mg/dL (08/13/2011 12:00:00) ?? Amylase Lvl [25-115 U/L] 39 U/L (08/13/2011 12:00:00) ?? Lipase Lvl [73-393 U/L] 88 U/L (08/13/2011 12:00:00) ?? U Preg [>Negative] Negative (08/13/2011 10:47:00) ?? 1Interpretive Data: Reference Ranges : 0 - 7 days : 41 - 90 mg/dL7 days - 150 yrs : 70 - 99 mg/dL (fasting), based on the clinical recommendations of the [place] [employer]. HEMATOLOGY Most recent to oldest [Reference Range]: 1 WBC [3.7-10.4 K/CMM] 7.2 K/CMM (08/13/2011 12:00:00) ?? RBC [4.20-5.40 M/CMM] 4.27 M/CMM (08/13/2011 12:00:00) ?? Hgb [12.0-16.0 g/dL] 11.9 g/dL *LOW* (08/13/2011 12:00:00) ?? Hct [36.0-48.0 %] 35.1 % *LOW* (08/13/2011 12:00:00) ?? MCV [81.0-99.0 fL] 82.2 fL (08/13/2011 12:00:00) ?? MCH [27.0-31.0 pg] 27.9 pg (08/13/2011 12:00:00) ?? MCHC [32.0-36.0 g/dL] 34.0 g/dL (08/13/2011 12:00:00) ?? RDW [11.5-14.5 %] 13.1 % (08/13/2011 12:00:00) ?? Platelet [133-450 K/CMM] 288 K/CMM (08/13/2011 12:00:00) ?? MPV [7.4-10.4 fL] 8.7 fL (08/13/2011 12:00:00) ?? Segs [45.0-75.0 %] 62.2 % (08/13/2011 12:00:00) ?? Lymphocytes [20.0-40.0 %] 29.1 % (08/13/2011 12:00:00) ?? Monocytes [2.0-12.0 %] 4.3 % (08/13/2011 12:00:00) ?? Eosinophils [0.0-4.0 %] 4.0 % (08/13/2011 12:00:00) ?? Basophils [0.0-1.0 %] 0.4 % (08/13/2011 12:00:00) ?? Segs-Bands # [1.5-8.1 K/CMM] 4.5 K/CMM (08/13/2011 12:00:00) ?? Lymphocytes # [1.0-5.5 K/CMM] 2.1 K/CMM (08/13/2011 12:00:00) ?? Monocytes # [0.0-0.8 K/CMM] 0.3 K/CMM (08/13/2011 12:00:00) ?? Eosinophils # [0.0-0.5 K/CMM] 0.3 K/CMM (08/13/2011 12:00:00) ?? Basophils # [0.0-0.2 K/CMM] 0.0 K/CMM (08/13/2011 12:00:00) ?? IMMUNOLOGY Most recent to oldest [Reference Range]: 1 CDC-HIV 1/2 Ab [>Negative] Negative *NA* (08/13/2011 12:00:00) ??
--- OUTSIDE RECORDS SUMMARY | 2018-12-08 22:25 | XMS REPORT | CCD ---
Author Author Auto Generated Organization [facility] Address Unknown Phone Unavailable Care Team Providers Care Hotbed Lever Operator Name Role Phone Donovan Cunningham CP Allergies, Adverse Reactions, Alerts Substance Reaction Status NKDA Active Problem List Condition Effective Dates Status Abdominal pain Active Anemia Active Chest pain Active Cough Active HTN - Hypertension Active Vaginal bleeding Active Medications Medication Instructions Start Date End Date Status Ferdinand 7.5/325 oral 1 tab, Route: PO, Drug Form: TAB, 11/19/2011 11/19/2011 Discontinued tablet Q4H, PRN Pain, STAT, Start date: 11/19/11 2:05:00, Duration: 30 day, Stop date: 12/19/11 2:04:00 acetaminophen-hydroc 1 tab, PO, Q4H, PRN, 9 tab, for 11/19/2011 Ordered odone 325 mg-5 mg pain, Substitution Allowed, oral tablet Maintenance, TAB morphine Sulfate 4 mg, Route: IVP, ONCE, Priority: 11/18/2011 11/18/2011 Completed STAT, Start date: 11/18/11 23:19:00, Stop date: 11/18/11 23:19:00 Sodium Chloride 0.9% 1,000 mL, Rate: 1,000 ml/hr, Infuse 11/18/2011 11/18/2011 Completed (Bolus) IV 1000 mL over: 1 hr, Route: IV, kg, Total Volume: 1,000, Bolus Dose, Priority: STAT, Start date: 11/18/11 21:38:00, Duration: 1 doses or times, Stop date: 11/18/11 22:37:00 ondansetron 4 mg, Route: IVP, ONCE, Priority: 11/18/2011 11/18/2011 Completed STAT, Start date: 11/18/11 21:38:00, Stop date: 11/18/11 21:38:00 Saline Flush 0.9% 5 ml, Route: IVP, Drug Form: INJ, 11/18/2011 11/19/2011 Discontinued PRN, PRN Line Flush, Start date: 11/18/11 21:38:00, Duration: 24 hr, Stop date: 11/19/11 21:37:00 Vital Signs Most recent to oldest [Reference Range]: 1 Height 165.10 cm (11/18/2011 20:58:00) Weight 104.545 kg (11/18/2011 20:58:00) Results URINALYSIS Most recent to oldest [Reference Range]: 1 UA Turbidity [Clear] Clear (11/18/2011 21:10:00) UA Color [Yellow] Yellow *NA* (11/18/2011 21:10:00) UA pH [5.0-8.0] 6.0 (11/18/2011 21:10:00) UA Spec Grav [<=1.030] 1.015 (11/18/2011 21:10:00) UA Glucose [Negative mg/dL] Negative mg/dL (11/18/2011 21:10:00) UA Blood [Negative] Negative (11/18/2011 21:10:00) UA Ketones [Negative mg/dL] Negative mg/dL *NA* (11/18/2011 21:10:00) UA Protein [Negative mg/dL] Negative mg/dL (11/18/2011 21:10:00) UA Urobilinogen [0.1-1.0 EU/dL] 1.0 EU/dL (11/18/2011 21:10:00) UA Bili [Negative] Negative *NA* (11/18/2011 21:10:00) UA Leuk Est [Negative] Negative (11/18/2011 21:10:00) UA Nitrite [Negative] Negative (11/18/2011 21:10:00) UA WBC [None Seen /HPF] 0-2 /HPF (11/18/2011 21:10:00) UA RBC [0-2 /HPF] 0-2 /HPF (11/18/2011 21:10:00) UA Bacteria [None Seen] None Seen (11/18/2011 21:10:00) UA Sq Epi [Few /LPF] Occasional /LPF (11/18/2011 21:10:00) CHEMISTRY Most recent to oldest [Reference Range]: 1 Sodium Lvl [135-145 mEq/L] 140 mEq/L (11/18/2011 22:15:00) Potassium Lvl [3.5-5.1 mEq/L] 3.4 mEq/L *LOW* (11/18/2011 22:15:00) Chloride Lvl [95-109 mEq/L] 104 mEq/L (11/18/2011 22:15:00) CO2 [24-32 mEq/L] 26 mEq/L (11/18/2011 22:15:00) AGAP [10.0-20.0 mEq/L] 13.4 mEq/L (11/18/2011 22:15:00) Creatinine Lvl [0.5-1.4 mg/dL] 0.9 mg/dL (11/18/2011 22:15:00) BUN [7-22 mg/dL] 13 mg/dL (11/18/2011 22:15:00) B/C Ratio [6-25] 14 (11/18/2011 22:15:00) Glucose Lvl 84 mg/dL 1 *NA* (11/18/2011 22:15:00) Total Protein [6.4-8.4 g/dL] 7.3 g/dL (11/18/2011 22:15:00) Albumin Lvl [3.5-5.0 g/dL] 3.6 g/dL (11/18/2011 22:15:00) Globulin [2.0-4.0 g/dL] 3.7 g/dL (11/18/2011 22:15:00) A/G Ratio [0.7-1.6] 1.0 (11/18/2011 22:15:00) Calcium Lvl [8.5-10.5 mg/dL] 8.6 mg/dL (11/18/2011 22:15:00) ALT [0-65 U/L] 47 U/L (11/18/2011 22:15:00) AST [0-37 U/L] 22 U/L (11/18/2011 22:15:00) Alk Phos [39-136 U/L] 71 U/L (11/18/2011 22:15:00) Bili Total [0.2-1.3 mg/dL] 0.2 mg/dL (11/18/2011 22:15:00) Lipase Lvl [73-393 U/L] 126 U/L (11/18/2011 22:15:00) S Preg [Negative] Negative *NA* (11/18/2011 22:15:00) U Preg [Negative] Negative (11/18/2011 21:10:00) 1Interpretive Data: Reference Ranges : 0 - 7 days : 41 - 90 mg/dL7 days - 150 yrs : 70 - 99 mg/dL (fasting), based on the clinical recommendations of the [place] [employer]. HEMATOLOGY Most recent to oldest [Reference Range]: 1 WBC [3.7-10.4 K/CMM] 7.3 K/CMM (11/18/2011 22:15:00) RBC [4.20-5.40 M/CMM] 4.47 M/CMM (11/18/2011 22:15:00) Hgb [12.0-16.0 g/dL] 12.2 g/dL (11/18/2011 22:15:00) Hct [36.0-48.0 %] 37.3 % (11/18/2011 22:15:00) MCV [81.0-99.0 fL] 83.5 fL (11/18/2011 22:15:00) MCH [27.0-31.0 pg] 27.2 pg (11/18/2011 22:15:00) MCHC [32.0-36.0 g/dL] 32.6 g/dL (11/18/2011 22:15:00) RDW [11.5-14.5 %] 13.0 % (11/18/2011 22:15:00) Platelet [133-450 K/CMM] 260 K/CMM (11/18/2011 22:15:00) MPV [7.4-10.4 fL] 9.1 fL (11/18/2011 22:15:00) Segs [45.0-75.0 %] 59.8 % (11/18/2011 22:15:00) Lymphocytes [20.0-40.0 %] 30.5 % (11/18/2011 22:15:00) Monocytes [2.0-12.0 %] 5.8 % (11/18/2011 22:15:00) Eosinophils [0.0-4.0 %] 3.5 % (11/18/2011 22:15:00) Basophils [0.0-1.0 %] 0.4 % (11/18/2011 22:15:00) Segs-Bands # [1.5-8.1 K/CMM] 4.4 K/CMM (11/18/2011 22:15:00) Lymphocytes # [1.0-5.5 K/CMM] 2.2 K/CMM (11/18/2011 22:15:00) Monocytes # [0.0-0.8 K/CMM] 0.4 K/CMM (11/18/2011 22:15:00) Eosinophils # [0.0-0.5 K/CMM] 0.3 K/CMM (11/18/2011 22:15:00) Basophils # [0.0-0.2 K/CMM] 0.0 K/CMM (11/18/2011 22:15:00)
--- OUTSIDE RECORDS SUMMARY | 2018-12-08 22:25 | XMS REPORT | CCD ---
Author Author Auto Generated Organization [facility] Address Unknown Phone Unavailable Care Team Providers Care Fiberglasser Name Role Phone Dara Dolan CP Allergies, Adverse Reactions, Alerts Substance Reaction Status penicillins Active Problem List Condition Effective Dates Status Abdominal pain Active Anemia Active Chest pain Active Cough Active HTN - Hypertension Active Hypertension Resolved Ovarian cyst Resolved Vaginal bleeding Active Vital Signs Most recent to oldest [Reference Range]: 1 Height 165.1 cm (12/15/2012 12:58:00) Weight 126.818 kg (12/15/2012 12:58:00) Results URINALYSIS Most recent to oldest [Reference Range]: 1 UA Turbidity [Clear] Clear (12/15/2012 13:30:00) UA Color Ltyellow *NA* (12/15/2012 13:30:00) UA pH [5.0-8.0] 6.0 (12/15/2012 13:30:00) UA Spec Grav [<=1.030] 1.011 (12/15/2012 13:30:00) UA Glucose [Negative mg/dL] Negative mg/dL *NA* (12/15/2012 13:30:00) UA Blood [Negative] Large *ABN* (12/15/2012 13:30:00) UA Ketones [Negative mg/dL] Negative mg/dL *NA* (12/15/2012 13:30:00) UA Protein [Negative mg/dL] Negative mg/dL (12/15/2012 13:30:00) UA Urobilinogen [0.1-1.0 mg/dL] <=1.0 mg/dL *NA* (12/15/2012 13:30:00) UA Bili [Negative] Negative *NA* (12/15/2012 13:30:00) UA Leuk Est [Negative] Negative (12/15/2012 13:30:00) UA Nitrite [Negative] Negative (12/15/2012 13:30:00) UA WBC [0-5 /HPF] 9 /HPF *HI* (12/15/2012 13:30:00) UA RBC [0-2 /HPF] 25 /HPF *HI* (12/15/2012 13:30:00) UA Bacteria [None Seen /HPF] Few /HPF *NA* (12/15/2012 13:30:00) UA Sq Epi [Few /LPF] Occasional /LPF *NA* (12/15/2012 13:30:00) CHEMISTRY Most recent to oldest [Reference Range]: 1 U Preg [Negative] Negative (12/15/2012 13:30:00) Procedures Procedures Date Related Diagnosis section
--- OUTSIDE RECORDS SUMMARY | 2018-12-08 22:26 | XMS REPORT | CCD ---
Author Author Auto Generated Organization [facility] Address Unknown Phone Unavailable Care Team Providers Care Pres[employer] Education Director Name Role Phone Finesse Geiger CP Allergies, Adverse Reactions, Alerts Substance Reaction Status Dilaudid Active penicillins Active Protonix IV Active Problem List Condition Effective Dates Status Abdominal pain Active Anemia Active Asthma Resolved Chest pain Active Cough Active HTN - Hypertension Active Hypertension Resolved HYPERTENSION Resolved Ovarian cyst Resolved Vaginal bleeding Active Medications Medication Instructions Start Date End Date Status Benadryl 25 mg, 1 tab, Route: PO, Drug form: 06/08/2013 06/08/2013 Discontinued TAB, Q6H, Dosing Weight 127.273, kg, PRN as needed for itching, Priority: NOW, Start date: 06/08/13 20:05:00, Duration: 30 day, Stop date: 07/08/13 20:04:00 meclizine 12.5 mg 12.5 mg, 1 tab, PO, TID, PRN, 60 06/12/2013 Ordered oral tablet tab, for dizziness, Substitution Allowed, TAB Nexium 40 mg, Route: PO, Daily, Dosing 06/11/2013 06/10/2013 Canceled Weight 127.273, kg, Start date: 06/11/13 9:00:00, Duration: 30 day, Stop date: 07/10/13 9:00:00 HYDROcodone-ibuprofe 1 tab, Route: PO, Drug Form: TAB, 06/11/2013 06/13/2013 Discontinued n 7.5 mg-200 mg oral Dosing Weight 127.273, kg, Q6H, PRN tablet Pain, Start date: 06/11/13 15:38:00, Duration: 30 day, Stop date: 07/11/13 15:37:00 Imodium A-D 2 mg, 1 tab, Route: PO, Drug form: 06/08/2013 06/13/2013 Discontinued TAB, Q4H, Dosing Weight 127.273, kg, PRN as needed for loose stool, Start date: 06/08/13 16:00:00, Duration: 30 day, Stop date: 07/08/13 15:59:00 Benadryl 50 mg, 1 mL, Route: IV, Drug form: 06/09/2013 06/13/2013 Discontinued INJ, Q6H, Dosing Weight 127.273, kg, PRN as needed for itching, Start date: 06/09/13 20:18:00, Duration: 30 day, Stop date: 07/09/13 20:17:00 Protonix 40 mg, Route: IVP, Daily, Dosing 06/09/2013 06/08/2013 Deleted Weight 127.273, kg, Start date: 06/09/13 9:00:00, Duration: 30 day, Stop date: 07/08/13 9:00:00 D5NS + KCL 20mEq/L 1,000 mL, Rate: 100 ml/hr, Infuse 06/08/2013 06/13/2013 Discontinued 1000ml (Premix) over: 10 hr, Route: IV, Dosing 1,000 mL Weight 127.273 kg, Total Volume: 1,000, Start date: 06/08/13 16:00:00, Duration: 30 day, Stop date: 07/08/13 15:59:00 Zofran 4 mg, 2 mL, Route: IV, Drug form: 06/08/2013 06/09/2013 Deleted INJ, Q8H, Dosing Weight 127.273, kg, PRN Nausea, Start date: 06/08/13 16:00:00, Duration: 30 day, Stop date: 07/08/13 15:59:00 Nexium 40 mg, Route: IVP, Daily, Dosing 06/09/2013 06/08/2013 Deleted Weight 127.273, kg, Start date: 06/09/13 9:00:00, Duration: 30 day, Stop date: 07/08/13 9:00:00, For IV push reconstitute with 10 ml 0.9% sodium chloride and push over at least 3 minutes. For IV push reconstitute with 10 ml 0.9% sodium chloride and push over at least 3 minutes. Benadryl 25 mg, 0.5 mL, Route: IVP, Drug 06/09/2013 06/09/2013 Completed form: INJ, ONCE, Dosing Weight 127.273, kg, PRN Itching, Priority: NOW, Start date: 06/09/13 20:17:00 Protonix 40 mg, Route: IVP, Drug form: INJ, 06/08/2013 06/10/2013 Discontinued Before Dinner, Start date: 06/08/13 18:00:00, Duration: 30 day, Stop date: 07/08/13 16:30:00 Microzide 12.5 mg, 1 cap, Route: PO, Drug 06/09/2013 06/13/2013 Discontinued form: CAP, Daily, Start date: 06/09/13 12:00:00, Duration: 30 day, Stop date: 07/09/13 9:00:00 Cipro 400 mg, 200 mL, Route: IVPB, Drug 06/09/2013 06/13/2013 Discontinued form: INJ, [id number], Dosing Weight 127.273, kg, Start date: 06/09/13 10:00:00, Duration: 30 day, Stop date: 07/08/13 22:00:00 Zofran 4 mg, Route: IVP, ONCE, Dosing 06/08/2013 06/08/2013 Completed Weight 127.273, kg, Priority: STAT, Start date: 06/08/13 13:32:00, Stop date: 06/08/13 13:32:00 Flagyl 500 mg, 100 mL, Route: IVPB, Drug 06/09/2013 06/13/2013 Discontinued form: INJ, [id number], Dosing Weight 127.273, kg, Start date: 06/09/13 12:00:00, Duration: 30 day, Stop date: 07/09/13 0:00:00 Dilaudid 1 mg, Route: IV, ONCE, Dosing 06/08/2013 06/08/2013 Completed Weight 127.273, kg, Priority: STAT, Start date: 06/08/13 13:32:00, Stop date: 06/08/13 13:32:00 Benadryl 12.5 mg, Route: IVP, ONCE, Dosing 06/08/2013 06/08/2013 Completed Weight 127.273, kg, Priority: STAT, Start date: 06/08/13 14:56:00, Stop date: 06/08/13 14:56:00 normal saline 0.9% 1,000 mL, Rate: 150 ml/hr, Infuse 06/12/2013 06/13/2013 Discontinued IV 1,000 mL over: 6.7 hr, Route: IV, Dosing Weight 127.273 kg, Total Volume: 1,000, Start date: 06/12/13 19:08:00, Duration: 30 day, Stop date: 07/12/13 19:07:00 METRONIDazole 500 mg 500 mg, 1 tab, PO, Q8H, 21 tab, 06/12/2013 06/19/2013 Ordered oral tablet Substitution Allowed Zofran 4 mg, Route: IVP, ONCE, Dosing 06/08/2013 06/08/2013 Completed Weight 127.273, kg, Priority: STAT, Start date: 06/08/13 9:17:00, Stop date: 06/08/13 9:17:00 Cipro 500 mg oral 500 mg, 1 tab, PO, Q12H, 14 tab, 06/12/2013 06/19/2013 Ordered tablet Substitution Allowed, TAB predniSONE 40 mg, 2 tab, Route: PO, Drug form: 06/12/2013 06/12/2013 Completed TAB, ONCE, Dosing Weight 127.273, kg, Start date: 06/12/13 19:08:00, Stop date: 06/12/13 19:08:00 Sodium Chloride 0.9% 1,000 mL, Rate: 100 ml/hr, Infuse 06/08/2013 06/08/2013 Completed (Bolus) IV 1000 mL over: 10 hr, Route: IV, Dosing Weight 127.273 kg, Total Volume: 1,000, Priority: STAT, Start date: 06/08/13 9:17:00, Stop date: 06/08/13 9:17:00, Bolus Dose Bolus Dose meclizine 12.5 mg, 1 tab, Route: PO, Drug 06/12/2013 06/13/2013 Discontinued form: TAB, TID, Dosing Weight 127.273, kg, PRN Dizziness, Start date: 06/12/13 12:15:00, Duration: 30 day, Stop date: 07/12/13 12:14:00 Saline Flush 0.9% 5 ml, Route: IVP, Drug Form: INJ, 06/08/2013 06/13/2013 Discontinued Dosing Weight 127.273, kg, PRN, PRN Line Flush, Start date: 06/08/13 18:51:00, Duration: 30 day, Stop date: 07/08/13 18:50:00 Dextrose 5% with 1,000 mL, Rate: 125 ml/hr, Infuse 06/08/2013 06/08/2013 Discontinued 0.45% NaCl IV 1,000 over: 8 hr, Route: IV, Dosing mL Weight 127.273 kg, Total Volume: 1,000, Start date: 06/08/13 18:51:00, Duration: 30 day, Stop date: 07/08/13 18:50:00 morphine Sulfate 4 mg, 2 mL, Route: IVP, Drug form: 06/08/2013 06/13/2013 Discontinued INJ, Q4H, Dosing Weight 127.273, kg, PRN Pain Score 7-10, Start date: 06/08/13 18:51:00, Duration: 30 day, Stop date: 07/08/13 18:50:00 ondansetron 4 mg, 2 mL, Route: IVP, Drug form: 06/08/2013 06/13/2013 Discontinued INJ, Q8H, Dosing Weight 127.273, kg, PRN Nausea & Vomiting, Start date: 06/08/13 18:51:00, Duration: 30 day, Stop date: 07/08/13 18:50:00 morphine Sulfate 4 mg, Route: IVP, ONCE, Dosing 06/08/2013 06/08/2013 Completed Weight 127.273, kg, Priority: STAT, Start date: 06/08/13 9:42:00, Stop date: 06/08/13 9:42:00 Benadryl 12.5 mg, Route: IV, ONCE, Dosing 06/08/2013 06/08/2013 Completed Weight 127.273, kg, Start date: 06/08/13 18:06:00, Stop date: 06/08/13 18:06:00 albuterol 1.25 mg, 3 mL, Route: NEB, Drug 06/09/2013 06/13/2013 Discontinued form: SOLN, RTID, PRN Shortness of breath, Start date: 06/09/13 9:46:00, Duration: 30 day, Stop date: 07/09/13 9:45:00 morphine Sulfate 4 mg, Route: IVP, ONCE, Dosing 06/08/2013 06/08/2013 Completed Weight 127.273, kg, Priority: STAT, Start date: 06/08/13 11:47:00, Stop date: 06/08/13 11:47:00 Questran 4 gm, 1 pkt, Route: PO, Drug form: 06/10/2013 06/13/2013 Discontinued PDR/REC, TID-Before Meals, Dosing Weight 127.273, kg, Start date: 06/10/13 11:30:00, Duration: 30 day, Stop date: 07/10/13 7:30:00 Pepcid 40 mg oral 40 mg, 2 tab, Route: PO, Drug form: 06/10/2013 06/13/2013 Discontinued tablet TAB, Q12H, Dosing Weight 127.273, kg, Start date: 06/10/13 21:00:00, Duration: 30 day, Stop date: 07/10/13 9:00:00 morphine Sulfate 4 mg, Route: IVP, ONCE, Dosing 06/08/2013 06/08/2013 Completed Weight 127.273, kg, Start date: 06/08/13 18:05:00, Stop date: 06/08/13 18:05:00 Xopenex HFA 2 puff, Route: INHALATION, Drug 06/09/2013 06/09/2013 Deleted Form: AERO/A, Dosing Weight 127.273, kg, TID, PRN Allergies, Start date: 06/09/13 8:40:00, Duration: 30 day, Stop date: 07/09/13 8:39:00 hydrochlorothiazide 12.5 mg, 1 cap, Route: PO, Drug 06/09/2013 06/09/2013 Deleted 25 mg oral tablet form: CAP, Daily, Dosing Weight 127.273, kg, Start date: 06/09/13 9:00:00, Duration: 30 day, Stop date: 07/08/13 9:00:00 Symbicort 160/4.5 2 inhalation, Route: INHALATION, 06/09/2013 06/13/2013 Discontinued inhalation aerosol Drug Form: AERO/A, Dosing Weight with adapter 127.273, kg, BID, Start date: 06/09/13 9:00:00, Duration: 30 day, Stop date: 07/08/13 17:00:00 Benadryl 25 mg, 0.5 mL, Route: IV, Drug 06/08/2013 06/09/2013 Discontinued form: INJ, Q6H, Dosing Weight 127.273, kg, PRN as needed for itching, Priority: NOW, Start date: 06/08/13 21:22:00, Duration: 30 day, Stop date: 07/08/13 21:21:00 meclizine 12.5 mg, Route: PO, Drug form: TAB, 06/12/2013 06/12/2013 Deleted TID, Dosing Weight 127.273, kg, PRN Nausea & Vomiting, Start date: 06/12/13 12:14:00, Duration: 30 day, Stop date: 07/12/13 12:13:00 SoluMedrol 125 mg, 2 mL, Route: IVP, Drug 06/08/2013 06/08/2013 Completed form: INJ, ONCE, Dosing Weight 127.273, kg, Priority: STAT, Start date: 06/08/13 15:28:00, Stop date: 06/08/13 15:28:00 Pepcid 20 mg, 2 mL, Route: IVP, Drug form: 06/08/2013 06/08/2013 Completed INJ, ONCE, Dosing Weight 127.273, kg, Start date: 06/08/13 15:29:00, Stop date: 06/08/13 15:29:00 Vital Signs Most recent to oldest [Reference Range]: 1 2 3 Height 165.1 cm (06/08/2013 17:48:00) 165.1 cm (06/08/2013 09:01:00) Current Weight 120.455 kg (06/08/2013 23:12:00) Temperature Oral [96.4-99.1 DegF] 97.6 DegF (06/13/2013 11:35:00) 97.8 DegF (06/13/2013 09:31:00) 97.8 DegF (06/13/2013 08:00:00) Systolic Blood Pressure [90-140 mmHg] 118 mmHg (06/13/2013 11:35:00) 101 mmHg (06/13/2013 08:00:00) 128 mmHg (06/13/2013 04:00:00) Diastolic Blood Pressure [60-90 mmHg] 78 mmHg (06/13/2013 11:35:00) 65 mmHg (06/13/2013 08:00:00) 68 mmHg (06/13/2013 04:00:00) Respiratory Rate [14-20 BRMIN] 18 BRMIN (06/13/2013:35:00) 16 BRMIN (06/13/2013 09:31:00) 15 BRMIN (06/13/2013 09:30:00) Peripheral Pulse Rate [60-100 bpm] 76 bpm (06/13/2013:35:00) 80 bpm (06/13/2013 09:31:00) 80 bpm (06/13/2013 08:00:00) Weight 127.273 kg (06/08/2013 17:48:00) 127.273 kg (06/08/2013 09:01:00) Results URINALYSIS Most recent to oldest [Reference Range]: 1 2 3 UA Turbidity [Clear] Slight *ABN* (06/08/2013 11:50:00) UA Color Ltyellow *NA* (06/08/2013 11:50:00) UA pH [5.0-8.0] 5.0 (06/08/2013 11:50:00) UA Spec Grav [<=1.030] 1.014 (06/08/2013 11:50:00) UA Glucose [Negative mg/dL] Negative mg/dL *NA* (06/08/2013 11:50:00) UA Blood [Negative] Small *ABN* (06/08/2013 11:50:00) UA Ketones [Negative mg/dL] 20 mg/dL *ABN* (06/08/2013 11:50:00) UA Protein [Negative mg/dL] Negative mg/dL (06/08/2013 11:50:00) UA Urobilinogen [0.1-1.0 mg/dL] <=1.0 mg/dL *NA* (06/08/2013 11:50:00) UA Bili [Negative] Negative *NA* (06/08/2013 11:50:00) UA Leuk Est [Negative] Negative (06/08/2013 11:50:00) UA Nitrite [Negative] Negative (06/08/2013 11:50:00) UA WBC [0-5 /HPF] 1 /HPF (06/08/2013 11:50:00) UA RBC [0-2 /HPF] <1 /HPF (06/08/2013 11:50:00) UA Bacteria [None Seen /HPF] Occasional /HPF *NA* (06/08/2013 11:50:00) UA Sq Epi [Few /LPF] Occasional /LPF *NA* (06/08/2013 11:50:00) UA Uric Ac Christal [None Seen /HPF] Occasional /HPF *NA* (06/08/2013 11:50:00) UA Mucus [None Seen /LPF] Few /LPF *NA* (06/08/2013 11:50:00) STOOL TESTS Most recent to oldest [Reference Range]: 1 2 3 Occult Bld Stl [Negative] Negative 1 (06/09/2013 05:14:00) Fecal Leukocyte Rare 2 (06/11/2013 11:16:00) Few 3, 4 (06/09/2013 05:14:00) 1Result Comment: Collection date/time has been modified to: 05:14:00. Previous collection date/time: 05:14:00. 2Interpretive Data: A Value of None Seen, Rare, or Few is Normal. 3Result Comment: Collection date/time has been modified to: 05:14:00. Previous collection date/time: 05:14:00. 4Interpretive Data: A Value of None Seen, Rare, or Few is Normal. CHEMISTRY Most recent to oldest [Reference Range]: 1 2 3 Sodium Lvl [135-145 mEq/L] 146 mEq/L *HI* (06/10/2013 04:30:00) 144 mEq/L (06/09/2013 06:38:00) 139 mEq/L (06/08/2013 10:24:00) Potassium Lvl [3.5-5.1 mEq/L] 3.8 mEq/L (06/10/2013 04:30:00) 4.7 mEq/L (06/09/2013 06:38:00) 4.0 mEq/L (06/08/2013 10:24:00) Chloride Lvl [95-109 mEq/L] 109 mEq/L (06/10/2013 04:30:00) 107 mEq/L (06/09/2013 06:38:00) 107 mEq/L (06/08/2013 10:24:00) CO2 [24-32 mEq/L] 27 mEq/L (06/10/2013 04:30:00) 26 mEq/L (06/09/2013 06:38:00) 24 mEq/L (06/08/2013 10:24:00) AGAP [10.0-20.0 mEq/L] 13.8 mEq/L (06/10/2013 04:30:00) 15.7 mEq/L (06/09/2013 06:38:00) 12.0 mEq/L (06/08/2013 10:24:00) Creatinine Lvl [0.5-1.4 mg/dL] 0.9 mg/dL (06/10/2013 04:30:00) 0.7 mg/dL (06/09/2013 06:38:00) 0.8 mg/dL (06/08/2013 10:24:00) eGFR 101 mL/min/1.73m2 5 *NA* (06/10/2013 04:30:00) 137 mL/min/1.73m2 6 *NA* (06/09/2013 06:38:00) 117 mL/min/1.73m2 7 *NA* (06/08/2013 10:24:00) BUN [7-22 mg/dL] 11 mg/dL (06/10/2013 04:30:00) 8 mg/dL (06/09/2013 06:38:00) 15 mg/dL (06/08/2013 10:24:00) B/C Ratio [6-25] 12 (06/10/2013 04:30:00) 11 (06/09/2013 06:38:00) 19 (06/08/2013 10:24:00) Glucose Lvl [70-99 mg/dL] 104 mg/dL 8 *HI* (06/10/2013 04:30:00) 130 mg/dL 9 *HI* (06/09/2013 06:38:00) 80 mg/dL 10 (06/08/2013 10:24:00) Total Protein [6.4-8.4 g/dL] 6.1 g/dL *LOW* (06/10/2013 04:30:00) 7.0 g/dL (06/09/2013 06:38:00) 8.4 g/dL (06/08/2013 10:24:00) Albumin Lvl [3.5-5.0 g/dL] 3.1 g/dL *LOW* (06/10/2013 04:30:00) 3.4 g/dL *LOW* (06/09/2013 06:38:00) 3.9 g/dL (06/08/2013 10:24:00) Globulin [2.0-4.0 g/dL] 3.0 g/dL (06/10/2013 04:30:00) 3.6 g/dL (06/09/2013 06:38:00) 4.5 g/dL *HI* (06/08/2013 10:24:00) A/G Ratio [0.7-1.6] 1.0 (06/10/2013 04:30:00) 0.9 (06/09/2013 06:38:00) 0.9 (06/08/2013 10:24:00) Calcium Lvl [8.5-10.5 mg/dL] 8.0 mg/dL *LOW* (06/10/2013 04:30:00) 8.7 mg/dL (06/09/2013 06:38:00) 9.3 mg/dL (06/08/2013 10:24:00) ALT [0-65 unit/L] 20 unit/L (06/10/2013 04:30:00) 23 unit/L (06/09/2013 06:38:00) 28 unit/L (06/08/2013 10:24:00) AST [0-37 unit/L] 9 unit/L (06/10/2013 04:30:00) 13 unit/L (06/09/2013 06:38:00) 22 unit/L (06/08/2013 10:24:00) Alk Phos [39-136 unit/L] 56 unit/L (06/10/2013 04:30:00) 62 unit/L (06/09/2013 06:38:00) 81 unit/L (06/08/2013 10:24:00) Bili Total [0.2-1.3 mg/dL] 0.2 mg/dL (06/10/2013 04:30:00) 0.4 mg/dL (06/09/2013 06:38:00) 0.2 mg/dL (06/08/2013 10:24:00) Amylase Lvl [25-115 unit/L] 36 unit/L (06/08/2013 10:24:00) Lipase Lvl [73-393 unit/L] 110 unit/L (06/08/2013 10:24:00) S Preg [Negative] Negative *NA* (06/08/2013 10:24:00) 5Result Comment: The eGFR is calculated using [...] be mul tiplied by the estimated BMI. 6Result Comment: The eGFR is calculated using [...] be mul tiplied by the estimated BMI. 7Result Comment: The eGFR is calculated using [...] be mul tiplied by the estimated BMI. 8Interpretive Data: Adult reference range values reflect the clinical guidelines of the [employer] [employer]. 9Interpretive Data: Adult reference range values reflect the clinical guidelines of the [employer] [employer]. 10Interpretive Data: Adult reference range values reflect the clinical guidelines of the [employer]. HEMATOLOGY Most recent to oldest [Reference Range]: 1 2 3 WBC [3.7-10.4 K/CMM] 6.8 K/CMM (06/10/2013 04:30:00) 3.4 K/CMM *LOW* (06/09/2013 06:38:00) 6.0 K/CMM (06/08/2013 10:24:00) RBC [4.20-5.40 M/CMM] 4.22 M/CMM (06/10/2013 04:30:00) 4.72 M/CMM (06/09/2013 06:38:00) 5.23 M/CMM (06/08/2013 10:24:00) Hgb [12.0-16.0 g/dL] 11.3 g/dL *LOW* (06/10/2013 04:30:00) 12.5 g/dL (06/09/2013 06:38:00) 14.1 g/dL (06/08/2013 10:24:00) Hct [36.0-48.0 %] 35.2 % *LOW* (06/10/2013 04:30:00) 38.6 % (06/09/2013 06:38:00) 42.8 % (06/08/2013 10:24:00) MCV [81.0-99.0 fL] 83.4 fL (06/10/2013 04:30:00) 81.7 fL (06/09/2013 06:38:00) 81.9 fL (06/08/2013 10:24:00) MCH [27.0-31.0 pg] 26.7 pg *LOW* (06/10/2013 04:30:00) 26.4 pg *LOW* (06/09/2013 06:38:00) 26.9 pg *LOW* (06/08/2013 10:24:00) MCHC [32.0-36.0 g/dL] 32.0 g/dL (06/10/2013 04:30:00) 32.4 g/dL (06/09/2013 06:38:00) 32.8 g/dL (06/08/2013 10:24:00) RDW [11.5-14.5 %] 12.9 % (06/10/2013 04:30:00) 13.1 % (06/09/2013 06:38:00) 13.1 % (06/08/2013 10:24:00) Platelet [133-450 K/CMM] 262 K/CMM (06/10/2013 04:30:00) 276 K/CMM (06/09/2013 06:38:00) 275 K/CMM (06/08/2013 10:24:00) MPV [7.4-10.4 fL] 8.9 fL (06/10/2013 04:30:00) 8.9 fL (06/09/2013 06:38:00) 8.8 fL (06/08/2013 10:24:00) Segs [45.0-75.0 %] 56.7 % (06/10/2013 04:30:00) 72.1 % (06/09/2013 06:38:00) 71.3 % (06/08/2013 10:24:00) Lymphocytes [20.0-40.0 %] 36.1 % (06/10/2013 04:30:00) 25.0 % (06/09/2013 06:38:00) 22.6 % (06/08/2013 10:24:00) Monocytes [2.0-12.0 %] 6.0 % (06/10/2013 04:30:00) 2.8 % (06/09/2013 06:38:00) 4.2 % (06/08/2013 10:24:00) Eosinophils [0.0-4.0 %] 0.6 % (06/10/2013 04:30:00) 0.0 % (06/09/2013 06:38:00) 1.6 % (06/08/2013 10:24:00) Basophils [0.0-1.0 %] 0.6 % (06/10/2013 04:30:00) 0.1 % (06/09/2013 06:38:00) 0.3 % (06/08/2013 10:24:00) Segs-Bands # [1.5-8.1 K/CMM] 3.8 K/CMM (06/10/2013 04:30:00) 2.5 K/CMM (06/09/2013 06:38:00) 4.2 K/CMM (06/08/2013 10:24:00) Lymphocytes # [1.0-5.5 K/CMM] 2.4 K/CMM (06/10/2013 04:30:00) 0.9 K/CMM *LOW* (06/09/2013 06:38:00) 1.3 K/CMM (06/08/2013 10:24:00) Monocytes # [0.0-0.8 K/CMM] 0.4 K/CMM (06/10/2013 04:30:00) 0.1 K/CMM (06/09/2013 06:38:00) 0.3 K/CMM (06/08/2013 10:24:00) Eosinophils # [0.0-0.5 K/CMM] 0.0 K/CMM (06/10/2013 04:30:00) 0.0 K/CMM (06/09/2013 06:38:00) 0.1 K/CMM (06/08/2013 10:24:00) Basophils # [0.0-0.2 K/CMM] 0.0 K/CMM (06/10/2013 04:30:00) 0.0 K/CMM (06/09/2013 06:38:00) 0.0 K/CMM (06/08/2013 10:24:00) Microbiology Reports PROCEDURE:Ova and Parasites Conc and Tri STATUS: Auth (Verified) BODY SITE: COLLECTED DATE/TIME: 06/11/2013 11:16:00 SOURCE: Stool FREE TEXT SOURCE: STAIN REPORTS Stain Report No Ova, Cysts Or Parasites Seen Stain Report No Ova, Cysts Or Parasites Seen PROCEDURE:Culture: Stool STATUS: Auth (Verified) BODY SITE: COLLECTED DATE/TIME: 06/09/2013 05:14:00 SOURCE: Stool FREE TEXT SOURCE: FINAL REPORTS Final Report No Salmonella, Shigella, Or Campylobacter Isolated Normal Enteric Dipika Isolated PRELIMINARY REPORTS Preliminary Report Normal Enteric Dipika Isolated Preliminary Report Normal Enteric Dipika Isolated PROCEDURE:Ova and Parasites Conc and Tri STATUS: Auth (Verified) BODY SITE: COLLECTED DATE/TIME: 06/08/2013 05:14:00 SOURCE: Stool FREE TEXT SOURCE: STAIN REPORTS Stain Report No Ova, Cysts Or Parasites Seen Stain Report No Ova, Cysts Or Parasites Seen Procedures Procedures Date Related Diagnosis Removal of ovarian cyst
--- OUTSIDE RECORDS SUMMARY | 2018-12-08 22:26 | XMS REPORT | CCD ---
Author Author Auto Generated Organization [facility] Address Unknown Phone Unavailable Care Team Providers Care Centrifuge Operator Name Role Phone Ottoniel Higgins CP Allergies, Adverse Reactions, Alerts Substance Reaction Status penicillins Active Problem List Condition Effective Dates Status Abdominal pain Active Anemia Active Asthma Resolved Chest pain Active Cough Active HTN - Hypertension Active Hypertension Resolved Ovarian cyst Resolved Vaginal bleeding Active Medications Medication Instructions Start Date End Date Status Saline Flush 0.9% 5 mL, Route: IVP, Drug Form: INJ, 04/21/2013 04/21/2013 Discontinued Dosing Weight 122.727, kg, Q8H, PRN Line Flush, Start date: 04/21/13 11:38:00, Duration: 30 day, Stop date: 05/21/13 11:37:00, Administer at least once every 8 hours Administer at least once every 8 hours Zofran 4 mg, Route: IVP, Drug form: INJ, 04/21/2013 04/21/2013 Completed ONCE, Dosing Weight 122.727, kg, Priority: STAT, Start date: 04/21/13 12:03:00, Stop date: 04/21/13 12:03:00 NS (Bolus) IV 500 mL 500 mL, Rate: 500 ml/hr, Infuse 04/21/2013 04/21/2013 Completed over: 1 hr, Route: IV, Dosing Weight 122.727 kg, Total Volume: 500, Priority: STAT, Start date: 04/21/13 11:43:00, Duration: 1 doses or times, Stop date: 04/21/13 12:42:00, Bolus Dose Bolus Dose [place] 7.5/325 oral 1-2 tab, PO, Q4-6H, PRN, 12 tab, 04/21/2013 04/26/2013 Ordered tablet Pain, Substitution Allowed, Maintenance morphine Sulfate 4 mg, Route: IVP, Drug form: INJ, 04/21/2013 04/21/2013 Completed ONCE, Dosing Weight 122.727, kg, Priority: STAT, Start date: 04/21/13 12:03:00, Stop date: 04/21/13 12:03:00 DuoNeb inhalation 3 ml, Route: INHALATION, Drug Form: 04/21/2013 04/21/2013 Discontinued solution SOLN, Dosing Weight 122.727, kg, PRN, PRN Respiratory Protocol, Start date: 04/21/13 12:02:00, Duration: 30 day, Stop date: 05/21/13 12:01:00 Valium 5 mg, Route: IVP, Drug form: INJ, 04/21/2013 04/21/2013 Completed ONCE, Dosing Weight 122.727, kg, Priority: STAT, Start date: 04/21/13 14:56:00, Stop date: 04/21/13 14:56:00 Zofran 4 mg, Route: IVP, Drug form: INJ, 04/21/2013 04/21/2013 Completed ONCE, Dosing Weight 122.727, kg, Priority: STAT, Start date: 04/21/13 13:47:00, Stop date: 04/21/13 13:47:00 morphine Sulfate 4 mg, Route: IVP, Drug form: INJ, 04/21/2013 04/21/2013 Completed ONCE, Dosing Weight 122.727, kg, Priority: STAT, Start date: 04/21/13 13:47:00, Stop date: 04/21/13 13:47:00 Toradol 15 mg/mL 30 mg, 1 mL, Route: IV, Drug form: 04/21/2013 04/21/2013 Completed injectable solution INJ, ONCE, Dosing Weight 122.727, kg, Start date: 04/21/13 13:58:00, Stop date: 04/21/13 13:58:00 aspirin 324 mg, 4 tab, Route: CHEW, Drug 04/21/2013 04/21/2013 Completed form: CHEWTAB, ONCE, Dosing Weight 122.727, kg, Priority: STAT, Start date: 04/21/13 13:58:00, Stop date: 04/21/13 13:58:00 Vital Signs Most recent to oldest [Reference Range]: 1 2 Height 165.1 cm (04/21/2013 10:59:00) Temperature Oral [96.4-99.1 DegF] 98.4 DegF (04/21/2013:28:00) 97.9 DegF (04/21/2013:59:00) Systolic Blood Pressure [90-140 mmHg] 119 mmHg (04/21/2013 16:28:00) 124 mmHg (04/21/2013 10:59:00) Diastolic Blood Pressure [60-90 mmHg] 79 mmHg (04/21/2013:28:00) 80 mmHg (04/21/2013 10:59:00) Respiratory Rate [14-20 BRMIN] 18 BRMIN (04/21/2013:28:00) 18 BRMIN (04/21/2013 10:59:00) Peripheral Pulse Rate [60-100 bpm] 84 bpm (04/21/2013:28:00) 88 bpm (04/21/2013 10:59:00) Weight 122.727 kg (04/21/2013 10:59:00) Results CHEMISTRY Most recent to oldest [Reference Range]: 1 2 Sodium Lvl [135-145 mEq/L] 143 mEq/L (04/21/2013 11:29:00) Potassium Lvl [3.5-5.1 mEq/L] 4.2 mEq/L (04/21/2013 11:29:00) Chloride Lvl [95-109 mEq/L] 106 mEq/L (04/21/2013 11:29:00) CO2 [24-32 mEq/L] 30 mEq/L (04/21/2013:29:00) AGAP [10.0-20.0 mEq/L] 11.2 mEq/L (04/21/2013 11:29:00) Creatinine Lvl [0.5-1.4 mg/dL] 0.7 mg/dL (04/21/2013 11:29:00) eGFR 137 mL/min/1.73m2 1 *NA* (04/21/2013 11:29:00) BUN [7-22 mg/dL] 11 mg/dL (04/21/2013 11:29:00) B/C Ratio [6-25] 16 (04/21/2013 11:29:00) Glucose Lvl [70-99 mg/dL] 86 mg/dL 2 (04/21/2013::00) Total Protein [6.4-8.4 g/dL] 7.3 g/dL (04/21/2013::00) Albumin Lvl [3.5-5.0 g/dL] 3.5 g/dL (04/21/2013:29:00) Globulin [2.0-4.0 g/dL] 3.8 g/dL (04/21/2013::) A/G Ratio [0.7-1.6] 0.9 (04/21/2013::00) Calcium Lvl [8.5-10.5 mg/dL] 8.7 mg/dL (04/21/2013::00) ALT [0-65 unit/L] 22 unit/L (04/21/2013::) AST [0-37 unit/L] 11 unit/L (04/21/2013::) Alk Phos [39-136 unit/L] 75 unit/L (04/21/2013::00) Bili Total [0.2-1.3 mg/dL] 0.2 mg/dL (04/21/2013::00) Total CK [12-191 unit/L] 74 unit/L (04/21/2013:53:00) 86 unit/L (04/21/2013::) CK MB [0.5-3.6 ng/mL] <0.5 ng/mL (04/21/2013:53:00) <0.5 ng/mL (04/21/2013:29:) CK MB Index [0.0-2.5] <0.7 (04/21/2013:53:00) <0.6 (04/21/2013:29:00) Troponin-I [0.00-0.40 ng/mL] <0.02 ng/mL (04/21/2013:53:00) <0.02 ng/mL (04/21/2013:29:00) BNP [<=100 pg/mL] 13 pg/mL 3 (04/21/2013:29:00) S Preg [Negative] Negative *NA* (04/21/2013) 1Result Comment: The eGFR is calculated using [...] values reflect the clinical guidelines of the [place] [employer]. 3Interpretive Data: Elevated results are in line with increasing severity of congestive heart failure. Minor elevations between 100 and 300 may be seen with Myocardial Ischemia, Sodium retaining drugs, and compensated/treated heart failure. HEMATOLOGY Most recent to oldest [Reference Range]: 1 2 WBC [3.7-10.4 K/CMM] 7.6 K/CMM (04/21/2013::) RBC [4.20-5.40 M/CMM] 4.63 M/CMM (04/21/2013:) Hgb [12.0-16.0 g/dL] 12.5 g/dL (04/21/2013) Hct [36.0-48.0 %] 38.8 % (04/21/2013) MCV [81.0-99.0 fL] 83.8 fL (04/21/2013::) MCH [27.0-31.0 pg] 27.0 pg (04/21/2013:) MCHC [32.0-36.0 g/dL] 32.3 g/dL (04/21/2013::) RDW [11.5-14.5 %] 13.1 % (04/21/2013) Platelet [133-450 K/CMM] 279 K/CMM (04/21/2013 11:29:00) MPV [7.4-10.4 fL] 8.8 fL (04/21/2013 11:29:00) Segs [45.0-75.0 %] 64.3 % (04/21/2013 11:29:00) Lymphocytes [20.0-40.0 %] 28.4 % (04/21/2013 11:29:00) Monocytes [2.0-12.0 %] 4.7 % (04/21/2013 11:29:00) Eosinophils [0.0-4.0 %] 2.2 % (04/21/2013 11:29:00) Basophils [0.0-1.0 %] 0.4 % (04/21/2013 11:29:00) Segs-Bands # [1.5-8.1 K/CMM] 4.9 K/CMM (04/21/2013 11:29:00) Lymphocytes # [1.0-5.5 K/CMM] 2.1 K/CMM (04/21/2013 11:29:00) Monocytes # [0.0-0.8 K/CMM] 0.4 K/CMM (04/21/2013 11:29:00) Eosinophils # [0.0-0.5 K/CMM] 0.2 K/CMM (04/21/2013 11:29:00) Basophils # [0.0-0.2 K/CMM] 0.0 K/CMM (04/21/2013 11:29:00) D-Dimer 0.51 ug/mL FEU 4 *NA* (04/21/2013 11:29:59) 4Interpretive Data: In DIC, quantitative D-Dimer is generally greater than 0.66 ug/mL FEU. Values of quantitative D-Dimer less than 0.40 ug/mL FEU have been reported to be associated with a low probability of deep vein thrombosis/pulmonary embolism. This test alone should not be used to rule out DVT/PE.
--- OUTSIDE RECORDS SUMMARY | 2018-12-08 22:26 | XMS REPORT | CCD ---
Author Author Auto Generated Organization [facility] Address Unknown Phone Unavailable Care Team Providers Care Well Services Operator Name Role Phone Finesse Geiger CP Allergies, [...] day, Stop date: 07/11/13 15:37:00(Same as: Vicoprofen) Imodium A-D 2 mg, 1 tab, Route: PO, Drug form: 06/08/2013 06/13/2013 Discontinued TAB, Q4H, Dosing Weight 127.273, kg, PRN as needed for loose stool, Start date: 06/08/13 16:00:00, Duration: 30 day, Stop date: 07/08/13 15:59:00(Same as: Imodium A-D) MAX Adult dose is 8 tabs/day Benadryl 50 mg, 1 mL, Route: IV, Drug form: 06/09/2013 06/13/2013 Discontinued INJ, Q6H, Dosing Weight 127.273, kg, PRN as needed for itching, Start date: 06/09/13 20:18:00, Duration: 30 day, Stop date: 07/09/13 20:17:00(Same as: Benadryl) Protonix 40 mg, Route: IVP, Daily, Dosing [...] 07/08/13 15:59:00PREMIX IV - Do Not Alter Zofran 4 mg, 2 mL, Route: IV, Drug form: 06/08/2013 06/09/2013 Deleted INJ, Q8H, Dosing Weight 127.273, kg, PRN Nausea, Start date: 06/08/13 16:00:00, Duration: 30 day, Stop date: 07/08/13 15:59:00(Same as: Zofran) Nexium 40 mg, Route: IVP, Daily, Dosing [...] NOW, Start date: 06/09/13 20:17:00(Same as: Benadryl) Protonix 40 mg, Route: IVP, Drug form: INJ, 06/08/2013 06/10/2013 Discontinued Before Dinner, Start date: 06/08/13 18:00:00, Duration: 30 day, Stop date: 07/08/13 16:30:00For IV push reconstitute with 10 ml 0.9% sodium chloride and push over 2 minutes. (Same as: Protonix) Microzide 12.5 mg, 1 cap, Route: PO, Drug 06/09/2013 06/13/2013 Discontinued form: CAP, Daily, Start date: 06/09/13 12:00:00, Duration: 30 day, Stop date: 07/09/13 9:00:00(Same as: Microzide) With food. Cipro 400 mg, 200 mL, Route: IVPB, Drug 06/09/2013 06/13/2013 Discontinued form: INJ, [id number], Dosing Weight 127.273, kg, Start date: 06/09/13 10:00:00, Duration: 30 day, Stop date: 07/08/13 22:00:00Do not refrigerate Zofran 4 mg, Route: IVP, ONCE, Dosing 06/08/2013 06/08/2013 Completed Weight 127.273, kg, Priority: STAT, Start date: 06/08/13 13:32:00, Stop date: 06/08/13 13:32:00 Flagyl 500 mg, 100 mL, Route: IVPB, Drug 06/09/2013 06/13/2013 Discontinued form: INJ, [id number], Dosing Weight 127.273, kg, Start date: 06/09/13 12:00:00, Duration: 30 day, Stop date: 07/09/13 0:00:00(Same as: Flagyl) Avoid alcohol. Dilaudid 1 mg, Route: IV, ONCE, Dosing [...] 19:08:00, Stop date: 06/12/13 19:08:00Take with food. Sodium Chloride 0.9% 1,000 mL, Rate: 100 [...] day, Stop date: 07/12/13 12:14:00(Same as: Antivert) Saline Flush 0.9% 5 ml, Route: IVP, Drug Form: INJ, 06/08/2013 06/13/2013 Discontinued Dosing Weight 127.273, kg, PRN, PRN Line Flush, Start date: 06/08/13 18:51:00, Duration: 30 day, Stop date: 07/08/13 18:50:00(Same as: BD Posiflush) Dextrose 5% with 1,000 mL, Rate: 125 [...] day, Stop date: 07/08/13 18:50:00(Same as:MORPhine Sulfate) ondansetron 4 mg, 2 mL, Route: IVP, Drug form: 06/08/2013 06/13/2013 Discontinued INJ, Q8H, Dosing Weight 127.273, kg, PRN Nausea & Vomiting, Start date: 06/08/13 18:51:00, Duration: 30 day, Stop date: 07/08/13 18:50:00(Same as: Zofran) morphine Sulfate 4 mg, Route: IVP, ONCE, [...] 07/09/13 9:45:00SEE RT DOCUMENTATION (Same as: Proventil) morphine Sulfate 4 mg, Route: IVP, ONCE, Dosing 06/08/2013 06/08/2013 Completed Weight 127.273, kg, Priority: STAT, Start date: 06/08/13 11:47:00, Stop date: 06/08/13 11:47:00 Questran 4 gm, 1 pkt, Route: PO, Drug form: 06/10/2013 06/13/2013 Discontinued PDR/REC, TID-Before Meals, Dosing Weight 127.273, kg, Start date: 06/10/13 11:30:00, Duration: 30 day, Stop date: 07/10/13 7:30:00(Same As: Questran) Pepcid 40 mg oral 40 mg, 2 tab, Route: PO, Drug form: 06/10/2013 06/13/2013 Discontinued tablet TAB, Q12H, Dosing Weight 127.273, kg, Start date: 06/10/13 21:00:00, Duration: 30 day, Stop date: 07/10/13 9:00:00(Same as: Pepcid) morphine Sulfate 4 mg, Route: IVP, ONCE, [...] date: 07/08/13 9:00:00(Same as: Microzide) With food. Symbicort 160/4.5 2 inhalation, Route: INHALATION, 06/09/2013 06/13/2013 Discontinued inhalation aerosol Drug Form: AERO/A, Dosing Weight with adapter 127.273, kg, BID, Start date: 06/09/13 9:00:00, Duration: 30 day, Stop date: 07/08/13 17:00:00(Same as: Symbicort) Benadryl 25 mg, 0.5 mL, Route: IV, Drug 06/08/2013 06/09/2013 Discontinued form: INJ, Q6H, Dosing Weight 127.273, kg, PRN as needed for itching, Priority: NOW, Start date: 06/08/13 21:22:00, Duration: 30 day, Stop date: 07/08/13 21:21:00(Same as: Benadryl) meclizine 12.5 mg, Route: PO, Drug form: TAB, 06/12/2013 06/12/2013 Deleted TID, Dosing Weight 127.273, kg, PRN Nausea & Vomiting, Start date: 06/12/13 12:14:00, Duration: 30 day, Stop date: 07/12/13 12:13:00 SoluMedrol 125 mg, 2 mL, Route: IVP, Drug 06/08/2013 06/08/2013 Completed form: INJ, ONCE, Dosing Weight 127.273, kg, Priority: STAT, Start date: 06/08/13 15:28:00, Stop date: 06/08/13 15:28:00(Same as:Solu-Medrol, A-Methapred) Pepcid 20 mg, 2 mL, Route: IVP, Drug form: 06/08/2013 06/08/2013 Completed INJ, ONCE, Dosing Weight 127.273, kg, Start date: 06/08/13 15:29:00, Stop date: 06/08/13 15:29:00(Same as: Pepcid)Can be dilute in 5-10cc NS IVP: Slow IV push over at least 2 minutes. Vital Signs Most recent to oldest [Reference Range]: 1 2 3 Height 165.1 cm (06/08/2013 17:48:00) 165.1 cm (06/08/2013 09:01:00) Current Weight 120.455 kg (06/08/2013 23:12:00) Temperature Oral [96.4-99.1 DegF] 97.6 DegF (06/13/2013:35:00) 97.8 DegF (06/13/2013:31:00) 97.8 DegF (06/13/2013 08:00:00) Systolic Blood Pressure [90-140 mmHg] 118 mmHg (06/13/2013:35:00) 101 mmHg (06/13/2013 08:00:00) 128 mmHg (06/13/2013 04:00:00) Diastolic Blood Pressure [60-90 mmHg] 78 mmHg (06/13/2013 11:35:00) 65 mmHg (06/13/2013 08:00:00) 68 mmHg (06/13/2013 04:00:00) Respiratory Rate [14-20 BRMIN] 18 BRMIN (06/13/2013:35:00) 16 BRMIN (06/13/2013:31:00) 15 BRMIN (06/13/2013 09:30:00) Peripheral Pulse Rate [60-100 bpm] 76 bpm (06/13/2013:35:00) 80 bpm (06/13/2013:31:00) 80 bpm (06/13/2013 08:00:00) Weight 127.273 kg [...] g/dL *LOW* (06/10/2013 04:30:00) 3.4 g/dL *LOW* (06/09/2013:38:00) 3.9 g/dL (06/08/2013 10:24:00) Globulin [2.0-4.0 g/dL] 3.0 g/dL (06/10/2013 04:30:00) 3.6 g/dL (06/09/2013:38:00) 4.5 g/dL *HI* (06/08/2013 10:24:00) A/G Ratio [0.7-1.6] 1.0 (06/10/2013 04:30:00) 0.9 (06/09/2013 06:38:00) 0.9 (06/08/2013 10:24:00) Calcium Lvl [8.5-10.5 mg/dL] 8.0 mg/dL *LOW* (06/10/2013 04:30:00) 8.7 mg/dL (06/09/2013 06:38:00) 9.3 mg/dL (06/08/2013 10:24:00) ALT [0-65 unit/L] 20 unit/L (06/10/2013:30:00) 23 unit/L (06/09/2013 06:38:00) 28 unit/L (06/08/2013 10:24:00) AST [0-37 unit/L] 9 unit/L (06/10/2013:30:00) 13 unit/L (06/09/2013:38:00) 22 unit/L (06/08/2013 10:24:00) Alk Phos [39-136 unit/L] 56 unit/L (06/10/2013:30:00) 62 unit/L (06/09/2013 06:38:00) 81 unit/L (06/08/2013 10:24:00) Bili Total [0.2-1.3 mg/dL] 0.2 mg/dL (06/10/2013:30:00) 0.4 mg/dL (06/09/2013:38:00) 0.2 mg/dL (06/08/2013 10:24:00) Amylase Lvl [25-115 [...] values reflect the clinical guidelines of the [place] [employer]. 9Interpretive Data: Adult reference range values reflect the clinical guidelines of the [place] [employer]. 10Interpretive Data: Adult reference range values reflect the clinical guidelines of the [place] [employer]. HEMATOLOGY Most recent to oldest [...]
--- OUTSIDE RECORDS SUMMARY | 2018-12-08 22:26 | XMS REPORT | CCD ---
Author Author Auto Generated Organization [facility] Address Unknown Phone Unavailable Care Team Providers Care Fire Watcher Name Role Phone Finesse Geiger CP Allergies, [...] IVPB, Drug 06/09/2013 06/13/2013 Discontinued form: INJ, [id number], Dosing Weight 127.273, kg, Start date: 06/09/13 [...] values reflect the clinical guidelines of the [place] [employer]. 9Interpretive Data: Adult reference range values reflect the clinical guidelines of the [place] [employer]. 10Interpretive Data: Adult reference range values reflect the clinical guidelines of the [place] [employer]. HEMATOLOGY Most recent to oldest [...]
--- OUTSIDE RECORDS SUMMARY | 2018-12-08 22:27 | XMS REPORT | Summary of Care ---
Author Author [facility] Organization [facility] Address Unknown Phone Unavailable Encounter KIMBERLY Salazar(DMITRI) [id number] Date(s): 11/03/15 - 11/03/15 [facility] [address] [place] [address]- Discharge Diagnosis: Unspecified superficial injury of unspecified knee, initial encounter Discharge Disposition: Home Attending Physician: Calvin Antonio MD Vital Signs Most recent to 1 2 oldest [Reference Range]: Height 165.1 cm 165.1 cm (11/03/15 5:51 PM) (11/03/15 5:48 PM) Temperature Oral 98 DegF 98.9 DegF [96.4-99.1 DegF] (11/03/15 8:20 PM) (11/03/15 5:48 PM) Blood Pressure 130/80 mmHg 120/80 mmHg [90-140/60-90 mmHg] (11/03/15 8:20 PM) (11/03/15 5:48 PM) Respiratory Rate 19 BRMIN 17 BRMIN [14-20 BRMIN] (11/03/15 8:20 PM) (11/03/15 5:48 PM) Peripheral Pulse 84 bpm 101 bpm Rate [60-100 bpm] (11/03/15 8:20 PM) *HI* (11/03/15 5:48 PM) Weight 129.545 kg 129.545 kg (11/03/15 5:51 PM) (11/03/15 5:48 PM) Body Mass Index 47.53 m2 47.53 m2 (11/03/15 5:51 PM) (11/03/15 5:48 PM) Problem List Condition Effective Dates Status [...] Substance Reaction Severity Status morphine Active Medications acetaminophen-hydrocodone 325 mg-10 mg oral tablet 1 tab, Route: PO, Drug Form: TAB, Dosing Weight 129.545, kg, ONCE, STAT, Start d ate: 11/03/15 18:17:00, Stop date: 11/03/15 18:17:00 Notes: Do not exceed 4gm/day of acetaminophen. (Same as: [place] 325/10) Start Date: 11/03/15 Stop Date: 11/03/15 Status: Completed ibuprofen 800 mg oral tablet 800 mg=1 tab, PO, Q8H, # 30 tab, 0 Refill(s) Start Date: 11/03/15 Status: Ordered tramadol 50 mg oral tablet 50 mg=1 tab, PO, Q8H, PRN Pain, X 20 day, # 60 tab, 0 Refill(s) Start Date: 11/03/15 Stop Date: 11/23/15 Status: Ordered Results No data available for [...]
--- OUTSIDE RECORDS SUMMARY | 2018-12-08 22:27 | XMS REPORT | Summary of Care ---
Author Organization Unknown Address Unknown Phone Unavailable Encounter KIMBERLY Salazar(DMITRI) [id number] Date(s): 01/27/15 - 01/27/[address] [facility] [address] [place] [address]- Discharge Diagnosis: Pharyngitis Discharge Disposition: Home Physician Attending: Pricila Cobb DO Vital Signs Most recent to 1 2 oldest [Reference Range]: Height 165.1 cm (01/27/15 6:02 PM) Temperature Oral 98.6 DegF 98.7 DegF [96.4-99.1 DegF] (01/27/15 7:18 PM) (01/27/15 6:02 PM) Blood Pressure 133/80 mmHg 135/93 mmHg [90-140/60-90 mmHg] (01/27/15 7:18 PM) (01/27/15 6:02 PM) Respiratory Rate 18 BRMIN 18 BRMIN [14-20 BRMIN] (01/27/15 7:18 PM) (01/27/15 6:02 PM) Peripheral Pulse 95 bpm 104 bpm Rate [60-100 bpm] (01/27/15 7:18 PM) *HI* (01/27/15 6:02 PM) Weight 133.636 kg (01/27/15 6:02 PM) Body Mass Index 49.03 m2 (01/27/15 6:02 PM) Problem List Condition Effective Dates Status [...] Substance Reaction Severity Status penicillins Active Medications Augmentin 875 mg oral tablet 875 mg=1 tab, PO, Q12H, X 14 day, # 28 tab, 0 Refill(s) Start Date: 01/27/15 Stop Date: 02/10/15 Status: Ordered dexamethasone 10 mg, 2.5 mL, Route: IM, Drug form: INJ, ONCE, Dosing Weight 133.636, kg, Prior ity: STAT, Start date: 01/27/15 19:26:00, Stop date: 01/27/15 19:26:00 Notes: Concentration: 4mg/ml Start Date: 01/27/15 Stop Date: 01/27/15 Status: Completed Results No data available for this section [...]
--- OUTSIDE RECORDS SUMMARY | 2018-12-08 22:27 | XMS REPORT | Summary of Care ---
Author Author [facility] Organization [facility] Address Unknown Phone Unavailable Encounter KIMBERLY Salazar(DMITRI) [id number] Date(s): 11/08/15 - 11/08/15 [facility] [address] [place] [address]- Discharge Diagnosis: Contusion of knee Discharge Disposition: Home Attending Physician: Janet Naranjo DO Vital Signs Most recent to 1 2 oldest [Reference Range]: Height 165.1 cm (11/08/15 3:10 PM) Temperature Oral 97.7 DegF 99.0 DegF [96.4-99.1 DegF] (11/08/15 5:44 PM) (11/08/15 3:10 PM) Blood Pressure 130/54 mmHg 145/92 mmHg [90-140/60-90 mmHg] (11/08/15 5:44 PM) *HI* (11/08/15 3:10 PM) Respiratory Rate 18 BRMIN 20 BRMIN [14-20 BRMIN] (11/08/15 5:44 PM) (11/08/15 3:10 PM) Peripheral Pulse 98 bpm 100 bpm Rate [60-100 bpm] (11/08/15 5:44 PM) (11/08/15 3:10 PM) Weight 131.364 kg (11/08/15 3:10 PM) Body Mass Index 48.19 m2 (11/08/15 3:10 PM) Problem List Condition Effective Dates Status [...] Substance Reaction Severity Status morphine Active Medications [place] 5/325 oral tablet 1 tab, Route: PO, Drug Form: TAB, Dosing Weight 131.364, kg, ONCE, STAT, Start d ate: 11/08/15 16:52:00, Stop date: 11/08/15 16:52:00 Notes: (Same as: [place] 325/5) Do not exceed 4gm/day of acetaminophen. Start Date: 11/08/15 Stop Date: 11/08/15 Status: Completed tramadol 50 mg oral tablet 50 mg=1 tab, PO, Q6H, PRN Pain, X 10 day, # 12 tab, 0 Refill(s) Start Date: 11/08/15 Stop Date: 11/18/15 Status: Ordered Valium 5 mg, 1 tab, Route: PO, Drug form: TAB, ONCE, Dosing Weight 131.364, kg, Priorit y: STAT, Start date: 11/08/15 16:52:00, Stop date: 11/08/15 16:52:00 Notes: (Same as: Valium) Start Date: 11/08/15 Stop Date: 11/08/15 Status: Completed Results No data available for [...]
--- OUTSIDE RECORDS SUMMARY | 2018-12-08 22:27 | XMS REPORT | Summary of Care ---
Author Author [facility] Organization [facility] Address Unknown Phone Unavailable Encounter KIMBERLY Salazar(DMITRI) [id number] Date(s): 09/01/15 - 09/01/15 [facility] [address] [place] [address]- [phone] Discharge Diagnosis: Upper abdominal pain, unspecified Discharge Disposition: Home Attending Physician: Khanh Pan MD Vital Signs Most recent to 1 2 oldest [Reference Range]: Height 165.1 cm (09/01/15 7:33 AM) Temperature Oral 98 DegF 98.2 DegF [96.4-99.1 DegF] (09/01/15 1:09 PM) (09/01/15 7:33 AM) Blood Pressure 130/80 mmHg 135/84 mmHg [90-140/60-90 mmHg] (09/01/15 1:09 PM) (09/01/15 7:33 AM) Respiratory Rate 18 BRMIN 20 BRMIN [14-20 BRMIN] (09/01/15 1:09 PM) (09/01/15 7:33 AM) Peripheral Pulse 65 bpm 92 bpm Rate [60-100 bpm] (09/01/15 1:09 PM) (09/01/15 7:33 AM) Weight 129.545 kg (09/01/15 7:33 AM) Body Mass Index 47.53 m2 (09/01/15 7:33 AM) Problem List Condition Effective Dates Status Health Status Informant Abdominal Active pain(Confirmed) Abdominal Active pain(Confirmed) Anemia(Confirmed) Active Anxiety about Active treatment(Confirmed) Bronchitis(Confirmed Resolved ) Burping(Confirmed) Active Chest Active pain(Confirmed) Cough(Confirmed) Active Gallstones(Confirmed Active ) Headache(Confirmed)1 Active HTN - Active Hypertension(Confirm ed) Hypertension(Confirm Resolved ed) HYPERTENSION(Confirm Resolved ed) Ovarian Resolved cyst(Confirmed) Vaginal Active bleeding(Confirmed) 1frequent Allergies, Adverse Reactions, Alerts No data available for this section Medications Benadryl 25 mg, Route: PO, Drug form: CAP, ONCE, Dosing Weight 129.545, kg, Priority: STA T, Start date: 09/01/15 9:36:00, Stop date: 09/01/15 9:36:00 Start Date: 09/01/15 Stop Date: 09/01/15 Status: Completed Benadryl 25 mg, Route: IVP, ONCE, Dosing Weight 129.545, kg, Start date: 09/01/15 8:39:00 , Stop date: 09/01/15 8:39:00 Start Date: 09/01/15 Stop Date: 09/01/15 Status: Completed GI cocktail 30 mL, Route: PO, Dosing Weight 129.545, kg, ONCE, STAT, Start date: 09/01/15 12 :19:00, Stop date: 09/01/15 12:19:00 Start Date: 09/01/15 Stop Date: 09/01/15 Status: Completed morphine Sulfate 4 mg, Route: IVP, ONCE, Dosing Weight 129.545, kg, Priority: STAT, Start date: 11/02/14 8:25:00, Stop date: 09/01/15 8:25:00 Start Date: 09/01/15 Stop Date: 09/01/15 Status: Completed Joes 5/325 oral tablet 1 tab, Route: PO, Drug Form: TAB, Dosing Weight 129.545, kg, ONCE, STAT, Start d ate: 09/01/15 13:18:00, Stop date: 09/01/15 13:18:00 Start Date: 09/01/15 Stop Date: 09/01/15 Status: Completed Joes 7.5/325 oral tablet 1 tab, Route: PO, Dosing Weight 129.545, kg, ONCE, Start date: 09/01/15 10:23:00 , Stop date: 09/01/15 10:23:00 Start Date: 09/01/15 Stop Date: 09/01/15 Status: Completed ondansetron 4 mg, Route: IVP, ONCE, Dosing Weight 129.545, kg, Priority: STAT, Start date: 11/02/14 8:25:00, Stop date: 09/01/15 8:25:00 Start Date: 09/01/15 Stop Date: 09/01/15 Status: Completed Phenergan 25 mg oral tablet 25 mg=1 tab, PO, Q4H, PRN Nausea, # 15 tab, 0 Refill(s) Start Date: 09/01/15 Stop Date: 09/05/15 Status: Ordered Saline Flush 0.9% 10 mL, Route: IVP, Drug Form: INJ, Dosing Weight 129.545, kg, PRN, PRN Line Flus h, Start date: 09/01/15 8:25:00, Duration: 30 day, Stop date: 10/01/15 8:24:00 Notes: (Same as: BD Posiflush) Start Date: 09/01/15 Stop Date: 09/01/15 Status: Discontinued Tylenol with Codeine #3 oral tablet 1 - 2 tab, PO, Q4H, PRN Pain, X 3 day, # 12 tab, 0 Refill(s) Start Date: 09/01/15 Stop Date: 09/04/15 Status: Ordered Results ELECTROLYTES Most recent to 1 oldest [Reference Range]: Sodium Lvl [135-145 141 mEq/L mEq/L] (09/01/15 8:26 AM) Potassium Lvl 3.9 mEq/L [3.5-5.1 mEq/L] (09/01/15 8:26 AM) Chloride Lvl [95-109 105 mEq/L mEq/L] (09/01/15 8:26 AM) CO2 [24-32 mEq/L] 27 mEq/L (09/01/15 8:26 AM) AGAP [10.0-20.0 12.9 mEq/L mEq/L] (09/01/15 8:26 AM) CHEM PANEL Most recent to 1 oldest [Reference Range]: Creatinine Lvl 0.85 mg/dL [0.50-1.40 mg/dL] (09/01/15 8:26 AM) eGFR 106 mL/min/1.73m2 1 *NA* (09/01/15 8:26 AM) BUN [7-22 mg/dL] 10 mg/dL (09/01/15 8:26 AM) B/C Ratio [6-25] 12 (09/01/15 8:26 AM) Glucose Lvl [70-99 130 mg/dL mg/dL] *HI* (09/01/15 8:26 AM) Total Protein 8.2 g/dL [6.4-8.4 g/dL] (09/01/15 8:26 AM) Albumin Lvl [3.5-5.0 3.6 g/dL g/dL] (09/01/15 8:26 AM) Globulin [2.0-4.0 4.6 g/dL g/dL] *HI* (09/01/15 8:26 AM) A/G Ratio [0.7-1.6] 0.8 (09/01/15 8: AM) Calcium Lvl 9.0 mg/dL [8.5-10.5 mg/dL] (09/01/15 8:26 AM) ALT [0-65 unit/L] 28 unit/L (09/01/15 8:26 AM) AST [0-37 unit/L] 12 unit/L (09/01/15 8:26 AM) Alk Phos [39-136 71 unit/L unit/L] (09/01/15 8:26 AM) Bili Total [0.2-1.3 0.2 mg/dL mg/dL] (09/01/15 8:26 AM) Amylase Lvl [25-115 37 unit/L unit/L] (09/01/15 8:26 AM) Lipase Lvl [73-393 119 unit/L unit/L] (09/01/15 8:26 AM) 1Result Comment: The eGFR is calculated using [...] be mul tiplied by the estimated BMI. URINE CHEM Most recent to 1 oldest [Reference Range]: U Preg [Negative] Negative (09/01/15 10:37 AM) URINE AND STOOL Most recent to 1 oldest [Reference Range]: UA Turbidity [Clear] Clear (09/01/15 10:35 AM) UA Color Ltyellow *NA* (09/01/15 10:35 AM) UA pH [5.0-8.0] 6.0 (09/01/15 10:35 AM) UA Spec Grav 1.013 [<=1.030] (09/01/15 10:35 AM) UA Glucose [Negative Negative mg/dL mg/dL] *NA* (09/01/15 10:35 AM) UA Blood [Negative] Negative (09/01/15 10:35 AM) UA Ketones [Negative Negative mg/dL mg/dL] *NA* (09/01/15 10:35 AM) UA Protein [Negative Negative mg/dL mg/dL] (09/01/15 10:35 AM) UA Urobilinogen <=1.0 mg/dL [0.1-1.0 mg/dL] *NA* (09/01/15 10:35 AM) UA Bili [Negative] Negative *NA* (09/01/15 10:35 AM) UA Leuk Est Negative [Negative] (09/01/15 10:35 AM) UA Nitrite Negative [Negative] (09/01/15 10:35 AM) UA WBC [0-5 /HPF] 1 /HPF (09/01/15 10:35 AM) UA RBC [0-2 /HPF] <1 /HPF (09/01/15 10:35 AM) UA Sq Epi [Few /LPF] Occasional /LPF *NA* (09/01/15 10:35 AM) HEMATOLOGY Most recent to 1 oldest [Reference Range]: WBC [3.7-10.4 K/CMM] 10.0 K/CMM (09/01/15 8:26 AM) RBC [4.20-5.40 5.05 M/CMM M/CMM] (09/01/15 8:26 AM) Hgb [12.0-16.0 g/dL] 13.2 g/dL (09/01/15 8:26 AM) Hct [36.0-48.0 %] 41.7 % (09/01/15 8:26 AM) MCV [80.0-98.0 fL] 82.7 fL (09/01/15 8:26 AM) MCH [27.0-31.0 pg] 26.1 pg *LOW* (09/01/15 8: AM) MCHC [32.0-36.0 31.6 g/dL g/dL] *LOW* (09/01/15 8:26 AM) RDW [11.5-14.5 %] 13.3 % (09/01/15 8:26 AM) Platelet [133-450 321 K/CMM K/CMM] (09/01/15 8:26 AM) MPV [7.4-10.4 fL] 8.8 fL (09/01/15 8:26 AM) Segs [45.0-75.0 %] 82.4 % *HI* (09/01/15 8:26 AM) Lymphocytes 12.9 % [20.0-40.0 %] *LOW* (09/01/15 8:26 AM) Monocytes [2.0-12.0 3.8 % %] (09/01/15 8:26 AM) Eosinophils [0.0-4.0 0.4 % %] (09/01/15 8:26 AM) Basophils [0.0-1.0 0.5 % %] (09/01/15 8:26 AM) Segs-Bands # 8.2 K/CMM [1.5-8.1 K/CMM] *HI* (09/01/15 8:26 AM) Lymphocytes # 1.3 K/CMM [1.0-5.5 K/CMM] (09/01/15 8:26 AM) Monocytes # [0.0-0.8 0.4 K/CMM K/CMM] (09/01/15 8:26 AM) D-Dimer 1.13 ug/mL FEU *NA* (09/01/15 9:44 AM) Immunizations No data available for this section [...]
--- OUTSIDE RECORDS SUMMARY | 2018-12-08 22:27 | XMS REPORT | Summary of Care ---
Author Author [facility] Organization [facility] Address Unknown Phone Unavailable Encounter KIMBERLY Salazar(DMITRI) [id number] Date(s): 04/02/15 - 04/03/15 [facility] [address] [place] [address]- Discharge Diagnosis: Musculoskeletal chest pain Discharge Diagnosis: Cervical strain Discharge Disposition: Home Attending Physician: Rey Dowd MD Vital Signs 1 2 3 Most recent to oldest [Reference Range]: 165.1 cm (04/02/15 5:10 PM) Height 1 2 3 Most recent to oldest [Reference Range]: 98.1 DegF (04/03/15 5:15 AM) 98.4 DegF (04/03/15 3:15 AM) 98.9 DegF (04/02/15 5:10 PM) Temperature Oral [96.4-99.1 DegF] 1 2 3 Most recent to oldest [Reference Range]: 114/89 mmHg (04/03/15 5:15 AM) 100/53 mmHg (04/03/15 3:15 AM) 152/95 mmHg *HI* (04/02/15 5:10 PM) Blood Pressure [90-140/60-90 mmHg] 1 2 3 Most recent to oldest [Reference Range]: 18 BRMIN (04/03/15 5:15 AM) 18 BRMIN (04/03/15 3:15 AM) 18 BRMIN (04/02/15 5:10 PM) Respiratory Rate [14-20 BRMIN] 1 2 3 Most recent to oldest [Reference Range]: 91 bpm (04/03/15 5:15 AM) 86 bpm (04/03/15 3:15 AM) 96 bpm (04/02/15 5:10 PM) Peripheral Pulse Rate [60-100 bpm] 1 2 3 Most recent to oldest [Reference Range]: 129.545 kg (04/02/15 5:10 PM) Weight 1 2 3 Most recent to oldest [Reference Range]: 47.53 m2 (04/02/15 5:10 PM) Body Mass Index Problem List Condition [...] Substance Reaction Severity Status penicillins Active Medications aspirin 325 mg, 1 tab, Route: PO, Drug form: TAB, ONCE, Dosing Weight 129.545, kg, Prior ity: STAT, Start date: 04/03/15 3:29:00, Stop date: 04/03/15 3:29:00 Notes: Take with food. Start Date: 04/03/15 Stop Date: 04/03/15 Status: Completed aspirin 325 mg tablet, enteric coated 325 mg=1 tab, PO, Daily, PRN Pain, # 24 tab, 0 Refill(s) Start Date: 04/03/15 Status: Ordered Benadryl 25 mg, 0.5 mL, Route: IVP, Drug form: INJ, ONCE, Dosing Weight 129.545, kg, Prio rity: STAT, Start date: 04/02/15 21:46:00, Stop date: 04/02/15 21:46:00 Notes: (Same as: Benadryl) Start Date: 04/02/15 Stop Date: 04/02/15 Status: Completed Flexeril 10 mg oral tablet 10 mg, PO, TID, PRN Muscle Spasm, X 10 day, # 30 tab, 0 Refill(s) Start Date: 04/03/15 Stop Date: 04/13/15 Status: Ordered morphine Sulfate 4 mg, 2 mL, Route: IVP, Drug form: INJ, ONCE, Dosing Weight 129.545, kg, Priorit y: STAT, Start date: 04/02/15 19:46:00, Stop date: 04/02/15 19:46:00 Notes: (Same as:MORPhine Sulfate) Start Date: 04/02/15 Stop Date: 04/02/15 Status: Completed NS (Bolus) IV 500 mL, 500 ml/hr, Infuse Over: 1 hr, Route: IV, 500, Drug form: INJ, ONCE, Prio rity: STAT, Dosing Weight 129.545 kg, Start date: 04/02/15 19:48:00, Duration: 1 doses or times, Stop date: 04/02/15 19:48:00 Start Date: 04/02/15 Stop Date: 04/02/15 Status: Completed orphenadrine 60 mg, 2 mL, Route: IVP, Drug form: INJ, ONCE, Dosing Weight 129.545, kg, Priori ty: STAT, Start date: 04/03/15 3:29:00, Stop date: 04/03/15 3:29:00 Start Date: 04/03/15 Stop Date: 04/03/15 Status: Completed tramadol 50 mg oral tablet 50 mg=1 tab, PO, BID, X 15 day, # 30 tab, 0 Refill(s) Start Date: 04/03/15 Stop Date: 04/18/15 Status: Ordered Tylenol 1,000 mg, Route: PO, ONCE, Dosing Weight 129.545, kg, Start date: 04/03/15 1:01: 00, Stop date: 04/03/15 1:01:00 Start Date: 04/03/15 Stop Date: 04/03/15 Status: Completed Results ELECTROLYTES Most recent to 1 oldest [Reference Range]: Sodium Lvl [135-145 139 mEq/L mEq/L] (04/02/15 9:18 PM) Potassium Lvl 4.1 mEq/L [3.5-5.1 mEq/L] (04/02/15 9:18 PM) Chloride Lvl [95-109 108 mEq/L mEq/L] (04/02/15 9:18 PM) CO2 [24-32 mEq/L] 25 mEq/L (04/02/15 9:18 PM) AGAP [10.0-20.0 10.1 mEq/L mEq/L] (04/02/15 9:18 PM) CHEM PANEL Most recent to 1 oldest [Reference Range]: Creatinine Lvl 0.8 mg/dL [0.5-1.4 mg/dL] (04/02/15 9:18 PM) eGFR 115 mL/min/1.73m2 1 *NA* (04/02/15:18 PM) BUN [7-22 mg/dL] 13 mg/dL (04/02/15 9:18 PM) B/C Ratio [6-25] 16 (04/02/15 9:18 PM) Glucose Lvl [70-99 92 mg/dL mg/dL] (04/02/15:18 PM) Total Protein 7.2 g/dL [6.4-8.4 g/dL] (04/02/15:18 PM) Albumin Lvl [3.5-5.0 3.4 g/dL g/dL] *LOW* (04/02/15:18 PM) Globulin [2.0-4.0 3.8 g/dL g/dL] (04/02/15:18 PM) A/G Ratio [0.7-1.6] 0.9 (04/02/15:18 PM) Calcium Lvl 8.6 mg/dL [8.5-10.5 mg/dL] (04/02/15 9:18 PM) ALT [0-65 unit/L] 24 unit/L (04/02/15 9:18 PM) AST [0-37 unit/L] 12 unit/L (04/02/15 9:18 PM) Alk Phos [39-136 73 unit/L unit/L] (04/02/15 9:18 PM) Bili Total [0.2-1.3 0.2 mg/dL mg/dL] (04/02/15 9:18 PM) 1Result Comment: The eGFR is calculated [...] 1 oldest [Reference Range]: Total CK [12-191 102 unit/L unit/L] (04/02/15 9:18 PM) CK MB [0.5-3.6 <0.5 ng/mL ng/mL] (04/02/15 9:18 PM) CK MB Index <0.5 [0.0-2.5] (04/02/15 9:18 PM) Troponin-I <0.02 ng/mL [0.00-0.40 ng/mL] (04/02/15 9:18 PM) BNP [<=100 pg/mL] 40 pg/mL (04/02/15 10:26 PM) URINE CHEM Most recent to 1 oldest [Reference Range]: U Preg [Negative] Negative (04/02/15 9:18 PM) URINE AND STOOL Most recent to 1 oldest [Reference Range]: UA Turbidity [Clear] Clear (04/02/15 9:18 PM) UA Color Ltyellow *NA* (04/02/15 9:18 PM) UA pH [5.0-8.0] 5.0 (04/02/15 9:18 PM) UA Spec Grav 1.011 [<=1.030] (04/02/15 9:18 PM) UA Glucose [Negative Negative mg/dL mg/dL] *NA* (04/02/15 9:18 PM) UA Blood [Negative] Small *ABN* (04/02/15 9:18 PM) UA Ketones [Negative Negative mg/dL mg/dL] *NA* (04/02/15 9:18 PM) UA Protein [Negative Negative mg/dL mg/dL] (04/02/15 9:18 PM) UA Urobilinogen <=1.0 mg/dL [0.1-1.0 mg/dL] *NA* (04/02/15 9:18 PM) UA Bili [Negative] Negative *NA* (04/02/15 9:18 PM) UA Leuk Est Negative [Negative] (04/02/15 9:18 PM) UA Nitrite Negative [Negative] (04/02/15 9:18 PM) UA WBC [0-5 /HPF] <1 /HPF (04/02/15 9:18 PM) UA RBC [0-2 /HPF] 3 /HPF *HI* (04/02/15 9:18 PM) UA Bacteria [None Occasional /HPF Seen /HPF] *NA* (04/02/15 9:18 PM) UA Sq Epi [Few /LPF] Occasional /LPF *NA* (04/02/15 9:18 PM) IMMUNOLOGY Most recent to 1 oldest [Reference Range]: Townsend-Hep C Ab Negative [Negative] *NA* (04/02/15 9:19 PM) HEMATOLOGY Most recent to 1 oldest [Reference Range]: WBC [3.7-10.4 K/CMM] 8.1 K/CMM (04/02/15 9:18 PM) RBC [4.20-5.40 4.67 M/CMM M/CMM] (04/02/15 9:18 PM) Hgb [12.0-16.0 g/dL] 12.6 g/dL (04/02/15 9:18 PM) Hct [36.0-48.0 %] 38.6 % (04/02/15 9:18 PM) MCV [80.0-98.0 fL] 82.8 fL (04/02/15 9:18 PM) MCH [27.0-31.0 pg] 27.0 pg (04/02/15 9:18 PM) MCHC [32.0-36.0 32.6 g/dL g/dL] (04/02/15 9:18 PM) RDW [11.5-14.5 %] 13.0 % (04/02/15 9:18 PM) Platelet [133-450 298 K/CMM K/CMM] (04/02/15 9:18 PM) MPV [7.4-10.4 fL] 8.4 fL (04/02/15 9:18 PM) Segs [45.0-75.0 %] 56.9 % (04/02/15 9:18 PM) Lymphocytes 35.2 % [20.0-40.0 %] (04/02/15 9:18 PM) Monocytes [2.0-12.0 4.5 % %] (04/02/15 9:18 PM) Eosinophils [0.0-4.0 2.5 % %] (04/02/15 9:18 PM) Basophils [0.0-1.0 0.9 % %] (04/02/15 9:18 PM) Segs-Bands # 4.6 K/CMM [1.5-8.1 K/CMM] (04/02/15 9:18 PM) Lymphocytes # 2.8 K/CMM [1.0-5.5 K/CMM] (04/02/15 9:18 PM) Monocytes # [0.0-0.8 0.4 K/CMM K/CMM] (04/02/15 9:18 PM) Eosinophils # 0.2 K/CMM [0.0-0.5 K/CMM] (04/02/15 9:18 PM) Basophils # [0.0-0.2 0.1 K/CMM K/CMM] (04/02/15 9:18 PM) PT [12.0-14.7] See Note 2 (04/02/15 9:18 PM) INR [0.85-1.17] See Note (04/02/15 9:18 PM) PTT [22.9-35.8] See Note 3 (04/02/15 9:18 PM) 2Result Comment: Sample was clotted. Disregard result, notified Apolonia Flowers at 04/02/2015 21:53. 3Result Comment: Clotted sample. Notified Apolonia Flowers at 04/02/2015 21:53. Immunizations No data available for this section [...]
--- OUTSIDE RECORDS SUMMARY | 2018-12-08 22:27 | XMS REPORT | CCD ---
Author Author Auto Generated Organization [facility] Address Unknown Phone Unavailable Care Team Providers Care Paper Machine Supervisor Name Role Phone Finesse Geiger CP Allergies, [...] IVPB, Drug 06/09/2013 06/13/2013 Discontinued form: INJ, [id number], Dosing Weight 127.273, kg, Start date: 06/09/13 [...] [96.4-99.1 DegF] 97.6 DegF (06/13/2013:35:00) 97.8 DegF (06/13/2013 09:31:00) 97.8 DegF (06/13/2013 08:00:00) Systolic Blood Pressure [90-140 mmHg] 118 mmHg (06/13/2013:35:00) 101 mmHg (06/13/2013 08:00:00) 128 mmHg (06/13/2013 04:00:00) Diastolic Blood Pressure [60-90 mmHg] 78 mmHg (06/13/2013 11:35:00) 65 mmHg (06/13/2013 08:00:00) 68 mmHg (06/13/2013 04:00:00) Respiratory Rate [14-20 BRMIN] 18 BRMIN (06/13/2013:35:00) 16 BRMIN (06/13/2013 09:31:00) 15 BRMIN (06/13/2013 09:30:00) Peripheral Pulse Rate [60-100 bpm] 76 bpm (06/13/2013 11:35:00) 80 bpm (06/13/2013 09:31:00) 80 bpm (06/13/2013 [...] values reflect the clinical guidelines of the [place] [employer]. 9Interpretive Data: Adult reference range values reflect the clinical guidelines of the [place] [employer]. 10Interpretive Data: Adult reference range values reflect the clinical guidelines of the [place] [employer]. HEMATOLOGY Most recent to oldest [...] Isolated PRELIMINARY REPORTS Preliminary Report Normal Enteric Dpiika Isolated Preliminary Report Normal Enteric Dipika Isolated PROCEDURE:Ova and Parasites Conc and Tri STATUS: Auth (Verified) BODY SITE: COLLECTED DATE/TIME: 06/08/2013 05:14:00 SOURCE: Stool FREE TEXT SOURCE: STAIN REPORTS Stain Report No Ova, Cysts Or Parasites Seen Stain Report No Ova, Cysts Or Parasites Seen Procedures Procedures Date Related Diagnosis Removal of ovarian cyst
--- OUTSIDE RECORDS SUMMARY | 2018-12-08 22:27 | XMS REPORT | Summary of Care ---
Author Organization Unknown Address Unknown Phone Unavailable Encounter KIMBERLY Salazar(DMITRI) [id number] Date(s): 06/05/14 - 06/06/14 [facility] [address] [place], [place] [id number] [place] [address] Discharge Diagnosis: Abdominal pain Discharge Disposition: Home Physician Attending: Gallito Muller MD Reason for Visit FEVER, ABD PAIN Vital Signs Most recent to 1 2 oldest [Reference Range]: Temperature Oral 98.2 DegF 98.3 DegF [96.4-99.1 DegF] (06/06/14 1:55 AM) (06/05/14 10:17 PM) Systolic Blood 123 mmHg 111 mmHg Pressure [90-140 (06/06/14 1:55 AM) (06/05/14 10:17 PM) mmHg] Diastolic Blood 84 mmHg 80 mmHg Pressure [60-90 (06/06/14 1:55 AM) (06/05/14 10:17 PM) mmHg] Respiratory Rate 18 BRMIN 20 BRMIN [14-20 BRMIN] (06/06/14 1:55 AM) (06/05/14 10:17 PM) Peripheral Pulse 94 bpm 103 bpm Rate [60-100 bpm] (06/06/14 1:55 AM) *HI* (06/05/14 10:17 PM) Weight 126.364 kg (06/05/14 10:17 PM) Problem List Condition Effective Dates Status [...] Substance Reaction Severity Status penicillins Active Medications Benadryl 50 mg, Route: IVP, ONCE, Dosing Weight 126.364, kg, Priority: STAT, Start date: 06/06/14 3:22:00, Stop date: 06/06/14 3:22:00 Start Date: 06/06/14 Stop Date: 06/06/14 Status: Completed dicyclomine 20 mg, Route: IM, ONCE, Dosing Weight 126.364, kg, Priority: STAT, Start date: 3:50:00, Stop date: 06/06/14 3:50:00 Start Date: 06/06/14 Stop Date: 06/06/14 Status: Completed hydromorphone 1 mg, Route: IVP, ONCE, Dosing Weight 126.364, kg, PRN as needed for pain, Prior ity: STAT, Start date: 06/06/14 2:44:00 Start Date: 06/06/14 Stop Date: 06/06/14 Status: Completed ketorolac 30 mg, Route: IVP, Drug form: INJ, ONCE, Dosing Weight 126.364, kg, Priority: ST AT, Start date: 06/06/14 3:50:00, Stop date: 06/06/14 3:50:00 Start Date: 06/06/14 Stop Date: 06/06/14 Status: Completed Librax oral capsule 2 cap, Route: PO, Drug Form: CAP, Dosing Weight 126.364, kg, ONCE, Start date: 4:47:00, Stop date: 06/06/14 4:47:00 Notes: (Same As: Librax) Start Date: 06/06/14 Stop Date: 06/06/14 Status: Completed Librax oral capsule 1 cap, PO, QID, for abdominal pain, # 40 cap, 0 Refill(s) Start Date: 06/06/14 Status: Ordered ondansetron 4 mg, Route: IVP, Drug form: INJ, ONCE, Dosing Weight 126.364, kg, Priority: STA T, Start date: 06/06/14 2:44:00, Stop date: 06/06/14 2:44:00 Start Date: 06/06/14 Stop Date: 06/06/14 Status: Completed Pepcid 20 mg, Route: IV, ONCE, Dosing Weight 126.364, kg, Start date: 06/06/14 3:50:00, Stop date: 06/06/14 3:50:00 Start Date: 06/06/14 Stop Date: 06/06/14 Status: Completed Results CHEM PANEL Most recent to 1 oldest [Reference Range]: Amylase Lvl [25-115 28 unit/L unit/L] (06/06/14 2:01 AM) Lipase Lvl [73-393 26 unit/L unit/L] *LOW* (06/06/14 2:01 AM) URINE CHEM Most recent to 1 oldest [Reference Range]: U Preg [Negative] Negative (06/05/14 11:34 PM) URINE AND STOOL Most recent to 1 oldest [Reference Range]: UA Turbidity [Clear] Clear (06/05/14 11:34 PM) UA Color Ltyellow *NA* (06/05/14 11:34 PM) UA pH [5.0-8.0] 5.0 (06/05/14 11:34 PM) UA Spec Grav 1.012 [<=1.030] (06/05/14 11:34 PM) UA Glucose [Negative Negative mg/dL mg/dL] *NA* (06/05/14 11:34 PM) UA Blood [Negative] Small *ABN* (06/05/14 11:34 PM) UA Ketones [Negative Negative mg/dL mg/dL] *NA* (06/05/14 11:34 PM) UA Protein [Negative Negative mg/dL mg/dL] (06/05/14 11:34 PM) UA Urobilinogen <=1.0 mg/dL [0.1-1.0 mg/dL] *NA* (06/05/14 11:34 PM) UA Bili [Negative] Negative *NA* (06/05/14 11:34 PM) UA Leuk Est Negative [Negative] (06/05/14 11:34 PM) UA Nitrite Negative [Negative] (06/05/14 11:34 PM) UA WBC [0-5 /HPF] <1 /HPF (06/05/14 11:34 PM) UA RBC [0-2 /HPF] <1 /HPF (06/05/14 11:34 PM) UA Sq Epi [Few /LPF] Occasional /LPF *NA* (06/05/14 11:34 PM) HEMATOLOGY Most recent to 1 oldest [Reference Range]: WBC [3.7-10.4 K/CMM] 10.4 K/CMM (06/06/14 12:42 AM) RBC [4.20-5.40 4.88 M/CMM M/CMM] (06/06/14 12:42 AM) Hgb [12.0-16.0 g/dL] 13.4 g/dL (06/06/14 12:42 AM) Hct [36.0-48.0 %] 40.6 % (06/06/14 12:42 AM) MCV [80.0-98.0 fL] 83.2 fL (06/06/14 12:42 AM) MCH [27.0-31.0 pg] 27.4 pg (06/06/14 12:42 AM) MCHC [32.0-36.0 33.0 g/dL g/dL] (06/06/14 12:42 AM) RDW [11.5-14.5 %] 13.3 % (06/06/14 12:42 AM) Platelet [133-450 294 K/CMM K/CMM] (06/06/14 12:42 AM) MPV [7.4-10.4 fL] 9.2 fL (06/06/14 12:42 AM) Segs [45.0-75.0 %] 56.8 % (06/06/14 12:42 AM) Lymphocytes 33.3 % [20.0-40.0 %] (06/06/14 12:42 AM) Monocytes [2.0-12.0 5.2 % %] (06/06/14 12:42 AM) Eosinophils [0.0-4.0 3.8 % %] (06/06/14 12:42 AM) Basophils [0.0-1.0 0.9 % %] (06/06/14 12:42 AM) Segs-Bands # 5.9 K/CMM [1.5-8.1 K/CMM] (06/06/14 12:42 AM) Lymphocytes # 3.5 K/CMM [1.0-5.5 K/CMM] (06/06/14 12:42 AM) Monocytes # [0.0-0.8 0.5 K/CMM K/CMM] (06/06/14 12:42 AM) Eosinophils # 0.4 K/CMM [0.0-0.5 K/CMM] (06/06/14 12:42 AM) Basophils # [0.0-0.2 0.1 K/CMM K/CMM] (06/06/14 12:42 AM) Medications Administered During Your Visit No data available for this section Immunizations No data available for this section Social History Social History Type Response Smoking Status Current every day smoker, Type: Cigarettes, Exposure to Tobacco Smoke None, Cigarette Smoking Last 365 Days Yes, Reg Smoking Cessation Counseling No
--- OUTSIDE RECORDS SUMMARY | 2018-12-08 22:27 | XMS REPORT | CCD ---
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 9Interpretive Data: Adult reference range values reflect the clinical guidelines of the [place] [employer]. 10Interpretive Data: Adult reference range values reflect the clinical guidelines of the [place] [employer]. HEMATOLOGY Most recent to oldest [...]
--- OUTSIDE RECORDS SUMMARY | 2018-12-08 22:27 | XMS REPORT | Summary of Care ---
Author Author [facility] Organization [facility] Address Unknown Phone Unavailable Encounter KIMBERLY Salazar(DMITRI) [id number] Date(s): 05/23/15 - 05/23/15 [facility] [address] [place] [address]- Discharge Disposition: Against Medical Advise Attending Physician: Elisha Araya DO Vital Signs Most recent to 1 2 oldest [Reference Range]: Height 165.1 cm (05/23/15 2:21 PM) Most recent to 1 2 oldest [Reference Range]: Temperature Oral 98.4 DegF 98.2 DegF [96.4-99.1 DegF] (05/23/15 6:24 PM) (05/23/15 2:21 PM) Most recent to 1 2 oldest [Reference Range]: Blood Pressure 108/76 mmHg 107/83 mmHg [90-140/60-90 mmHg] (05/23/15 6:24 PM) (05/23/15 2:21 PM) Most recent to 1 2 oldest [Reference Range]: Respiratory Rate 18 BRMIN 18 BRMIN [14-20 BRMIN] (05/23/15 6:24 PM) (05/23/15 2:21 PM) Most recent to 1 2 oldest [Reference Range]: Peripheral Pulse 87 bpm 95 bpm Rate [60-100 bpm] (05/23/15 6:24 PM) (05/23/15 2:21 PM) Most recent to 1 2 oldest [Reference Range]: Weight 125 kg (05/23/15 2:21 PM) Most recent to 1 2 oldest [Reference Range]: Body Mass Index 45.86 m2 (05/23/15 2:21 PM) Problem List Condition Effective Dates Status [...] Reaction Severity Status penicillins Active Medications Benadryl 25 mg, Route: IVP, ONCE, Dosing Weight 125, kg, Priority: STAT, Start date: 05/07 03/20 17:21:00, Stop date: 05/23/15 17:21:00 Start Date: 05/23/15 Stop Date: 05/23/15 Status: Completed meclizine 25 mg, Route: PO, Drug form: TAB, ONCE, Dosing Weight 125, kg, Priority: STAT, S tart date: 05/23/15 17:21:00, Stop date: 05/23/15 17:21:00 Start Date: 05/23/15 Stop Date: 05/23/15 Status: Completed Reglan 10 mg, Route: IVP, Drug form: INJ, ONCE, Dosing Weight 125, kg, Priority: STAT, Start date: 05/23/15 17:21:00, Stop date: 05/23/15 17:21:00 Start Date: 05/23/15 Stop Date: 05/23/15 Status: Completed Sodium Chloride 0.9% (Bolus) IV 1,000 mL, 1,000 ml/hr, Infuse Over: 1 Hour, Route: IV, ONCE, Priority: STAT, Dos ing Weight 125 kg, Start date: 05/23/15 17:20:00, Duration: 1 doses or times, St op date: 05/23/15 17:20:00 Start Date: 05/23/15 Stop Date: 05/23/15 Status: Completed Results ELECTROLYTES Most recent to 1 oldest [Reference Range]: Sodium Lvl [135-145 137 mEq/L mEq/L] (05/23/15 4:20 PM) Potassium Lvl 3.9 mEq/L [3.5-5.1 mEq/L] (05/23/15 4:20 PM) Chloride Lvl [95-109 105 mEq/L mEq/L] (05/23/15 4:20 PM) CO2 [24-32 mEq/L] 30 mEq/L (05/23/15 4:20 PM) AGAP [10.0-20.0 5.9 mEq/L mEq/L] *LOW* (05/23/15 4:20 PM) CHEM PANEL Most recent to 1 oldest [Reference Range]: Creatinine Lvl 0.8 mg/dL [0.5-1.4 mg/dL] (05/23/15 4:20 PM) eGFR 115 mL/min/1.73m2 1 *NA* (05/23/15 4:20 PM) BUN [7-22 mg/dL] 12 mg/dL (05/23/15 4:20 PM) B/C Ratio [6-25] 15 (05/23/15 4:20 PM) Glucose Lvl [70-99 86 mg/dL mg/dL] (05/23/15 4:20 PM) Total Protein 7.5 g/dL [6.4-8.4 g/dL] (05/23/15 4:20 PM) Albumin Lvl [3.5-5.0 3.5 g/dL g/dL] (05/23/15 4:20 PM) Globulin [2.0-4.0 4.0 g/dL g/dL] (05/23/15 4:20 PM) A/G Ratio [0.7-1.6] 0.9 (05/23/15 4:20 PM) Calcium Lvl 8.6 mg/dL [8.5-10.5 mg/dL] (05/23/15 4:20 PM) ALT [0-65 unit/L] 25 unit/L (05/23/15 4:20 PM) AST [0-37 unit/L] 12 unit/L (05/23/15 4:20 PM) Alk Phos [39-136 70 unit/L unit/L] (05/23/15 4:20 PM) Bili Total [0.2-1.3 0.3 mg/dL mg/dL] (05/23/15 4:20 PM) 1Result Comment: The eGFR is calculated [...] oldest [Reference Range]: U Preg [Negative] Negative (05/23/15 3:20 PM) URINE AND STOOL Most recent to 1 oldest [Reference Range]: UA Turbidity [Clear] Clear (05/23/15 3:20 PM) UA Color Ltyellow *NA* (05/23/15 3:20 PM) UA pH [5.0-8.0] 5.0 (05/23/15 3:20 PM) UA Spec Grav 1.012 [<=1.030] (05/23/15 3:20 PM) UA Glucose [Negative Negative mg/dL mg/dL] *NA* (05/23/15 3:20 PM) UA Blood [Negative] Negative (05/23/15 3:20 PM) UA Ketones [Negative Negative mg/dL mg/dL] *NA* (05/23/15 3:20 PM) UA Protein [Negative Negative mg/dL mg/dL] (05/23/15 3:20 PM) UA Urobilinogen <=1.0 mg/dL [0.1-1.0 mg/dL] *NA* (05/23/15 3:20 PM) UA Bili [Negative] Negative *NA* (05/23/15 3:20 PM) UA Leuk Est Negative [Negative] (05/23/15 3:20 PM) UA Nitrite Negative [Negative] (05/23/15 3:20 PM) UA WBC [0-5 /HPF] 1 /HPF (05/23/15 3:20 PM) UA RBC [0-2 /HPF] 4 /HPF *HI* (05/23/15 3:20 PM) UA Bacteria [None Occasional /HPF Seen /HPF] *NA* (05/23/15 3:20 PM) UA Sq Epi None Seen *NA* (05/23/15 3:20 PM) HEMATOLOGY Most recent to 1 oldest [Reference Range]: WBC [3.7-10.4 K/CMM] 8.6 K/CMM (05/23/15 4:20 PM) RBC [4.20-5.40 4.68 M/CMM M/CMM] (05/23/15 4:20 PM) Hgb [12.0-16.0 g/dL] 12.3 g/dL (05/23/15 4:20 PM) Hct [36.0-48.0 %] 38.6 % (05/23/15 4:20 PM) MCV [80.0-98.0 fL] 82.6 fL (05/23/15 4:20 PM) MCH [27.0-31.0 pg] 26.4 pg *LOW* (05/23/15 4:20 PM) MCHC [32.0-36.0 32.0 g/dL g/dL] (05/23/15 4:20 PM) RDW [11.5-14.5 %] 13.3 % (05/23/15 4:20 PM) Platelet [133-450 283 K/CMM K/CMM] (05/23/15 4:20 PM) MPV [7.4-10.4 fL] 8.7 fL (05/23/15 4:20 PM) Segs [45.0-75.0 %] 61.4 % (05/23/15 4:20 PM) Lymphocytes 30.5 % [20.0-40.0 %] (05/23/15 4:20 PM) Monocytes [2.0-12.0 4.6 % %] (05/23/15 4:20 PM) Eosinophils [0.0-4.0 2.2 % %] (05/23/15 4:20 PM) Basophils [0.0-1.0 1.3 % %] *HI* (05/23/15 4:20 PM) Segs-Bands # 5.3 K/CMM [1.5-8.1 K/CMM] (05/23/15 4:20 PM) Lymphocytes # 2.6 K/CMM [1.0-5.5 K/CMM] (05/23/15 4:20 PM) Monocytes # [0.0-0.8 0.4 K/CMM K/CMM] (05/23/15 4:20 PM) Eosinophils # 0.2 K/CMM [0.0-0.5 K/CMM] (05/23/15 4:20 PM) Basophils # [0.0-0.2 0.1 K/CMM K/CMM] (05/23/15 4:20 PM) Immunizations No data available for this [...]
--- OUTSIDE RECORDS SUMMARY | 2018-12-08 22:27 | XMS REPORT | Summary of Care ---
Author Organization Unknown Address Unknown Phone Unavailable Encounter KIMBERLY Salazar(DMITRI) [id number] Date(s): 02/15/15 - 02/15/15 [facility] [address] [place] [address]- Discharge Diagnosis: Abdominal pain in female patient Discharge Disposition: Home Physician Attending: Alban Gross MD Vital Signs Most recent to 1 2 oldest [Reference Range]: Height 165.1 cm (02/15/15 3:19 PM) Temperature Oral 98.2 DegF 98.0 DegF [96.4-99.1 DegF] (02/15/15 7:00 PM) (02/15/15 3:19 PM) Blood Pressure 112/67 mmHg 103/57 mmHg [90-140/60-90 mmHg] (02/15/15 7:00 PM) (02/15/15 3:19 PM) Respiratory Rate 20 BRMIN 18 BRMIN [14-20 BRMIN] (02/15/15 7:00 PM) (02/15/15 3:19 PM) Peripheral Pulse 78 bpm 91 bpm Rate [60-100 bpm] (02/15/15 7:00 PM) (02/15/15 3:19 PM) Weight 133.636 kg (02/15/15 3:19 PM) Body Mass Index 49.03 m2 (02/15/15 3:19 PM) Problem List Condition Effective Dates Status [...] Alerts Substance Reaction Severity Status morphine Active penicillins Active Medications Benadryl 12.5 mg, 0.25 mL, Route: IVP, Drug form: INJ, ONCE, Dosing Weight 133.636, kg, P riority: STAT, Start date: 02/15/15 17:26:00, Stop date: 02/15/15 17:26:00 Notes: (Same as: Benadryl) Start Date: 02/15/15 Stop Date: 02/15/15 Status: Completed Benadryl 12.5 mg, Route: IVP, ONCE, Dosing Weight 133.636, kg, Priority: STAT, Start date : 02/15/15 16:36:00, Stop date: 02/15/15 16:36:00 Start Date: 02/15/15 Stop Date: 02/15/15 Status: Completed Carafate 1 g oral tablet 1 gm=1 tab, PO, QID-Before Meals, # 120 tab, 0 Refill(s) Start Date: 02/15/15 Status: Ordered famotidine 20 mg, Route: IVP, ONCE, Dosing Weight 133.636, kg, Priority: STAT, Start date: 02/15/15 18:38:00, Stop date: 02/15/15 18:38:00 Start Date: 02/15/15 Stop Date: 02/15/15 Status: Completed GI cocktail 30 mL, Route: PO, Drug Form: SUSP, Dosing Weight 133.636, kg, ONCE, STAT, Start date: 02/15/15 17:49:00, Stop date: 02/15/15 17:49:00 Notes: G.I. Cocktail=antacid with simethicone 22.5 mL - lidocaine viscous 7.5 mL Start Date: 02/15/15 Stop Date: 02/15/15 Status: Completed ketOROLAC 30 mg, Route: IVP, Drug form: INJ, ONCE, Dosing Weight 133.636, kg, Priority: ST AT, Start date: 02/15/15 18:36:00, Stop date: 02/15/15 18:36:00 Start Date: 02/15/15 Stop Date: 02/15/15 Status: Completed morphine Sulfate 4 mg, Route: IVP, ONCE, Dosing Weight 133.636, kg, Priority: STAT, Start date: 0 02/15/15 16:10:00, Stop date: 02/15/15 16:10:00 Start Date: 02/15/15 Stop Date: 02/15/15 Status: Completed [place] 5/325 oral tablet 1 tab, PO, Q4-6H, PRN Pain, X 5 day, # 30 tab, 0 Refill(s) Start Date: 02/15/15 Stop Date: 02/20/15 Status: Ordered [place] 5/325 oral tablet 1 tab, Route: PO, Drug Form: TAB, Dosing Weight 133.636, kg, ONCE, STAT, Start d ate: 02/15/15 17:49:00, Stop date: 02/15/15 17:49:00 Notes: (Same as: [place] 325/5) Do not exceed 4gm/day of acetaminophen. Start Date: 02/15/15 Stop Date: 02/15/15 Status: Completed ondansetron 4 mg, Route: IVP, ONCE, Dosing Weight 133.636, kg, Priority: STAT, Start date: 0 02/15/15 16:10:00, Stop date: 02/15/15 16:10:00 Start Date: 02/15/15 Stop Date: 02/15/15 Status: Completed Protonix 40 mg oral enteric coated tablet 40 mg=1 tab, PO, Daily, # 30 tab, 0 Refill(s) Start Date: 02/15/15 Status: Ordered Saline Flush 0.9% 10 mL, Route: IVP, Drug Form: INJ, Dosing Weight 133.636, kg, PRN, PRN Line Flus h, Start date: 02/15/15 16:10:00, Duration: 30 day, Stop date: 03/17/15 16:09:00 Notes: (Same as: BD Posiflush) Start Date: 02/15/15 Stop Date: 02/15/15 Status: Discontinued Sodium Chloride 0.9% (Bolus) IV 1,000 mL, Infuse Over: 1 hr, Route: IV, ONCE, Priority: STAT, Dosing Weight 133. 636 kg, Start date: 02/15/15 16:10:00, Duration: 1 doses or times, Stop date: 16:10:00 Start Date: 02/15/15 Stop Date: 02/15/15 Status: Completed Zofran 4 mg, Route: IVP, Drug form: INJ, ONCE, Dosing Weight 133.636, kg, Priority: STA T, Start date: 02/15/15 18:36:00, Stop date: 02/15/15 18:36:00 Start Date: 02/15/15 Stop Date: 02/15/15 Status: Completed Results ELECTROLYTES Most recent to 1 oldest [Reference Range]: Sodium Lvl [135-145 140 mEq/L mEq/L] (02/15/15 4:18 PM) Potassium Lvl 3.6 mEq/L [3.5-5.1 mEq/L] (02/15/15 4:18 PM) Chloride Lvl [95-109 106 mEq/L mEq/L] (02/15/15 4:18 PM) CO2 [24-32 mEq/L] 30 mEq/L (02/15/15 4:18 PM) AGAP [10.0-20.0 7.6 mEq/L mEq/L] *LOW* (02/15/15 4:18 PM) CHEM PANEL Most recent to 1 oldest [Reference Range]: Creatinine Lvl 0.7 mg/dL [0.5-1.4 mg/dL] (02/15/15 4:18 PM) eGFR 135 mL/min/1.73m2 1 *NA* (02/15/15 4:18 PM) BUN [7-22 mg/dL] 14 mg/dL (02/15/15 4:18 PM) B/C Ratio [6-25] 20 (02/15/15 4:18 PM) Glucose Lvl [70-99 93 mg/dL 2 mg/dL] (02/15/15 4:18 PM) Total Protein 7.5 g/dL [6.4-8.4 g/dL] (02/15/15 4:18 PM) Albumin Lvl [3.5-5.0 3.4 g/dL g/dL] *LOW* (02/15/15 4:18 PM) Globulin [2.0-4.0 4.1 g/dL g/dL] *HI* (02/15/15 4:18 PM) A/G Ratio [0.7-1.6] 0.8 (02/15/15 4:18 PM) Calcium Lvl 8.7 mg/dL [8.5-10.5 mg/dL] (02/15/15 4:18 PM) ALT [0-65 unit/L] 29 unit/L (02/15/15 4:18 PM) AST [0-37 unit/L] 17 unit/L (02/15/15 4:18 PM) Alk Phos [39-136 77 unit/L unit/L] (02/15/15 4:18 PM) Bili Total [0.2-1.3 0.2 mg/dL mg/dL] (02/15/15 4:18 PM) Amylase Lvl [25-115 35 unit/L unit/L] (02/15/15 4:18 PM) Lipase Lvl [73-393 139 unit/L unit/L] (02/15/15 4:18 PM) 1Result Comment: The eGFR is calculated [...] values reflect the clinical guidelines of the [place] [employer]. URINE CHEM Most recent to 1 oldest [Reference Range]: U Preg [Negative] Negative (02/15/15 4:25 PM) URINE AND STOOL Most recent to 1 oldest [Reference Range]: UA Turbidity [Clear] Clear (02/15/15 4:25 PM) UA Color Ltyellow *NA* (02/15/15 4:25 PM) UA pH [5.0-8.0] 5.0 (02/15/15 4:25 PM) UA Spec Grav 1.013 [<=1.030] (02/15/15 4:25 PM) UA Glucose [Negative Negative mg/dL mg/dL] *NA* (02/15/15 4:25 PM) UA Blood [Negative] Small *ABN* (02/15/15 4:25 PM) UA Ketones [Negative Negative mg/dL mg/dL] *NA* (02/15/15 4:25 PM) UA Protein [Negative Negative mg/dL mg/dL] (02/15/15 4:25 PM) UA Urobilinogen 2.0 mg/dL [0.1-1.0 mg/dL] *HI* (02/15/15 4:25 PM) UA Bili [Negative] Negative *NA* (02/15/15 4:25 PM) UA Leuk Est Negative [Negative] (02/15/15 4:25 PM) UA Nitrite Negative [Negative] (02/15/15 4:25 PM) UA WBC [0-5 /HPF] 1 /HPF (02/15/15 4:25 PM) UA RBC [0-2 /HPF] 2 /HPF (02/15/15 4:25 PM) UA Sq Epi [Few /LPF] Occasional /LPF *NA* (02/15/15 4:25 PM) HEMATOLOGY Most recent to 1 oldest [Reference Range]: WBC [3.7-10.4 K/CMM] 7.9 K/CMM (02/15/15 4:18 PM) RBC [4.20-5.40 4.63 M/CMM M/CMM] (02/15/15 4:18 PM) Hgb [12.0-16.0 g/dL] 12.7 g/dL (02/15/15 4:18 PM) Hct [36.0-48.0 %] 38.1 % (02/15/15 4:18 PM) MCV [80.0-98.0 fL] 82.4 fL (02/15/15 4:18 PM) MCH [27.0-31.0 pg] 27.5 pg (02/15/15 4:18 PM) MCHC [32.0-36.0 33.4 g/dL g/dL] (02/15/15 4:18 PM) RDW [11.5-14.5 %] 13.0 % (02/15/15 4:18 PM) Platelet [133-450 274 K/CMM K/CMM] (02/15/15 4:18 PM) MPV [7.4-10.4 fL] 9.0 fL (02/15/15 4:18 PM) Segs [45.0-75.0 %] 64.0 % (02/15/15 4:18 PM) Lymphocytes 27.2 % [20.0-40.0 %] (02/15/15 4:18 PM) Monocytes [2.0-12.0 5.7 % %] (02/15/15 4:18 PM) Eosinophils [0.0-4.0 2.2 % %] (02/15/15 4:18 PM) Basophils [0.0-1.0 0.9 % %] (02/15/15 4:18 PM) Segs-Bands # 5.1 K/CMM [1.5-8.1 K/CMM] (02/15/15 4:18 PM) Lymphocytes # 2.1 K/CMM [1.0-5.5 K/CMM] (02/15/15 4:18 PM) Monocytes # [0.0-0.8 0.4 K/CMM K/CMM] (02/15/15 4:18 PM) Eosinophils # 0.2 K/CMM [0.0-0.5 K/CMM] (02/15/15 4:18 PM) Basophils # [0.0-0.2 0.1 K/CMM K/CMM] (02/15/15 4:18 PM) PT [12.0-14.7 12.6 seconds seconds] (02/15/15 4:18 PM) INR [0.85-1.17] 0.94 3 (02/15/15 4:18 PM) PTT [22.9-35.8 28.6 seconds 4 seconds] (02/15/15 4:18 PM) 3Interpretive Data: RECOMMENDED RANGES FOR PROTIME INR: 2.0-3.0 for most medical and surgical thromboembolic states. 2.5-3.5 for artificial heart valves and recurrent embolism. INR SHOULD BE USED ONLY FOR PATIENTS ON STABLE ANTICOAGULANT THERAPY. 4Interpretive Data: Heparin Therapeutic Range: 57 - 92 Seconds Immunizations No data available for this section [...]
--- OUTSIDE RECORDS SUMMARY | 2018-12-08 22:27 | XMS REPORT | Summary of Care ---
Author Author [facility] Organization [facility] Address Unknown Phone Unavailable Encounter KIMBERLY Salazar(DMITRI) [id number] Date(s): 06/09/15 - 06/09/15 [facility] [address] [place] [address]- [phone] Discharge Disposition: Non-Emergent Attending Physician: Alban Gross MD Vital Signs Most recent to 1 oldest [Reference Range]: Height 165.1 cm (06/09/15 12:17 PM) Most recent to 1 oldest [Reference Range]: Temperature Oral 98.5 DegF [96.4-99.1 DegF] (06/09/15 12:17 PM) Most recent to 1 oldest [Reference Range]: Blood Pressure 136/78 mmHg [90-140/60-90 mmHg] (06/09/15 12:17 PM) Most recent to 1 oldest [Reference Range]: Respiratory Rate 20 BRMIN [14-20 BRMIN] (06/09/15 12:17 PM) Most recent to 1 oldest [Reference Range]: Peripheral Pulse 107 bpm Rate [60-100 bpm] *HI* (06/09/15 12:17 PM) Most recent to 1 oldest [Reference Range]: Weight 129.545 kg (06/09/15 12:17 PM) Most recent to 1 oldest [Reference Range]: Body Mass Index 47.53 m2 (06/09/15 12:17 PM) Problem List Condition Effective Dates Status [...] Substance Reaction Severity Status penicillins Active Medications No data available for this section Results No data available for this section [...]
--- OUTSIDE RECORDS SUMMARY | 2018-12-08 22:28 | XMS REPORT | Summary of Care ---
Author Author [facility] Organization [facility] Address Unknown Phone Unavailable Encounter KIMBERLY Salazar(DMITRI) [id number] Date(s): 03/20/16 - 03/20/16 [facility] [address] [place] [address]- Discharge Disposition: Home Attending Physician: Khanh Pan MD Vital Signs 1 2 3 Most recent to oldest [Reference Range]: 98.3 DegF (03/20/16 10:48 AM) Temperature Oral [96.4-99.1 DegF] 114/55 mmHg (03/20/16 3:44 PM) 126/78 mmHg (03/20/16 3:18 PM) 128/83 mmHg (03/20/16 10:48 AM) Blood Pressure [90-140/60-90 mmHg] 20 BRMIN (03/20/16 3:44 PM) 18 BRMIN (03/20/16 3:18 PM) 28 BRMIN *HI* (03/20/16 12:00 PM) Respiratory Rate [14-20 BRMIN] 86 bpm (03/20/16 10:48 AM) Peripheral Pulse Rate [60-100 bpm] 136.364 kg (03/20/16 10:48 AM) Weight Problem List Condition Effective Dates Status [...] Reaction Severity Status penicillins Active Medications aspirin 324 mg, Route: PO, ONCE, Dosing Weight 131.364, kg, Priority: STAT, Start date: 03/20/16 10:47:00 CDT, Stop date: 03/20/16 10:47:00 CDT Start Date: 03/20/16 Stop Date: 03/20/16 Status: Discontinued Benadryl 25 mg, Route: IVP, ONCE, Dosing Weight 136.364, kg, Priority: STAT, Start date: 03/20/16 11:56:00 CDT, Stop date: 03/20/16 11:56:00 CDT Start Date: 03/20/16 Stop Date: 03/20/16 Status: Completed morphine Sulfate 4 mg, Route: IVP, Drug form: INJ, ONCE, Dosing Weight 136.364, kg, Priority: STA T, Start date: 03/20/16 11:41:00 CDT, Stop date: 03/20/16 11:41:00 CDT Start Date: 03/20/16 Stop Date: 03/20/16 Status: Completed Saline Flush 0.9% 10 mL, Route: IVP, Drug Form: INJ, Dosing Weight 131.364, kg, PRN, PRN Line Flus h, Start date: 03/20/16 10:47:00 CDT, Duration: 30 day, Stop date: 04/19/16 10:4 6:00 CDT Notes: (Same as: BD Posiflush) Start Date: 03/20/16 Stop Date: 03/20/16 Status: Discontinued Ultram 50 mg oral tablet 50 mg=1 tab, PO, Q6H, PRN pain, NO driving while under the influence of this med ication, X 3 day, # 12 tab, 0 Refill(s) Start Date: 03/20/16 Stop Date: 03/23/16 Status: Ordered Zofran 4 mg, Route: IVP, Drug form: INJ, ONCE, Dosing Weight 136.364, kg, Priority: STA T, Start date: 03/20/16 11:40:00 CDT, Stop date: 03/20/16 11:40:00 CDT Start Date: 03/20/16 Stop Date: 03/20/16 Status: Completed Results ELECTROLYTES Most recent to 1 2 oldest [Reference Range]: Sodium Lvl [135-145 140 mEq/L mEq/L] (03/20/1609 AM) Potassium Lvl 4.2 mEq/L [3.5-5.1 mEq/L] (03/20/1609 AM) Chloride Lvl [95-109 108 mEq/L mEq/L] (03/20/1609 AM) CO2 [24-32 mEq/L] 26 mEq/L (03/20/1609 AM) AGAP [10.0-20.0 10.2 mEq/L mEq/L] (03/20/1609 AM) CHEM PANEL Most recent to 1 2 oldest [Reference Range]: Creatinine Lvl 0.71 mg/dL [0.50-1.40 mg/dL] (03/20/16:09 AM) eGFR 133 mL/min/1.73m2 1 *NA* (03/20/16 AM) BUN [7-22 mg/dL] 13 mg/dL (03/20/16:09 AM) B/C Ratio [6-25] 18 (03/20/1609 AM) Glucose Lvl [70-99 99 mg/dL mg/dL] (03/20/16:09 AM) Total Protein 7.2 g/dL [6.4-8.4 g/dL] (03/20/1609 AM) Albumin Lvl [3.5-5.0 3.3 g/dL g/dL] *LOW* (03/20/16: AM) Globulin [2.0-4.0 3.9 g/dL g/dL] (03/20/16 AM) A/G Ratio [0.7-1.6] 0.8 (03/20/16:09 AM) Calcium Lvl 8.7 mg/dL [8.5-10.5 mg/dL] (03/20/16:09 AM) ALT [0-65 unit/L] 29 unit/L (03/20/16 11:09 AM) AST [0-37 unit/L] 14 unit/L (03/20/16 11:09 AM) Alk Phos [39-136 73 unit/L unit/L] (03/20/16 11:09 AM) Bili Total [0.2-1.3 0.2 mg/dL mg/dL] (03/20/16 11:09 AM) 1Result Comment: The eGFR is calculated [...] estimated BMI. CARDIAC ENZYMES Most recent to [Reference Range]: Total CK [12-191 137 unit/L unit/L] (03/20/16 11:09 AM) CK MB [0.5-3.6 <0.5 ng/mL ng/mL] (03/20/16 11:09 AM) CK MB Index <0.4 [0.0-2.5] (03/20/16 11:09 AM) Troponin-I <0.02 ng/mL <0.02 ng/mL [0.00-0.40 ng/mL] (03/20/16 1:01 PM) (03/20/16 11:09 AM) BNP [<=100 pg/mL] 16 pg/mL (03/20/16 11:09 AM) ENDOCRINOLOGY Most recent to 1 2 oldest [Reference Range]: S Preg [Negative] Negative *NA* (03/20/16 11:09 AM) URINE AND STOOL Most recent to 2 oldest [Reference Range]: UA Turbidity [Clear] Clear (03/20/16 11:09 AM) UA Color Ltyellow *NA* (03/20/16 11:09 AM) UA pH [5.0-8.0] 6.0 (03/20/16 11:09 AM) UA Spec Grav 1.013 [<=1.030] (03/20/16 11:09 AM) UA Glucose [Negative Negative mg/dL mg/dL] *NA* (03/20/16 11:09 AM) UA Blood [Negative] Negative (03/20/16 11:09 AM) UA Ketones [Negative Negative mg/dL mg/dL] *NA* (03/20/16 11:09 AM) UA Protein [Negative Negative mg/dL mg/dL] (03/20/16 11:09 AM) UA Urobilinogen <=1.0 mg/dL [0.1-1.0 mg/dL] *NA* (03/20/16 11:09 AM) UA Bili [Negative] Negative *NA* (03/20/16 11:09 AM) UA Leuk Est Negative [Negative] (03/20/16 11:09 AM) UA Nitrite Negative [Negative] (03/20/16 11:09 AM) UA WBC [0-5 /HPF] <1 /HPF (03/20/16 11:09 AM) UA RBC [0-2 /HPF] 1 /HPF (03/20/16 11:09 AM) UA Bacteria [None Occasional /HPF Seen /HPF] *NA* (03/20/16 11:09 AM) UA Sq Epi [Few /LPF] Occasional /LPF *NA* (03/20/16 11:09 AM) HEMATOLOGY Most recent to 1 2 oldest [Reference Range]: WBC [3.7-10.4 K/CMM] 6.8 K/CMM (03/20/16 11:09 AM) RBC [4.20-5.40 4.60 M/CMM M/CMM] (03/20/16 11:09 AM) Hgb [12.0-16.0 g/dL] 11.9 g/dL *LOW* (03/20/16 11:09 AM) Hct [36.0-48.0 %] 37.4 % (03/20/16 11:09 AM) MCV [80.0-98.0 fL] 81.1 fL (03/20/16 11:09 AM) MCH [27.0-31.0 pg] 25.9 pg *LOW* (03/20/16 11:09 AM) MCHC [32.0-36.0 32.0 g/dL g/dL] (03/20/16 11:09 AM) RDW [11.5-14.5 %] 13.3 % (03/20/16 11:09 AM) Platelet [133-450 319 K/CMM K/CMM] (03/20/16 11:09 AM) MPV [7.4-10.4 fL] 8.5 fL (03/20/16 11:09 AM) Segs [45.0-75.0 %] 60.7 % (03/20/16:09 AM) Lymphocytes 31.2 % [20.0-40.0 %] (03/20/16 11:09 AM) Monocytes [2.0-12.0 5.1 % %] (03/20/16 11:09 AM) Eosinophils [0.0-4.0 2.2 % %] (03/20/16 11:09 AM) Basophils [0.0-1.0 0.8 % %] (03/20/16 11:09 AM) Segs-Bands # 4.1 K/CMM [1.5-8.1 K/CMM] (03/20/16 11:09 AM) Lymphocytes # 2.1 K/CMM [1.0-5.5 K/CMM] (03/20/16 11:09 AM) Monocytes # [0.0-0.8 0.3 K/CMM K/CMM] (03/20/16 11:09 AM) Eosinophils # 0.2 K/CMM [0.0-0.5 K/CMM] (03/20/16 11:09 AM) Basophils # [0.0-0.2 0.1 K/CMM K/CMM] (03/20/16 11:09 AM) Immunizations No data available for this [...]
--- OUTSIDE RECORDS SUMMARY | 2018-12-08 22:28 | XMS REPORT | Summary of Care ---
Author Author [facility] Organization [facility] Address Unknown Phone Unavailable Encounter KIMBERLY Salazar(DMITRI) [id number] Date(s): 11/28/15 - 11/28/15 [facility] [address] [place] [address]- Discharge Disposition: Home Attending Physician: Elvis Jarrett DO Vital Signs Most recent to 1 2 oldest [Reference Range]: Height 162.56 cm (11/28/15 6:09 PM) Temperature Oral 98.7 DegF 98.9 DegF [96.4-99.1 DegF] (11/28/15 9:40 PM) (11/28/15 6:09 PM) Blood Pressure 134/86 mmHg 136/89 mmHg [90-140/60-90 mmHg] (11/28/15 9:40 PM) (11/28/15 6:09 PM) Respiratory Rate 18 BRMIN 18 BRMIN [14-20 BRMIN] (11/28/15 9:40 PM) (11/28/15 6:09 PM) Peripheral Pulse 90 bpm 99 bpm Rate [60-100 bpm] (11/28/15 9:40 PM) (11/28/15 6:09 PM) Weight 131.364 kg (11/28/15 6:09 PM) Body Mass Index 49.71 m2 (11/28/15 6:09 PM) Problem List Condition Effective Dates Status [...] date: 11/28/15 19:01:00, Stop date: 11/28/15 19:01:00 Start Date: 11/28/15 Stop Date: 11/28/15 Status: Completed Bentyl 10 mg oral capsule 10 mg=1 cap, PO, QID, # 28 cap, 0 Refill(s) Start Date: 11/28/15 Stop Date: 12/05/15 Status: Ordered Levsin 0.25 mg, 0.5 mL, Route: IV, Drug form: INJ, ONCE, Dosing Weight 131.364, kg, Sta rt date: 11/28/15 18:08:00, Stop date: 11/28/15 18:08:00 Notes: (Same as: Levsin) MEDICATION WASTE Product Size: 0.5 mgProduct W asted: ___ mg Start Date: 11/28/15 Stop Date: 11/28/15 Status: Completed morphine Sulfate 4 mg, 2 mL, Route: IVP, Drug form: INJ, ONCE, Dosing Weight 131.364, kg, Start d ate: 11/28/15 18:47:00, Stop date: 11/28/15 18:47:00 Notes: (Same as:MORPhine Sulfate) Start Date: 11/28/15 Stop Date: 11/28/15 Status: Completed NS (Bolus) IV 1,000 mL, 1,000 ml/hr, Infuse Over: 1 hr, Route: IV, 1,000, Drug form: INJ, ONCE , Priority: STAT, Dosing Weight 131.364 kg, Start date: 11/28/15 18:08:00, Durat ion: 1 doses or times, Stop date: 11/28/15 18:08:00 Start Date: 11/28/15 Stop Date: 11/28/15 Status: Completed Zofran 4 mg, 2 mL, Route: IVP, Drug form: INJ, ONCE, Dosing Weight 131.364, kg, Priorit y: STAT, Start date: 11/28/15 18:08:00, Stop date: 11/28/15 18:08:00 Notes: (Same as: Zofran) MEDICATION WASTE Product Size: 4 mgProduct Was ale: ___ mg Start Date: 11/28/15 Stop Date: 11/28/15 Status: Completed Zofran ODT 4 mg oral tablet, disintegrating 4 mg=1 tab, PO, BID, PRN Nausea and Vomiting, Dissolve tab under tongue, X 3 day , # 6 tab, 0 Refill(s) Start Date: 11/28/15 Stop Date: 12/01/15 Status: Ordered Results ELECTROLYTES Most recent to 1 oldest [Reference Range]: Sodium Lvl [135-145 140 mEq/L mEq/L] (11/28/15 6:45 PM) Potassium Lvl 4.0 mEq/L [3.5-5.1 mEq/L] (11/28/15 6:45 PM) Chloride Lvl [95-109 104 mEq/L mEq/L] (11/28/15 6:45 PM) CO2 [24-32 mEq/L] 30 mEq/L (11/28/15 6:45 PM) AGAP [10.0-20.0 10.0 mEq/L mEq/L] (11/28/15 6:45 PM) CHEM PANEL Most recent to 1 oldest [Reference Range]: Creatinine Lvl 0.66 mg/dL [0.50-1.40 mg/dL] (11/28/15 6:45 PM) eGFR 137 mL/min/1.73m2 1 *NA* (11/28/15 6:45 PM) BUN [7-22 mg/dL] 12 mg/dL (11/28/15 6:45 PM) B/C Ratio [6-25] 18 (11/28/15 6:45 PM) Glucose Lvl [70-99 73 mg/dL mg/dL] (11/28/15 6:45 PM) Total Protein 7.7 g/dL [6.4-8.4 g/dL] (11/28/15 6:45 PM) Albumin Lvl [3.5-5.0 3.5 g/dL g/dL] (11/28/15 6:45 PM) Globulin [2.0-4.0 4.2 g/dL g/dL] *HI* (11/28/15 6:45 PM) A/G Ratio [0.7-1.6] 0.8 (11/28/15 6:45 PM) Calcium Lvl 8.9 mg/dL [8.5-10.5 mg/dL] (11/28/15 6:45 PM) ALT [0-65 unit/L] 35 unit/L (11/28/15 6:45 PM) AST [0-37 unit/L] 16 unit/L (11/28/15 6:45 PM) Alk Phos [39-136 81 unit/L unit/L] (11/28/15 6:45 PM) Bili Total [0.2-1.3 0.2 mg/dL mg/dL] (11/28/15 6:45 PM) Lipase Lvl [73-393 134 unit/L unit/L] (11/28/15 6:45 PM) 1Result Comment: The eGFR is calculated [...] oldest [Reference Range]: U Preg [Negative] Negative (11/28/15 6:45 PM) URINE AND STOOL Most recent to 1 oldest [Reference Range]: UA Turbidity [Clear] Clear (11/28/15 6:45 PM) UA Color Ltyellow *NA* (11/28/15 6:45 PM) UA pH [5.0-8.0] 8.0 (11/28/15 6:45 PM) UA Spec Grav 1.009 [<=1.030] (11/28/15 6:45 PM) UA Glucose [Negative Negative mg/dL mg/dL] *NA* (11/28/15 6:45 PM) UA Blood [Negative] Negative (11/28/15 6:45 PM) UA Ketones [Negative Negative mg/dL mg/dL] *NA* (11/28/15 6:45 PM) UA Protein [Negative Negative mg/dL mg/dL] (11/28/15 6:45 PM) UA Urobilinogen <=1.0 mg/dL [0.1-1.0 mg/dL] *NA* (11/28/15 6:45 PM) UA Bili [Negative] Negative *NA* (11/28/15 6:45 PM) UA Leuk Est Negative [Negative] (11/28/15 6:45 PM) UA Nitrite Negative [Negative] (11/28/15 6:45 PM) UA WBC [0-5 /HPF] 1 /HPF (11/28/15 6:45 PM) UA RBC [0-2 /HPF] 1 /HPF (11/28/15 6:45 PM) UA Sq Epi [Few /LPF] Occasional /LPF *NA* (11/28/15 6:45 PM) HEMATOLOGY Most recent to 1 oldest [Reference Range]: WBC [3.7-10.4 K/CMM] 9.4 K/CMM (11/28/15 6:45 PM) RBC [4.20-5.40 5.05 M/CMM M/CMM] (11/28/15 6:45 PM) Hgb [12.0-16.0 g/dL] 13.4 g/dL (11/28/15 6:45 PM) Hct [36.0-48.0 %] 41.0 % (11/28/15 6:45 PM) MCV [80.0-98.0 fL] 81.1 fL (11/28/15 6:45 PM) MCH [27.0-31.0 pg] 26.5 pg *LOW* (11/28/15 6:45 PM) MCHC [32.0-36.0 32.6 g/dL g/dL] (11/28/15 6:45 PM) RDW [11.5-14.5 %] 12.9 % (11/28/15 6:45 PM) Platelet [133-450 277 K/CMM K/CMM] (11/28/15 6:45 PM) MPV [7.4-10.4 fL] 8.7 fL (11/28/15 6:45 PM) Segs [45.0-75.0 %] 65.4 % (11/28/15 6:45 PM) Lymphocytes 25.7 % [20.0-40.0 %] (11/28/15 6:45 PM) Monocytes [2.0-12.0 5.2 % %] (11/28/15 6:45 PM) Eosinophils [0.0-4.0 2.5 % %] (11/28/15 6:45 PM) Basophils [0.0-1.0 1.2 % %] *HI* (11/28/15 6:45 PM) Segs-Bands # 6.1 K/CMM [1.5-8.1 K/CMM] (11/28/15 6:45 PM) Lymphocytes # 2.4 K/CMM [1.0-5.5 K/CMM] (11/28/15 6:45 PM) Monocytes # [0.0-0.8 0.5 K/CMM K/CMM] (11/28/15 6:45 PM) Eosinophils # 0.2 K/CMM [0.0-0.5 K/CMM] (11/28/15 6:45 PM) Basophils # [0.0-0.2 0.1 K/CMM K/CMM] (11/28/15 6:45 PM) RBC Morph Normal (11/28/15 6:45 PM) Plt Morph Normal (11/28/15 6:45 PM) Immunizations No data available for this [...]
--- OUTSIDE RECORDS SUMMARY | 2018-12-08 22:28 | XMS REPORT ---
[facility] Address Unknown Phone Unavailable Care Team Providers Care Keyseater Operator Name Role Phone Unavailable Unavailable Payers Payer Name Policy Type Policy Number Effective Date Expiration Date Problems This patient has no known problems. Allergies, Adverse Reactions, Alerts Allergy Name Allergy Type Status Severity Reaction(s) Onset Date Inactive Date Treating Clinician Comments promethazine DA Active SV 2018-07-09 00:00:00 metoclopramide DA Active U 2018-04-15 00:00:00 ketorolac DA Active U 2018-04-15 00:00:00 Medications This patient has no known medications.
--- OUTSIDE RECORDS SUMMARY | 2018-12-08 22:28 | XMS REPORT | Summary of Care ---
Author Author [facility] Organization [facility] Address Unknown Phone Unavailable Encounter KIMBERLY Salazar(DMITRI) [id number] Date(s): 11/29/15 - 11/29/15 [facility] [address] [place] [address]- [phone] Discharge Diagnosis: Abdominal pain Discharge Disposition: Home Attending Physician: Natalia Marley MD Vital Signs Most recent to 1 2 oldest [Reference Range]: Height 165.1 cm (11/29/15 1:28 PM) Temperature Oral 98.3 DegF 98.6 DegF [96.4-99.1 DegF] (11/29/15 3:10 PM) (11/29/15 1:28 PM) Blood Pressure 108/63 mmHg 102/71 mmHg [90-140/60-90 mmHg] (11/29/15 3:10 PM) (11/29/15 1:28 PM) Respiratory Rate 18 BRMIN 20 BRMIN [14-20 BRMIN] (11/29/15 3:10 PM) (11/29/15 1:28 PM) Peripheral Pulse 81 bpm 79 bpm Rate [60-100 bpm] (11/29/15 3:10 PM) (11/29/15 1:28 PM) Weight 131.364 kg (11/29/15 1:28 PM) Body Mass Index 48.19 m2 (11/29/15 1:28 PM) Problem List Condition Effective Dates Status [...] Status penicillins Active Medications Benadryl 25 mg, 0.5 mL, Route: IVP, Drug form: INJ, ONCE, Dosing Weight 131.364, kg, Prio rity: STAT, Start date: 11/29/15 13:35:00, Stop date: 11/29/15 13:35:00 Notes: (Same as: Benadryl) Start Date: 11/29/15 Stop Date: 11/29/15 Status: Completed Bentyl 20 mg oral tablet 20 mg=1 tab, PO, QID-Before Meals, PRN Abdominal Pain, # 30 tab, 0 Refill(s) Start Date: 11/29/15 Status: Ordered ketOROLAC 30 mg, 1 mL, Route: IVP, Drug form: INJ, ONCE, Dosing Weight 131.364, kg, Priori ty: STAT, Start date: 11/29/15 13:35:00, Stop date: 11/29/15 13:35:00 Notes: (Same as:Toradol) IV bolus must be given >15 seconds. Give IM administration slowly and deeply into the muscle.Not for use > 4 days MEDICATION WASTE Product Size: 30 mgProduct Wasted: ___ mg Start Date: 11/29/15 Stop Date: 11/29/15 Status: Completed Reglan 10 mg, 2 mL, Route: IVP, Drug form: INJ, ONCE, Dosing Weight 131.364, kg, Priori ty: STAT, Start date: 11/29/15 13:35:00, Stop date: 11/29/15 13:35:00 Notes: (Same as: Reglan) Start Date: 11/29/15 Stop Date: 11/29/15 Status: Completed Sodium Chloride 0.9% (Bolus) IV 1,000 mL, 1,000 ml/hr, Infuse Over: 1 hr, Route: IV, 1,000, Drug form: INJ, ONCE , Priority: STAT, Dosing Weight 131.364 kg, Start date: 11/29/15 13:35:00, Durat ion: 1 doses or times, Stop date: 11/29/15 13:35:00 Start Date: 11/29/15 Stop Date: 11/29/15 Status: Completed Sodium Chloride 0.9% (Bolus) IV 1,000 mL, 1,000 ml/hr, Infuse Over: 1 hr, Route: IV, 1,000, Drug form: INJ, ONCE , Priority: STAT, Dosing Weight 131.364 kg, Start date: 11/29/15 13:35:00, Durat ion: 1 doses or times, Stop date: 11/29/15 13:35:00 Start Date: 11/29/15 Stop Date: 11/29/15 Status: Completed Results ELECTROLYTES Most recent to 1 oldest [Reference Range]: Sodium Lvl [135-145 138 mEq/L mEq/L] (11/29/15 2:01 PM) Potassium Lvl 4.2 mEq/L [3.5-5.1 mEq/L] (11/29/15 2:01 PM) Chloride Lvl [95-109 104 mEq/L mEq/L] (11/29/15 2:01 PM) CO2 [24-32 mEq/L] 29 mEq/L (11/29/15 2:01 PM) AGAP [10.0-20.0 9.2 mEq/L mEq/L] *LOW* (11/29/15 2:01 PM) CHEM PANEL Most recent to 1 oldest [Reference Range]: Creatinine Lvl 0.72 mg/dL [0.50-1.40 mg/dL] (11/29/15 2:01 PM) eGFR 131 mL/min/1.73m2 1 *NA* (11/29/15 2:01 PM) BUN [7-22 mg/dL] 9 mg/dL (11/29/15 2:01 PM) B/C Ratio [6-25] 12 (11/29/15 2:01 PM) Glucose Lvl [70-99 80 mg/dL mg/dL] (11/29/15 2:01 PM) Total Protein 7.4 g/dL [6.4-8.4 g/dL] (11/29/15 2:01 PM) Albumin Lvl [3.5-5.0 3.4 g/dL g/dL] *LOW* (11/29/15 2:01 PM) Globulin [2.0-4.0 4.0 g/dL g/dL] (11/29/15 2:01 PM) A/G Ratio [0.7-1.6] 0.8 (11/29/15 2:01 PM) Calcium Lvl 8.6 mg/dL [8.5-10.5 mg/dL] (11/29/15 2:01 PM) ALT [0-65 unit/L] 30 unit/L (11/29/15 2:01 PM) AST [0-37 unit/L] 19 unit/L (11/29/15 2:01 PM) Alk Phos [39-136 73 unit/L unit/L] (11/29/15 2:01 PM) Bili Total [0.2-1.3 0.6 mg/dL mg/dL] (11/29/15 2:01 PM) Lipase Lvl [73-393 93 unit/L unit/L] (11/29/15 2:01 PM) 1Result Comment: The eGFR is calculated [...] be mul tiplied by the estimated BMI. HEMATOLOGY Most recent to 1 oldest [Reference Range]: WBC [3.7-10.4 K/CMM] 7.5 K/CMM (11/29/15 2:01 PM) RBC [4.20-5.40 5.15 M/CMM M/CMM] (11/29/15 2:01 PM) Hgb [12.0-16.0 g/dL] 13.5 g/dL (11/29/15 2:01 PM) Hct [36.0-48.0 %] 41.7 % (11/29/15 2:01 PM) MCV [80.0-98.0 fL] 81.0 fL (11/29/15 2:01 PM) MCH [27.0-31.0 pg] 26.2 pg *LOW* (11/29/15 2:01 PM) MCHC [32.0-36.0 32.4 g/dL g/dL] (11/29/15 2:01 PM) RDW [11.5-14.5 %] 13.2 % (11/29/15 2:01 PM) Platelet [133-450 293 K/CMM K/CMM] (11/29/15 2:01 PM) MPV [7.4-10.4 fL] 8.9 fL (11/29/15 2:01 PM) Segs [45.0-75.0 %] 65.8 % (11/29/15 2:01 PM) Lymphocytes 25.8 % [20.0-40.0 %] (11/29/15 2:01 PM) Monocytes [2.0-12.0 4.9 % %] (11/29/15 2:01 PM) Eosinophils [0.0-4.0 2.7 % %] (11/29/15 2:01 PM) Basophils [0.0-1.0 0.8 % %] (11/29/15 2:01 PM) Segs-Bands # 5.0 K/CMM [1.5-8.1 K/CMM] (11/29/15 2:01 PM) Lymphocytes # 1.9 K/CMM [1.0-5.5 K/CMM] (11/29/15 2:01 PM) Monocytes # [0.0-0.8 0.4 K/CMM K/CMM] (11/29/15 2:01 PM) Eosinophils # 0.2 K/CMM [0.0-0.5 K/CMM] (11/29/15 2:01 PM) Basophils # [0.0-0.2 0.1 K/CMM K/CMM] (11/29/15 2:01 PM) Immunizations No data available for this [...]
[2018-12-09] MEDS ORDERED: TRAMADOL HCL 50 MG TAB PO ONE (00:45)
--- NOTE | 2018-12-09 00:58 | Diagnostic Imaging Report ---
EXAMINATION :Right lower extremity venous Doppler exam. CLINICAL INDICATION: pain COMPARISON: right DISCUSSION: Wright scale, color Doppler and spectral waveform analysis of the right lower extremity deep venous system was performed. The right common femoral, superficial femoral and popliteal veins are compressible and demonstrate normal spontaneous phasic waveforms and normal response to augmentation. No filling defects are seen. IMPRESSION: No deep venous thrombosis above the right calf. Signed by: Dr. John Gan M.D. on 12/09/2018 12:55 AM
[2018-12-09] MEDS ORDERED: DICLOFENAC POTA50 MG PO (01:45)
== END 2018-12-09 01:52 | disposition home or self-care (01) ==
LOC: FSED 22:16
DX: M79.651 Pain in right thigh (principal); M25.561 Pain in right knee; I10 Essential (primary) hypertension; J45.40 Moderate persistent asthma, uncomplicated; F17.210 Nicotine dependence, cigarettes, uncomplicated
CPT/HCPCS: 81025; 93971; 99283

== ENCOUNTER 2019-12-05 23:16 | Emergency (ER) | payer BC ==
[~2019-12-05] VITALS: Ht 165.1 cm; Wt 127.0 kg
[~2019-12-05 23:16] MED LIST changes: +DICLOFENAC POTA50 MG PO
[2019-12-05 23:55] LABS: BILIRUBIN,URINE NEGATIVE (NEGATIVE); CLARITY,URINE CLOUDY (CLEAR); COLOR,URINE YELLOW (YELLOW); KETONES,URINE NEGATIVE (NEGATIVE); LEUKOCYTE ESTERASE ,URINE NEGATIVE (NEGATIVE); NITRITE,URINE NEGATIVE (NEGATIVE); PROTEIN,URINE DIPSTICK NEGATIVE (NEGATIVE); URINE UROBILINOGEN 0.2 mg/dL (0.2 - 1)
[2019-12-05 23:56] LABS: PREGNANCY TEST, URINE POSITIVE (NEGATIVE)
[2019-12-06 00:07] LABS: BACTERIA,URINE MODERATE /HPF; EPITHELIAL CELLS,URINE MANY /LPF; RBC,URINE 0-5 /HPF (0-5); WBC,URINE (MAN) 0-5 /HPF (0-5)
--- NOTE | 2019-12-06 01:08 | Diagnostic Imaging Report ---
Transvaginal and transabdominal ultrasound CPT code: 75747, 48999 Indication: Positive test, pelvic pain, nausea Technique: Transabdominal ultrasound performed for global evaluation of the uterus. Transvaginal ultrasound performed for detailed evaluation of the endometrium and ovaries. Selected images provided for review. Comparison: None Findings: LMP: 11/05/2019 Transabdominally, the uterus measures 4.4 x 4.8 x 7.1 cm. The bladder is normal. Transvaginally, the myometrial echotexture is normal. No evidence of fibroid. The endometrial stripe measures 1.4 cm and is linear and hyperechoic and normal. No fluid in endometrial canal. No evidence of gestational sac, yolk sac, or embryo. The cervix is normal. Trace amount of free fluid in the cul-de-sac. Right ovary: Measures 2.0 x 2.1 x 2.6 cm. The echotexture is normal. No mass. Left ovary: Measures 1.2 x 1.2 x 1.9 cm. The echotexture is normal. No mass. IMPRESSION: No evidence of intrauterine or ectopic . Recommend serial beta hCGs and ultrasounds to establish trend. Signed by: Dr. Paul Castillo MD on 12/06/2019 1:05 AM
[2019-12-06 02:06] VITALS: BP 113/66
== END 2019-12-06 02:21 | disposition home or self-care (01) ==
LOC: ER 23:16
DX: O26.91 Pregnancy related conditions, unspecified, first trimester (principal); R10.2 Pelvic and perineal pain; R11.0 Nausea
CPT/HCPCS: 36415; 76801; 81001; 81025; 84702; 99284

== ENCOUNTER 2021-11-17 11:53 | Emergency (ER) | payer BC ==
[~2021-11-17] VITALS: Ht 165.1 cm; Wt 127.0 kg
[2021-11-17] MEDS ORDERED: ACETAMIN/BUTALBITAL/CAFFEINE TAB PO PRN (12:15)
[2021-11-17] MEDS ORDERED: PROCHLORPERAZINE MALEATE TAB 10 MG TAB PO PRN (12:15)
[2021-11-17] MEDS ORDERED: DIPHENHYDRAMINE HCL 25 MG CAP PO ONE (12:15)
[2021-11-17] MEDS ORDERED: SODIUM CHLORIDE 0.9% 1000ML 1,000 ML IV ONE (12:15)
[2021-11-17] MEDS ORDERED: DEXAMETHASONE SOD PHOS 10 MG/1 ML VIAL IV ONE (12:15)
[2021-11-17] MEDS ORDERED: VALPROATE SOD INJ 500 MG in SODIUM CHLORIDE 0.9% 100 ML 100 ML INJ ONE (14:00)
[2021-11-17 14:19] VITALS: BP 127/83
== END 2021-11-17 14:22 | disposition home or self-care (01) ==
LOC: ER 12:21
DX: G43.909 Migraine, unspecified, not intractable, without status migrainosus (principal); I10 Essential (primary) hypertension; J45.909 Unspecified asthma, uncomplicated; K21.9 Gastro-esophageal reflux disease without esophagitis; F41.9 Anxiety disorder, unspecified; K58.9 Irritable bowel syndrome, unspecified; F17.210 Nicotine dependence, cigarettes, uncomplicated
CPT/HCPCS: 70450; 99284; J1100; J7030

== ENCOUNTER 2022-12-12 09:15 | Emergency (ER) | payer BC, OTHER ==
[~2022-12-12] VITALS: Ht 165.1 cm; Wt 127.0 kg
[2022-12-12] MEDS ORDERED: DICYCLOMINE HCL20 MG PO (09:33)
== END 2022-12-12 09:44 | disposition home or self-care (01) ==
LOC: ER 09:32
DX: R10.30 Lower abdominal pain, unspecified (principal); R11.2 Nausea with vomiting, unspecified; I10 Essential (primary) hypertension; K21.9 Gastro-esophageal reflux disease without esophagitis; F41.9 Anxiety disorder, unspecified
CPT/HCPCS: 99283

== ENCOUNTER 2023-01-11 14:41 | Emergency (ER) | payer BC, OTHER ==
[~2023-01-11] VITALS: Ht 165.1 cm; Wt 88.5 kg
[~2023-01-11 14:41] MED LIST changes: +DICYCLOMINE HCL20 MG PO
[2023-01-11 15:50] VITALS: O2SAT 98
[2023-01-11] MEDS ORDERED: BENZONATATE100 MG PO (16:41)
[2023-01-11] MEDS ORDERED: CLARITIN10 MG PO (16:41)
[2023-01-11] MEDS ORDERED: IBUPROFEN600 MG PO (16:41)
[2023-01-11] MEDS ORDERED: FLONASE ALLERG9.9 ML INH (16:41)
== END 2023-01-11 16:56 | disposition home or self-care (01) ==
LOC: FSED 15:00
DX: R05.9 Cough, unspecified (principal); J06.9 Acute upper respiratory infection, unspecified; J01.10 Acute frontal sinusitis, unspecified; J01.00 Acute maxillary sinusitis, unspecified
CPT/HCPCS: 83518; 87400; 99282

== ENCOUNTER 2023-01-25 08:28 | Emergency (ER) | payer BC, OTHER ==
[~2023-01-25] VITALS: Ht 165.1 cm; Wt 88.5 kg
[~2023-01-25 08:28] MED LIST changes: +BENZONATATE100 MG PO; +CLARITIN10 MG PO; +FLONASE ALLERG9.9 ML INH; +IBUPROFEN600 MG PO
[2023-01-25] MEDS ORDERED: METHYLPREDNISOLONE SOD SUCC 125 MG/2ML VIAL IV STA (08:59)
[2023-01-25] MEDS ORDERED: ALBUTEROL/IPRATROPIUM 3 ML NEB NEB ONE (09:00)
[2023-01-25 09:26] LABS: BASOPHILS % 0.3 % (0.0-1.0); EOSINOPHILS # (AUTO) 0.1 (0.0-0.4); EOSINOPHILS % 0.5 % (0.0-6.0); HEMATOCRIT 37.8 % (34.2-44.1); HEMOGLOBIN 12.3 g/dL (12.0-16.0); LYMPHOCYTES # (AUTO) 2.4 (1.0-3.2); LYMPHOCYTES % 18.3 % (18.0-39.1); MEAN CORPUSCULAR HGB CONC 32.5 g/dL (31-35); MEAN CORPUSCULAR VOLUME 82.9 fL (81-99); MONOCYTES # (AUTO) 0.5 (0.2-0.8); MONOCYTES % 3.6 % (4.4-11.3); NEUTROPHILS # (AUTO) 10.1 (2.1-6.9); NEUTROPHILS % 76.8 % (38.7-80.0); PLATELET COUNT 279 x10e3/uL (140-360); RED BLOOD COUNT 4.56 x10e6/uL (3.6-5.1)
[2023-01-25 09:49] LABS: ALANINE AMINOTRANSFERASE 16 IU/L (0-55); ALBUMIN 3.6 g/dL (3.5-5.0); ALKALINE PHOSPHATASE 54 IU/L (40-150); ANION GAP 12.2 mmol/L (8-16); BLOOD UREA NITROGEN 20 mg/dL (7-26); BUN/CREATININE RATIO 26 (6-25); CALCIUM 8.9 mg/dL (8.4-10.2); CARBON DIOXIDE 25 mmol/L (22-29); CHLORIDE 107 mmol/L (98-107); CREATININE, SERUM 0.76 mg/dL (0.57-1.11); GLUCOSE 105 mg/dL (74-118); MAGNESIUM 2.1 MG/DL (1.3-2.1); POTASSIUM 3.2 mmol/L (3.5-5.1); SODIUM 141 mmol/L (136-145)
[2023-01-25 09:50] VITALS: PULSE 82; RESP 18; O2SAT 94
[2023-01-25] MEDS ORDERED: POTASSIUM CHLORIDE 20 MEQ TAB CR PO STA (09:54)
[2023-01-25] MEDS ORDERED: HYDROCODONE/APAP 5MG-325MG TAB PO ONE (10:15)
[2023-01-25] MEDS ORDERED: MEDROL4 M2 PO (10:50)
[2023-01-25] MEDS ORDERED: AZITHROMYCIN250 MG PO (10:50)
[2023-01-25 11:05] VITALS: PULSE 82; RESP 18; O2SAT 100
== END 2023-01-25 11:04 | disposition home or self-care (01) ==
LOC: ER 08:31
DX: R06.02 Shortness of breath (principal); J40 Bronchitis, not specified as acute or chronic; R05.9 Cough, unspecified; I10 Essential (primary) hypertension; E87.6 Hypokalemia; F41.9 Anxiety disorder, unspecified; K21.9 Gastro-esophageal reflux disease without esophagitis; F17.210 Nicotine dependence, cigarettes, uncomplicated
CPT/HCPCS: 36415; 71045; 80053; 83735; 84484; 84702; 85025; 93005; 94640; 94799; 99284; J2930

== ENCOUNTER 2024-07-01 14:03 | Emergency (ER) | payer BC, OTHER ==
[~2024-07-01] VITALS: Ht 162.6 cm; Wt 149.5 kg
[~2024-07-01 14:03] MED LIST changes: +AZITHROMYCIN250 MG PO; +MEDROL4 M2 PO
[2024-07-01] MEDS: ACETAMINOPHEN 325 MG TAB PO ONE (14:32)
[2024-07-01] MEDS: ONDANSETRON HCL INJ 2MG/ML 2ML 2 MG/ML VIAL IV STA (15:19)
[2024-07-01] MEDS: DEXAMETHASONE SOD PHOS INJ 4 MG/ML SDV IV ONE (15:20)
[2024-07-01] MEDS: SODIUM CHLORIDE 0.9% 1000ML 1,000 ML IV ONE (15:20)
[2024-07-01 16:54] VITALS: PULSE 115; RESP 20; TEMP 98.7; O2SAT 96
[2024-07-01] MEDS ORDERED: ONDANSETRON ODT4 MG PO (17:05)
[2024-07-01] MEDS ORDERED: ZITHROMAX250 MG PO (17:07)
== END 2024-07-01 17:20 | disposition home or self-care (01) ==
LOC: FSED 14:07
DX: R50.9 Fever, unspecified (principal); J02.8 Acute pharyngitis due to other specified organisms; R11.10 Vomiting, unspecified; I10 Essential (primary) hypertension; J45.909 Unspecified asthma, uncomplicated; K21.9 Gastro-esophageal reflux disease without esophagitis; F41.9 Anxiety disorder, unspecified; Z11.52 Encounter for screening for COVID-19
CPT/HCPCS: 0223U; 80048; 80076; 81003; 83518; 85025; 87400; 96360; 96374; 96375; 99284; J1100; J2405; J7030

== ENCOUNTER 2024-11-09 12:37 | Emergency (ER) | payer BC ==
[~2024-11-09 12:37] MED LIST changes: +ONDANSETRON ODT4 MG PO; +ZITHROMAX250 MG PO
[2024-11-09 12:40] VITALS: PULSE 94; RESP 20; TEMP 98.8
[2024-11-09] MEDS ORDERED: IBUPROFEN800 MG PO (14:29)
[2024-11-09] MEDS ORDERED: IBUPROFEN 600 MG TAB PO STA (14:32)
[2024-11-09 14:53] VITALS: BP 136/80; PULSE 70; RESP 16; O2SAT 98
== END 2024-11-09 14:47 | disposition home or self-care (01) ==
LOC: FSED 12:41
DX: S63.681A Other sprain of right thumb, initial encounter (principal); W01.0XXA Fall on same level from slipping, tripping and stumbling without subsequent striking against object, initial encounter; Y93.01 Activity, walking, marching and hiking; Y92.89 Other specified places as the place of occurrence of the external cause; I10 Essential (primary) hypertension; K21.9 Gastro-esophageal reflux disease without esophagitis; F41.9 Anxiety disorder, unspecified; Z87.19 Personal history of other diseases of the digestive system
CPT/HCPCS: 99284

== ENCOUNTER 2024-12-04 21:20 | Emergency (ER) | payer BC ==
[~2024-12-04] VITALS: Ht 157.5 cm; Wt 144.2 kg
[~2024-12-04 21:20] MED LIST changes: +IBUPROFEN800 MG PO
[2024-12-04 21:30] VITALS: TEMP 98.5
[2024-12-04 21:34] VITALS: RESP 20
[2024-12-04 22:21] VITALS: PULSE 111
[2024-12-04 22:46] VITALS: BP 134/87; PULSE 111; RESP 20; TEMP 98.7; O2SAT 96
== END 2024-12-04 22:49 | disposition home or self-care (01) ==
LOC: FSED 21:34
DX: K59.00 Constipation, unspecified (principal); R45.82 Worries; Z98.84 Bariatric surgery status; I10 Essential (primary) hypertension; K21.9 Gastro-esophageal reflux disease without esophagitis; J45.909 Unspecified asthma, uncomplicated; F41.9 Anxiety disorder, unspecified; Z87.19 Personal history of other diseases of the digestive system
CPT/HCPCS: 99283

== ENCOUNTER 2025-03-28 07:20 | Emergency (ER) | payer BC ==
[~2025-03-28] VITALS: Ht 157.5 cm; Wt 128.8 kg
[2025-03-28 07:20] VITALS: TEMP 98.2
[2025-03-28] MEDS ORDERED: CYCLOBENZAPRINE HCL 10 MG TAB ONE (08:12)
[2025-03-28] MEDS ORDERED: ONDANSETRON HCL INJ 2MG/ML 2ML 2 MG/ML VIAL ONE (08:12)
[2025-03-28] MEDS ORDERED: Morphine 2mg Syringe 2 MG/ML SYR ONE (08:12)
[2025-03-28] MEDS ORDERED: SODIUM CHLORIDE 0.9% 1000ML 1,000 ML ONE (08:13)
[2025-03-28 08:32] LABS: EST GLOMERULAR FILTRATION RATE 109.0 ML/MIN (>=60)
[2025-03-28 08:35] LABS: BASOPHILS % 0.5 % (0.0-1.0); EOSINOPHILS % 1.4 % (0.0-6.0); LYMPHOCYTES % 28.8 % (18.0-39.1); MONOCYTES % 4.8 % (4.4-11.3); NEUTROPHILS % 64.3 % (38.7-80.0); RED CELL DISTRIBUTION WIDTH 14.0 % (11.7-14.4)
[2025-03-28] MEDS: SODIUM CHLORIDE 0.9% 1000ML 1,000 ML IV ONE (08:48)
[2025-03-28] MEDS: Morphine 4mg INJECTION 4 MG/ML INJ IV ONE (08:48)
[2025-03-28] MEDS: ONDANSETRON HCL INJ 2MG/ML 2ML 2 MG/ML VIAL IV STA (08:48)
[2025-03-28] MEDS ORDERED: IOPAMIDOL 370 MG/ML 100 ML INFUS..BTL INJ ONE (08:48)
[2025-03-28] MEDS: CYCLOBENZAPRINE HCL 10 MG TAB PO ONE (08:49)
[2025-03-28 09:24] LABS: EPITHELIAL CELLS,URINE MODERATE /LPF; LEUKOCYTE ESTERASE ,URINE TRACE (NEGATIVE); PROTEIN,URINE DIPSTICK NEGATIVE (NEGATIVE); URINE UROBILINOGEN 1 mg/dL (0.2 - 1)
[2025-03-28 09:34] VITALS: PULSE 71; RESP 18; O2SAT 100
[2025-03-28] MEDS ORDERED: CYCLOBENZAPRINE10 MG PO (10:11)
== END 2025-03-28 10:39 | disposition home or self-care (01) ==
LOC: ER 07:20
DX: R10.31 Right lower quadrant pain (principal); M54.9 Dorsalgia, unspecified; R20.2 Paresthesia of skin; I10 Essential (primary) hypertension; K21.9 Gastro-esophageal reflux disease without esophagitis; F41.9 Anxiety disorder, unspecified; Z87.19 Personal history of other diseases of the digestive system; Z98.84 Bariatric surgery status
CPT/HCPCS: 36415; 72132; 74177; 80053; 81001; 83690; 85025; 87086; 99284; J2270; J2405; J7030; Q9967

== ENCOUNTER 2025-05-22 07:06 | Emergency (ER) | payer BC ==
[~2025-05-22] VITALS: Ht 165.1 cm; Wt 124.7 kg
[~2025-05-22 07:06] MED LIST changes: +CYCLOBENZAPRINE10 MG PO
[2025-05-22 07:15] VITALS: TEMP 98.5
[2025-05-22] MEDS: DEXAMETHASONE 4 MG TAB PO STA (07:43)
[2025-05-22] MEDS ORDERED: DEXAMETHASONE4 MG PO (08:09)
[2025-05-22] MEDS ORDERED: DOXYCYCLINE HY100 MG PO (08:09)
[2025-05-22 08:14] VITALS: PULSE 89; RESP 18; O2SAT 99
== END 2025-05-22 08:30 | disposition home or self-care (01) ==
LOC: ER 07:21
DX: R05.9 Cough, unspecified (principal); J45.909 Unspecified asthma, uncomplicated; I10 Essential (primary) hypertension; K21.9 Gastro-esophageal reflux disease without esophagitis; F41.9 Anxiety disorder, unspecified; Z87.19 Personal history of other diseases of the digestive system; Z98.84 Bariatric surgery status
CPT/HCPCS: 83518; 87070; 99282; J8540